=== PATIENT | male | born 1930 | race Caucasian/White ===

== ENCOUNTER 2016-06-10 08:51 | Outpatient (RCR) | payer MEDICARE, OTHER ==
--- OUTSIDE RECORDS SUMMARY | 2016-04-08 09:15 | XMS REPORT | Continuity of Care Document ---
Author Author [facility] Organization [facility] Address Unknown Phone Unavailable Care Team Providers Care Roof Foreman Name Role Phone MARCOS GALVAN MD PCP Insurance Providers Payer Name Policy Number Subscriber Name Relationship Wps Medicare [id number] Ambrosio Tovar 18 Self / Same As Patient [facility] [id number] Ambrosio Tovar 18 Self / Same As Patient Advance Directives Directive Response Recorded Date/Time Advance Directives No 11/08/15 10:58am Health Care Power of Assistant Vice President No 11/08/15 10:58am Organ Donor No 11/08/15 10:58am Problems Active Problems Medical Problem Onset Date Status Aortic stenosis Unknown Acute Lightheadedness Unknown Acute Lightheadedness Unknown Acute Nausea Unknown Acute Medications Current Home Medications Medication Dose Units Route Directions Days/Qty Instructions Start Date Aspirin 81 Mg 81 Mg Oral Daily 10/04/15 Omeprazole 20 Mg 20 Mg Oral Daily 10/04/15 Ezetimibe/Simvastatin 1 Each 1 Each Oral Daily 10/04/15 Candesartan Cilexetil 32 Mg 32 Mg Oral Daily 10/04/15 Hydrocodone/Acetaminophen 1 Each 1 Each Oral Every 4HRS as needed for Pain 35 11/20/15 Past Home Medications Medication Directions Ordered Status Omeprazole 40 Mg Capsule.dr, 40 Mg Oral Daily 09/15/14 Discontinued Simvastatin 20 Mg Tablet, 20 Mg Oral Daily 09/15/14 Discontinued Losartan Potassium 100 Mg Tablet, 100 Mg Oral Daily 09/15/14 Discontinued Amlodipine Besylate 10 Mg Tablet, 10 Mg Oral Daily 09/15/14 Discontinued Aspirin 81 Mg Tabec, 81 Mg Oral Daily 09/15/14 Discontinued Tamsulosin Hcl 0.4 Mg Cap, 0.4 Mg Oral Daily@1800 09/15/14 Discontinued Social History Social History Problem Response Recorded Date/Time Alcohol Use Rarely Uses 11/08/2015 10:59am Recreational Drug Use No 11/08/2015 10:59am Recent Foreign Travel N SEE [place] 01/01/2016 10:56am Do you dip or chew tobacco? No 10/10/2015 8:33am Hospital Discharge Instructions No hospital discharge instructions. Plan of Care Prescriptions See Medication Section Functional Status No functional status results. Allergies, Adverse Reactions, Alerts No known allergies. Immunizations No immunization records. Vital Signs No known vital signs results. Results Laboratory Results Test Name Result Units Flags Reference Collection Date/Time Result Date/ Time Comments White Blood Count 5.8 10^3/uL 4.3-11.0 03/12/2016 9:1503/12/2016 9: 21am Red Blood Count 3.51 10^6/uL L 4.35-5.85 03/12/2016 9:1503/12/2016 9: 21am Hemoglobin 11.6 G/DL L 13.3-17.7 03/12/2016 9:1503/12/2016 9:21am Hematocrit 34 % L 40-54 03/12/2016 9:03/12/2016 9:21am Mean Corpuscular Volume 97 FL 80-99 03/12/2016 9:03/12/2016 9: 21am Mean Corpuscular Hemoglobin 33 PG 25-34 03/12/2016 9:03/12/2016 9: 21am Mean Corpuscular Hemoglobin Concent 34 G/DL 32-36 03/12/2016 9:1501/2016 9:21am Red Cell Distribution Width 18.1 % H 10.0-14.5 03/12/2016 9:152015 9:21am Platelet Count 172 10^3/uL 130-400 03/12/2016 9:1503/12/2016 9:21am Mean Platelet Volume 9.6 FL 7.4-10.4 03/12/2016 9:1503/12/2016 9: 21am Neutrophils (%) (Auto) 67 % 42-75 03/12/2016 9:03/12/2016 9:21am Lymphocytes (%) (Auto) 16 % 12-44 03/12/2016 9:03/12/2016 9:21am Monocytes (%) (Auto) 13 % H 0-12 03/12/2016 9:1503/12/2016 9:21am Eosinophils (%) (Auto) 4 % 0-10 03/12/2016 9:03/12/2016 9:21am Basophils (%) (Auto) 0 % 0-10 03/12/2016 9:03/12/2016 9:21am Neutrophils # (Auto) 3.9 X 10^3 1.8-7.8 03/12/2016 9:03/12/2016 9: 21am Lymphocytes # (Auto) 0.9 X 10^3 L 1.0-4.0 03/12/2016 9:03/12/2016 9: 21am Monocytes # (Auto) 0.8 X 10^3 0.0-1.0 03/12/2016 9:03/12/2016 9: 21am Eosinophils # (Auto) 0.2 10^3/uL 0.0-0.3 03/12/2016 9:03/12/2016 9 :21am Basophils # (Auto) 0.0 10^3/uL 0.0-0.1 03/12/2016 9:03/12/2016 9: 21am Sodium Level 138 MMOL/L 135-145 03/12/2016 9:03/12/2016 9:46am Potassium Level 4.4 MMOL/L 3.6-5.0 03/12/2016 9:1503/12/2016 9:46am Chloride Level 107 MMOL/L 98-107 03/12/2016 9:03/12/2016 9:46am Carbon Dioxide Level 22 MMOL/L 21-32 03/12/2016 9:1503/12/2016 9: 46am Anion Gap 9 MMOL/L 5-14 03/12/2016 9:1503/12/2016 9:46am Blood Urea Nitrogen 22 MG/DL H 7-18 03/12/2016 9:03/12/2016 9:46am Creatinine 1.05 MG/DL 0.60-1.30 03/12/2016 9:03/12/2016 9:46am BUN/Creatinine Ratio 21 03/12/2016 9:03/12/2016 9:46am Estimat Glomerular Filtration Rate > 60 03/12/2016 9:2015 9:46am GFR INTERPRETIVE DATA UNITS FOR ESTIMATED GFR (eGFR): mL/min/1.73 M2 REFERENCE RANGE FOR ESTIMATED GFR (eGFR) eGFR NORMAL eGFR >60 MODERATELY DECREASED eGFR 30-59 SEVERLY DECREASED eGFR 15-29 KIDNEY FAILURE <15 (OR DIALYSIS) Glucose Level 125 MG/DL H 70-105 03/12/2016 9:03/12/2016 9:46am Calcium Level 9.1 MG/DL 8.5-10.1 03/12/2016 9:03/12/2016 9:46am Magnesium Level 2.1 MG/DL 1.8-2.4 03/12/2016 9:03/12/2016 9:46am Total Bilirubin 0.6 MG/DL 0.1-1.0 03/12/2016 9:03/12/2016 9:46am Alkaline Phosphatase 115 U/L 40-136 03/12/2016 9:03/12/2016 9: 46am Aspartate Amino Transf (AST/SGOT) 20 U/L 5-34 03/12/2016 9:2015 9:46am Alanine Aminotransferase (ALT/SGPT) 11 U/L 0-55 03/12/2016 9:03/12 9:46am Total Protein 7.9 G/DL 6.4-8.2 03/12/2016 9:03/12/2016 9:46am Albumin 4.1 G/DL 3.2-4.5 03/12/2016 9:03/12/2016 9:46am Procedures No known history of procedures. Encounters Encounter Location Arrival/Admit Date Discharge/Depart Date Attending Provider Discharged Recurring [facility] 03/12/16 9:07am 11:59pm STARLA GARDNER MD
[2016-04-08 09:24] LABS: BASOPHILS % (AUTO) 0 % (0-10); EOSINOPHILS # (AUTO) 0.2 10^3/uL (0.0-0.3); EOSINOPHILS % (AUTO) 3 % (0-10); LYMPHOCYTES # (AUTO) 1.1 X 10^3 (1.0-4.0); LYMPHOCYTES % (AUTO) 14 % (12-44); MEAN CORPUSCULAR HEMOGLOBIN 34 PG (25-34); MEAN CORPUSCULAR HGB CONC 34 G/DL (32-36); MEAN CORPUSCULAR VOLUME 100 FL (80-99); MONOCYTES % (AUTO) 13 % (0-12); NEUTROPHILS # (AUTO) 5.3 X 10^3 (1.8-7.8); NEUTROPHILS % (AUTO) 69 % (42-75); PLATELET COUNT 154 10^3/uL (130-400); RED BLOOD COUNT 3.63 10^6/uL (4.35-5.85); RED CELL DISTRIBUTION WIDTH 16.1 % (10.0-14.5); WHITE BLOOD COUNT 7.6 10^3/uL (4.3-11.0)
[2016-04-08 09:54] LABS: ALANINE AMINOTRANSFERASE 14 U/L (0-55); ALBUMIN 4.2 G/DL (3.2-4.5); ANION GAP 9 MMOL/L (5-14); ASPARTATE AMINO TRANSFERASE 20 U/L (5-34); BILIRUBIN,TOTAL 0.6 MG/DL (0.1-1.0); BLOOD UREA NITROGEN 23 MG/DL (7-18); BUN/CREATININE RATIO 21; CALCIUM 9.4 MG/DL (8.5-10.1); CARBON DIOXIDE 23 MMOL/L (21-32); CHLORIDE 106 MMOL/L (98-107); CREATININE SERUM 1.07 MG/DL (0.60-1.30); GFR ESTIMATED > 60; GLUCOSE 98 MG/DL (70-105); SODIUM 138 MMOL/L (135-145); TOTAL PROTEIN 7.2 G/DL (6.4-8.2)
[2016-04-29 08:55] LABS: BASOPHILS % (AUTO) 0 % (0-10); EOSINOPHILS # (AUTO) 0.3 10^3/uL (0.0-0.3); EOSINOPHILS % (AUTO) 5 % (0-10); LYMPHOCYTES # (AUTO) 1.1 X 10^3 (1.0-4.0); LYMPHOCYTES % (AUTO) 17 % (12-44); MEAN CORPUSCULAR HEMOGLOBIN 35 PG (25-34); MEAN CORPUSCULAR HGB CONC 34 G/DL (32-36); MEAN CORPUSCULAR VOLUME 101 FL (80-99); MEAN PLATELET VOLUME 9.5 FL (7.4-10.4); MONOCYTES # (AUTO) 0.8 X 10^3 (0.0-1.0); MONOCYTES % (AUTO) 12 % (0-12); NEUTROPHILS # (AUTO) 4.3 X 10^3 (1.8-7.8); NEUTROPHILS % (AUTO) 66 % (42-75); PLATELET COUNT 187 10^3/uL (130-400); RED BLOOD COUNT 3.44 10^6/uL (4.35-5.85); RED CELL DISTRIBUTION WIDTH 15.7 % (10.0-14.5); WHITE BLOOD COUNT 6.6 10^3/uL (4.3-11.0)
[2016-04-29 09:25] LABS: ALANINE AMINOTRANSFERASE 13 U/L (0-55); ANION GAP 7 MMOL/L (5-14); ASPARTATE AMINO TRANSFERASE 20 U/L (5-34); BILIRUBIN,TOTAL 0.4 MG/DL (0.1-1.0); BLOOD UREA NITROGEN 20 MG/DL (7-18); BUN/CREATININE RATIO 19; CALCIUM 8.9 MG/DL (8.5-10.1); CARBON DIOXIDE 27 MMOL/L (21-32); CHLORIDE 106 MMOL/L (98-107); CREATININE SERUM 1.04 MG/DL (0.60-1.30); GFR ESTIMATED > 60; GLUCOSE 120 MG/DL (70-105); POTASSIUM 4.5 MMOL/L (3.6-5.0); SODIUM 140 MMOL/L (135-145)
[2016-05-20 09:08] LABS: BASOPHILS % (AUTO) 0 % (0-10); EOSINOPHILS # (AUTO) 0.3 10^3/uL (0.0-0.3); EOSINOPHILS % (AUTO) 5 % (0-10); LYMPHOCYTES # (AUTO) 1.2 X 10^3 (1.0-4.0); LYMPHOCYTES % (AUTO) 17 % (12-44); MEAN CORPUSCULAR HEMOGLOBIN 35 PG (25-34); MEAN CORPUSCULAR HGB CONC 34 G/DL (32-36); MEAN CORPUSCULAR VOLUME 102 FL (80-99); MEAN PLATELET VOLUME 10.4 FL (7.4-10.4); MONOCYTES # (AUTO) 0.8 X 10^3 (0.0-1.0); MONOCYTES % (AUTO) 12 % (0-12); NEUTROPHILS # (AUTO) 4.7 X 10^3 (1.8-7.8); NEUTROPHILS % (AUTO) 66 % (42-75); PLATELET COUNT 172 10^3/uL (130-400); RED BLOOD COUNT 3.58 10^6/uL (4.35-5.85); RED CELL DISTRIBUTION WIDTH 15.6 % (10.0-14.5)
[2016-05-20 09:35] LABS: ALANINE AMINOTRANSFERASE 10 U/L (0-55); ALBUMIN 4.2 G/DL (3.2-4.5); ANION GAP 8 MMOL/L (5-14); ASPARTATE AMINO TRANSFERASE 22 U/L (5-34); BILIRUBIN,TOTAL 0.5 MG/DL (0.1-1.0); BLOOD UREA NITROGEN 21 MG/DL (7-18); BUN/CREATININE RATIO 20; CALCIUM 9.2 MG/DL (8.5-10.1); CARBON DIOXIDE 26 MMOL/L (21-32); CHLORIDE 105 MMOL/L (98-107); CREATININE SERUM 1.06 MG/DL (0.60-1.30); GFR ESTIMATED > 60; GLUCOSE 109 MG/DL (70-105); POTASSIUM 4.6 MMOL/L (3.6-5.0); SODIUM 139 MMOL/L (135-145); TOTAL PROTEIN 7.3 G/DL (6.4-8.2)
[2016-05-20 16:06] LABS: RETICULOCYTE % 2.83 % (0.50-2.40)
[2016-05-21 11:32] LABS: %SAT TOTAL IRON BINDING CAPIC 22 % (15-50); TIBC 328 ug/dL (280-380)
[2016-05-21 15:22] LABS: UIBC 257 ug/dL (55-450)
[2016-05-22 06:24] LABS: FERRITIN 141 ng/mL (25-300); HAPTOGLOBIN <30.0 mg/dL (37.0-184.0)
[~2016-06-10 08:51] MED LIST: AMLO10TA PO; ASPI-586 PO; ASPI-892 PO; CAND32TA2 PO; EZET1TAB29 PO; HYDR-3730 PO; LOSA100T7 PO; OMEP20CA6 PO; OMEP40CA36 PO; SIMV20TA3 PO; TMSL.4C PO
[2016-06-10 09:20] LABS: BASOPHILS % (AUTO) 0 % (0-10); EOSINOPHILS # (AUTO) 0.3 10^3/uL (0.0-0.3); EOSINOPHILS % (AUTO) 4 % (0-10); LYMPHOCYTES # (AUTO) 1.1 X 10^3 (1.0-4.0); LYMPHOCYTES % (AUTO) 16 % (12-44); MEAN CORPUSCULAR HEMOGLOBIN 34 PG (25-34); MEAN CORPUSCULAR HGB CONC 33 G/DL (32-36); MEAN CORPUSCULAR VOLUME 101 FL (80-99); MEAN PLATELET VOLUME 9.8 FL (7.4-10.4); MONOCYTES # (AUTO) 0.9 X 10^3 (0.0-1.0); MONOCYTES % (AUTO) 14 % (0-12); NEUTROPHILS # (AUTO) 4.4 X 10^3 (1.8-7.8); NEUTROPHILS % (AUTO) 66 % (42-75); PLATELET COUNT 172 10^3/uL (130-400); RED CELL DISTRIBUTION WIDTH 15.4 % (10.0-14.5); WHITE BLOOD COUNT 6.7 10^3/uL (4.3-11.0)
[2016-06-10 09:52] LABS: ALANINE AMINOTRANSFERASE 12 U/L (0-55); ANION GAP 5 MMOL/L (5-14); ASPARTATE AMINO TRANSFERASE 19 U/L (5-34); BILIRUBIN,TOTAL 0.5 MG/DL (0.1-1.0); BLOOD UREA NITROGEN 23 MG/DL (7-18); BUN/CREATININE RATIO 23; CALCIUM 9.3 MG/DL (8.5-10.1); CARBON DIOXIDE 26 MMOL/L (21-32); CHLORIDE 109 MMOL/L (98-107); GFR ESTIMATED > 60; GLUCOSE 108 MG/DL (70-105); POTASSIUM 4.7 MMOL/L (3.6-5.0); SODIUM 140 MMOL/L (135-145); TOTAL PROTEIN 6.9 G/DL (6.4-8.2)
== END 2016-07-07 | disposition home or self-care (01) ==
LOC: ONC 08:51
PROVIDERS: ATTEND Internal Medicine Hematology & Oncology
DX: C18.0 Malignant neoplasm of cecum (principal); D64.9 Anemia, unspecified; I10 Essential (primary) hypertension; E78.5 Hyperlipidemia, unspecified; I25.10 Atherosclerotic heart disease of native coronary artery without angina pectoris; Z87.891 Personal history of nicotine dependence; Z79.899 Other long term (current) drug therapy
CPT/HCPCS: 36415; 80053; 82378; 82728; 83010; 83540; 85025; 85045; 99213

== ENCOUNTER → 2016-07-16 | Outpatient (CLI) | payer MEDICARE, OTHER ==
[~2016-07-16] MED LIST changes: +AMLO10TA2 PO; +BARIUM SUSPENSION 2.1% (VANILLA SILQ) 450 ML PO ONE; +IOHEXOL 350 MG/ML 100 ML (OMNIPAQUE 350) VIAL IV ONE; +LOSA100T28 PO; +NS 100 ML (IVPB) BAG IV ONE; +TAMS0.4C98 PO
--- OUTSIDE RECORDS SUMMARY | 2016-07-16 10:02 | XMS REPORT | Continuity of Care Document ---
Author Author [facility] Organization [facility] Address Unknown Phone Unavailable Care Team Providers Care Adaptive Physical Education Specialist Name Role Phone MARCOS GALVAN MD PCP Insurance Providers Payer Name Policy Number Subscriber Name Relationship Wps Medicare [id number] Ambrosio Tovar 18 Self / Same As Patient [facility] [id number] Ambrosio Tovar 18 Self / Same As Patient Advance Directives Directive Response Recorded Date/Time Advance Directives No 11/08/15 10:58am Health Care Power of Venereal Disease Investigator No 11/08/15 10:58am Organ Donor No 11/08/15 [...] Discharge/Depart Date Attending Provider Discharged Recurring [facility] 03/12/16 9:07am 11:59pm STARLA GARDNER MD
--- NOTE | 2016-07-16 12:41 | Diagnostic Imaging Report ---
PROCEDURE: CT chest, abdomen, and pelvis with contrast. TECHNIQUE: Multiple contiguous axial images were obtained through the chest, abdomen, and pelvis after the administration of intravenous contrast. INDICATION: Colon cancer followup. COMPARISON: 09/26/15 100 mL of Omnipaque 350 is administered intravenously. FINDINGS: CT chest: The heart size is slightly enlarged. There are coronary artery calcifications and evidence of prior sternotomy with healing. Sternotomy wires are still present. No axillary or mediastinal or hilar lymphadenopathy of significance seen. The lungs demonstrate no significant consolidation or mass. There are minimal foci of likely atelectasis in the lung bases. Mild interlobular septal thickening in the bases is also seen, may relate to minimal vascular congestion. No significant effusion. No pneumothorax. The osseous structures demonstrate mild degenerative changes. CT abdomen and pelvis: The liver is fairly homogeneous with no focal mass. The spleen is not enlarged. The pancreas and the left adrenal gland appear unremarkable. The right adrenal gland demonstrates a tiny nodule with low attenuation suggestive of a lipid-rich adenoma measuring 1.1 cm in size stable from the previous study. The kidneys have symmetric enhancement and contrast excretion. Simple renal cysts are seen in both kidneys up to 2.2 cm in size in the upper pole of the right kidney. There are surgical clips in the gallbladder bed and there are surgical clips in the mid right abdomen. There is diverticulosis mostly involving the sigmoid and descending colon. No diverticulitis. No bowel obstruction. No significant free fluid or fluid collection in the abdomen or pelvis seen. The urinary bladder appears unremarkable. The prostate gland is 4.3 cm in transverse dimension, not significantly enlarged. The abdominal aorta is normal in caliber. No para-aortic lymphadenopathy seen. No pelvic lymphadenopathy of significance is noted. There are degenerative changes in the facet joints in the lower lumbar spine. There is a stable sclerotic lesion in the L4 vertebral body from 2011 exam compatible with benign etiology. IMPRESSION: 1. CT chest: Mild interlobular septal thickening in the lung bases may relate to minimal vascular congestion. No evidence of metastasis. 2. CT abdomen and pelvis: Diverticulosis. No diverticulitis. No evidence of metastasis. Dictated by: Dictated on workstation # [id number]
== END ==
LOC: RAD 10:00
PROVIDERS: ATTEND Internal Medicine Hematology & Oncology
DX: C18.0 Malignant neoplasm of cecum (principal); K57.30 Diverticulosis of large intestine without perforation or abscess without bleeding
CPT/HCPCS: 71260; 74177

== ENCOUNTER 2016-07-30 07:34 | Day surgery (SDC) | payer MEDICARE, OTHER ==
[2016-07-30] VITALS (10 sets, daily range): BP systolic 133–150; BP diastolic 66–88
[~2016-07-30] VITALS: Ht 172.7 cm; Wt 90.7 kg
[~2016-07-30 07:34] MED LIST changes: -AMLO10TA2 PO; -BARIUM SUSPENSION 2.1% (VANILLA SILQ) 450 ML PO ONE; -IOHEXOL 350 MG/ML 100 ML (OMNIPAQUE 350) VIAL IV ONE; -LOSA100T28 PO; -NS 100 ML (IVPB) BAG IV ONE; -TAMS0.4C98 PO
--- OUTSIDE RECORDS SUMMARY | 2016-07-30 07:37 | XMS REPORT | Continuity of Care Document ---
Author Author [facility] Organization [facility] Address Unknown Phone Unavailable Care Team Providers Care Ball Point Splitter Name Role Phone MARCOS GALVAN MD PCP Insurance Providers Payer Name Policy Number Subscriber Name Relationship Wps Medicare [id number] Ambrosio Tovar 18 Self / Same As Patient [facility] [id number] Ambrosio Tovar 18 Self / Same As Patient Advance Directives Directive Response Recorded Date/Time Advance Directives No 11/08/15 10:58am Health Care Power of Delivery Director No 11/08/15 10:58am Organ Donor No 11/08/15 [...] Discharge/Depart Date Attending Provider Discharged Recurring [facility] 03/12/16 9:07am 11:59pm STARLA GARDNER MD
--- OUTSIDE RECORDS SUMMARY | 2016-07-30 07:38 | XMS REPORT | Continuity of Care Document ---
Author Author [facility] Organization [facility] Address Unknown Phone Unavailable Care Team Providers Care Curer Acid Drum Name Role Phone MARCOS GALVAN MD PCP Insurance Providers Payer Name Policy Number Subscriber Name Relationship Wps Medicare [id number] Ambrosio Tovar 18 Self / Same As Patient [facility] [id number] Ambrosio Tovar 18 Self / Same As Patient Advance Directives Directive Response Recorded Date/Time Advance Directives No 11/08/15 10:58am Health Care Power of Publicity Agent No 11/08/15 10:58am Organ Donor No 11/08/15 [...] Discharge/Depart Date Attending Provider Discharged Recurring [facility] 03/12/16 9:07am 11:59pm STARLA GARDNER MD
[2016-07-30] MEDS ORDERED: LIDOCAINE 2% VISCOUS 15 ML UDC ONE (08:22)
[2016-07-30] MEDS ORDERED: NS IV 1000 ML 1,000 ML ONE (08:22)
[2016-07-30 09:59] LABS: MEAN PLATELET VOLUME 10.7 FL (7.4-10.4); RED BLOOD COUNT 4.12 10^6/uL (4.35-5.85); RED CELL DISTRIBUTION WIDTH 13.1 % (10.0-14.5); WHITE BLOOD COUNT 6.4 10^3/uL (4.3-11.0)
[2016-07-30 10:13] LABS: PROTHROMBIN TIME PATIENT 13.1 SEC (12.2-14.7)
--- NOTE | 2016-07-30 10:17 | Diagnostic Imaging Report ---
INDICATION: Coronary artery disease. EXAMINATION: Portable chest at 10 AM. FINDINGS: There are postop changes from a median sternotomy. The heart size and pulmonary vascularity are normal. The lungs are clear. There are no effusions or pneumothoraces. IMPRESSION: No acute abnormalities in the chest. Dictated by: Dictated on workstation # [id number]
[2016-07-30 10:20] LABS: ALANINE AMINOTRANSFERASE 15 U/L (0-55); ALBUMIN 4.4 G/DL (3.2-4.5); ANION GAP 9 MMOL/L (5-14); ASPARTATE AMINO TRANSFERASE 23 U/L (5-34); BILIRUBIN,TOTAL 0.6 MG/DL (0.1-1.0); BLOOD UREA NITROGEN 23 MG/DL (7-18); BUN/CREATININE RATIO 22; CALCIUM 9.2 MG/DL (8.5-10.1); CARBON DIOXIDE 23 MMOL/L (21-32); CHLORIDE 106 MMOL/L (98-107); CHOLESTEROL 165 MG/DL (< 200); CREATININE SERUM 1.03 MG/DL (0.60-1.30); DIRECT LDL 103 MG/DL (1-129); GFR ESTIMATED > 60; GLUCOSE 91 MG/DL (70-105); POTASSIUM 4.7 MMOL/L (3.6-5.0); SODIUM 138 MMOL/L (135-145); TOTAL PROTEIN 7.4 G/DL (6.4-8.2); TRIGLYCERIDES 135 MG/DL (<150); VLDL CHOLESTEROL 27 MG/DL (5-40)
[2016-07-30] MEDS ORDERED: fentaNYL INJECTION 100 MCG/2 ML AMP ONE (10:39)
[2016-07-30] MEDS ORDERED: MIDAZOLAM 5 MG/5 ML (VERSED) VIAL ONE (10:39)
--- NOTE | 2016-07-30 10:40 | Cardiac Procedure Note-CS/ASA ---
Pre-Procedure Note Pre-Op Procedure Note H&P Reviewed The H&P was reviewed, patient examined and no changes noted. Date H&P Reviewed: Jul 30, 2016 Time H&P Reviewed: 10:40 Conscious Sedation Pre-Proced Time Reviewed: 10:40 ASA Class: 3 Airway Mallampati Classification: ([place] appropriate class) I. II. III, IV Lungs Heart ASA score ASA 1: a normal healthy patient ASA 2: a patient with a mild systemic disease (mid diabetes, controlled hypertension, obesity X ASA 3: a patient with a severe systemic disease that limits activity (angina , COPD, prior Myocardial infarction) ASA 4: a patient with an incapacitating disease that is a constant threat to life (CHF, renal failure) ASA 5: a moribund patient not expected to survive 24 hrs. (ruptured aneurysm) ASA 6: a declared brain patient whose organs are being harvested. For emergent operations, add the letter E after the classification Grade 3 Sedation Plan: Analgesia, Amnesia, Plan communicated to team members, Discussed options with patient/fam, Discussed risks with patient/fam Note The patient is an appropriate candidate to undergo the planned procedure, sedation, and anesthesia. The patient immediately re-assessed prior to indication. MONY CLEMENTS MD Jul 30, 2016 10:40
[2016-07-30] MEDS ORDERED: TAMS0.4C98 PO ×2 (11:01)
[2016-07-30] MEDS ORDERED: SIMV20TA3 PO (11:01)
[2016-07-30] MEDS ORDERED: LOSA100T28 PO (11:01)
[2016-07-30] MEDS ORDERED: AMLO10TA2 PO (11:01)
[2016-07-30] MEDS ORDERED: NS IV 1000 ML 1,000 ML IV ONE (11:06)
[2016-07-30] MEDS ORDERED: fentaNYL INJECTION 100 MCG/2 ML AMP INJ PRN (11:15)
[2016-07-30] MEDS ORDERED: HURRICAINE EXT TUBE (BENZOCAINE) XX PRN (11:15)
[2016-07-30] MEDS ORDERED: MIDAZOLAM 5 MG/5 ML (VERSED) VIAL IV PRN (11:15)
--- NOTE | 2016-07-31 11:37 | TEE REPORT ---
DATE OF PROCEDURE: 07/30/2016 REFERRING PHYSICIAN: Dr. Jamison and Dr. Mireles BRIEF HISTORY: Mr. Murcia is an 85-year-old gentleman with history of aortic valve replacement. History of interatrial septal hypertrophy. He was scheduled for TUNDE evaluation. PROCEDURE NOTE: After explaining the procedure to the patient, all pros and cons were explained. All questions were answered. The patient signed a consent, then he was placed on the cardiac catheterization laboratory. On the left lateral decubitus position the oropharynx was anesthetized using Cetacaine spray. Omniplane probe was introduced through the mouth the esophagus and then into the stomach. Multiple views were obtained. At the end of the procedure Omniplane probe was removed. No complication noted. FINDINGS: 1. The left ventricle is normal in size with mild to moderate left ventricular hypertrophy noted diffusely. Systolic function is normal. Estimated ejection fraction 60%. 2. The left atrium is dilated. The left atrial appendage appeared to be closed. There is no clot or thrombus were seen. 3. The right atrium and right ventricle are normal in size. 4. Interatrial septum evaluation showed persistent hypertrophy that was noted on a previous TUNDE; the largest measurement was 2.3 cm, no shunt was noted. 5. Mitral valve is calcified with moderate mitral regurgitation noted by color Doppler flow. 6. Aortic valve evaluation showed tricuspid valve in the aortic position functioning normally. No significant aortic stenosis or regurgitation was seen. 7. Tricuspid valve and pulmonic valve are normal. 8. No pericardial effusion. CONCLUSION: 1. Equine valve in the aortic position, trileaflet, functioning normally with no significant abnormality, mild aortic regurgitation. 2. Mild left ventricular hypertrophy with normal systolic function. Estimated ejection fraction 60%. 3. Mild to moderate mitral regurgitation. 4. Intra-atrial septum evaluation showed hypertrophy measuring up to 2.3 cm, no significant change compared to the study of October 2005. 5. Systolic plaques were noted in the thoracic aorta. DISCUSSION AND RECOMMENDATION: The patient was referred back to Dr. Mireles for follow-up. Job ID: [id number] Dictated Date: 07/30/2016 14:13:31 Enologist Date: 07/31/2016 11:28:45/john BROWN
--- NOTE | 2016-07-31 11:40 | DISCHARGE SUMMARY ---
DATE OF PROCEDURE: 07/30/2016 REFERRING PHYSICIAN: Dr. Jamison and Dr. Mireles BRIEF HISTORY: Mr. Murcia is an 85-year-old gentleman with history of aortic valve replacement. History of interatrial septal hypertrophy. He was scheduled for TUNDE evaluation. PROCEDURE NOTE: After explaining the procedure to the patient, all pros and cons were explained. All questions were answered. The patient signed a consent, then he was placed on the cardiac catheterization laboratory. On the left lateral decubitus position the oropharynx was anesthetized using Cetacaine spray. Omniplane probe was introduced through the mouth the esophagus and then into the stomach. Multiple views were obtained. At the end of the procedure Omniplane probe was removed. No complication noted. FINDINGS: 1. The left ventricle is normal in size with mild to moderate left ventricular hypertrophy noted diffusely. Systolic function is normal. Estimated ejection fraction 60%. 2. The left atrium is dilated. The left atrial appendage appeared to be closed. There is no clot or thrombus were seen. 3. The right atrium and right ventricle are normal in size. 4. Interatrial septum evaluation showed persistent hypertrophy that was noted on a previous TUNDE; the largest measurement was 2.3 cm, no shunt was noted. 5. Mitral valve is calcified with moderate mitral regurgitation noted by color Doppler flow. 6. Aortic valve evaluation showed tricuspid valve in the aortic position functioning normally. No significant aortic stenosis or regurgitation was seen. 7. Tricuspid valve and pulmonic valve are normal. 8. No pericardial effusion. CONCLUSION: 1. Equine valve in the aortic position, trileaflet, functioning normally with no significant abnormality, mild aortic regurgitation. 2. Mild left ventricular hypertrophy with normal systolic function. Estimated ejection fraction 60%. 3. Mild to moderate mitral regurgitation. 4. Intra-atrial septum evaluation showed hypertrophy measuring up to 2.3 cm, no significant change compared to the study of October 2005. 5. Systolic plaques were noted in the thoracic aorta. DISCUSSION AND RECOMMENDATION: The patient was referred back to Dr. Mireles for follow-up. FINAL DIAGNOSIS: 1. Aortic valve replacement. 2. Hypertension. 3. Hyperlipidemia. Job ID: [id number] Dictated Date: 07/30/2016 14:13:31 Tester Operator Date: 07/31/2016 11:37:04/john BROWN
== END 2016-07-30 13:02 | disposition home or self-care (01) ==
LOC: CATH 07:34 → SURG 11:40 → CATH 13:02
PROVIDERS: ATTEND Internal Medicine Cardiovascular Disease
DX: Z48.812 Encounter for surgical aftercare following surgery on the circulatory system (principal); Z95.2 Presence of prosthetic heart valve; I34.0 Nonrheumatic mitral (valve) insufficiency; I25.10 Atherosclerotic heart disease of native coronary artery without angina pectoris; I10 Essential (primary) hypertension; E78.5 Hyperlipidemia, unspecified; I51.7 Cardiomegaly; Z79.899 Other long term (current) drug therapy; Z95.1 Presence of aortocoronary bypass graft
CPT/HCPCS: 36415; 71010; 80053; 80061; 85027; 85610; 85730; 87081; 93005; 93312; 93325

== ENCOUNTER 2016-07-31 09:16 | Outpatient (RCR) | payer MEDICARE, OTHER ==
--- OUTSIDE RECORDS SUMMARY | 2016-07-23 09:14 | XMS REPORT | Continuity of Care Document ---
Author Author [facility] Organization [facility] Address Unknown Phone Unavailable Care Team Providers Care Lens Finisher Name Role Phone MARCOS GALVAN MD PCP Insurance Providers Payer Name Policy Number Subscriber Name Relationship Wps Medicare [id number] Ambrosio Tovar 18 Self / Same As Patient [facility] [id number] Ambrosio Tovar 18 Self / Same As Patient Advance Directives Directive Response Recorded Date/Time Advance Directives No 11/08/15 10:58am Health Care Power of Sheriff Detective No 11/08/15 10:58am Organ Donor No 11/08/15 [...] Discharge/Depart Date Attending Provider Discharged Recurring [facility] 03/12/16 9:07am 11:59pm STARLA GARDNER MD
[2016-07-23 09:32] LABS: BASOPHILS % (AUTO) 0 % (0-10); EOSINOPHILS # (AUTO) 0.2 10^3/uL (0.0-0.3); EOSINOPHILS % (AUTO) 4 % (0-10); LYMPHOCYTES # (AUTO) 0.8 X 10^3 (1.0-4.0); LYMPHOCYTES % (AUTO) 12 % (12-44); MEAN CORPUSCULAR HEMOGLOBIN 33 PG (25-34); MEAN CORPUSCULAR HGB CONC 33 G/DL (32-36); MEAN CORPUSCULAR VOLUME 99 FL (80-99); MEAN PLATELET VOLUME 10.2 FL (7.4-10.4); MONOCYTES # (AUTO) 0.7 X 10^3 (0.0-1.0); MONOCYTES % (AUTO) 11 % (0-12); NEUTROPHILS # (AUTO) 4.5 X 10^3 (1.8-7.8); NEUTROPHILS % (AUTO) 73 % (42-75); PLATELET COUNT 173 10^3/uL (130-400); RED BLOOD COUNT 3.74 10^6/uL (4.35-5.85); RED CELL DISTRIBUTION WIDTH 13.7 % (10.0-14.5); RETICULOCYTE % 1.44 % (0.50-2.40); WHITE BLOOD COUNT 6.2 10^3/uL (4.3-11.0)
[2016-07-23 10:01] LABS: ALANINE AMINOTRANSFERASE 12 U/L (0-55); ALBUMIN 4.1 G/DL (3.2-4.5); ANION GAP 8 MMOL/L (5-14); ASPARTATE AMINO TRANSFERASE 21 U/L (5-34); BILIRUBIN,TOTAL 0.5 MG/DL (0.1-1.0); BLOOD UREA NITROGEN 28 MG/DL (7-18); BUN/CREATININE RATIO 26; CALCIUM 9.2 MG/DL (8.5-10.1); CARBON DIOXIDE 22 MMOL/L (21-32); CHLORIDE 108 MMOL/L (98-107); CREATININE SERUM 1.07 MG/DL (0.60-1.30); GFR ESTIMATED > 60; GLUCOSE 99 MG/DL (70-105); LACTATE DEHYDROGENASE 368 U/L (125-220); POTASSIUM 4.7 MMOL/L (3.6-5.0); SODIUM 138 MMOL/L (135-145); TOTAL PROTEIN 7.1 G/DL (6.4-8.2)
[2016-07-23 11:46] LABS: %SAT TOTAL IRON BINDING CAPIC 19 % (15-50); TIBC 300 ug/dL (280-380)
[2016-07-23 15:42] LABS: UIBC 244 ug/dL (55-450)
[2016-07-24 07:49] LABS: FERRITIN 132 ng/mL (25-300); HAPTOGLOBIN <30.0 mg/dL (37.0-184.0)
[~2016-07-31 09:16] MED LIST changes: +AMLO10TA2 PO; +LOSA100T28 PO; +TAMS0.4C98 PO
== END 2016-10-21 | disposition home or self-care (01) ==
LOC: ONC 09:16
PROVIDERS: ATTEND Internal Medicine Hematology & Oncology
DX: C18.0 Malignant neoplasm of cecum (principal); D64.9 Anemia, unspecified; I10 Essential (primary) hypertension; E78.5 Hyperlipidemia, unspecified; I25.10 Atherosclerotic heart disease of native coronary artery without angina pectoris; Z87.891 Personal history of nicotine dependence; Z79.899 Other long term (current) drug therapy
CPT/HCPCS: 36415; 80053; 82378; 82728; 83010; 83540; 83615; 85025; 85045; 99213

== ENCOUNTER → 2016-08-06 | Outpatient (CLI) | payer MEDICARE, OTHER ==
--- OUTSIDE RECORDS SUMMARY | 2016-08-06 16:23 | XMS REPORT | Continuity of Care Document ---
Author Author [facility] Organization [facility] Address Unknown Phone Unavailable Care Team Providers Care Store Grocery Merchandiser Name Role Phone MARCOS GALVAN MD PCP Insurance Providers Payer Name Policy Number Subscriber Name Relationship Wps Medicare [id number] Ambrosio Tovar 18 Self / Same As Patient [facility] [id number] Ambrosio Tovar 18 Self / Same As Patient Advance Directives Directive Response Recorded Date/Time Advance Directives No 11/08/15 10:58am Health Care Power of Automotive Production Worker No 11/08/15 10:58am Organ Donor No 11/08/15 [...] Discharge/Depart Date Attending Provider Discharged Recurring [facility] 03/12/16 9:07am 11:59pm STARLA GARDNER MD
--- NOTE | 2016-08-06 16:59 | Diagnostic Imaging Report ---
INDICATION: COUGH, DYSPNEA COMPARISON: CT chest dated 07/16/2016. FINDINGS: Frontal and lateral views of the chest demonstrate normal heart size and pulmonary vascularity. The lungs are hyperinflated, but are otherwise clear. There are no signs of infiltrate, pleural effusions or pneumothoraces. The visualized osseous structures show no acute abnormalities. Sternotomy wires are noted, as is calcified aortic atherosclerosis. IMPRESSION: 1. No acute process. No signs of infiltrates, effusions or pneumothoraces. 2. Background of COPD. Dictated by: Dictated on workstation # [id number]
== END ==
LOC: RAD 16:20
PROVIDERS: ATTEND Internal Medicine
DX: J44.9 Chronic obstructive pulmonary disease, unspecified (principal)
CPT/HCPCS: 71020

== ENCOUNTER → 2016-08-20 | Outpatient (CLI) | payer MEDICARE, OTHER ==
[~2016-08-20] MED LIST changes: +RT-ALBUTEROL SULF 2.5 MG/3 ML PRE-MIX VIAL INH ONE
--- OUTSIDE RECORDS SUMMARY | 2016-08-20 08:16 | XMS REPORT | Continuity of Care Document ---
Author Author [facility] Organization [facility] Address Unknown Phone Unavailable Care Team Providers Care Wood Boatbuilder Name Role Phone MARCOS GALVAN MD PCP Insurance Providers Payer Name Policy Number Subscriber Name Relationship Wps Medicare [id number] Ambrosio Tovar 18 Self / Same As Patient [facility] [id number] Ambrosio Tovar 18 Self / Same As Patient Advance Directives Directive Response Recorded Date/Time Advance Directives No 11/08/15 10:58am Health Care Power of Senior Stereo Compiler Team Lead No 11/08/15 10:58am Organ Donor No 11/08/15 [...] Discharge/Depart Date Attending Provider Discharged Recurring [facility] 03/12/16 9:07am 11:59pm STARLA GARDNER MD
== END ==
LOC: RT 08:11
PROVIDERS: ATTEND Internal Medicine
DX: J44.9 Chronic obstructive pulmonary disease, unspecified (principal)
CPT/HCPCS: 94060; 94640; 94726; 94729

== ENCOUNTER 2016-11-20 08:44 | Outpatient (RCR) | payer MEDICARE, OTHER ==
[~2016-11-20 08:44] MED LIST changes: -RT-ALBUTEROL SULF 2.5 MG/3 ML PRE-MIX VIAL INH ONE
[2016-11-20 08:55] LABS: BASOPHILS % (AUTO) 1 % (0-10); EOSINOPHILS # (AUTO) 0.3 10^3/uL (0.0-0.3); EOSINOPHILS % (AUTO) 4 % (0-10); LYMPHOCYTES # (AUTO) 0.9 X 10^3 (1.0-4.0); LYMPHOCYTES % (AUTO) 14 % (12-44); MEAN CORPUSCULAR HEMOGLOBIN 30 PG (25-34); MEAN CORPUSCULAR HGB CONC 33 G/DL (32-36); MEAN CORPUSCULAR VOLUME 91 FL (80-99); MEAN PLATELET VOLUME 10.6 FL (7.4-10.4); MONOCYTES # (AUTO) 0.8 X 10^3 (0.0-1.0); MONOCYTES % (AUTO) 12 % (0-12); NEUTROPHILS # (AUTO) 4.7 X 10^3 (1.8-7.8); NEUTROPHILS % (AUTO) 70 % (42-75); PLATELET COUNT 204 10^3/uL (130-400); RED BLOOD COUNT 4.17 10^6/uL (4.35-5.85); RED CELL DISTRIBUTION WIDTH 13.1 % (10.0-14.5); RETICULOCYTE % 1.46 % (0.50-2.40); WHITE BLOOD COUNT 6.8 10^3/uL (4.3-11.0)
[2016-11-20 09:15] LABS: ALANINE AMINOTRANSFERASE 14 U/L (0-55); ALBUMIN 3.9 G/DL (3.2-4.5); ANION GAP 6 MMOL/L (5-14); ASPARTATE AMINO TRANSFERASE 22 U/L (5-34); BILIRUBIN,TOTAL 0.3 MG/DL (0.1-1.0); BLOOD UREA NITROGEN 24 MG/DL (7-18); BUN/CREATININE RATIO 25; CALCIUM 9.4 MG/DL (8.5-10.1); CARBON DIOXIDE 26 MMOL/L (21-32); CHLORIDE 104 MMOL/L (98-107); CREATININE SERUM 0.97 MG/DL (0.60-1.30); GFR ESTIMATED > 60; GLUCOSE 109 MG/DL (70-105); LACTATE DEHYDROGENASE 404 U/L (125-220); POTASSIUM 4.4 MMOL/L (3.6-5.0); SODIUM 136 MMOL/L (135-145)
[2016-11-20 11:30] LABS: %SAT TOTAL IRON BINDING CAPIC 25 % (15-50); TIBC 260 ug/dL (280-380)
[2016-11-20 16:17] LABS: UIBC 194 ug/dL
[2016-11-21 10:06] LABS: HAPTOGLOBIN <30.0 mg/dL (37.0-184.0)
== END 2017-02-18 | disposition home or self-care (01) ==
LOC: ONC 08:44
PROVIDERS: ATTEND Internal Medicine Hematology & Oncology
DX: C18.0 Malignant neoplasm of cecum (principal); D64.9 Anemia, unspecified; I10 Essential (primary) hypertension; E78.5 Hyperlipidemia, unspecified; I25.10 Atherosclerotic heart disease of native coronary artery without angina pectoris; Z87.891 Personal history of nicotine dependence; Z79.899 Other long term (current) drug therapy
CPT/HCPCS: 36415; 80053; 82378; 82728; 83010; 83540; 83615; 85025; 85045; 99213

== ENCOUNTER → 2017-03-13 | Outpatient (CLI) | payer MEDICARE, OTHER ==
[~2017-03-13] MED LIST changes: +BARIUM SUSPENSION 2.1% (VANILLA SILQ) 450 ML PO ONE; +CATHETER FLUSH 10 ML SYR IV PRN; +IOHEXOL 350 MG/ML 100 ML (OMNIPAQUE 350) VIAL IV ONE; +NS 100 ML (IVPB) BAG IV ONE
--- NOTE | 2017-03-13 14:19 | Diagnostic Imaging Report ---
PROCEDURE: CT abdomen and pelvis with and without contrast. TECHNIQUE: Precontrast acquisitions were acquired through the abdomen and pelvis. Multiple contiguous axial images were obtained through the abdomen and pelvis after the administration of intravenous contrast. INDICATION: History of cecal cancer. Exam compared 07/16/2016. FINDINGS: There is extensive noninflamed distal colonic and sigmoidal diverticulosis. There are postoperative changes in the right abdomen and residual large bowel unremarkable and nonacute. No obstruction. No perforation or abscess. The liver unremarkable. The gallbladder absent. There is renal cortical cyst with no hydronephrosis or solid renal mass. Spleen is negative. There is no mesenteric or retroperitoneal adenopathy. There is no ascites, abscess, hematoma or other fluid collection. IMPRESSION: Negative liver. No visualized adenopathy, mass or obstruction. Benign renal cyst and noninflamed diverticular disease. No acute pathology or change from prior. Dictated by: Dictated on workstation # [id number]
== END ==
LOC: RAD 10:40
PROVIDERS: ATTEND Internal Medicine Hematology & Oncology
DX: K57.30 Diverticulosis of large intestine without perforation or abscess without bleeding (principal); N28.1 Cyst of kidney, acquired; D59.4 Other nonautoimmune hemolytic anemias; C18.0 Malignant neoplasm of cecum
CPT/HCPCS: 74178

== ENCOUNTER 2017-03-26 09:03 | Outpatient (RCR) | payer MEDICARE, OTHER ==
[2017-03-13 10:47] LABS: BASOPHILS % (AUTO) 0 % (0-10); EOSINOPHILS # (AUTO) 0.2 10^3/uL (0.0-0.3); EOSINOPHILS % (AUTO) 3 % (0-10); LYMPHOCYTES % (AUTO) 15 % (12-44); MEAN CORPUSCULAR HEMOGLOBIN 30 PG (25-34); MEAN CORPUSCULAR HGB CONC 33 G/DL (32-36); MEAN CORPUSCULAR VOLUME 91 FL (80-99); MEAN PLATELET VOLUME 10.7 FL (7.4-10.4); MONOCYTES # (AUTO) 0.7 X 10^3 (0.0-1.0); MONOCYTES % (AUTO) 11 % (0-12); NEUTROPHILS # (AUTO) 4.7 X 10^3 (1.8-7.8); NEUTROPHILS % (AUTO) 71 % (42-75); PLATELET COUNT 207 10^3/uL (130-400); RED BLOOD COUNT 4.09 10^6/uL (4.35-5.85); RED CELL DISTRIBUTION WIDTH 13.4 % (10.0-14.5); RETICULOCYTE % 1.23 % (0.50-2.40); WHITE BLOOD COUNT 6.7 10^3/uL (4.3-11.0)
[2017-03-13 10:59] LABS: ALANINE AMINOTRANSFERASE 15 U/L (0-55); ALBUMIN 4.2 GM/DL (3.2-4.5); ANION GAP 9 MMOL/L (5-14); ASPARTATE AMINO TRANSFERASE 24 U/L (5-34); BILIRUBIN,TOTAL 0.5 MG/DL (0.1-1.0); BLOOD UREA NITROGEN 26 MG/DL (7-18); BUN/CREATININE RATIO 25; CALCIUM 9.3 MG/DL (8.5-10.1); CARBON DIOXIDE 23 MMOL/L (21-32); CHLORIDE 105 MMOL/L (98-107); CREATININE SERUM 1.02 MG/DL (0.60-1.30); GFR ESTIMATED > 60; GLUCOSE 94 MG/DL (70-105); POTASSIUM 4.4 MMOL/L (3.6-5.0); SODIUM 137 MMOL/L (135-145); TOTAL PROTEIN 7.5 GM/DL (6.4-8.2)
[2017-03-13 14:12] LABS: %SAT TOTAL IRON BINDING CAPIC 25 % (15-50); TIBC 264 ug/dL (280-380)
[2017-03-13 14:39] LABS: UIBC 197 ug/dL (55-450)
[2017-03-16 07:55] LABS: HAPTOGLOBIN <30.0 mg/dL (37.0-184.0)
[~2017-03-26 09:03] MED LIST changes: -BARIUM SUSPENSION 2.1% (VANILLA SILQ) 450 ML PO ONE; -CATHETER FLUSH 10 ML SYR IV PRN; -IOHEXOL 350 MG/ML 100 ML (OMNIPAQUE 350) VIAL IV ONE; -NS 100 ML (IVPB) BAG IV ONE
== END 2017-04-04 | disposition home or self-care (01) ==
LOC: ONC 09:03
PROVIDERS: ATTEND Internal Medicine Hematology & Oncology
DX: C18.0 Malignant neoplasm of cecum (principal); D64.9 Anemia, unspecified; I10 Essential (primary) hypertension; E78.5 Hyperlipidemia, unspecified; I25.10 Atherosclerotic heart disease of native coronary artery without angina pectoris; Z87.891 Personal history of nicotine dependence; Z79.899 Other long term (current) drug therapy
CPT/HCPCS: 36415; 80053; 82378; 82728; 83010; 83540; 85025; 85045; 99213

== ENCOUNTER 2017-06-18 12:42 | Outpatient (CLI) | payer MEDICARE, OTHER ==
[~2017-06-18] VITALS: Ht 172.7 cm; Wt 90.7 kg
[2017-06-18] MEDS ORDERED: ATEN25TA PO (12:55)
[2017-06-18] MEDS ORDERED: LOSA50TA36 PO (12:55)
== END 2017-06-18 12:57 ==
LOC: PREOP 12:42
PROVIDERS: ATTEND Surgery
DX: Z01.818 Encounter for other preprocedural examination (principal); Z85.038 Personal history of other malignant neoplasm of large intestine; R19.5 Other fecal abnormalities

== ENCOUNTER 2017-06-24 08:47 | Day surgery (SDC) | payer MEDICARE, OTHER ==
[~2017-06-24] VITALS: Ht 172.7 cm; Wt 90.7 kg
[~2017-06-24 08:47] MED LIST changes: +ATEN25TA PO; +LOSA50TA36 PO
[2017-06-24] MEDS ORDERED: NS IV 500 ML 500 ML ONE (08:51)
[2017-06-24] MEDS ORDERED: NS IV 500 ML 500 ML IV PRN (08:54)
[2017-06-24 08:56] VITALS: BP 140/64
[2017-06-24] MEDS ORDERED: HURRICAINE EXT TUBE (BENZOCAINE) XX PRN (09:00)
[2017-06-24] MEDS ORDERED: LIDOCAINE JELLY 2% (XYLOCAINE) 5 ML TUBE MM PRN (09:00)
[2017-06-24] MEDS ORDERED: LIDOCAINE JELLY 2% (XYLOCAINE) 5 ML TUBE ONE (10:05)
[2017-06-24] MEDS ORDERED: fentaNYL INJECTION 100 MCG/2 ML AMP ONE (10:05)
[2017-06-24] MEDS ORDERED: MIDAZOLAM 2 MG/2 ML (VERSED) VIAL ONE ×3 (10:05)
--- NOTE | 2017-06-24 10:28 | Conscious Sedation/ASA ---
Conscious Sedation Pre-Proced Time Reviewed: 10:00 ASA Class: 3 Airway Mallampati Classification: ([place] appropriate class) I. II. III, IV Lungs Heart ASA score ASA 1: a normal healthy patient ASA 2: a patient with a mild systemic disease (mid diabetes, controlled hypertension, obesity ASA 3: a patient with a severe systemic disease that limits activity (angina , COPD, prior Myocardial infarction) ASA 4: a patient with an incapacitating disease that is a constant threat to life (CHF, renal failure) ASA 5: a moribund patient not expected to survive 24 hrs. (ruptured aneurysm) ASA 6: a declared brain patient whose organs are being harvested. For emergent operations, add the letter E after the classification Grade 2 Sedation Plan: Analgesia, Amnesia, Plan communicated to team members, Discussed options with patient/fam, Discussed risks with patient/fam Note The patient is an appropriate candidate to undergo the planned procedure, sedation, and anesthesia. The patient immediately re-assessed prior to indication. DRISS WILSON MD Jun 24, 2017 10:28 am
--- NOTE | 2017-06-24 10:28 | Progress Note-Pre Operative ---
Pre-Operative Progress Note H&P Reviewed The H&P was reviewed, patient examined and no changes noted. Date Seen by Provider: Jun 24, 2017 Time Seen by Provider: 10:00 Date H&P Reviewed: Jun 24, 2017 Time H&P Reviewed: 10:00 Pre-Operative Diagnosis: hx colon ca DRISS WILSON MD Jun 24, 2017 10:28 am
[2017-06-24] MEDS ORDERED: morphine INJ 10 MG/ML 1ML (SYR OR VIAL) IV PRN (10:30)
[2017-06-24] MEDS ORDERED: ONDANSETRON 4 MG/2 ML (SDV) Z0FRAN IV PRN (10:30)
[2017-06-24] MEDS ORDERED: HYDROcodone/APAP 5 MG/325 MG (LORTAB) TAB PO PRN (10:30)
[2017-06-24] MEDS ORDERED: ACETAMINOPHEN 325 MG TABLET/CAPLET (TYLENOL) PO PRN (10:30)
[2017-06-24] MEDS: MIDAZOLAM 2 MG/2 ML (VERSED) VIAL IVP PRN ×2 (10:35→10:38)
[2017-06-24] MEDS: fentaNYL INJECTION 100 MCG/2 ML AMP IVP PRN ×2 (10:36→10:39)
--- NOTE | 2017-06-24 11:04 | Progress Note-Post Operative ---
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 Procedure & Operative Findings Date of Procedure 06/24/17 Procedure Performed/Findings Colonoscopy Anesthesia Type CS Estimated Blood Loss Estimated blood loss (mL): minimal Specimens/Packing Specimens Removed none DRISS WILSON MD Jun 24, 2017 11:04 am
[2017-06-24 11:05] VITALS: BP 112/79
--- NOTE | 2017-06-24 11:06 | Discharge Inst-Surgical ---
D/C Lap Instructions-STEVE Follow Up 1 year Activity as tolerated High Fiber Diet 25g or more per day Avoid Alcohol, Caffeine, Spicy [place] and Acid foods. Drink 64 fluid oz or more of fluids per day. Symptoms to Report: Fever over 101 degree F, Nausea/Vomiting If any problems/questions: Contact your physician or go to Emergency Room DRISS WILSON MD Jun 24, 2017 11:06 am
[2017-06-24 11:45] VITALS: BP 139/69
--- NOTE | 2017-06-24 20:19 | OPERATIVE REPORT ---
DATE OF SERVICE: 06/24/2017 ATTENDING PRIMARY CARE PHYSICIAN: Edison Jamison M.D. PREOPERATIVE DIAGNOSIS: History of colon cancer of cecum. POSTOPERATIVE DIAGNOSES: Chronic stage II external and internal hemorrhoids, moderate- to-severe sigmoid diverticulosis. PROCEDURE: Colonoscopy. SURGEON: Driss Wilson M.D. ANESTHESIA: Conscious sedation. ESTIMATED BLOOD LOSS: Minimal. FINDINGS: Chronic stage II external and internal hemorrhoids, not actively edematous nor inflamed and no bleeding. Prostate gland was palpable and appeared normal. There was a moderate to severe sigmoid diverticulosis with no inflammatory changes to indicate any active diverticulitis. The remainder of the colon was normal. DISPOSITION: The patient tolerated the procedure well. INDICATIONS: The patient is an 86-year-old male who was found to have a cecal polyp 4 x 3 mm in size and sessile. No biopsies were taken, however, this was benign by pathology. He was found to be anemic and he did have an episode of rectal bleeding 05/2015. A followup colonoscopy was performed, which detected the same polyp, which was larger in size. 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 On 11/08/2015, he underwent a laparoscopic right hemicolectomy as well as a laparoscopic cholecystectomy. At this time, he states that he is doing well and is in need of a followup colonoscopy. DESCRIPTION OF PROCEDURE: The patient was brought to the endoscopy suite, laid in the left lateral decubitus position. After adequate IV pain and sedating medications and conscious sedation anesthesia, a digital rectal examination was performed. Mild chronic stage II external and internal hemorrhoids were identified, which were not actively edematous nor inflamed and no bleeding. Normal sphincter tone was felt and there were no palpable masses. Prostate gland was palpable and appeared normal. The endoscope was then intubated into the anus and rectum gently insufflated. The endoscope was then advanced through the valves of Patel of the rectum with no polyps or any neoplasms identified. The endoscope was then advanced through the sigmoid colon where moderate to severe sigmoid diverticulosis identified. There were no mucosal inflammatory changes to indicate any active diverticulitis. The endoscope was then advanced to the remainder of the descending and transverse colon to the ileocolonic anastomosis, which appeared normal. The endoscope was slowly withdrawn while taking a second look and suctioning of residual air with no additional findings. The patient tolerated the procedure well. We will continue him on medical management with a high fiber diet with at least 30 grams of fiber per day as well as at least 64 fluid ounces of water daily to promote soft stools on a daily basis. We will have him follow up in approximately 1 year later for a followup colonoscopy. Job ID: [id number] DocumentID: [id number] Dictated Date: 06/24/2017 11:00:34 [employer] Date: 06/24/2017 20:17:45 Dictated By: DRISS WILSON MD MTDHollis
== END 2017-06-24 11:45 | disposition home or self-care (01) ==
LOC: ENDO 08:47
PROVIDERS: ATTEND Surgery
DX: K57.30 Diverticulosis of large intestine without perforation or abscess without bleeding (principal); K64.1 Second degree hemorrhoids; Z85.038 Personal history of other malignant neoplasm of large intestine; Z87.891 Personal history of nicotine dependence; Z80.3 Family history of malignant neoplasm of breast; Z79.82 Long term (current) use of aspirin; Z79.899 Other long term (current) drug therapy; Z95.1 Presence of aortocoronary bypass graft; Z95.2 Presence of prosthetic heart valve; I25.10 Atherosclerotic heart disease of native coronary artery without angina pectoris; I10 Essential (primary) hypertension; N40.0 Benign prostatic hyperplasia without lower urinary tract symptoms

== ENCOUNTER 2017-12-31 08:15 | Outpatient (RCR) | payer MEDICARE, OTHER ==
[~2017-12-31 08:15] MED LIST changes: -AMLO10TA2 PO; +AMLO10TA6 PO; -LOSA100T28 PO; +LOSA100T8 PO; -LOSA50TA36 PO; +LOSA50TA7 PO
[2018-03-22] MEDS ORDERED: METO-387 PO (08:20)
[2018-03-22] MEDS ORDERED: AMLO5TAB7 PO (08:20)
[2018-03-22] MEDS ORDERED: TAMS0.4C2 PO (08:20)
[2018-03-22] MEDS ORDERED: CYCL1DRO OU (08:21)
[2018-03-22] MEDS ORDERED: MULT-52 PO (08:21)
[2018-03-22] MEDS ORDERED: BETA1TAB15 PO (08:21)
[2018-03-22] MEDS ORDERED: LOSA100T8 PO (08:33)
[2018-04-06] MEDS ORDERED: FURO40TA4 PO (15:21)
[2018-04-06] MEDS ORDERED: Zolpidem Tartrate PO (15:21)
[2018-04-06] MEDS ORDERED: CLOP75TA28 PO (15:21)
== END 2018-03-31 | disposition home or self-care (01) ==
LOC: ONC 08:15
PROVIDERS: ATTEND Internal Medicine Hematology & Oncology
DX: C18.0 Malignant neoplasm of cecum (principal); D64.9 Anemia, unspecified; I10 Essential (primary) hypertension; E78.5 Hyperlipidemia, unspecified; I25.10 Atherosclerotic heart disease of native coronary artery without angina pectoris; Z87.891 Personal history of nicotine dependence; Z79.899 Other long term (current) drug therapy
CPT/HCPCS: 36415; 82378; 83010; 83615; 99213

== ENCOUNTER 2018-03-21 08:08 | Inpatient (IN) | payer MEDICARE, OTHER ==
[~2018-03-21] VITALS: Ht 172.7 cm; Wt 89.4 kg
--- OUTSIDE RECORDS SUMMARY | 2018-03-21 08:18 | XMS REPORT | Continuity of Care Document ---
Author Author [facility] Organization [facility] Address Unknown Phone Unavailable Allergies Active Description Code Type Severity Reaction Onset Reported/Identified Relationship to Patient Clinical Status Yes No Known Drug Allergies [id number] Drug Allergy Unknown N/A 10/10/2015 Medications There is no data. 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 10/01/2014 PRIYA VILLATORO MD Ot V45.81 AORTOCORONARY BYPASS 10/01/2014 IRVING JONES, PRIYA Chadwick Ot V58.69 OTH MED,LT,CURRENT USE 10/03/2014 Ot 211.3 10/03/2014 Ot 455.0 10/03/2014 Ot 455.3 10/03/2014 Ot 562.10 10/03/2014 Ot V76.51 10/05/2014 Ot 211.3 10/05/2014 Ot 455.0 10/05/2014 Ot 455.3 10/05/2014 Ot 562.10 10/05/2014 Ot V76.51 10/06/2014 Ot 211.3 10/06/2014 Ot 455.0 10/06/2014 Ot 455.3 10/06/2014 Ot 562.10 10/06/2014 Ot V76.51 10/27/2014 Ot 211.3 10/27/2014 Ot 455.0 10/27/2014 Ot 455.3 10/27/2014 Ot 562.10 10/27/2014 Ot V76.51 09/26/2015 Ot 786.50 09/26/2015 Ot 786.52 09/26/2015 Ot 789.01 09/26/2015 Ot 786.52 09/26/2015 COLE JONES, MARCOS R Ot 724.02 09/26/2015 Ot 211.3 09/26/2015 Ot 455.0 09/26/2015 Ot 455.3 09/26/2015 Ot 562.10 09/26/2015 Ot V76.51 09/26/2015 Ot V72.84 09/26/2015 JJ JONES, STARLA Echevarria Ot D64.9 09/26/2015 JJ JONES, STARLA Echevarria Ot E78.5 09/26/2015 JJ JONES, STARLA Echevarria Ot I10 09/26/2015 JJ JONES, STARLA Echevarria Ot I25.10 09/26/2015 JJ JONES, STARLA Echevarria Ot Z79.899 09/26/2015 JJ JONES, STARLA Echevarria Ot Z87.891 09/27/2015 JJ JONES, STARLA Echevarria Ot K46.9 09/27/2015 JJ JONES, STARLA Echevarria Ot Z87.891 10/04/2015 DRISS WILSON MD, Ot D64.9 ANEMIA, UNSPECIFIED 10/04/2015 DRISS WILSON MD Ot Z01.818 ENCOUNTER FOR OTHER PREPROCEDURAL EXAMIN 10/10/2015 DRISS WILSON MD, Ot D64.9 ANEMIA, UNSPECIFIED 10/10/2015 DRISS WILSON MD, Ot K21.0 GASTRO-ESOPHAGEAL REFLUX DISEASE WITH ES 10/10/2015 DRISS WILSON MD, Ot K29.70 GASTRITIS, UNSPECIFIED, WITHOUT BLEEDING 10/10/2015 DRISS WILSON MD, Ot K31.7 POLYP OF STOMACH AND DUODENUM 10/10/2015 DRISS WILSON MD, Ot K57.90 DVRTCLOS OF INTEST, PART UNSP, W/O PERF 10/10/2015 DRISS WILSON MD, Ot K63.5 POLYP OF COLON 10/10/2015 DRISS WILSON MD, Ot K64.1 SECOND DEGREE HEMORRHOIDS 10/11/2015 DRISS WILSON MD, Ot D64.9 10/11/2015 DRISS WILSON MD, Ot K21.0 10/11/2015 STEVE JONES, DRISS Ot K29.70 10/11/2015 STEVE JONES, DRISS Ot K31.7 10/11/2015 STEVE JONES, DRISS Ot K57.90 10/11/2015 STEVE JONES, DRISS Ot K63.5 10/11/2015 STEVE JONES, DRISS Ot K64.1 10/16/2015 STARLA GARDNER MD Ot K46.9 10/16/2015 STARLA GARDNER MD Ot Z87.891 10/23/2015 DRISS WILSON MD, Ot D64.9 ANEMIA, UNSPECIFIED 10/23/2015 STEVE JONES, DRISS Ot K21.0 GASTRO-ESOPHAGEAL REFLUX DISEASE WITH ES 10/23/2015 STEVE JONES, DRISS Ot K29.70 GASTRITIS, UNSPECIFIED, WITHOUT BLEEDING 10/23/2015 STEVE JONES, DRISS Ot K31.7 POLYP OF STOMACH AND DUODENUM 10/23/2015 STEVE JONES, DRISS Ot K57.90 DVRTCLOS OF INTEST, PART UNSP, W/O PERF 10/23/2015 DRISS WILSON MD Ot K63.5 POLYP OF COLON 10/23/2015 DRISS WILSON MD Ot K64.1 SECOND DEGREE HEMORRHOIDS 10/24/2015 STARLA GARDNER MD Ot K46.9 UNSPECIFIED ABDOMINAL HERNIA WITHOUT OBS 10/24/2015 STARLA GARDNER MD Ot 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 NICOTINE DEPENDENCE 10/26/2015 STARLA GARDNER MD Ot D64.9 ANEMIA, UNSPECIFIED 10/26/2015 STARLA GARDNER MD Ot E78.5 HYPERLIPIDEMIA, UNSPECIFIED 10/26/2015 STARLA GARDNER MD Ot I10 ESSENTIAL (PRIMARY) HYPERTENSION 10/26/2015 STARLA GARDNER MD Ot I25.10 ATHSCL HEART DISEASE OF [place] CORONARY 10/26/2015 STARLA GARDNER MD Ot 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 10/26/2015 STARLA GARDNER MD Ot 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 NICOTINE DEPENDENCE 10/31/2015 TYREE JONES, MONY Sloan Ot I08.3 COMB RHEUMATIC DISORD OF MITRAL, AORTIC 10/31/2015 MONY CLEMENTS MD Ot I25.10 ATHSCL HEART DISEASE OF [place] CORONARY 10/31/2015 MONY CLEMENTS MD Ot Z01.810 ENCOUNTER FOR PREPROCEDURAL CARDIOVASCUL 10/31/2015 MONY CLEMENTS MD Ot Z01.811 ENCOUNTER FOR PREPROCEDURAL RESPIRATORY 10/31/2015 MONY CLEMENTS MD Ot Z01.812 ENCOUNTER FOR PREPROCEDURAL LABORATORY E 10/31/2015 MONY CLEMENTS MD Ot Z11.2 ENCOUNTER FOR SCREENING FOR OTHER BACTER 10/31/2015 STARLA GARDNER MD Ot D64.9 ANEMIA, UNSPECIFIED 10/31/2015 STARLA GARDNER MD Ot E78.5 HYPERLIPIDEMIA, UNSPECIFIED 10/31/2015 STARLA GARDNER MD Ot I10 ESSENTIAL (PRIMARY) HYPERTENSION 10/31/2015 STARLA GARDNER MD Ot I25.10 ATHSCL HEART DISEASE OF [place] CORONARY 10/31/2015 STARLA GARDNER MD, Ot Z79.899 OTHER HALFWAY (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 THERAPY 10/31/2015 STARLA GARDNER MD Ot 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 NICOTINE DEPENDENCE 11/02/2015 Ot 211.3 BENIGN NEOPLASM LG BOWEL 11/02/2015 Ot 455.0 INT HEMORRHOID W/O COMPL 11/02/2015 Ot 455.3 EXT HEMORRHOID W/O COMPL 11/02/2015 Ot 562.10 DIVERTICULOSIS COLON (W/O MENT OF HEMORR 11/02/2015 Ot V76.51 SCREEN MAL NEOP-COLON 11/02/2015 Ot V72.84 EXAM PRE- OPERATIVE NOS 11/02/2015 STARLA GARDNER MD Ot D64.9 ANEMIA, UNSPECIFIED 11/02/2015 STARLA GARDNER MD Ot E78.5 HYPERLIPIDEMIA, UNSPECIFIED 11/02/2015 STARLA GARDNER MD Ot I10 ESSENTIAL (PRIMARY) HYPERTENSION 11/02/2015 STARLA GARDNER MD Ot I25.10 ATHSCL HEART DISEASE OF [place] CORONARY 11/02/2015 STARLA GARDNER MD Ot Z79.899 OTHER HALFWAY (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 THERAPY 11/02/2015 STARLA GARDNER MD Ot 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 NICOTINE DEPENDENCE 11/02/2015 STARLA GARDNER MD Ot K46.9 UNSPECIFIED ABDOMINAL HERNIA WITHOUT OBS 11/02/2015 STARLA GARDNER MD Ot 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 NICOTINE DEPENDENCE 11/02/2015 MONY CLEMENTS MD Ot I25.10 ATHSCL HEART DISEASE OF [place] CORONARY 11/02/2015 MONY CLEMENTS MD Ot I35.0 NONRHEUMATIC AORTIC (VALVE) STENOSIS 11/05/2015 MONY CLEMENTS MD Ot E78.0 PURE HYPERCHOLESTEROLEMIA 11/05/2015 MONY CLEMENTS MD Ot I10 ESSENTIAL (PRIMARY) HYPERTENSION 11/05/2015 MONY CLEMENTS MD Ot I25.10 ATHSCL HEART DISEASE OF [place] CORONARY 11/05/2015 MONY CLEMENTS MD Ot 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 MITRAL (VALVE) INSUFFICIENC 11/05/2015 MONY CLEMENTS MD Ot I35.0 NONRHEUMATIC AORTIC (VALVE) STENOSIS 11/05/2015 MONY CLEMENTS MD Ot E78.0 PURE HYPERCHOLESTEROLEMIA 11/05/2015 OMNY CLEMENTS MD Ot I10 ESSENTIAL (PRIMARY) HYPERTENSION 11/05/2015 MONY CLEMENTS MD Ot I25.10 ATHSCL HEART DISEASE OF [place] CORONARY 11/05/2015 MONY CLEMENTS MD Ot 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 MITRAL (VALVE) INSUFFICIENC 11/05/2015 MONY CLEMENTS MD Ot I35.0 NONRHEUMATIC AORTIC (VALVE) STENOSIS 11/06/2015 DRISS WILSON MD Ot C18.9 MALIGNANT NEOPLASM OF COLON, UNSPECIFIED 11/06/2015 DRISS WILSON MD Ot K80.20 CALCULUS OF GALLBLADDER W/O CHOLECYSTITI 11/06/2015 DRISS WILSON MD Ot Z01.818 ENCOUNTER FOR OTHER PREPROCEDURAL EXAMIN 11/06/2015 DRISS WILSON MD Ot Z11.2 ENCOUNTER FOR SCREENING FOR OTHER BACTER 11/07/2015 DRISS WILSON MD, Ot C18.9 MALIGNANT NEOPLASM OF COLON, UNSPECIFIED 11/07/2015 DRISS WILSON MD Ot K80.20 CALCULUS OF GALLBLADDER W/O CHOLECYSTITI 11/07/2015 DRISS WILSON MD Ot Z01.818 ENCOUNTER FOR OTHER PREPROCEDURAL EXAMIN 11/07/2015 DRISS WILSON MD Ot Z11.2 ENCOUNTER FOR SCREENING FOR OTHER BACTER 11/07/2015 DRISS WILSON MD, Ot C18.9 MALIGNANT NEOPLASM OF COLON, UNSPECIFIED 11/07/2015 DRISS WILSON MD, Ot K80.20 CALCULUS OF GALLBLADDER W/O CHOLECYSTITI 11/07/2015 DRISS WILSON MD, Ot Z01.818 ENCOUNTER FOR OTHER PREPROCEDURAL EXAMIN 11/07/2015 DRISS WILSON MD, Ot Z11.2 ENCOUNTER FOR SCREENING FOR OTHER BACTER 11/10/2015 DRISS WILSON MD Ot 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 11/10/2015 DRISS WILSON MD, Ot E78.5 HYPERLIPIDEMIA, UNSPECIFIED 11/10/2015 DRISS WILSON MD Ot I10 ESSENTIAL (PRIMARY) HYPERTENSION 11/10/2015 DRISS WILSON MD Ot I25.10 ATHSCL HEART DISEASE OF [place] CORONARY 11/10/2015 DRISS WILSON MD, Ot K21.9 GASTRO-ESOPHAGEAL REFLUX DISEASE WITHOUT 11/10/2015 DRISS WILSON MD Ot K57.30 DVRTCLOS OF LG INT W/O PERFORATION OR AB 11/10/2015 DRISS WILSON MD Ot 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 11/10/2015 DRISS WILSON MD Ot Z86.010 PERSONAL HISTORY OF COLONIC POLYPS 11/10/2015 DRISS WILSON MD, Ot Z95.1 PRESENCE OF AORTOCORONARY BYPASS GRAFT 11/10/2015 DRISS WILSON MD, Ot Z95.2 PRESENCE OF PROSTHETIC HEART VALVE 11/11/2015 DRISS WILSON MD, Ot 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 11/11/2015 DRISS WILSON MD, Ot E78.5 HYPERLIPIDEMIA, UNSPECIFIED 11/11/2015 DRISS WILSON MD Ot I10 ESSENTIAL (PRIMARY) HYPERTENSION 11/11/2015 DRISS WILSON MD Ot I25.10 ATHSCL HEART DISEASE OF [place] CORONARY 11/11/2015 DRISS WILSON MD Ot K21.9 GASTRO-ESOPHAGEAL REFLUX DISEASE WITHOUT 11/11/2015 DRISS WILSON MD Ot K57.30 DVRTCLOS OF LG INT W/O PERFORATION OR AB 11/11/2015 DRISS WILSON MD Ot 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 11/11/2015 DRISS WILSON MD Ot Z86.010 PERSONAL HISTORY OF COLONIC POLYPS 11/11/2015 DRISS WILSON MD, Ot Z95.1 PRESENCE OF AORTOCORONARY BYPASS GRAFT 11/11/2015 DRISS WILSON MD, Ot Z95.2 PRESENCE OF PROSTHETIC HEART VALVE 11/12/2015 DRISS WILSON MD Ot 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 11/12/2015 DRISS WILSON MD, Ot E78.5 HYPERLIPIDEMIA, UNSPECIFIED 11/12/2015 DRISS WILSON MD Ot I10 ESSENTIAL (PRIMARY) HYPERTENSION 11/12/2015 DRISS WILSON MD Ot I25.10 ATHSCL HEART DISEASE OF [place] CORONARY 11/12/2015 DRISS WILSON MD, Ot K21.9 GASTRO-ESOPHAGEAL REFLUX DISEASE WITHOUT 11/12/2015 DRISS WILSON MD Ot K57.30 DVRTCLOS OF LG INT W/O PERFORATION OR AB 11/12/2015 DRISS WILSON MD, Ot 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 11/12/2015 DRISS WILSON MD, Ot Z86.010 PERSONAL HISTORY OF COLONIC POLYPS 11/12/2015 DRISS WILSON MD, Ot Z95.1 PRESENCE OF AORTOCORONARY BYPASS GRAFT 11/12/2015 DRISS WILSON MD, Ot Z95.2 PRESENCE OF PROSTHETIC HEART VALVE 11/13/2015 DRISS WILSON MD, Ot 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 11/13/2015 DRISS WILSON MD, Ot E78.5 HYPERLIPIDEMIA, UNSPECIFIED 11/13/2015 DRISS WILSON MD Ot I10 ESSENTIAL (PRIMARY) HYPERTENSION 11/13/2015 DRISS WILSON MD, Ot I25.10 ATHSCL HEART DISEASE OF [place] CORONARY 11/13/2015 DRISS WILSON MD Ot K21.9 GASTRO-ESOPHAGEAL REFLUX DISEASE WITHOUT 11/13/2015 DRISS WILSON MD Ot K57.30 DVRTCLOS OF LG INT W/O PERFORATION OR AB 11/13/2015 DRISS WILSON MD Ot 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 11/13/2015 DRISS WILSON MD Ot Z86.010 PERSONAL HISTORY OF COLONIC POLYPS 11/13/2015 DRISS WILSON MD, Ot Z95.1 PRESENCE OF AORTOCORONARY BYPASS GRAFT 11/13/2015 DRISS WILSON MD Ot Z95.2 PRESENCE OF PROSTHETIC HEART VALVE 11/13/2015 DRISS WILSON MD Ot 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 11/13/2015 DRISS WILSON MD, Ot E78.5 HYPERLIPIDEMIA, UNSPECIFIED 11/13/2015 DRISS WILSON MD Ot I10 ESSENTIAL (PRIMARY) HYPERTENSION 11/13/2015 DRISS WILSON MD Ot I25.10 ATHSCL HEART DISEASE OF [place] CORONARY 11/13/2015 DRISS WILSON MD Ot K21.9 GASTRO-ESOPHAGEAL REFLUX DISEASE WITHOUT 11/13/2015 DRISS WILSON MD Ot K57.30 DVRTCLOS OF LG INT W/O PERFORATION OR AB 11/13/2015 DRISS WILSON MD Ot 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 11/13/2015 DRISS WILSON MD Ot Z86.010 PERSONAL HISTORY OF COLONIC POLYPS 11/13/2015 DRISS WILSON MD Ot Z95.1 PRESENCE OF AORTOCORONARY BYPASS GRAFT 11/13/2015 DRISS WILSON MD Ot Z95.2 PRESENCE OF PROSTHETIC HEART VALVE 11/14/2015 DRISS WILSON MD Ot 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 11/14/2015 DRISS WILSON MD Ot E78.5 HYPERLIPIDEMIA, UNSPECIFIED 11/14/2015 DRISS WILSON MD Ot I10 ESSENTIAL (PRIMARY) HYPERTENSION 11/14/2015 DRISS WILSON MD Ot I25.10 ATHSCL HEART DISEASE OF [place] CORONARY 11/14/2015 DRISS WILSON MD Ot K21.9 GASTRO-ESOPHAGEAL REFLUX DISEASE WITHOUT 11/14/2015 DRISS WILSON MD Ot K57.30 DVRTCLOS OF LG INT W/O PERFORATION OR AB 11/14/2015 DRISS WILSON MD Ot 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 11/14/2015 DRISS WILSON MD Ot Z86.010 PERSONAL HISTORY OF COLONIC POLYPS 11/14/2015 DRISS WILSON MD Ot Z95.1 PRESENCE OF AORTOCORONARY BYPASS GRAFT 11/14/2015 DRISS WILSON MD Ot Z95.2 PRESENCE OF PROSTHETIC HEART VALVE 11/14/2015 DRISS WILSON MD Ot 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 11/14/2015 DRISS WILSON MD Ot E78.5 HYPERLIPIDEMIA, UNSPECIFIED 11/14/2015 DRISS WILSON MD Ot I10 ESSENTIAL (PRIMARY) HYPERTENSION 11/14/2015 DRISS WILSON MD Ot I25.10 ATHSCL HEART DISEASE OF [place] CORONARY 11/14/2015 DRISS WILSON MD Ot K21.9 GASTRO-ESOPHAGEAL REFLUX DISEASE WITHOUT 11/14/2015 DRISS WILSON MD Ot K57.30 DVRTCLOS OF LG INT W/O PERFORATION OR AB 11/14/2015 DRISS WILSON MD Ot 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 11/14/2015 DRISS WILSON MD Ot Z86.010 PERSONAL HISTORY OF COLONIC POLYPS 11/14/2015 DRISS WILSON MD, Ot Z95.1 PRESENCE OF AORTOCORONARY BYPASS GRAFT 11/14/2015 DRISS WILSON MD, Ot Z95.2 PRESENCE OF PROSTHETIC HEART VALVE 11/15/2015 DRISS WILSON MD Ot 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 11/15/2015 DRISS IWLSON MD, Ot E78.0 PURE HYPERCHOLESTEROLEMIA 11/15/2015 DRISS WILSON MD Ot I10 ESSENTIAL (PRIMARY) HYPERTENSION 11/15/2015 DRISS WILSON MD Ot I25.10 ATHSCL HEART DISEASE OF [place] CORONARY 11/15/2015 DRISS WILSON MD, Ot K21.9 GASTRO-ESOPHAGEAL REFLUX DISEASE WITHOUT 11/15/2015 DRISS WILSON MD Ot K57.30 DVRTCLOS OF LG INT W/O PERFORATION OR AB 11/15/2015 DRISS WILSON MD Ot 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 11/15/2015 DRISS WILSON MD Ot R14.0 ABDOMINAL DISTENSION (GASEOUS) 11/15/2015 DRISS WILSON MD Ot Z86.010 PERSONAL HISTORY OF COLONIC POLYPS 11/15/2015 DRISS WILSON MD, Ot 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 NICOTINE DEPENDENCE 11/15/2015 DRISS WILSON MD Ot Z95.1 PRESENCE OF AORTOCORONARY BYPASS GRAFT 11/15/2015 DRISS WILSON MD Ot Z95.2 PRESENCE OF PROSTHETIC HEART VALVE 11/18/2015 DRISS WILSON MD Ot 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 11/18/2015 DRISS WILSON MD Ot E78.0 PURE HYPERCHOLESTEROLEMIA 11/18/2015 DRISS WILSON MD Ot I10 ESSENTIAL (PRIMARY) HYPERTENSION 11/18/2015 DRISS WILSON MD Ot I25.10 ATHSCL HEART DISEASE OF [place] CORONARY 11/18/2015 DRISS WILSON MD Ot K21.9 GASTRO-ESOPHAGEAL REFLUX DISEASE WITHOUT 11/18/2015 DRISS WILSON MD Ot K57.30 DVRTCLOS OF LG INT W/O PERFORATION OR AB 11/18/2015 DRISS WILSON MD Ot 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 11/18/2015 DRISS WILSON MD Ot R14.0 ABDOMINAL DISTENSION (GASEOUS) 11/18/2015 DRISS WILSON MD, Ot Z86.010 PERSONAL HISTORY OF COLONIC POLYPS 11/18/2015 DRISS WILSON MD, Ot 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 NICOTINE DEPENDENCE 11/18/2015 DRISS WILSON MD, Ot Z95.1 PRESENCE OF AORTOCORONARY BYPASS GRAFT 11/18/2015 RDISS WILSON MD Ot Z95.2 PRESENCE OF PROSTHETIC HEART VALVE 11/19/2015 DRISS WILSON MD Ot 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 11/19/2015 DRISS WILSON MD, Ot E78.0 PURE HYPERCHOLESTEROLEMIA 11/19/2015 DRISS WILSON MD Ot I10 ESSENTIAL (PRIMARY) HYPERTENSION 11/19/2015 DRISS WILSON MD Ot I25.10 ATHSCL HEART DISEASE OF [place] CORONARY 11/19/2015 DRISS WILSON MD Ot K21.9 GASTRO-ESOPHAGEAL REFLUX DISEASE WITHOUT 11/19/2015 DRISS WILSON MD Ot K57.30 DVRTCLOS OF LG INT W/O PERFORATION OR AB 11/19/2015 DRISS WILSON MD Ot 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 11/19/2015 DRISS WILSON MD Ot R14.0 ABDOMINAL DISTENSION (GASEOUS) 11/19/2015 DRISS WILSON MD Ot Z86.010 PERSONAL HISTORY OF COLONIC POLYPS 11/19/2015 DRISS WILSON MD Ot 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 NICOTINE DEPENDENCE 11/19/2015 DRISS WILSON MD Ot Z95.1 PRESENCE OF AORTOCORONARY BYPASS GRAFT 11/19/2015 DRISS WILSON MD, Ot Z95.2 PRESENCE OF PROSTHETIC HEART VALVE 11/20/2015 DRISS WILSON MD, Ot 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 11/20/2015 DRISS WILSON MD, Ot E78.0 PURE HYPERCHOLESTEROLEMIA 11/20/2015 DRISS WILSON MD, Ot I10 ESSENTIAL (PRIMARY) HYPERTENSION 11/20/2015 DRISS WILSON MD, Ot I25.10 ATHSCL HEART DISEASE OF [place] CORONARY 11/20/2015 DRISS WILSON MD, Ot K21.9 GASTRO-ESOPHAGEAL REFLUX DISEASE WITHOUT 11/20/2015 DRISS WILSON MD, Ot K57.30 DVRTCLOS OF LG INT W/O PERFORATION OR AB 11/20/2015 DRISS WILSON MD, Ot 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 11/20/2015 DRISS WILSON MD, Ot R14.0 ABDOMINAL DISTENSION (GASEOUS) 11/20/2015 DRISS WILSON MD, Ot Z86.010 PERSONAL HISTORY OF COLONIC POLYPS 11/20/2015 DRISS WILSON MD, Ot 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 NICOTINE DEPENDENCE 11/20/2015 DRISS WILSON MD, Ot Z95.1 PRESENCE OF AORTOCORONARY BYPASS GRAFT 11/20/2015 DRISS WILSON MD, Ot Z95.2 PRESENCE OF PROSTHETIC HEART VALVE 11/20/2015 DRISS WILSON MD, Ot 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 11/20/2015 DRISS WILSON MD, Ot D50.9 IRON DEFICIENCY ANEMIA, UNSPECIFIED 11/20/2015 DRISS WILSON MD, Ot E78.0 PURE HYPERCHOLESTEROLEMIA 11/20/2015 DRISS WILSON MD, Ot E78.5 HYPERLIPIDEMIA, UNSPECIFIED 11/20/2015 DRISS WILSON MD, Ot E86.0 DEHYDRATION 11/20/2015 DRISS WILSON MD, Ot I10 ESSENTIAL (PRIMARY) HYPERTENSION 11/20/2015 DRISS WILSON MD, Ot I25.10 ATHSCL HEART DISEASE OF [place] CORONARY 11/20/2015 DRISS WILSON MD, Ot K21.9 GASTRO-ESOPHAGEAL REFLUX DISEASE WITHOUT 11/20/2015 DRISS WILSON MD, Ot K56.7 ILEUS, UNSPECIFIED 11/20/2015 DRISS WILSON MD, Ot K57.30 DVRTCLOS OF LG INT W/O PERFORATION OR AB 11/20/2015 DRISS WILSON MD, Ot 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 11/20/2015 DRISS WILSON MD, Ot N17.9 ACUTE KIDNEY FAILURE, UNSPECIFIED 11/20/2015 DRISS WILSON MD, Ot R19.7 DIARRHEA, UNSPECIFIED 11/20/2015 DRISS WILSON MD, Ot Z86.010 PERSONAL HISTORY OF COLONIC POLYPS 11/20/2015 DRISS WILSON MD, Ot 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 NICOTINE DEPENDENCE 11/20/2015 DRISS WILSON MD, Ot Z95.1 PRESENCE OF AORTOCORONARY BYPASS GRAFT 11/20/2015 DRISS WILSON MD, Ot Z95.2 PRESENCE OF PROSTHETIC HEART VALVE 11/21/2015 MONY CLEMENTS MD, Ot I25.10 ATHSCL HEART DISEASE OF [place] CORONARY 11/21/2015 MONY CLEMENTS MD Ot I35.0 NONRHEUMATIC AORTIC (VALVE) STENOSIS 11/22/2015 MONY CLEMENTS MD Ot E78.0 PURE HYPERCHOLESTEROLEMIA 11/22/2015 MONY CLEMENTS MD Ot I10 ESSENTIAL (PRIMARY) HYPERTENSION 11/22/2015 MONY CLEMENTS MD Ot I25.10 ATHSCL HEART DISEASE OF [place] CORONARY 11/22/2015 MONY CLEMENTS MD Ot 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 MITRAL (VALVE) INSUFFICIENC 11/22/2015 MONY CLEMENTS MD Ot I35.0 NONRHEUMATIC AORTIC (VALVE) STENOSIS 11/26/2015 MONY CLEMENTS MD Ot I25.10 ATHSCL HEART DISEASE OF [place] CORONARY 11/26/2015 MONY CLEMENTS MD Ot I35.0 NONRHEUMATIC AORTIC (VALVE) STENOSIS 11/30/2015 MONY CLEMENTS MD Ot E78.0 PURE HYPERCHOLESTEROLEMIA 11/30/2015 MONY CLEMENTS MD Ot I10 ESSENTIAL (PRIMARY) HYPERTENSION 11/30/2015 MONY CLEMENTS MD Ot I25.10 ATHSCL HEART DISEASE OF [place] CORONARY 11/30/2015 MONY CLEMENTS MD Ot 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 MITRAL (VALVE) INSUFFICIENC 11/30/2015 MONY CLEMENTS MD Ot I35.0 NONRHEUMATIC AORTIC (VALVE) STENOSIS 12/17/2015 STARLA GARDNER MD Ot D64.9 ANEMIA, UNSPECIFIED 12/17/2015 STARLA GARDNER MD Ot E78.5 HYPERLIPIDEMIA, UNSPECIFIED 12/17/2015 STARLA GARDNER MD Ot I10 ESSENTIAL (PRIMARY) HYPERTENSION 12/17/2015 STARLA GARDNER MD Ot I25.10 ATHSCL HEART DISEASE OF [place] CORONARY 12/17/2015 STARLA GARDNER MD Ot 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 12/17/2015 STARLA GARDNER MD Ot 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 NICOTINE DEPENDENCE 12/17/2015 STARLA GARDNER MD Ot D64.9 ANEMIA, UNSPECIFIED 12/17/2015 STARLA GARDNER MD Ot E78.5 HYPERLIPIDEMIA, UNSPECIFIED 12/17/2015 STARLA AGRDNER MD Ot I10 ESSENTIAL (PRIMARY) HYPERTENSION 12/17/2015 STARLA GARDNER MD Ot I25.10 ATHSCL HEART DISEASE OF [place] CORONARY 12/17/2015 STARLA GARDNER MD Ot 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 12/17/2015 STARLA GARDNER MD Ot 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 NICOTINE DEPENDENCE 12/18/2015 STARLA GARDNER MD Ot D64.9 ANEMIA, UNSPECIFIED 12/18/2015 STARLA GARDNER MD Ot E78.5 HYPERLIPIDEMIA, UNSPECIFIED 12/18/2015 STARLA GARDNER MD Ot I10 ESSENTIAL (PRIMARY) HYPERTENSION 12/18/2015 STARLA GARDNER MD Ot I25.10 ATHSCL HEART DISEASE OF [place] CORONARY 12/18/2015 STARLA GARDNER MD Ot 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 12/18/2015 STARLA GARDNER MD Ot 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 NICOTINE DEPENDENCE 12/24/2015 STARLA GARDNER MD Ot D64.9 ANEMIA, UNSPECIFIED 12/24/2015 STARLA GARDNER MD Ot E78.5 HYPERLIPIDEMIA, UNSPECIFIED 12/24/2015 STARLA GARDNER MD Ot I10 ESSENTIAL (PRIMARY) HYPERTENSION 12/24/2015 STARLA GARDNER MD Ot I25.10 ATHSCL HEART DISEASE OF [place] CORONARY 12/24/2015 STARLA GARDNER MD Ot Z79.899 OTHER HALFWAY (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 THERAPY 12/24/2015 STARLA GARDNER MD Ot 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 NICOTINE DEPENDENCE 01/02/2016 STARLA GARDNER MD Ot D64.9 ANEMIA, UNSPECIFIED 01/02/2016 STARLA GARDNER MD Ot E78.5 HYPERLIPIDEMIA, UNSPECIFIED 01/02/2016 STARLA GARDNER MD Ot I10 ESSENTIAL (PRIMARY) HYPERTENSION 01/02/2016 STARLA GARDNER MD Ot I25.10 ATHSCL HEART DISEASE OF [place] CORONARY 01/02/2016 STARLA GARDNER MD Ot Z79.899 OTHER HALFWAY (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 THERAPY 01/02/2016 STARLA GARDNER MD Ot 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 NICOTINE DEPENDENCE 01/10/2016 LUIS ANGEL CHACKO S FINANCIAL SECRETARY Ot 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 01/10/2016 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 Ot D64.9 ANEMIA, UNSPECIFIED 01/10/2016 LUIS ANGEL CHACKO S FINANCIAL SECRETARY Ot E78.5 HYPERLIPIDEMIA, UNSPECIFIED 01/10/2016 LUIS ANGEL CHACKO S FINANCIAL SECRETARY Ot I10 ESSENTIAL (PRIMARY) HYPERTENSION 01/10/2016 LUIS ANGEL CHACKO S FINANCIAL SECRETARY Ot I25.10 ATHSCL HEART DISEASE OF [place] CORONARY 01/10/2016 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 Ot 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 01/10/2016 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 Ot 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 NICOTINE DEPENDENCE 02/14/2016 STARLA GARDNER MD Ot 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 02/14/2016 STARLA GARDNER MD Ot D64.9 ANEMIA, UNSPECIFIED 02/14/2016 STARLA GARDNER MD Ot E78.5 HYPERLIPIDEMIA, UNSPECIFIED 02/14/2016 STARLA GARDNER MD Ot I10 ESSENTIAL (PRIMARY) HYPERTENSION 02/14/2016 STARLA GARDNER MD Ot I25.10 ATHSCL HEART DISEASE OF [place] CORONARY 02/14/2016 STARLA GARDNER MD Ot 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 02/14/2016 STARLA GARDNER MD Ot 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 NICOTINE DEPENDENCE 02/14/2016 LUIS ANGEL CHACKO S FINANCIAL SECRETARY Ot 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 02/14/2016 LUIS ANGEL CHACKO S FINANCIAL SECRETARY Ot D64.9 ANEMIA, UNSPECIFIED 02/14/2016 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 Ot E78.5 HYPERLIPIDEMIA, UNSPECIFIED 02/14/2016 CHACKO LUIS ANGEL Nice FINANCIAL SECRETARY Ot I10 ESSENTIAL (PRIMARY) HYPERTENSION 02/14/2016 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 Ot I25.10 ATHSCL HEART DISEASE OF [place] CORONARY 02/14/2016 HERMAN CHACKOPAGE Nice FINANCIAL SECRETARY Ot 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 02/14/2016 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 Ot 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 NICOTINE DEPENDENCE 02/20/2016 STARLA GARDNER MD Ot 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 02/20/2016 STARLA GARDNER MD Ot D64.9 ANEMIA, UNSPECIFIED 02/20/2016 STARLA GARDNER MD Ot E78.5 HYPERLIPIDEMIA, UNSPECIFIED 02/20/2016 STARLA GARDNER MD Ot I10 ESSENTIAL (PRIMARY) HYPERTENSION 02/20/2016 STARLA GARDNER MD Ot I25.10 ATHSCL HEART DISEASE OF [place] CORONARY 02/20/2016 STARLA GARDNER MD Ot Z79.899 OTHER HALFWAY (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 THERAPY 02/20/2016 STARLA GARDNER MD Ot 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 NICOTINE DEPENDENCE 02/20/2016 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 Ot 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 02/20/2016 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 Ot D64.9 ANEMIA, UNSPECIFIED 02/20/2016 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 Ot E78.5 HYPERLIPIDEMIA, UNSPECIFIED 02/20/2016 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 Ot I10 ESSENTIAL (PRIMARY) HYPERTENSION 02/20/2016 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 Ot I25.10 ATHSCL HEART DISEASE OF [place] CORONARY 02/20/2016 HERMAN CHACKOPAGE Arlet FINANCIAL SECRETARY Ot Z79.899 OTHER HALFWAY (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 THERAPY 02/20/2016 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 Ot 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 NICOTINE DEPENDENCE 03/31/2016 STARLA GARDNER MD Ot 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 03/31/2016 STARLA GARDNER MD Ot D64.9 ANEMIA, UNSPECIFIED 03/31/2016 STARLA GARDNER MD Ot E78.5 HYPERLIPIDEMIA, UNSPECIFIED 03/31/2016 STARLA GARDNER MD Ot I10 ESSENTIAL (PRIMARY) HYPERTENSION 03/31/2016 STARLA GARDNER MD Ot I25.10 ATHSCL HEART DISEASE OF [place] CORONARY 03/31/2016 STARLA GARDNER MD Ot 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 03/31/2016 STARLA GARDNER MD Ot 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 NICOTINE DEPENDENCE 04/05/2016 STARLA GARDNER MD Ot 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 04/05/2016 STARLA GARDNER MD Ot D64.9 ANEMIA, UNSPECIFIED 04/05/2016 STARLA GARDNER MD Ot E78.5 HYPERLIPIDEMIA, UNSPECIFIED 04/05/2016 STARLA GARDNER MD Ot I10 ESSENTIAL (PRIMARY) HYPERTENSION 04/05/2016 STARLA GARDNER MD Ot I25.10 ATHSCL HEART DISEASE OF [place] CORONARY 04/05/2016 STARLA GARDNER MD Ot 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 04/05/2016 STARLA GARDNER MD Ot 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 NICOTINE DEPENDENCE 04/09/2016 STARLA GARDNER MD Ot 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 04/09/2016 STARLA GARDNER MD Ot D64.9 ANEMIA, UNSPECIFIED 04/09/2016 STARLA GARDNER MD Ot E78.5 HYPERLIPIDEMIA, UNSPECIFIED 04/09/2016 STARLA GARDNER MD Ot I10 ESSENTIAL (PRIMARY) HYPERTENSION 04/09/2016 STARLA GARDNER MD Ot I25.10 ATHSCL HEART DISEASE OF [place] CORONARY 04/09/2016 STARLA GARDNER MD Ot 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 04/09/2016 STARLA GARDNER MD Ot 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 NICOTINE DEPENDENCE 05/27/2016 STARLA GARDNER MD, Ot 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 05/27/2016 STARLA GARDNER MD Ot D64.9 ANEMIA, UNSPECIFIED 05/27/2016 STRALA GARDNER MD Ot E78.5 HYPERLIPIDEMIA, UNSPECIFIED 05/27/2016 STARLA GARDNER MD Ot I10 ESSENTIAL (PRIMARY) HYPERTENSION 05/27/2016 STARLA GARDNER MD Ot I25.10 ATHSCL HEART DISEASE OF [place] CORONARY 05/27/2016 STARLA GARDNER MD Ot Z79.899 OTHER HALFWAY (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 THERAPY 05/27/2016 STARLA GARDNER MD Ot 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 NICOTINE DEPENDENCE 06/04/2016 STARLA GARDNER MD Ot 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 06/04/2016 STARLA GARDNER MD Ot D64.9 ANEMIA, UNSPECIFIED 06/04/2016 STARLA GARDNER MD Ot E78.5 HYPERLIPIDEMIA, UNSPECIFIED 06/04/2016 STARLA GARDNER MD Ot I10 ESSENTIAL (PRIMARY) HYPERTENSION 06/04/2016 STARLA GARDNER MD Ot I25.10 ATHSCL HEART DISEASE OF [place] CORONARY 06/04/2016 STARLA GARDNER MD Ot 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 06/04/2016 STARLA GARDNER MD Ot 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 NICOTINE DEPENDENCE 07/07/2016 STARLA GARDNER MD Ot 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 07/07/2016 STARLA GARDNER MD Ot D64.9 ANEMIA, UNSPECIFIED 07/07/2016 STARLA GARDNER MD Ot E78.5 HYPERLIPIDEMIA, UNSPECIFIED 07/07/2016 STARLA GARDNER MD Ot I10 ESSENTIAL (PRIMARY) HYPERTENSION 07/07/2016 STARLA GARDNER MD Ot I25.10 ATHSCL HEART DISEASE OF [place] CORONARY 07/07/2016 STARLA GARDNER MD Ot Z79.899 OTHER HALFWAY (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 THERAPY 07/07/2016 STARLA GARDNER MD Ot 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 NICOTINE DEPENDENCE 07/16/2016 COLE JONES, MARCOS R Ot 724.02 SPINAL STENOSIS, LUMBAR REG, W/OUT NEURO 07/16/2016 Ot 211.3 BENIGN NEOPLASM LG BOWEL 07/16/2016 Ot 455.0 INT HEMORRHOID W/O COMPL 07/16/2016 Ot 455.3 EXT HEMORRHOID W/O COMPL 07/16/2016 Ot 562.10 DIVERTICULOSIS COLON (W/O MENT OF HEMORR 07/16/2016 Ot V76.51 SCREEN MAL NEOP-COLON 07/16/2016 Ot V72.84 EXAM PRE- OPERATIVE NOS 07/16/2016 STARLA GARDNER MD Ot K46.9 UNSPECIFIED ABDOMINAL HERNIA WITHOUT OBS 07/16/2016 STARLA GARDNER MD Ot 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 NICOTINE DEPENDENCE 07/16/2016 MONY CLEMENTS MD Ot I25.10 ATHSCL HEART DISEASE OF [place] CORONARY 07/16/2016 MONY CLEMENTS MD Ot I35.0 NONRHEUMATIC AORTIC (VALVE) STENOSIS 07/16/2016 MONY CLEMENTS MD Ot E78.0 PURE HYPERCHOLESTEROLEMIA 07/16/2016 MONY CLEMENTS MD Ot I10 ESSENTIAL (PRIMARY) HYPERTENSION 07/16/2016 MONY CLEMENTS MD Ot I25.10 ATHSCL HEART DISEASE OF [place] CORONARY 07/16/2016 MONY CLEMENTS MD Ot 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 MITRAL (VALVE) INSUFFICIENC 07/16/2016 MONY CLEMENTS MD Ot I35.0 NONRHEUMATIC AORTIC (VALVE) STENOSIS 07/16/2016 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 Ot 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 07/16/2016 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 Ot D64.9 ANEMIA, UNSPECIFIED 07/16/2016 LUIS ANGEL CHACKO S FINANCIAL SECRETARY Ot E78.5 HYPERLIPIDEMIA, UNSPECIFIED 07/16/2016 LUIS ANGEL CHACKO S FINANCIAL SECRETARY Ot I10 ESSENTIAL (PRIMARY) HYPERTENSION 07/16/2016 LUIS ANGEL CHACKO S FINANCIAL SECRETARY Ot I25.10 ATHSCL HEART DISEASE OF [place] CORONARY 07/16/2016 LUIS ANGLE CHACKO FINANCIAL SECRETARY Ot Z79.899 OTHER HALFWAY (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 THERAPY 07/16/2016 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 Ot 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 NICOTINE DEPENDENCE 07/16/2016 STARLA GARDNER MD Ot 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 07/16/2016 STARLA GARDNER MD Ot D64.9 ANEMIA, UNSPECIFIED 07/16/2016 STARLA GARDNER MD Ot E78.5 HYPERLIPIDEMIA, UNSPECIFIED 07/16/2016 STARLA GARDNER MD Ot I10 ESSENTIAL (PRIMARY) HYPERTENSION 07/16/2016 STARLA GARDNER MD Ot I25.10 ATHSCL HEART DISEASE OF [place] CORONARY 07/16/2016 STARLA GARDNER MD Ot Z79.899 OTHER HALFWAY (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 THERAPY 07/16/2016 STARLA GARDNER MD Ot 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 NICOTINE DEPENDENCE 07/17/2016 STARLA GARDNER MD Ot 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 07/17/2016 STARLA GARDNER MD Ot K57.30 DVRTCLOS OF LG INT W/O PERFORATION OR AB 07/18/2016 STARLA GARDNER MD Ot 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 07/18/2016 STARLA GARDNER MD Ot K57.30 DVRTCLOS OF LG INT W/O PERFORATION OR AB 07/24/2016 STARLA GARDNER MD Ot 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 07/24/2016 STARLA GARDNER MD Ot D64.9 ANEMIA, UNSPECIFIED 07/24/2016 STARLA GARDNER MD, Ot E78.5 HYPERLIPIDEMIA, UNSPECIFIED 07/24/2016 STARLA GARDNER MD Ot I10 ESSENTIAL (PRIMARY) HYPERTENSION 07/24/2016 STARLA GARDNER MD Ot I25.10 ATHSCL HEART DISEASE OF [place] CORONARY 07/24/2016 STARLA GARDNER MD Ot Z79.899 OTHER HALFWAY (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 THERAPY 07/24/2016 STARLA GARDNER MD Ot 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 NICOTINE DEPENDENCE 07/30/2016 CAESAR PASCUAL MD Ot E78.5 HYPERLIPIDEMIA, UNSPECIFIED 07/30/2016 CAESAR PASCUAL MD, Ot I10 ESSENTIAL (PRIMARY) HYPERTENSION 07/30/2016 CAESAR PASCUAL MD Ot I25.10 ATHSCL HEART DISEASE OF [place] CORONARY 07/30/2016 CAESAR PASCUAL MD Ot 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 MITRAL (VALVE) INSUFFICIENC 07/30/2016 CAESAR PASCUAL MD Ot 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 07/30/2016 CAESAR PASCUAL MD Ot Z48.812 ENCNTR FOR SURGICAL AFTCR FOLLOWING SURG 07/30/2016 CAESAR PASCUAL MD Ot Z79.899 OTHER HALFWAY (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 THERAPY 07/30/2016 CAESAR PASCUAL MD Ot Z95.1 PRESENCE OF AORTOCORONARY BYPASS GRAFT 07/30/2016 CAESAR PASCUAL MD Ot Z95.2 PRESENCE OF PROSTHETIC HEART VALVE 08/06/2016 STARLA GARDNER MD Ot 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 08/06/2016 STARLA GARDNER MD Ot K57.30 DVRTCLOS OF LG INT W/O PERFORATION OR AB 08/07/2016 SAGE JONES, TOMMY Shafer Ot J44.9 CHRONIC OBSTRUCTIVE PULMONARY DISEASE, U 08/13/2016 CAESAR PASCUAL MD Ot E78.5 HYPERLIPIDEMIA, UNSPECIFIED 08/13/2016 CAESAR PASCUAL MD Ot I10 ESSENTIAL (PRIMARY) HYPERTENSION 08/13/2016 CAESAR PASCUAL MD Ot I25.10 ATHSCL HEART DISEASE OF [place] CORONARY 08/13/2016 CAESAR PASCUAL MD Ot 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 MITRAL (VALVE) INSUFFICIENC 08/13/2016 CAESAR PASCUAL MD Ot 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 08/13/2016 SAMARA JONES, CAESAR Dey Ot Z48.812 ENCNTR FOR SURGICAL AFTCR FOLLOWING SURG 08/13/2016 CAESAR PASCUAL MD Ot Z79.899 OTHER HALFWAY (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 THERAPY 08/13/2016 CAESAR PASCUAL MD Ot Z95.1 PRESENCE OF AORTOCORONARY BYPASS GRAFT 08/13/2016 CAESAR PASCUAL MD Ot Z95.2 PRESENCE OF PROSTHETIC HEART VALVE 08/21/2016 TOMMY CAZARES MD, Ot J44.9 CHRONIC OBSTRUCTIVE PULMONARY DISEASE, U 08/26/2016 TOMMY CAZARES MD, Ot J44.9 CHRONIC OBSTRUCTIVE PULMONARY DISEASE, U 08/27/2016 STARLA GARDNER MD Ot 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 08/27/2016 STARLA GARDNER MD Ot D64.9 ANEMIA, UNSPECIFIED 08/27/2016 STARLA GARDNER MD Ot E78.5 HYPERLIPIDEMIA, UNSPECIFIED 08/27/2016 STARLA GARDNER MD Ot I10 ESSENTIAL (PRIMARY) HYPERTENSION 08/27/2016 STARLA GARDNER MD Ot I25.10 ATHSCL HEART DISEASE OF [place] CORONARY 08/27/2016 STARLA GARDNER MD Ot 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 08/27/2016 STARLA GARDNER MD Ot 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 NICOTINE DEPENDENCE 08/27/2016 TOMMY CAZARES MD Ot J44.9 CHRONIC OBSTRUCTIVE PULMONARY DISEASE, U 09/29/2016 TOMMY CAZARES MD Ot J44.9 CHRONIC OBSTRUCTIVE PULMONARY DISEASE, U 10/21/2016 STARLA GARDNER MD Ot 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 10/21/2016 STARLA GARDNER MD Ot D64.9 ANEMIA, UNSPECIFIED 10/21/2016 STARLA GARDNER MD Ot E78.5 HYPERLIPIDEMIA, UNSPECIFIED 10/21/2016 STARLA GARDNER MD Ot I10 ESSENTIAL (PRIMARY) HYPERTENSION 10/21/2016 STARLA GARDNER MD Ot I25.10 ATHSCL HEART DISEASE OF [place] CORONARY 10/21/2016 STARLA GARDNER MD Ot Z79.899 OTHER HALFWAY (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 THERAPY 10/21/2016 STARLA GARDNER MD Ot 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 NICOTINE DEPENDENCE 11/20/2016 JJ MD, STARLA K Ot 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 11/20/2016 JJ JOENS, STARLA Echevarria Ot K57.30 DVRTCLOS OF LG INT W/O PERFORATION OR AB 11/20/2016 SAGE JONES, TOMMY Shafer Ot J44.9 CHRONIC OBSTRUCTIVE PULMONARY DISEASE, U 11/20/2016 SAGE JONES, TOMMY Shafer Ot J44.9 CHRONIC OBSTRUCTIVE PULMONARY DISEASE, U 11/20/2016 COLE JONES, MARCOS R Ot 724.02 SPINAL STENOSIS, LUMBAR REG, W/OUT NEURO 11/20/2016 Ot 211.3 BENIGN NEOPLASM LG BOWEL 11/20/2016 Ot 455.0 INT HEMORRHOID W/O COMPL 11/20/2016 Ot 455.3 EXT HEMORRHOID W/O COMPL 11/20/2016 Ot 562.10 DIVERTICULOSIS COLON (W/O MENT OF HEMORR 11/20/2016 Ot V76.51 SCREEN MAL NEOP-COLON 11/20/2016 Ot V72.84 EXAM PRE- OPERATIVE NOS 11/20/2016 JJ JONES, STARLA Echevarria Ot K46.9 UNSPECIFIED ABDOMINAL HERNIA WITHOUT OBS 11/20/2016 JJ JNOES, STARLA Echevarria Ot 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 NICOTINE DEPENDENCE 11/20/2016 MONY CLEMENTS MD Ot I25.10 ATHSCL HEART DISEASE OF [place] CORONARY 11/20/2016 MONY CLEMENTS MD Ot I35.0 NONRHEUMATIC AORTIC (VALVE) STENOSIS 11/20/2016 MONY CLEMENTS MD Ot E78.0 PURE HYPERCHOLESTEROLEMIA 11/20/2016 MONY CLEMENTS MD Ot I10 ESSENTIAL (PRIMARY) HYPERTENSION 11/20/2016 MONY CLEMENTS MD Ot I25.10 ATHSCL HEART DISEASE OF [place] CORONARY 11/20/2016 MONY CLEMENTS MD Ot 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 MITRAL (VALVE) INSUFFICIENC 11/20/2016 MONY CLEMENTS MD Ot I35.0 NONRHEUMATIC AORTIC (VALVE) STENOSIS 11/20/2016 LUIS ANGEL CHACKO Ot 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 11/20/2016 LUIS ANGEL CHACKOP Ot D64.9 ANEMIA, UNSPECIFIED 11/20/2016 LUIS ANGEL CHACKOP Ot E78.5 HYPERLIPIDEMIA, UNSPECIFIED 11/20/2016 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 Ot I10 ESSENTIAL (PRIMARY) HYPERTENSION 11/20/2016 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 Ot I25.10 ATHSCL HEART DISEASE OF [place] CORONARY 11/20/2016 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 Ot Z79.899 OTHER HALFWAY (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 THERAPY 11/20/2016 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 Ot 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 NICOTINE DEPENDENCE 11/20/2016 STARLA GARDNER MD Ot 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 11/20/2016 STARLA GARDNER MD Ot D64.9 ANEMIA, UNSPECIFIED 11/20/2016 STARLA GARDNER MD Ot E78.5 HYPERLIPIDEMIA, UNSPECIFIED 11/20/2016 STARLA GARDNER MD Ot I10 ESSENTIAL (PRIMARY) HYPERTENSION 11/20/2016 STARLA GARDNER MD Ot I25.10 ATHSCL HEART DISEASE OF [place] CORONARY 11/20/2016 STARLA GARDNER MD Ot 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 11/20/2016 STARLA GARDNER MD Ot 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 NICOTINE DEPENDENCE 11/21/2016 STARLA GARDNER MD Ot 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 11/21/2016 STARLA GARDNER MD Ot D64.9 ANEMIA, UNSPECIFIED 11/21/2016 STARLA GARDNER MD Ot E78.5 HYPERLIPIDEMIA, UNSPECIFIED 11/21/2016 STARLA GARDNER MD Ot I10 ESSENTIAL (PRIMARY) HYPERTENSION 11/21/2016 STARLA GARDNER MD Ot I25.10 ATHSCL HEART DISEASE OF [place] CORONARY 11/21/2016 STARLA GARDNER MD Ot 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 11/21/2016 STARLA GARDNER MD Ot 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 NICOTINE DEPENDENCE 11/23/2016 STARLA GARDNER MD Ot 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 11/23/2016 STARLA GARDNER MD Ot D64.9 ANEMIA, UNSPECIFIED 11/23/2016 STARLA GARDNER MD Ot E78.5 HYPERLIPIDEMIA, UNSPECIFIED 11/23/2016 STARLA GARDNER MD Ot I10 ESSENTIAL (PRIMARY) HYPERTENSION 11/23/2016 STARLA GARDNER MD Ot I25.10 ATHSCL HEART DISEASE OF [place] CORONARY 11/23/2016 STARLA GARDNER MD Ot Z79.899 OTHER HALFWAY (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 THERAPY 11/23/2016 STARLA GARDNER MD Ot 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 NICOTINE DEPENDENCE 11/23/2016 STARLA GARDNER MD Ot 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 11/23/2016 STARLA GARDNER MD Ot D64.9 ANEMIA, UNSPECIFIED 11/23/2016 STARLA GARDNER MD Ot E78.5 HYPERLIPIDEMIA, UNSPECIFIED 11/23/2016 STARLA GARDNER MD Ot I10 ESSENTIAL (PRIMARY) HYPERTENSION 11/23/2016 STARLA GARDNER MD Ot I25.10 ATHSCL HEART DISEASE OF [place] CORONARY 11/23/2016 STARLA GARDNER MD Ot 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 11/23/2016 STARLA GARDNER MD Ot 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 NICOTINE DEPENDENCE 11/23/2016 STARLA GARDNER MD Ot 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 11/23/2016 STARLA GARDNER MD, Ot D64.9 ANEMIA, UNSPECIFIED 11/23/2016 STARLA GARDNER MD Ot E78.5 HYPERLIPIDEMIA, UNSPECIFIED 11/23/2016 STARLA GARDNER MD Ot I10 ESSENTIAL (PRIMARY) HYPERTENSION 11/23/2016 STARLA GARDNER MD Ot I25.10 ATHSCL HEART DISEASE OF [place] CORONARY 11/23/2016 STARLA GARDNER MD Ot Z79.899 OTHER HALFWAY (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 THERAPY 11/23/2016 STARLA GARDNER MD Ot 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 NICOTINE DEPENDENCE 11/23/2016 STARLA GARDNER MD Ot 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 11/23/2016 STARLA GARDNER MD Ot D64.9 ANEMIA, UNSPECIFIED 11/23/2016 STARLA GARDNER MD Ot E78.5 HYPERLIPIDEMIA, UNSPECIFIED 11/23/2016 STARLA GARDNER MD Ot I10 ESSENTIAL (PRIMARY) HYPERTENSION 11/23/2016 STARLA GARDNER MD Ot I25.10 ATHSCL HEART DISEASE OF [place] CORONARY 11/23/2016 STARLA GARDNER MD Ot Z79.899 OTHER HALFWAY (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 THERAPY 11/23/2016 STARLA GARDNER MD Ot 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 NICOTINE DEPENDENCE 11/23/2016 STARLA GARDNER MD Ot 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 11/23/2016 STARLA GARDNER MD Ot D64.9 ANEMIA, UNSPECIFIED 11/23/2016 STARLA GARDNER MD Ot E78.5 HYPERLIPIDEMIA, UNSPECIFIED 11/23/2016 STARLA GARDNER MD Ot I10 ESSENTIAL (PRIMARY) HYPERTENSION 11/23/2016 STARLA GARDNER MD Ot I25.10 ATHSCL HEART DISEASE OF [place] CORONARY 11/23/2016 STARLA GARDNER MD Ot 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 11/23/2016 STARLA GARDNER MD Ot 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 NICOTINE DEPENDENCE 12/25/2016 STARLA GARDNER MD Ot 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 12/25/2016 STARLA GARDNER MD Ot D64.9 ANEMIA, UNSPECIFIED 12/25/2016 STARLA GARDNER MD Ot E78.5 HYPERLIPIDEMIA, UNSPECIFIED 12/25/2016 STARLA GARDNER MD Ot I10 ESSENTIAL (PRIMARY) HYPERTENSION 12/25/2016 STARLA GARDNER MD Ot I25.10 ATHSCL HEART DISEASE OF [place] CORONARY 12/25/2016 STARLA GARDNER MD Ot 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 12/25/2016 STARLA GARDNER MD Ot 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 NICOTINE DEPENDENCE 01/09/2017 STARLA GARDNER MD Ot 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 01/09/2017 STARLA GARDNER MD Ot D64.9 ANEMIA, UNSPECIFIED 01/09/2017 STARLA GARDNER MD Ot E78.5 HYPERLIPIDEMIA, UNSPECIFIED 01/09/2017 STARLA GARDNER MD Ot I10 ESSENTIAL (PRIMARY) HYPERTENSION 01/09/2017 STARLA GARDNER MD Ot I25.10 ATHSCL HEART DISEASE OF [place] CORONARY 01/09/2017 STARLA GARDNER MD Ot Z79.899 OTHER HALFWAY (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 THERAPY 01/09/2017 STARLA GARDNER MD Ot 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 NICOTINE DEPENDENCE 01/15/2017 STARLA GARDNER MD Ot 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 01/15/2017 STARLA GARDNER MD Ot D64.9 ANEMIA, UNSPECIFIED 01/15/2017 STARLA GARDNER MD Ot E78.5 HYPERLIPIDEMIA, UNSPECIFIED 01/15/2017 STARLA GARDNER MD Ot I10 ESSENTIAL (PRIMARY) HYPERTENSION 01/15/2017 STARLA GARDNER MD Ot I25.10 ATHSCL HEART DISEASE OF [place] CORONARY 01/15/2017 STARLA GARDNER MD Ot 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 01/15/2017 STARLA GARDNER MD Ot 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 NICOTINE DEPENDENCE 01/15/2017 STARLA GARDNER MD, Ot 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 01/15/2017 STARLA GARDNER MD Ot D64.9 ANEMIA, UNSPECIFIED 01/15/2017 STARLA GARDNER MD Ot E78.5 HYPERLIPIDEMIA, UNSPECIFIED 01/15/2017 STARLA GARDNER MD Ot I10 ESSENTIAL (PRIMARY) HYPERTENSION 01/15/2017 STARLA GARDNER MD Ot I25.10 ATHSCL HEART DISEASE OF [place] CORONARY 01/15/2017 STARLA GARDNER MD Ot Z79.899 OTHER HALFWAY (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 THERAPY 01/15/2017 STARLA GARDNER MD Ot 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 NICOTINE DEPENDENCE 01/15/2017 STARLA GARDNER MD Ot 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 01/15/2017 STARLA GARDNER MD, Ot D64.9 ANEMIA, UNSPECIFIED 01/15/2017 STARLA GARDNER MD Ot E78.5 HYPERLIPIDEMIA, UNSPECIFIED 01/15/2017 STARLA GARDNER MD Ot I10 ESSENTIAL (PRIMARY) HYPERTENSION 01/15/2017 STARLA GARDNER MD Ot I25.10 ATHSCL HEART DISEASE OF [place] CORONARY 01/15/2017 STARLA GARDNER MD Ot 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 01/15/2017 STARLA GARDNER MD Ot 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 NICOTINE DEPENDENCE 01/15/2017 STARLA GARDNER MD Ot 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 01/15/2017 STARLA GARDNER MD Ot K57.30 DVRTCLOS OF LG INT W/O PERFORATION OR AB 01/15/2017 TOMMY CAZARES MD Ot J44.9 CHRONIC OBSTRUCTIVE PULMONARY DISEASE, U 01/15/2017 TOMMY CAZARES MD Ot J44.9 CHRONIC OBSTRUCTIVE PULMONARY DISEASE, U 01/15/2017 STARLA GARDNER MD Ot 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 01/15/2017 STARLA GARDNER MD Ot D64.9 ANEMIA, UNSPECIFIED 01/15/2017 STARLA GARDNER MD Ot E78.5 HYPERLIPIDEMIA, UNSPECIFIED 01/15/2017 STARLA GARDNER MD Ot I10 ESSENTIAL (PRIMARY) HYPERTENSION 01/15/2017 STARLA GARDNER MD Ot I25.10 ATHSCL HEART DISEASE OF [place] CORONARY 01/15/2017 STARLA GARDNER MD Ot Z79.899 OTHER HALFWAY (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 THERAPY 01/15/2017 STARLA GARDNER MD Ot 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 NICOTINE DEPENDENCE 01/16/2017 SAGE JONES, TOMMY Shafer Ot J44.9 CHRONIC OBSTRUCTIVE PULMONARY DISEASE, U 01/16/2017 STARLA GARDNER MD Ot 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 01/16/2017 STARLA GARDNER MD Ot D64.9 ANEMIA, UNSPECIFIED 01/16/2017 STARLA GARDNER MD Ot E78.5 HYPERLIPIDEMIA, UNSPECIFIED 01/16/2017 STARLA GARDNER MD Ot I10 ESSENTIAL (PRIMARY) HYPERTENSION 01/16/2017 STARLA GARDNER MD Ot I25.10 ATHSCL HEART DISEASE OF [place] CORONARY 01/16/2017 STARLA GARDNER MD Ot 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 01/16/2017 STARLA GARNDER MD Ot 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 NICOTINE DEPENDENCE 01/16/2017 STARLA GARDNER MD Ot 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 01/16/2017 STARLA GARDNER MD Ot D64.9 ANEMIA, UNSPECIFIED 01/16/2017 STARLA GARDNER MD Ot E78.5 HYPERLIPIDEMIA, UNSPECIFIED 01/16/2017 STARLA GARDNER MD Ot I10 ESSENTIAL (PRIMARY) HYPERTENSION 01/16/2017 STARLA GARDNER MD Ot I25.10 ATHSCL HEART DISEASE OF [place] CORONARY 01/16/2017 STARLA GARDNER MD Ot 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 01/16/2017 STARLA GARDNER MD Ot 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 NICOTINE DEPENDENCE 01/16/2017 STARLA GARDNER MD Ot 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 01/16/2017 STARLA GARDNER MD Ot D64.9 ANEMIA, UNSPECIFIED 01/16/2017 STARLA GARDNER MD Ot E78.5 HYPERLIPIDEMIA, UNSPECIFIED 01/16/2017 STARLA GARDNER MD Ot I10 ESSENTIAL (PRIMARY) HYPERTENSION 01/16/2017 STARLA GARDNER MD Ot I25.10 ATHSCL HEART DISEASE OF [place] CORONARY 01/16/2017 STARLA GARDNER MD Ot 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 01/16/2017 STARLA GARDNER MD Ot 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 NICOTINE DEPENDENCE 01/17/2017 STARLA GARDNER MD Ot 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 01/17/2017 STARLA GARDNER MD Ot D64.9 ANEMIA, UNSPECIFIED 01/17/2017 STARLA GARDNER MD Ot E78.5 HYPERLIPIDEMIA, UNSPECIFIED 01/17/2017 STARLA GARDNER MD Ot I10 ESSENTIAL (PRIMARY) HYPERTENSION 01/17/2017 STARLA GARDNER MD Ot I25.10 ATHSCL HEART DISEASE OF [place] CORONARY 01/17/2017 STARLA GARDNER MD Ot 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 01/17/2017 STARLA GARDNER MD Ot 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 NICOTINE DEPENDENCE 01/17/2017 STARLA GARDNER MD Ot 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 01/17/2017 STARLA GARDNER MD Ot D64.9 ANEMIA, UNSPECIFIED 01/17/2017 STARLA GARDNER MD Ot E78.5 HYPERLIPIDEMIA, UNSPECIFIED 01/17/2017 STARLA GARDNER MD Ot I10 ESSENTIAL (PRIMARY) HYPERTENSION 01/17/2017 STARLA GARDNER MD Ot I25.10 ATHSCL HEART DISEASE OF [place] CORONARY 01/17/2017 STARLA GARDNER MD Ot Z79.899 OTHER HALFWAY (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 THERAPY 01/17/2017 STARLA GARDNER MD Ot 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 NICOTINE DEPENDENCE 02/18/2017 STARLA GARDNER MD Ot 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 02/18/2017 STARLA GARDNER MD Ot D64.9 ANEMIA, UNSPECIFIED 02/18/2017 STARLA GARDNER MD Ot E78.5 HYPERLIPIDEMIA, UNSPECIFIED 02/18/2017 STARLA GARDNER MD Ot I10 ESSENTIAL (PRIMARY) HYPERTENSION 02/18/2017 STARLA GARDNER MD Ot I25.10 ATHSCL HEART DISEASE OF [place] CORONARY 02/18/2017 STARLA GARDNER MD Ot 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 02/18/2017 STARLA GARDNER MD Ot 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 NICOTINE DEPENDENCE 03/12/2017 ANGELINA GARCIAS MD Ot 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 03/12/2017 ANGELINA GARCIAS MD, Ot D64.9 ANEMIA, UNSPECIFIED 03/12/2017 ANGELINA GARCIAS MD, Ot E78.5 HYPERLIPIDEMIA, UNSPECIFIED 03/12/2017 ANGELINA GARCIAS MD Ot I10 ESSENTIAL (PRIMARY) HYPERTENSION 03/12/2017 ANGELINA GARCIAS MD Ot I25.10 ATHSCL HEART DISEASE OF [place] CORONARY 03/12/2017 ANGELINA GARCIAS MD Ot Z79.899 OTHER HALFWAY (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 THERAPY 03/12/2017 ANGELINA GARCIAS MD, Ot 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 NICOTINE DEPENDENCE 03/16/2017 ANGELINA GARCIAS MD Ot 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 03/16/2017 ANGELINA GARCIAS MD Ot D64.9 ANEMIA, UNSPECIFIED 03/16/2017 ANGELINA GARCIAS MD Ot E78.5 HYPERLIPIDEMIA, UNSPECIFIED 03/16/2017 ANGELINA GARCIAS MD Ot I10 ESSENTIAL (PRIMARY) HYPERTENSION 03/16/2017 ANGELINA GARCIAS MD Ot I25.10 ATHSCL HEART DISEASE OF [place] CORONARY 03/16/2017 ANGELINA GARCIAS MD, Ot 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 03/16/2017 ANGELINA GARCIAS MD, Ot 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 NICOTINE DEPENDENCE 04/03/2017 STARLA GARDNER MD Ot 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 04/03/2017 STARLA GARDNER MD Ot 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 04/03/2017 STARLA GARDNER MD Ot K57.30 DVRTCLOS OF LG INT W/O PERFORATION OR AB 04/03/2017 STARLA GARDNER MD Ot N28.1 CYST OF KIDNEY, ACQUIRED 04/04/2017 ANGELINA GARCIAS MD Ot 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 04/04/2017 ANGELINA GARCIAS MD Ot D64.9 ANEMIA, UNSPECIFIED 04/04/2017 ANGELINA GARCIAS MD Ot E78.5 HYPERLIPIDEMIA, UNSPECIFIED 04/04/2017 ANGELINA GARCIAS MD Ot I10 ESSENTIAL (PRIMARY) HYPERTENSION 04/04/2017 ANGELINA GARCIAS MD Ot I25.10 ATHSCL HEART DISEASE OF [place] CORONARY 04/04/2017 ANGELINA GARCIAS MD Ot Z79.899 OTHER HALFWAY (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 THERAPY 04/04/2017 ANGELINA GARCIAS MD, Ot 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 NICOTINE DEPENDENCE 06/24/2017 DRISS WILSON MD, Ot I10 ESSENTIAL (PRIMARY) HYPERTENSION 06/24/2017 DRISS WILSON MD Ot I25.10 ATHSCL HEART DISEASE OF [place] CORONARY 06/24/2017 KIDO MD, TAKAAKI Ot K57.30 DVRTCLOS OF LG INT W/O PERFORATION OR AB 06/24/2017 DRISS WILSON MD Ot K64.1 SECOND DEGREE HEMORRHOIDS 06/24/2017 DRISS WILSON MD, Ot N40.0 BENIGN PROSTATIC HYPERPLASIA WITHOUT LOW 06/24/2017 DRISS WILSON MD, Ot 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 06/24/2017 DRISS WILSON MD Ot Z79.899 OTHER HALFWAY (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 THERAPY 06/24/2017 DRISS WILSON MD, Ot Z80.3 FAMILY HISTORY OF MALIGNANT NEOPLASM OF 06/24/2017 DRISS WILSON MD, Ot Z85.038 PERSONAL HISTORY OF MALIGNANT NEOPLASM O 06/24/2017 DRISS WILSON MD, Ot 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 NICOTINE DEPENDENCE 06/24/2017 DRISS WILSON MD, Ot Z95.1 PRESENCE OF AORTOCORONARY BYPASS GRAFT 06/24/2017 DRISS WILSON MD, Ot Z95.2 PRESENCE OF PROSTHETIC HEART VALVE 06/25/2017 DRISS WILSON MD Ot I10 ESSENTIAL (PRIMARY) HYPERTENSION 06/25/2017 DRISS WILSON MD, Ot I25.10 ATHSCL HEART DISEASE OF [place] CORONARY 06/25/2017 DRISS WILSON MD, Ot K57.30 DVRTCLOS OF LG INT W/O PERFORATION OR AB 06/25/2017 DRISS WILSON MD, Ot K64.1 SECOND DEGREE HEMORRHOIDS 06/25/2017 DRISS WILSON MD, Ot N40.0 BENIGN PROSTATIC HYPERPLASIA WITHOUT LOW 06/25/2017 DRISS WILSON MD, Ot 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 06/25/2017 DRISS WILSON MD, Ot Z79.899 OTHER HALFWAY (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 THERAPY 06/25/2017 DRISS WILSON MD, Ot Z80.3 FAMILY HISTORY OF MALIGNANT NEOPLASM OF 06/25/2017 DRISS WILSON MD, Ot Z85.038 PERSONAL HISTORY OF MALIGNANT NEOPLASM O 06/25/2017 DRISS WILSON MD, Ot 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 NICOTINE DEPENDENCE 06/25/2017 DRISS WILSON MD Ot Z95.1 PRESENCE OF AORTOCORONARY BYPASS GRAFT 06/25/2017 DRISS WILSON MD Ot Z95.2 PRESENCE OF PROSTHETIC HEART VALVE 06/30/2017 DRISS WILSON MD Ot I10 ESSENTIAL (PRIMARY) HYPERTENSION 06/30/2017 DRISS WILSON MD, Ot I25.10 ATHSCL HEART DISEASE OF [place] CORONARY 06/30/2017 DRISS WILSON MD, Ot K57.30 DVRTCLOS OF LG INT W/O PERFORATION OR AB 06/30/2017 DRISS WILSON MD, Ot K64.1 SECOND DEGREE HEMORRHOIDS 06/30/2017 DRISS WILSON MD, Ot N40.0 BENIGN PROSTATIC HYPERPLASIA WITHOUT LOW 06/30/2017 DRISS WILSON MD, Ot Z79.82 HALFWAY (CURRENT) USE OF ASPIRIN 06/30/2017 DRISS WILSON MD, Ot Z79.899 OTHER HALFWAY (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 THERAPY 06/30/2017 DRISS WILSON MD, Ot Z80.3 FAMILY HISTORY OF MALIGNANT NEOPLASM OF 06/30/2017 DRISS WILSON MD, Ot Z85.038 PERSONAL HISTORY OF MALIGNANT NEOPLASM O 06/30/2017 DRISS WILSON MD, Ot 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 NICOTINE DEPENDENCE 06/30/2017 DRISS WILSON MD, Ot Z95.1 PRESENCE OF AORTOCORONARY BYPASS GRAFT 06/30/2017 DRISS WILSON MD, Ot Z95.2 PRESENCE OF PROSTHETIC HEART VALVE 09/23/2017 CAESAR PASCUAL MD Ot E78.5 HYPERLIPIDEMIA, UNSPECIFIED 09/23/2017 CAESAR PASCUAL MD Ot I10 ESSENTIAL (PRIMARY) HYPERTENSION 09/23/2017 CAESAR PASCUAL MD, Ot I25.10 ATHSCL HEART DISEASE OF [place] CORONARY 09/23/2017 CAESAR PASCUAL MD, Ot 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 MITRAL (VALVE) INSUFFICIENC 09/23/2017 CAESAR PACSUAL MD Ot 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 09/23/2017 CAESAR PASCUAL MD, Ot Z48.812 ENCNTR FOR SURGICAL AFTCR FOLLOWING SURG 09/23/2017 CAESAR PASCUAL MD Ot 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 09/23/2017 CAESAR PASCUAL MD Ot Z95.1 PRESENCE OF AORTOCORONARY BYPASS GRAFT 09/23/2017 CAESAR PASCUAL MD Ot Z95.3 PRESENCE OF XENOGENIC HEART VALVE 10/28/2017 ANGELINA GARCIAS MD Ot 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 10/28/2017 ANGELINA GARCIAS MD Ot D64.9 ANEMIA, UNSPECIFIED 10/28/2017 ANGELINA GARCIAS MD Ot E78.5 HYPERLIPIDEMIA, UNSPECIFIED 10/28/2017 ANGELINA GARCIAS MD Ot I10 ESSENTIAL (PRIMARY) HYPERTENSION 10/28/2017 ANGELINA GARCIAS MD Ot I25.10 ATHSCL HEART DISEASE OF [place] CORONARY 10/28/2017 ANGELINA GARCIAS MD Ot 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 10/28/2017 ANGELINA GARCIAS MD Ot 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 NICOTINE DEPENDENCE 12/30/2017 ANGELINA GARCIAS MD Ot 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 12/30/2017 ANGELINA GARCIAS MD Ot D64.9 ANEMIA, UNSPECIFIED 12/30/2017 ANGELINA GARCIAS MD Ot E78.5 HYPERLIPIDEMIA, UNSPECIFIED 12/30/2017 ANGELINA GARCIAS MD Ot I10 ESSENTIAL (PRIMARY) HYPERTENSION 12/30/2017 ANGELINA GARCIAS MD Ot I25.10 ATHSCL HEART DISEASE OF [place] CORONARY 12/30/2017 ANGELINA GARCIAS MD Ot Z79.899 OTHER HALFWAY (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 THERAPY 12/30/2017 ANGELINA GARCIAS MD Ot 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 NICOTINE DEPENDENCE 12/31/2017 ANGELINA GARCIAS MD Ot 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 12/31/2017 ANGELINA GARCIAS MD Ot D64.9 ANEMIA, UNSPECIFIED 12/31/2017 ANGELINA GARCIAS MD Ot E78.5 HYPERLIPIDEMIA, UNSPECIFIED 12/31/2017 ANGELINA GARCIAS MD Ot I10 ESSENTIAL (PRIMARY) HYPERTENSION 12/31/2017 ANGELINA GARCIAS MD Ot I25.10 ATHSCL HEART DISEASE OF [place] CORONARY 12/31/2017 ANGELINA GARCIAS MD Ot 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 12/31/2017 ANGELINA GARCIAS MD Ot 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 NICOTINE DEPENDENCE 01/01/2018 ANGELINA GARCIAS MD Ot 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 01/01/2018 ANGELINA GARCIAS MD Ot D64.9 ANEMIA, UNSPECIFIED 01/01/2018 ANGELINA GARCIAS MD Ot E78.5 HYPERLIPIDEMIA, UNSPECIFIED 01/01/2018 ANGELINA GARCIAS MD Ot I10 ESSENTIAL (PRIMARY) HYPERTENSION 01/01/2018 ANGELINA GARCIAS MD Ot I25.10 ATHSCL HEART DISEASE OF [place] CORONARY 01/01/2018 ANGELINA GARCIAS MD Ot Z79.899 OTHER HALFWAY (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 THERAPY 01/01/2018 ANGELINA GARCIAS MD, Ot 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 NICOTINE DEPENDENCE 01/26/2018 ANGELINA GARCIAS MD Ot 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 01/26/2018 ANGELINA GARCIAS MD, Ot D64.9 ANEMIA, UNSPECIFIED 01/26/2018 ANGELINA GARCIAS MD, Ot E78.5 HYPERLIPIDEMIA, UNSPECIFIED 01/26/2018 ANGELINA GARCIAS MD Ot I10 ESSENTIAL (PRIMARY) HYPERTENSION 01/26/2018 ANGELINA GARCIAS MD Ot I25.10 ATHSCL HEART DISEASE OF [place] CORONARY 01/26/2018 ANGELINA GARCIAS MD Ot 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 01/26/2018 ANGELINA GARCIAS MD, Ot 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 NICOTINE DEPENDENCE Procedures Code Description Performed By Performed On 3CRM0FT RESECTION OF RIGHT LARGE INTESTINE, PERC 11/08/2015 [id number] RESECTION OF GALLBLADDER, PERCUTANEOUS E 11/08/2015 Results Test Result Range Automated blood complete blood count (hemogram) panel - 07/30/16 09:51 Blood leukocytes automated count (number/volume) 6.4 10*3/uL 4.3-11.0 Blood erythrocytes automated count (number/volume) 4.12 10*6/uL 4.35-5.85 Venous blood hemoglobin measurement (mass/volume) 13.4 g/dL 13.3-17.7 Blood hematocrit (volume fraction) 40 % 40-54 Automated erythrocyte mean corpuscular volume 97 [foz_us] 80-99 Automated erythrocyte mean corpuscular hemoglobin (mass per erythrocyte) 33 pg 25-34 Automated erythrocyte mean corpuscular hemoglobin concentration measurement ( mass/volume) 33 g/dL 32-36 Automated erythrocyte distribution width ratio 13.1 % 10.0-14.5 Automated blood platelet count (count/volume) 181 10*3/uL 130-400 Automated blood platelet mean volume measurement 10.7 [foz_us] 7.4-10.4 PT panel in platelet poor plasma by coagulation assay - 07/30/16 09:51 Prothrombin time (PT) in platelet poor plasma by coagulation assay 13.1 s 12.2-14.7 INR in platelet poor plasma or blood by coagulation assay 1.0 0.8-1.4 Activated partial thromboplastin time (aPTT) in platelet poor plasma bycoagulation assay - 07/30/16 09:51 Activated partial thromboplastin time (aPTT) in platelet poor plasma bycoagulation assay 32 s 24-35 Comprehensive metabolic panel - 07/30/16 09:51 Serum or plasma sodium measurement (moles/volume) 138 mmol/L 135-145 Serum or plasma potassium measurement (moles/volume) 4.7 mmol/L 3.6-5.0 Serum or plasma chloride measurement (moles/volume) 106 mmol/L 98-107 Carbon dioxide 23 mmol/L 21-32 Serum or plasma anion gap determination (moles/volume) 9 mmol/L 5-14 Serum or plasma urea nitrogen measurement (mass/volume) 23 mg/dL 7-18 Serum or plasma creatinine measurement (mass/volume) 1.03 mg/dL 0.60-1.30 Serum or plasma urea nitrogen/creatinine mass ratio 22 NRG Serum or plasma creatinine measurement with calculation of estimated glomerular filtration rate > NRG Serum or plasma glucose measurement (mass/volume) 91 mg/dL 70-105 Serum or plasma calcium measurement (mass/volume) 9.2 mg/dL 8.5-10.1 Serum or plasma total bilirubin measurement (mass/volume) 0.6 mg/dL 0.1-1.0 Serum or plasma alkaline phosphatase measurement (enzymatic activity/volume) 82 U/L 40-136 Serum or plasma aspartate aminotransferase measurement (enzymatic activity/ volume) 23 U/L 5-34 Serum or plasma alanine aminotransferase measurement (enzymatic activity/volume ) 15 U/L 0-55 Serum or plasma protein measurement (mass/volume) 7.4 g/dL 6.4-8.2 Serum or plasma albumin measurement (mass/volume) 4.4 g/dL 3.2-4.5 Lipid 1996 panel - 07/30/16 09:51 Serum or plasma triglyceride measurement (mass/volume) 135 mg/dL <150 Serum or plasma cholesterol measurement (mass/volume) 165 mg/dL < 200 Serum or plasma cholesterol in HDL measurement (mass/volume) 43 mg/ dL 40-60 Cholesterol in LDL [mass/volume] in serum or plasma by direct assay 103 mg/dL 1-129 Serum or plasma cholesterol in VLDL measurement (mass/volume) 27 mg/ dL 5-40 Methicillin resistant Staphylococcus aureus (MRSA) screening culture - 09:51 Methicillin resistant Staphylococcus aureus (MRSA) screening culture NEG NRG Encounters ACCT No. Visit Date/Time Discharge Status Pt. Type Provider Facility Loc./Unit Complaint [id number] 12/31/2017 08:15:00 12/31/2017 23:59:59 CLS Outpatient ANGELINA GARCIAS MD [facility] ONC [id number] 12/29/2017 08:17:00 12/30/2017 00:01:00 DIS Outpatient ANGELINA GARCIAS MD [facility] ONC [id number] 06/24/2017 08:47:00 06/24/2017 11:45:00 DIS Outpatient DRISS WILSON MD [facility] ENDO HX OF COLON CA/+OCCULT STOOL/LOW HGB [id number] 06/18/2017 12:42:00 06/18/2017 12:57:00 DIS Outpatient DRISS WILSON MD [facility] PREOP COLONOSCOPY [id number] 03/26/2017 09:03:00 04/04/2017 00:01:00 DIS Outpatient ANGELINA GARCIAS MD [facility] ONC [id number] 03/13/2017 10:40:00 03/13/2017 23:59:59 CLS Outpatient STARLA GARDNER MD [facility] RAD C18.0 [id number] 11/20/2016 08:44:00 02/18/2017 00:01:00 DIS Outpatient STARLA GARDNER MD [facility] ONC [id number] 07/31/2016 09:16:00 10/21/2016 00:01:00 DIS Outpatient STARLA GARDNER MD [facility] ONC [id number] 08/20/2016 08:11:00 08/20/2016 23:59:59 CLS Outpatient TOMMY CAZARES MD [facility] RT COPD [id number] 08/06/2016 16:20:00 08/06/2016 23:59:59 CLS Outpatient TOMMY CAZARES MD [facility] RAD COUGH [id number] 07/30/2016 07:34:00 07/30/2016 13:02:00 DIS Outpatient CAESAR PASCUAL MD [facility] CATH CAD,CABG [id number] 07/16/2016 10:00:00 07/16/2016 23:59:59 CLS Outpatient STARLA GARDNER MD [facility] RAD ADENOCARCINOMA OF CECUM [id number] 06/10/2016 08:51:00 07/07/2016 00:01:00 DIS Outpatient STARLA GARDNER MD [facility] ONC [id number] 03/12/2016 09:07:00 03/31/2016 00:01:00 DIS Outpatient STARLA GARDNER MD [facility] ONC [id number] 01/08/2016 14:08:00 01/08/2016 23:59:59 CLS Outpatient 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 [facility]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 [id number] 12/10/2015 13:09:00 12/17/2015 00:01:00 DIS Outpatient STARLA GARDNER MD [facility] ONC [id number] 11/08/2015 09:25:00 11/20/2015 13:50:00 DIS Inpatient DRISS WILSON MD [facility] 4TH COLON CANCER; GALLSTONES [id number] 11/06/2015 11:47:00 11/06/2015 12:32:00 DIS Outpatient DRISS WILSON MD [facility] PREOP COLON CANCER; GALLSTONES [id number] 11/02/2015 07:40:00 11/02/2015 23:59:59 CLS Outpatient MONY CLEMENTS MD [facility] CARD AORTIC VALVE STENOSIS, ESSENTIAL HTN,MR [id number] 10/31/2015 06:42:00 10/31/2015 14:00:00 DIS Outpatient MONY CLEMENTS MD [facility] CARD AVS,MR,TR [id number] 10/30/2015 15:09:00 10/30/2015 23:59:59 CLS Outpatient MONY CLEMENTS MD [facility] LAB AV STENOSIS,CAD,MR,TR [id number] 10/10/2015 08:06:00 10/10/2015 11:30:00 DIS Outpatient DRISS WILSON MD [facility] SDC ANEMIA; OCCULT BLOOD IN STOOL [id number] 10/04/2015 13:30:00 10/04/2015 23:59:59 CLS Outpatient DRISS WILSON MD [facility] PREOP ANEMIA; OCCULT BLOOD IN STOOL [id number] 09/26/2015 09:44:00 09/26/2015 23:59:59 CLS Outpatient STARLA GARDNER MD [facility] RAD HISTORY OF CIGARETTE SMOKING,HERNIA [id number] 09/30/2014 21:26:00 10/01/2014 00:13:00 DIS Emergency PRIYA VILLATORO MD [facility] ER NAUSEA DIZZY [id number] 01/19/2013 08:07:00 01/19/2013 23:59:59 CLS Outpatient MARCOS GALVAN MD [facility] RAD SPINAL STENOSIS [id number] 03/21/2018 08:10:00 ACT Emergency LISA PAINTER MD [facility] ER SOB [id number] 09/15/2014 08:46:00 Document Registration [id number] 09/14/2014 08:36:00 Document Registration [id number] 12/03/2010 09:38:00 Document Registration [id number] 11/12/2010 06:58:00 Document Registration [id number] 10/31/2010 07:59:00 Document Registration
[2018-03-21 08:27] LABS: BASOPHILS % (AUTO) 0 % (0-10); EOSINOPHILS # (AUTO) 0.1 10^3/uL (0.0-0.3); EOSINOPHILS % (AUTO) 1 % (0-10); HEMATOCRIT 36 % (40-54); HEMOGLOBIN 12.2 G/DL (13.3-17.7); LYMPHOCYTES # (AUTO) 0.8 X 10^3 (1.0-4.0); LYMPHOCYTES % (AUTO) 6 % (12-44); MEAN CORPUSCULAR HEMOGLOBIN 31 PG (25-34); MEAN CORPUSCULAR HGB CONC 34 G/DL (32-36); MEAN CORPUSCULAR VOLUME 91 FL (80-99); MEAN PLATELET VOLUME 10.2 FL (7.4-10.4); MONOCYTES # (AUTO) 1.3 X 10^3 (0.0-1.0); MONOCYTES % (AUTO) 10 % (0-12); NEUTROPHILS # (AUTO) 11.3 X 10^3 (1.8-7.8); NEUTROPHILS % (AUTO) 84 % (42-75); PLATELET COUNT 223 10^3/uL (130-400); RED BLOOD COUNT 3.97 10^6/uL (4.35-5.85); RED CELL DISTRIBUTION WIDTH 13.2 % (10.0-14.5); WHITE BLOOD COUNT 13.5 10^3/uL (4.3-11.0)
[2018-03-21] MEDS ORDERED: RT-ALBUTEROL/IPRATROPIUM 3 ML (DUONEB) VIAL INH ONE (08:30)
--- NOTE | 2018-03-21 08:34 | Diagnostic Imaging Report ---
Indication: Shortness of air and chest pain. Comparison: 08/06/2016. Findings: Stable marked cardiomegaly. Central vascular indistinctness and interstitial opacities have mildly progressed. No pleural effusions. No pneumothorax. Impression: Cardiomegaly with probable interstitial pulmonary edema. No pleural effusions. Dictated by: Dictated on workstation # [id number]
[2018-03-21 08:47] LABS: ALANINE AMINOTRANSFERASE 19 U/L (0-55); ALBUMIN 4.1 GM/DL (3.2-4.5); ALKALINE PHOSPHATASE 80 U/L (40-136); BILIRUBIN,TOTAL 0.8 MG/DL (0.1-1.0); BUN/CREATININE RATIO 21; CALCIUM 9.7 MG/DL (8.5-10.1); CARBON DIOXIDE 23 MMOL/L (21-32); CHLORIDE 104 MMOL/L (98-107); CREATININE SERUM 1.11 MG/DL (0.60-1.30); GFR ESTIMATED > 60; GLUCOSE 124 MG/DL (70-105); POTASSIUM 4.3 MMOL/L (3.6-5.0); SODIUM 137 MMOL/L (135-145); TOTAL PROTEIN 7.3 GM/DL (6.4-8.2)
[2018-03-21 09:16] LABS: LYMPHOCYTES % (MANUAL) 5 %; MONOCYTES % (MANUAL) 10 %; NEUTROPHILS % (MANUAL) 84 %; NUCLEATED RED BLOOD CELLS 1; RBC MORPH NORMAL
--- NOTE | 2018-03-21 09:26 | ED General ---
General Chief Complaint: Respiratory Problems Stated Complaint: SOB Nursing Triage Note: PT PRESENTS TO ER WITH COMPLAINT OF SOB. STATES HE IS ALWAYS SOB, BUT INCREASED THIS MORNING. STATES HE HAS HAD CHEST PAIN ON AND OFF SINCE LAST WEEK, BUT IS NOT CURRENTLY COMPLAINING OF CHEST. Nursing Sepsis Screen: No Definite Risk Source of Information: Patient History of Present Illness Date Seen by Provider: Mar 21, 2018 Time Seen by Provider: 09:22 Initial Comments The patient is an 87-year-old white male who reports that he has had increasing shortness of breath since Thursday. He has had a mild nonspecific sort of chest pain throughout this period of time. He denies fever or coughing up phlegm. He has past history of heart disease and sees Dr. Schroeder. He has an appointment with him for Thursday morning. He has had to sleep in the recliner the last 2 nights. He has not noted any pedal edema. He has a past history of colon cancer which was resected. There was apparently no evidence of metastasis at the time of surgery or since. Timing/Duration: 3-4 Days Severity: Mild, Moderate Associated Systoms: Shortness of Air Allergies and Home Medications Allergies Coded Allergies: No Known Drug Allergies (Verified , 08/10/08) Home Medications Aspirin 81 Mg Tablet.dr, 81 MG PO DAILY, (Reported) Atenolol 25 Mg Tablet, 25 MG PO DAILY, (Reported) Losartan Potassium 50 Mg Tablet, 50 MG PO DAILY, (Reported) Simvastatin 20 Mg Tablet, 20 MG PO DAILY, (Reported) Tamsulosin HCl 0.4 Mg Cap, 0.4 MG PO DAILY, (Reported) Patient Home Medication List Home Medication List Reviewed: Yes Review of Systems Review of Systems Constitutional: see HPI EENTM: no symptoms reported Respiratory: see HPI, cough, dyspnea on exertion, orthopnea, short of breath Cardiovascular: chest pain Gastrointestinal: no symptoms reported Genitourinary: no symptoms reported Musculoskeletal: no symptoms reported Skin: no symptoms reported Psychiatric/Neurological: No Symptoms Reported Hematologic/Lymphatic: No Symptoms Reported Immunological/Allergic: no symptoms reported Past Nwiphec-Bbpzjy-Pfvbrs Hx Patient Social History Alcohol Use: Denies Use Recreational Drug Use: No Smoking Status: Former Smoker Type Used: Cigars, Cigarettes, Pipe Former Smoker, Quit: Jul 30, 1988 Recent Foreign Travel: No Contact w/Someone Who Travel: No Recent Infectious Disease Expo: No Recent Hopitalizations: No Immunizations Up To Date Date of Pneumonia Vaccine: Sep 15, 2012 Date of Influenza Vaccine: Mar 20, 2017 Seasonal Allergies Seasonal Allergies: Yes Past Medical History Surgeries: Yes (hiatal hernia, lap right hemicolectomy, hemorrhoidectomy) CABG, Gallbladder, Prostatectomy, Valve Replacement Respiratory: No Cardiac: Yes Coronary Artery Disease, High Cholesterol, Hypertension, Valvular Heart Disease Neurological: No Reproductive Disorders: No Gastrointestinal: Yes Gastroesophageal Reflux, Diverticulosis, Polyps Musculoskeletal: Yes (HERNIATED DISC) Chronic Back Pain Endocrine: No Loss of Vision: Denies Hearing Impairment: Denies Cancer: Yes (COLON CANCER) Colon Psychosocial: No Integumentary: No Blood Disorders: Yes (anemia) Family Medical History Cancer in sister Cancer Physical Exam Vital Signs Vital Signs - First Documented 03/21/18 08:11 Temp 99.2 Pulse 105 Resp 31 B/P (MAP) 156/63 (94) Pulse Ox 92 O2 Delivery Nasal Cannula O2 Flow Rate 2.00 Capillary Refill : Less Than 3 Seconds Height, Weight, BMI Height: 5'8.00" Weight: 200lbs. 0.0oz. 90.232128bh; 30.4 BMI Method:Stated General Appearance: Mild Distress Eyes: Bilateral Eye Normal Inspection HEENT: PERRL/EOMI, TMs Normal, Normal ENT Inspection, Pharynx Normal Neck: Full Range of Motion, Normal Inspection Respiratory: Decreased Breath Sounds (distant breath sounds and no wheezing) Cardiovascular: Regular Rate, Rhythm, No Edema, No Gallop, No JVD, No Murmur, Normal Peripheral Pulses Gastrointestinal: Normal Bowel Sounds, No Organomegaly, No Pulsatile Mass, Non Tender, Soft Extremity: Normal Capillary Refill, Normal Inspection, Normal Range of Motion, Non Tender, No Calf Tenderness Neurologic/Psychiatric: Alert, Oriented x3, No Motor/Sensory Deficits, Normal Mood/Affect Skin: Normal Color, Warm/Dry Lymphatic: No Adenopathy Progress/Results/Core Measures Suspected Sepsis Recent Fever Within 48 Hours: No Infection Criteria Present: None New/Unexplained Altered Menta: No Sepsis Screen: No Definite Risk SIRS Temperature:99.2 Pulse: 105 Respiratory Rate: 31 Laboratory Tests 03/21/18 08:17: White Blood Count 13.5H Blood Pressure 156 /63 Mean: 94 Laboratory Tests 03/21/18 08:17: Creatinine 1.11, Platelet Count 223, Total Bilirubin 0.8 Results/Orders Lab Results Laboratory Tests Test 03/21/18 08:17 03/21/18 09:50 Range/Units White Blood Count 13.5 H 4.3-11.0 10^3/uL Red Blood Count 3.97 L 4.35-5.85 10^6/uL Hemoglobin 12.2 L 13.3-17.7 G/DL Hematocrit 36 L 40-54 % Mean Corpuscular Volume 91 80-99 FL Mean Corpuscular Hemoglobin 31 25-34 PG Mean Corpuscular Hemoglobin Concent 34 32-36 G/DL Red Cell Distribution Width 13.2 10.0-14.5 % Platelet Count 223 130-400 10^3/uL Mean Platelet Volume 10.2 7.4-10.4 FL Neutrophils (%) (Auto) 84 H 42-75 % Lymphocytes (%) (Auto) 6 L 12-44 % Monocytes (%) (Auto) 10 0-12 % Eosinophils (%) (Auto) 1 0-10 % Basophils (%) (Auto) 0 0-10 % Neutrophils # (Auto) 11.3 H 1.8-7.8 X 10^3 Lymphocytes # (Auto) 0.8 L 1.0-4.0 X 10^3 Monocytes # (Auto) 1.3 H 0.0-1.0 X 10^3 Eosinophils # (Auto) 0.1 0.0-0.3 10^3/uL Basophils # (Auto) 0.0 0.0-0.1 10^3/uL Neutrophils % (Manual) 84 % Lymphocytes % (Manual) 5 % Monocytes % (Manual) 10 % Nucleated Red Blood Cells 1 Blood Morphology Comment NORMAL Sodium Level 137 135-145 MMOL/L Potassium Level 4.3 3.6-5.0 MMOL/L Chloride Level 104 98-107 MMOL/L Carbon Dioxide Level 23 21-32 MMOL/L Anion Gap 10 5-14 MMOL/L Blood Urea Nitrogen 23 H 7-18 MG/DL Creatinine 1.11 0.60-1.30 MG/DL Estimat Glomerular Filtration Rate > 60 BUN/Creatinine Ratio 21 Glucose Level 124 H 70-105 MG/DL Calcium Level 9.7 8.5-10.1 MG/DL Corrected Calcium 9.6 8.5-10.1 MG/DL Total Bilirubin 0.8 0.1-1.0 MG/DL Aspartate Amino Transf (AST/SGOT) 24 5-34 U/L Alanine Aminotransferase (ALT/SGPT) 19 0-55 U/L Alkaline Phosphatase 80 40-136 U/L Troponin I 0.36 *H <0.30 NG/ML B-Type Natriuretic Peptide 638.7 H <100.0 PG/ML Total Protein 7.3 6.4-8.2 GM/DL Albumin 4.1 3.2-4.5 GM/DL Urine Color YELLOW Urine Clarity SLIGHTLY CLOUDY Urine pH 5 5-9 Urine Specific [place] 1.020 1.016-1.022 Urine Protein 3+ H NEGATIVE Urine Glucose (UA) NEGATIVE NEGATIVE Urine Ketones NEGATIVE NEGATIVE Urine Nitrite NEGATIVE NEGATIVE Urine Bilirubin NEGATIVE NEGATIVE Urine Urobilinogen NORMAL NORMAL MG/DL Urine Leukocyte Esterase 1+ H NEGATIVE Urine RBC (Auto) 2+ H NEGATIVE Urine RBC 2-5 H /HPF Urine WBC 0-2 /HPF Urine Crystals NONE /LPF Urine Bacteria TRACE /HPF Urine Casts NONE /LPF Urine Mucus SMALL H /LPF Urine Culture Indicated NO My Orders Orders - LISA PAINTER MD Cbc With Automated Diff (03/21/18 08:15) Comprehensive Metabolic Panel (03/21/18 08:15) Troponin I (03/21/18 08:15) Ua Culture If Indicated (03/21/18 08:15) Ekg Tracing (03/21/18 08:15) Chest 1 View, Ap/Pa Only (03/21/18 08:15) Albuterol/Ipra Inhalation Soln (Duoneb I (03/21/18 08:30) Svn Small Volume Nebulizer (03/21/18 08:22) Manual Differential (03/21/18 08:17) BNP (03/21/18 09:10) Furosemide Injection (Lasix Injection) (03/21/18 09:30) Medications Given in ED Current Medications Medications Dose Ordered Sig/Rustam Route Start Time Stop Time Status Last Admin Dose Admin Albuterol/ Ipratropium 3 ml ONCE ONCE INH 03/21/18 08:30 03/21/18 08:31 DC 03/21/18 08:31 3 ML Furosemide 20 mg ONCE ONCE IVP 03/21/18 09:30 03/21/18 09:31 DC 03/21/18 10:03 20 MG Vital Signs/I&O 03/21/18 03/21/18 03/21/18 08:11 08:11 08:33 Temp 99.2 Pulse 105 Resp 31 B/P (MAP) 156/63 (94) Pulse Ox 92 87 98 O2 Delivery Nasal Cannula Room Air Nasal Cannula O2 Flow Rate 2.00 2.00 Capillary Refill : Less Than 3 Seconds Blood Pressure Mean: 94 Departure Communication (Admissions) Discussed with Dr. Willis, cardiology on-call, at 1020. He came to the ER shortly. After examination he felt it would be most prudent to keep the patient overnight for additional evaluation. Impression Primary Impression: dyspnea Additional Impression: pulmonary edema Disposition: ADMITTED INPATIENT Condition: Stable/Unchanged Admissions Decision to Admit Reason: Admit from ER (General) Decision to Admit/Date: Mar 21, 2018 Time/Decision to Admit Time: 10:46 Departure-Patient Inst. Referrals: MARCOS GALVAN MD (PCP/Family) Primary Care Physician LISA PAINTER MD Mar 21, 2018 09:26
[2018-03-21] MEDS ORDERED: FUROSEMIDE 40 MG/4 ML INJ (LASIX) IVP ONE (09:30)
[2018-03-21 09:58] LABS: BILIRUBIN,URINE NEGATIVE (NEGATIVE); CLARITY,URINE SLIGHTLY CLOUDY; COLOR,URINE YELLOW; GLUCOSE, URINE (UA) NEGATIVE (NEGATIVE); KETONES,URINE NEGATIVE (NEGATIVE); LEUKOCYTE ESTERASE ,URINE 1+ (NEGATIVE); NITRITE,URINE NEGATIVE (NEGATIVE); PH,URINE 5 (5-9); PROTEIN,URINE 3+ (NEGATIVE); UROBILINOGEN,URINE NORMAL (NORMAL)
[2018-03-21 10:14] LABS: BACTERIA,URINE TRACE /HPF; WBC,URINE 0-2 /HPF
--- NOTE | 2018-03-21 10:18 | Consultation-Cardiology ---
HPI-Cardiology Cardiology Consultation: Date of Consultation 03/21/18 Date of Admission Attending Physician Admitting Physician Edison Jamison MD Consulting Physician Mary WILLIS MD HPI: Time Seen by Provider: 10:18 Chief Complaint: Shortness of breath This is a 87-year-old gentleman who is a patient of Dr. Schroeder as an outpatient. Patient has a prostatic aortic valve. He presents with shortness of breath, orthopnea and PND for the last few days. He has shortness of breath for the last few weeks but has been worsening in the last few days. The patient does not use oxygen at home. He is a remote smoker and quit in 1987. 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 Patient also complained of atypical chest pain which was worse on lying down, the patient felt better when he sat up. He denied any syncope, near-syncope or palpitations. The patient was on 2 L of oxygen by nasal cannula and oxygen saturation was 98 percent. I discontinued the oxygen and the oxygen saturation gradually came down to 95 percent on room air. According to the nurses when the patient walked to the restroom his oxygen saturation went into the 80s. Review of Systems-Cardiology Review of Systems Constitutional: As described under HPI; No As described under HPI, No no symptoms reported, No chills, No fever, No lightheadedness Eyes: No As described under HPI, No no symptoms reported, No blindness, No blurred vision, No contact lenses, No drainage, No decreased acuity, No foreign body sensation, No pain, No vision change Ears/Nose/Throat: No As described under HPI, No no symptoms reported, No chronic hearing loss, No ear discharge, No ear pain, No nasal drainage, No ulcerations Respiratory: No no symptoms reported; As described under HPI; No As described under HPI, No cough; orthopnea, shortness of breath; No SOB with excertion Cardiovascular: No no symptoms reported; As described under HPI; No As described under HPI; chest pain; No edema, No irregular heart rate, No lightheadedness, No palpitations Gastrointestinal: No no symptoms reported, No As described under HPI, No abdomen distended, No abdominal pain, No blood streaked bowels, No constipation , No diarrhea, No nausea, No vomiting, No stool coloration changes Genitourinary: No As described under HPI, No burning, No dysuria, No discharge , No frequency, No flank pain, No hematuria, No urgency Musculoskeletal: No no symptoms reported, No As describe under HPI, No back pain, No gout, No joint pain, No joint swelling, No muscle pain, No muscle stiffness, No neck pain, No other Skin: No no symptoms reported, No As described under HPI, No change in color, No change in hair/nails, No dryness, No lesions, No lumps, No rash, No other, No skin related problems, No ulcerations, No rash on exposed areas, No ulcerations on exposed areas Psychiatric/Neurological: No anxiety, No depression, No seizure, No focal weakness, No syncope Hematologic: No bleeding abnormalities [id number] Hx Patient Social History Alcohol Use: Denies Use Recreational Drug Use: No Smoking Status: Former Smoker Former smoker/When Quit: Jul 06, 1989 Type Used: Cigars, Cigarettes, Pipe Recent Foreign Travel: No Recent Infectious Disease Expo: No Hospitalization with Isolation: Denies Immunizations Up To Date Date of Pneumonia Vaccine: Sep 15, 2012 Date of Influenza Vaccine: Mar 20, 2017 Past Medical History PMH As described under Assessment. Family Medical History Family History: Cancer in sister Allergies and Home Medications Allergies Coded Allergies: No Known Drug Allergies (Verified , 03/21/18) Home Medications Aspirin 81 Mg Tablet.dr, 81 MG PO DAILY, (Reported) Atenolol 25 Mg Tablet, 25 MG PO DAILY, (Reported) Losartan Potassium 50 Mg Tablet, 50 MG PO DAILY, (Reported) Simvastatin 20 Mg Tablet, 20 MG PO DAILY, (Reported) Tamsulosin HCl 0.4 Mg Cap, 0.4 MG PO DAILY, (Reported) Patient Home Medication List Home Medication List Reviewed: Yes Physical Exam-Cardiology Physical Exam Vital Signs/I&O 03/21/18 03/21/18 03/21/18 03/21/18 12:27 12:32 12:59 12:59 Temp 98.3 Pulse 84 87 105 Resp 20 20 B/P (MAP) 130/48 128/79 (95) Pulse Ox 96 95 91 92 O2 Delivery Nasal Cannula Nasal Cannula Nasal Cannula O2 Flow Rate 2.00 2.00 2.00 FiO2 28 03/21/18 03/21/18 03/21/18 03/21/18 13:52 14:18 15:15 15:30 Temp 100.4 Pulse 98 89 Resp 20 B/P (MAP) 110/75 (87) Pulse Ox 93 94 O2 Delivery Nasal Cannula Nasal Cannula Nasal Cannula O2 Flow Rate 2.00 2.00 2.00 03/21/18 03/21/18 03/21/18 03/21/18 16:06 18:59 19:10 19:45 Temp 100.4 98.9 Pulse 84 86 Resp 20 B/P (MAP) 104/52 (69) Pulse Ox 98 95 O2 Delivery Nasal Cannula Nasal Cannula O2 Flow Rate 2.00 2.00 03/21/18 03/21/18 20:00 22:27 Pulse Ox 93 93 O2 Delivery Nasal Cannula Nasal Cannula O2 Flow Rate 2.00 2.00 Capillary Refill : Less Than 3 Seconds Constitutional: appears stated age, AAO x 3, apparent distress, well-developed , well-nourished HEENT: PERRL; No discharge; hearing is well preserved, oral hygience is good; No ulceration, No xanthelasmas are seen Neck: No carotid bruit; carotid pulses are 2 + bilaterally Respiratory: respiratory distress, chest is bilaterally symmetric, other ( Decrease bilateral air entry.) Cardiovascular: regular rate-rhythm; No irregularly irregular, No extra beats, No parasternal heave is noted, No JVD, No edema, No bradycardia, No tachycardia , No point of maximal impulse, No cardiac thrills are palpable; S1 and S2; No gallop/S3, No gallop/S4, No diastolic murmur, No systolic murmur, No friction rub, No click, No other Gastrointestinal: No tender, No soft, No round, No distended, No pulsatile mass , No organomegaly, No guarding, No rebound, No tenderness, No hernia, No mass, No audible bowel sounds, No abnormal bowel sounds, No abdominal bruits, No spleenomegaly, No other Rectal: deferred Extremities: No normal range of motion, No non-tender, No normal inspection, No pedal edema, No calf tenderness, No normal capillary refill, No pelvis stable , No calf tenderness, No inflammation, No pedal edema, No slow capillary refill , No swelling, No other, No abrasion, No clubbing, No cyanosis, No ecchymosis, No laceration, No no lower extremity edema bilateral, No significant edema, No tenderness, No wound Neurologic/Psychiatric: no motor/sensory deficits, alert, normal mood/affect, oriented x 3, power is 5/5 both on sides Skin: No normal color, No warm/dry, No cyanosis, No cool, No diaphoresis, No damp, No ecchymosis, No jaundice, No mottled, No pallor, No rash, No tattoos/ piercings, No ulcerations, No rash on exposed areas, No ulcerations on exposed areas, No other Data Review Labs Laboratory Tests 03/21/18 08:17: White Blood Count 13.5H, Red Blood Count 3.97L, Hemoglobin 12.2L, Hematocrit 36L , Mean Corpuscular Volume 91, Mean Corpuscular Hemoglobin 31, Mean Corpuscular Hemoglobin Concent 34, Red Cell Distribution Width 13.2, Platelet Count 223, Mean Platelet Volume 10.2, Neutrophils (%) (Auto) 84H, Lymphocytes (%) (Auto) 6L , Monocytes (%) (Auto) 10, Eosinophils (%) (Auto) 1, Basophils (%) (Auto) 0, Neutrophils # (Auto) 11.3H, Lymphocytes # (Auto) 0.8L, Monocytes # (Auto) 1.3H, Eosinophils # (Auto) 0.1, Basophils # (Auto) 0.0, Neutrophils % (Manual) 84, Lymphocytes % (Manual) 5, Monocytes % (Manual) 10, Nucleated Red Blood Cells 1, Blood Morphology Comment NORMAL, Sodium Level 137, Potassium Level 4.3, Chloride Level 104, Carbon Dioxide Level 23, Anion Gap 10, Blood Urea Nitrogen 23H, Creatinine 1.11, Estimat Glomerular Filtration Rate > 60, BUN/Creatinine Ratio 21, Glucose Level 124H, Calcium Level 9.7, Corrected Calcium 9.6, Total Bilirubin 0.8, Aspartate Amino Transf (AST/SGOT) 24, Alanine Aminotransferase ( ALT/SGPT) 19, Alkaline Phosphatase 80, Troponin I 0.36*H, B-Type Natriuretic Peptide 638.7H, Total Protein 7.3, Albumin 4.1 03/21/18 09:50: Urine Color YELLOW, Urine Clarity SLIGHTLY CLOUDY, Urine pH 5, Urine Specific Thornton 1.020, Urine Protein 3+H, Urine Glucose (UA) NEGATIVE, Urine Ketones NEGATIVE, Urine Nitrite NEGATIVE, Urine Bilirubin NEGATIVE, Urine Urobilinogen NORMAL, Urine Leukocyte Esterase 1+H, Urine RBC (Auto) 2+H, Urine RBC 2-5H, Urine WBC 0-2, Urine Crystals NONE, Urine Bacteria TRACE, Urine Casts NONE, Urine Mucus SMALLH, Urine Culture Indicated NO 03/21/18 17:20: Troponin I 2.91*H ECG Impression ECG Initial ECG Rhythm: S.Tach Comment Sinus tachycardia with right bundle branch block. A/P-Cardiology Assessment/Admission Diagnosis Acute respiratory failure, Leukocytosis, Acute Congestive heart failure, likely diastolic dysfunction, Non-STEMI, Prosthetic heart valve, Right bundle-branch block Plan Acute respiratory distress, likely multifactorial. Due to non-ST elevation VA and acute diastolic congestive heart failure. Patient improved with IV Lasix, however will require hospitalization. Continue oxygen therapy. Echocardiogram. Non-STEMI: We will give her dose of ACS dose Lovenox, aspirin, Brilinta bolus. Dr. Schroeder to decide about coronary angiography tomorrow morning. Prosthetic heart valve: Recommend echocardiogram. Sinus tachycardia with right bundle branch block: Continue to monitor clinically. Leukocytosis: Will defer to the primary team. Dr. Schroeder to take over care on Thursday. Thank you for your consultation. Please call me if you have any questions. Stella Willis MD, FACP, FACC, FSCAI, FHRS, CCDS Interventional Cardiology Cardiac Electrophysiology Vascular Medicine and Endovascular Interventions Mary WILLIS MD Mar 21, 2018 10:18 am
[2018-03-21] MEDS ORDERED: fentaNYL INJECTION 100 MCG/2 ML AMP IVP ONE (11:00)
[2018-03-21] MEDS ORDERED: CATHETER FLUSH 10 ML SYR IV PRN (12:00)
[2018-03-21] MEDS ORDERED: IOHEXOL 350 MG/ML 100 ML (OMNIPAQUE 350) VIAL IV ONE (12:00)
[2018-03-21] MEDS ORDERED: NS 250 ML (IVPB) BAG IV ONE (12:00)
[2018-03-21 12:32] VITALS: BP 128/79
--- NOTE | 2018-03-21 12:32 | Diagnostic Imaging Report ---
PROCEDURE: CT chest with contrast only. TECHNIQUE: Multiple contiguous axial images were obtained through the chest after administration of intravenous contrast. INDICATION: Shortness of air and chest pain. COMPARISON: CT chest of 07/16/2016. FINDINGS: Lungs and airway: No endoluminal nodule within the trachea. No pulmonary mass or concerning nodule. No airspace consolidations that would indicate pneumonia. Pleura: Trace right pleural effusion with fluid tracking along the right major fissure. No left pleural effusion. Heart and mediastinum: Thyroid is normal. No supraclavicular or axillary lymphadenopathy. No mediastinal, hilar, or juxtaphrenic lymphadenopathy. Cardiomegaly status post CABG. No pericardial effusion. Normal caliber thoracic aorta. Upper abdomen: Stable subcentimeter nodule in the right adrenal gland. Stable cyst in the upper pole of the right kidney. Musculoskeletal: No concerning focal osseous lesions. IMPRESSION: 1. No airspace consolidations to indicate pneumonia or pulmonary edema. 2. Trace right pleural effusion. 3. Cardiomegaly status post CABG. Dictated by: Dictated on workstation # [id number]
--- NOTE | 2018-03-21 12:52 | History & Physical-Hospitalist ---
History of Present Illness HPI/Chief Complaint CC: Dyspnea HPI: This is an 87-year-old white male with a prior history of two-vessel bypass in 2008 along with aortic valve replacement at [facility] in [place] who just recently establishes heart care with Dr. Schroeder who presented to the ER with increased shortness of breath since Thursday. He reports that he has had shortness of breath for several years and diagnosed with mild COPD on a lung test last year but the increased shortness of breath worsened to the point he couldn't catch his breath this morning and presented to the ER. Patient was found to have elevated troponin slightly an elevated BNP indicative of volume overload. Lasix IV was given of 20 mg and placed on oxygen and patient feels much better. CT angiogram was obtained showing no evidence of any PE or pneumonia or lung mass. At this current time he is ordered lunch and overall doing much better. He reports he does not use home oxygen at home and he lives alone. Source: patient, RN/MD Exam Limitations: no limitations Date Seen 03/21/18 Time Seen by Provider: 12:45 Attending Physician Edison Jamison MD PCP Edison Jamison MD Referring Physician Date of Admission Mar 21, 2018 at 11:17 Home Medications & Allergies Home Medications Reviewed patient Home Medication Reconciliation performed by pharmacy medication reconciliations manometer technician and/or nursing. Patients Allergies have been reviewed. 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[place]) Alcohol Use: Denies Use Recreational Drug Use: No Smoking Status: Former Smoker Former Smoker, Quit: Jul 30, 1988 Type Used: Cigars, Cigarettes, Pipe Recent Foreign Travel: No Contact w/other who traveled: No Recent Hopitalizations: No Recent Infectious Disease Expo: No Immunizations Up To Date Date of Pneumonia Vaccine: Sep 15, 2012 Date of Influenza Vaccine: Mar 20, 2017 Seasonal Allergies Seasonal Allergies: Yes Past Medical History Surgeries: CABG (2008), Gallbladder, Prostatectomy, Valve Replacement Respiratory: COPD Cardiac: Coronary Artery Disease, High Cholesterol, Hypertension, Valvular Heart Disease Reproductive: No Gastrointestinal: Gastroesophageal Reflux, Diverticulosis, Polyps Musculoskeletal: Chronic Back Pain Loss of Vision: Denies Hearing Impairment: Denies Cancer: Colon History of Blood Disorders: Yes (anemia) Family History Cancer in sister Cancer Review of Systems Constitutional: see HPI, malaise, weakness EENTM: no symptoms reported Respiratory: dyspnea on exertion, short of breath Cardiovascular: no symptoms reported Gastrointestinal: loss of appetite Genitourinary: decreased output Musculoskeletal: back pain Skin: no symptoms reported Psychiatric/Neurological: Anxiety All Other Systems Reviewed Negative Unless Noted: Yes Physical Exam Physical Exam Vital Signs Vital Signs - First Documented 03/21/18 08:11 Temp 99.2 Pulse 105 Resp 31 B/P (MAP) 156/63 (94) Pulse Ox 92 O2 Delivery Nasal Cannula O2 Flow Rate 2.00 Capillary Refill : Less Than 3 Seconds Height, Weight, BMI Height: 5'8.00" Weight: 200lbs. 0.0oz. [id number]; 30.4 BMI Method:Stated General Appearance: WD/WN, Chronically ill, Mild Distress, Obese Eyes: Bilateral Eye Normal Inspection, Bilateral Eye PERRL HEENT: PERRL/EOMI, TMs Normal, Normal ENT Inspection, Pharynx Normal, Other ( Hard of hearing) Neck: Full Range of Motion, Normal Inspection, Non Tender, Supple, Carotid Bruit Respiratory: Chest Non Tender, No Respiratory Distress, Accessory Muscle Use ( When talking), Decreased Breath Sounds Cardiovascular: Regular Rate, Rhythm, No Edema, No Gallop, No JVD, No Murmur, Normal Peripheral Pulses Gastrointestinal: Normal Bowel Sounds, No Organomegaly, No Pulsatile Mass, Non Tender, Soft Back: Normal Inspection, No CVA Tenderness, No Vertebral Tenderness Extremity: Normal Capillary Refill, Normal Inspection, Normal Range of Motion, Non Tender, No Calf Tenderness, No Pedal Edema Neurologic/Psychiatric: Alert, Oriented x3, No Motor/Sensory Deficits, Normal Mood/Affect Skin: Normal Color, Warm/Dry Lymphatic: No Adenopathy Results Results/Procedures Labs Laboratory Tests 03/21/18 08:17 Patient resulted labs reviewed. Assessment/Plan Admission Diagnosis Assessment: Dyspnea Elevated BNP Subtle elevation of troponin COPD Hypertension Hyperlipidemia BPH CAD previous 2 vessel bypass in 2008 Aortic valve replacement history in 2008 Presbycusis Plan: Maintain Lasix Oxygen Appreciate cardiology consultation Admission Status: Observation Diagnosis/Problems Diagnosis/Problems (1) Elevated troponin Status: Acute (2) Elevated brain natriuretic peptide (BNP) level Status: Acute (3) Leukocytosis Status: Acute Qualifiers: Leukocytosis type: leukemoid reaction Qualified Codes: D72.823 - Leukemoid reaction (4) Anemia Status: Chronic Qualifiers: Anemia type: unspecified type Qualified Codes: D64.9 - Anemia, unspecified (5) CAD (coronary artery disease) Status: Chronic Qualifiers: Coronary Disease-Associated Artery/Lesion type: [place] artery [place] vs. transplanted heart: [place] heart Associated angina: without angina Qualified Codes: I25.10 - Atherosclerotic heart disease of [place] coronary artery without angina pectoris (6) H/O heart bypass surgery Status: Chronic (7) H/O aortic valve replacement Status: Chronic (8) BPH (benign prostatic hyperplasia) Status: Chronic Qualifiers: Lower urinary tract symptom presence: symptoms absent Qualified Codes: N40.0 - Benign prostatic hyperplasia without lower urinary tract symptoms (9) Hypertension Status: Chronic Qualifiers: Hypertension type: essential hypertension Qualified Codes: I10 - Essential (primary) hypertension (10) Hyperlipidemia Status: Chronic Qualifiers: Hyperlipidemia type: mixed hyperlipidemia Qualified Codes: E78.2 - Mixed hyperlipidemia (11) COPD (chronic obstructive pulmonary disease) Status: Chronic Qualifiers: COPD type: unspecified COPD Qualified Codes: J44.9 - Chronic obstructive pulmonary disease, unspecified (12) Former smoker Status: Chronic NEHAL JOSE DO Mar 21, 2018 12:52
[2018-03-21 12:59] VITALS: BP 156/63
[2018-03-21] MEDS ORDERED: RT-ALBUTEROL/IPRATROPIUM 3 ML (DUONEB) VIAL INH PRN ×2 (14:00→16:00)
[2018-03-21] MEDS: RT-ALBUTEROL/IPRATROPIUM 3 ML (DUONEB) VIAL INH SCH ×3 (15:14→19:08)
[2018-03-21 15:30] VITALS: BP 110/75
[2018-03-21] MEDS ORDERED: cefTRIAXone FOR IV USE 1,000 MG in NS (IVPB) 50 ML IV SCH (16:00)
[2018-03-21] MEDS ORDERED: ACETAMINOPHEN 325 MG TABLET PO PRN (16:00)
[2018-03-21] MEDS ORDERED: ENOXAPARIN 100 MG/1 ML (LOVENOX) SYR ONE (18:21)
[2018-03-21] MEDS ORDERED: TICAGRELOR 90 MG TABLET (BRILINTA) PO ONE ×2 (18:22→18:30)
[2018-03-21] MEDS ORDERED: ASPIRIN 81 MG CHEW (CHILDREN'S ASA) PO ONE (18:30)
[2018-03-21] MEDS ORDERED: ENOXAPARIN 100 MG/1 ML (LOVENOX) SYR SC ONE (18:30)
[2018-03-21 19:10] VITALS: BP 104/52
[2018-03-22] VITALS (12 sets, daily range): BP systolic 111–159; BP diastolic 46–65
[2018-03-22] MEDS: RT-ALBUTEROL/IPRATROPIUM 3 ML (DUONEB) VIAL INH SCH ×3 (01:10→10:55)
[2018-03-22] MEDS ORDERED: ALPRAZolam 0.25 MG (XANAX) TAB PO ONE (02:30)
[2018-03-22] MEDS ORDERED: ALPRAZolam 0.25 MG (XANAX) TAB ONE (02:58)
[2018-03-22] MEDS ORDERED: TAMS0.4C2 PO (08:20)
[2018-03-22] MEDS ORDERED: AMLO5TAB7 PO (08:20)
[2018-03-22] MEDS ORDERED: METO-387 PO (08:20)
[2018-03-22] MEDS ORDERED: BETA1TAB15 PO (08:21)
[2018-03-22] MEDS ORDERED: CYCL1DRO OU (08:21)
[2018-03-22] MEDS ORDERED: MULT-52 PO (08:21)
[2018-03-22] MEDS ORDERED: LOSA100T8 PO (08:33)
[2018-03-22] MEDS ORDERED: LIDOCAINE 1% INJ 20 ML 20 ML VIAL ONE (08:43)
[2018-03-22] MEDS ORDERED: HEParin 1000 UNIT/ML (10ML VIAL) FOR BOLUS ONE (08:43)
[2018-03-22] MEDS ORDERED: NS IV 1000 ML 1,000 ML IV SCH ×2 (08:45→09:39)
[2018-03-22] MEDS ORDERED: MIDAZOLAM 5 MG/5 ML (VERSED) VIAL ONE (08:46)
[2018-03-22] MEDS ORDERED: fentaNYL INJECTION 100 MCG/2 ML AMP ONE (08:47)
--- NOTE | 2018-03-22 08:52 | Cardiology Progress Note ---
Subjective Date Seen by Provider: Mar 22, 2018 Time Seen by Provider: 08:05 Subjective/Events-last exam Patient is in bed, denies any active chest pain. Complaining of dyspnea with both rest and exertion. Objective-Cardiology Exam Last Set of Vital Signs Vital Signs 03/21/18 03/22/18 03/22/18 12:59 12:00 14:40 Temp 96.4 Pulse 74 Resp 20 B/P (MAP) 149/54 Pulse Ox 92 O2 Delivery Nasal Cannula O2 Flow Rate 2.00 FiO2 28 Capillary Refill : Less Than 3 Seconds I&O General: Alert, Oriented X3, Cooperative HEENT: Atraumatic, PERRLA Lungs: Clear to Auscultation, Normal Air Movement Heart: Regular Rate, Normal S1, Normal S2, No Murmurs Abdomen: Normal Bowel Sounds, Soft, No Tenderness, No Hepatosplenomegaly, No Masses Extremities: No Clubbing, No Cyanosis, No Edema, Normal Pulses, No Tenderness/ Swelling Skin: No Rashes, No Breakdown, No Significant Lesion Neuro: Normal Gait, Normal Speech, Strength at 5/5 X4 Ext, Normal Tone, Sensation Intact Psych/Mental Status: Mental Status NL, Mood NL A/P-Cardiology Admission Diagnosis NSTEMI CAD Dyspnea HTN Assessment/Plan Chest pain, NSTEMI- elevated troponin x 2. EKG reveals chronic RBBB with ST depression V3, V4, V5. Currently denies any chest pain, discussed management plan with the patient and discussed medical management versus C, patient prefers to proceed with [facility]. Coronary artery disease, history of CABG 2 done in 1995, cardiac catheterization done in 2008 showing patent ARNOLD to LAD with occluded LAD, occluded bypass to the circumflex artery with occluded circumflex artery, 70 percent mid RCA stenosis. Patient had aortic valve replacement with Equine valve in addition to another bypass using 1 graft. Most recent stress test 2015.Has refused any further stress test. Planning for [facility] for further evaluation. Aortic valve replacement, had history of Equine valve placement in 2008, recent 2-D echocardiogram done October 2017 revealed moderate to severe aortic regurgitation. Continue to monitor. Continue conservative management. Abnormal EKG with sinus rhythm and right bundle branch block, left posterior fascicular block. Extensive history of coronary artery disease planning for stress test. Hypertension, restart home blood pressure medications and continue to monitor. Hyperlipidemia, maintained on simvastatin, I will evaluate lipid profile. Carotid artery stenosis-most recent carotid duplex Mar 2018 revealed nonobstructive disease bilaterally. History of tobaccoism, stopped smoking in 1987. History of colon cancer, status post chemotherapy Clinical Quality Measures DVT/VTE Risk/Contraindication: Risk Factor Score Per Nursin RFS Level Per Nursing on Admit: 4+=Very High FRANK MCCABE Mar 22, 2018 08:52
[2018-03-22] MEDS ORDERED: TICAGRELOR 90 MG TABLET (BRILINTA) PO SCH (09:00)
[2018-03-22] MEDS ORDERED: ASPIRIN 81 MG CHEW (CHILDREN'S ASA) PO SCH (09:00)
--- NOTE | 2018-03-22 09:05 | Cardiology Progress Note ---
Subjective Date Seen by Provider: Mar 22, 2018 Time Seen by Provider: 09:01 Subjective/Events-last exam Patient was seen at bedside, still having some dyspnea, denied any active chest pain today. Noted to have elevated troponin level. Had a long visit with the patient, we discussed treatment option, offered cardiac catheterization versus conservative management, although he is 87 years old, he is fairly active. Decided to proceed with left heart catheterization possible PTCA Review of Systems General: No Chills, No Night Sweats, No Fatigue, No Malaise, No Appetite, No Other HEENT: No Head Aches, No Visual Changes, No Eye Pain, No Ear Pain, No Dysphasia , No Sinus Congestion, No Post Nasal Drip, No Sore Throat, No Other Pulmonary: Dyspnea; No Cough, No Pleuritic Chest Pain, No Other Cardiovascular: No: Chest Pain, Palpitations, Orthopnea, Paroxysmal Noc. Dyspnea, Edema, Lt Headedness Objective-Cardiology Exam Last Set of Vital Signs Vital Signs 03/21/18 03/22/18 12:59 08:00 Temp 98.4 Pulse 83 Resp 16 B/P (MAP) 127/51 (76) Pulse Ox 95 O2 Delivery Nasal Cannula O2 Flow Rate 2.00 FiO2 28 Capillary Refill : Less Than 3 Seconds I&O Intake and Output 03/22/18 00:00 Intake Total 440 ml Output Total 300 ml Balance 140 ml Intake Oral 440 ml Output Urine Total 300 ml Daily Weight Change No General: Alert, Oriented X3, Cooperative HEENT: Atraumatic, PERRLA Neck: Supple Lungs: Normal Air Movement, Other (lamine wheezing) Heart: Regular Rate, Normal S1, Normal S2, Other (SM at lsb) Abdomen: Normal Bowel Sounds, Soft, No Tenderness, No Hepatosplenomegaly, No Masses Extremities: No Clubbing, No Cyanosis, No Edema, Normal Pulses, No Tenderness/ Swelling Skin: No Rashes, No Breakdown, No Significant Lesion Neuro: Normal Gait, Normal Speech, Strength at 5/5 X4 Ext, Normal Tone, Sensation Intact Psych/Mental Status: Mental Status NL, Mood NL A/P-Cardiology Admission Diagnosis NSTEMI CAD Dyspnea HTN Assessment/Plan Chest pain, NSTEMI- elevated troponin x 2. EKG reveals chronic RBBB with ST depression V3, V4, V5. Currently denies any chest pain, discussed management plan with the patient and discussed medical management versus [facility], patient prefers to proceed with [facility]. Coronary artery disease, history of CABG 2 done in 1995, cardiac catheterization done in 2008 showing patent ARNOLD to LAD with occluded LAD, occluded bypass to the circumflex artery with occluded circumflex artery, 70 percent mid RCA stenosis. Patient had aortic valve replacement with Equine valve in addition to another bypass using 1 graft. Most recent stress test 2015. Planning for [facility] for further evaluation. Aortic valve replacement, had history of Equine valve placement in 2008, recent 2-D echocardiogram done October 2017 revealed moderate to severe aortic regurgitation. Continue to monitor. Continue conservative management. Abnormal EKG with sinus rhythm and right bundle branch block, left posterior fascicular block. continue to monitor Hypertension, restart home blood pressure medications and continue to monitor. Hyperlipidemia, maintained on simvastatin, I will evaluate lipid profile. Carotid artery stenosis-most recent carotid duplex Mar 2018 revealed nonobstructive disease bilaterally. History of tobaccoism, stopped smoking in 1987. History of colon cancer, status post chemotherapy Clinical Quality Measures DVT/VTE Risk/Contraindication: Risk Factor Score Per Nursin RFS Level Per Nursing on Admit: 4+=Very High MONY CLEMENTS MD Mar 22, 2018 09:05
[2018-03-22 09:17] LABS: HEMOGLOBIN 10.5 G/DL (13.3-17.7); MEAN PLATELET VOLUME 10.7 FL (7.4-10.4); RED BLOOD COUNT 3.54 10^6/uL (4.35-5.85); RED CELL DISTRIBUTION WIDTH 13.7 % (10.0-14.5); WHITE BLOOD COUNT 8.1 10^3/uL (4.3-11.0)
[2018-03-22 09:44] LABS: INR 1.1 (0.8-1.4); PROTHROMBIN TIME PATIENT 14.6 SEC (12.2-14.7)
[2018-03-22] MEDS ORDERED: ISOSORBIDE MONONITRATE 30 MG (IMDUR) TAB PO NR (09:45)
[2018-03-22] MEDS ORDERED: PATIENT MAY USE OWN MEDS, ALL PO SCH (09:45)
--- NOTE | 2018-03-22 09:46 | Cardiac Cath Report ---
Cardiac Cath Report Physician (s)/Organ Installer (s) Physician MONY CLEMENTS MD Pre-Procedure Diagnosis Pre-Procedure Diagnosis: NSTMI Post-Procedure Note Procedure Start Date: Mar 22, 2018 Name of Procedure: coronary angiogram, bypass grafts angiogram Findings/Procedure Note PROCEDURE NOTE: After explaining the procedure to the patient, all pros and cons were explained , all questions were answered. The patient signed the consent and then he was placed on the cardiac catheterization laboratory. Groin was prepped SL fashion local anesthesia was used. Sheath placed in the right femoral artery. Nish right and left catheter were used to access the coronary system.Vein Graft evaluated. ARNOLD evaluated. At the end of the procedure the sheath was removed. Closure device was used FINDINGS: Hemodynamics Aorta 127/55 mean of 57 ANATOMY: Left Main has severe distal stenosis Left Anterior Descending has severe stenosis, subtotal occlusion proximally, ARNOLD to LAD is patent with small vessel disease distally Left Circumflex has subtotal occlusion at its ostium, moderate disease distally , severe ostial obtuse marginal stenosis Right Coronory Artery has severe stenosis, patent vein graft to the LAD ARNOLD to LAD is patent with small vessel disease distally Vein Graft to the right coronary artery is patent with good flow in the right coronary territory CONCLUSION: 1. Patent ARNOLD to LAD and vein graft to the right coronary artery with small vessel disease distally 2. Severe/subtotal stenosis at the ostial circumflex artery extending to the distal left main with severe stenosis in the left main, severe/subtotal stenosis at the ostium of the first obtuse marginal branch DISCUSSION AND RECOMMENDATION: Medical therapy is recommended, patient is considered high risk for intervention at this point I discussed the management plan with Dr. Pike, patient will be transferred to [facility] for possible high risk intervention Anesthesia Type: Conscious Sedation Estimated blood loss (mL): 20 ml Contrast Amount: 80 ml Total Radiation Dose: 545 mGy Post-Procedure Diagnosis Post-operative diagnosis: Non-ST elevation myocardial infarctions Coronary artery disease Hypertension Hyperlipidemia (1) Elevated troponin (2) Elevated brain natriuretic peptide (BNP) level (3) Leukocytosis Qualifiers: Qualified Codes: D72.829 - Elevated white blood cell count, unspecified (4) Anemia Qualifiers: Qualified Codes: D64.9 - Anemia, unspecified (5) CAD (coronary artery disease) Qualifiers: Qualified Codes: I25.810 - Atherosclerosis of coronary artery bypass graft(s ) without angina pectoris (6) H/O heart bypass surgery (7) H/O aortic valve replacement (8) BPH (benign prostatic hyperplasia) Qualifiers: Qualified Codes: N40.0 - Benign prostatic hyperplasia without lower urinary tract symptoms (9) Hypertension Qualifiers: Qualified Codes: I10 - Essential (primary) hypertension (10) Hyperlipidemia Qualifiers: Qualified Codes: E78.2 - Mixed hyperlipidemia (11) COPD (chronic obstructive pulmonary disease) Qualifiers: Qualified Codes: J44.9 - Chronic obstructive pulmonary disease, unspecified (12) Former smoker MONY CLEMENTS MD Mar 22, 2018 09:46
[2018-03-22 09:59] LABS: CALCIUM 9.3 MG/DL (8.5-10.1); CREATININE SERUM 1.16 MG/DL (0.60-1.30); POTASSIUM 4.4 MMOL/L (3.6-5.0)
--- NOTE | 2018-03-22 11:02 | Discharge Summary-Hospitalist ---
Diagnosis/Chief Complaint Date of Admission Mar 21, 2018 Date of Discharge Discharge Date: Mar 22, 2018 Admission Diagnosis Assessment: Dyspnea Elevated BNP Subtle elevation of troponin COPD Hypertension Hyperlipidemia BPH CAD previous 2 vessel bypass in 2008 Aortic valve replacement history in 2008 Presbycusis Discharge Diagnosis (1) Elevated troponin Status: Acute Assessment & Plan: NSTEMI (2) Elevated brain natriuretic peptide (BNP) level Status: Acute (3) Leukocytosis Status: Acute (4) Anemia Status: Chronic (5) CAD (coronary artery disease) Status: Chronic (6) H/O heart bypass surgery Status: Chronic (7) H/O aortic valve replacement Status: Chronic (8) BPH (benign prostatic hyperplasia) Status: Chronic (9) Hypertension Status: Chronic (10) Hyperlipidemia Status: Chronic (11) COPD (chronic obstructive pulmonary disease) Status: Chronic (12) Former smoker Status: Chronic Discharge Summary Procedures/Consulations Dr Schroeder Discharge Physical Exam Allergies: Coded Allergies: No Known Drug Allergies (Verified , 03/21/18) Vitals & I&Os Vital Signs Date Time Temp Pulse Resp B/P (MAP) Pulse Ox O2 Delivery O2 Flow Rate FiO2 03/22/18 14:40 74 20 149/54 92 Nasal Cannula 2.00 03/22/18 12:00 96.4 03/21/18 12:59 28 General Appearance: No Apparent Distress, WD/WN Respiratory: Lungs Clear, No Respiratory Distress Cardiovascular: Regular Rate, Rhythm, Systolic Murmur Extremity: No Calf Tenderness, No Pedal Edema Neurologic/Psychiatric: Alert, Oriented x3, Normal Mood/Affect Hospital Course Pt was admitted for acute CHF exacerbation and NSTEMI. He went to crime laboratory analyst the morning of 03/22 and was found to have severe disease requiring high risk intervention. Dr Schroeder arranged transfer to [place] for further evaluation and intervention. Patient denies any chest pain and states SOB is improving. Labs (last 24 hrs) Microbiology 03/21/18 Blood Culture - Preliminary, Resulted No growth Patient resulted labs reviewed. Pending Labs Discussion & Recommendations Discharge Planning: >30 minutes discharge planning Discharge Home Medications: Active Scripts Active Reported Losartan Potassium 100 Mg Tablet 100 Mg PO DAILY Restasis (Cyclosporine) 1 Each Droperette 1 Drop OU DAILY Daily Multivitamin with Iron (Multivitamins with Iron) 1 Each Tablet 1 Tab PO DAILY Preservision Areds Tablet (Vit A/Vit C/Vit E/Zinc/Copper) 1 Each Tablet 1 Tab PO DAILY Tamsulosin HCl 0.4 Mg Cap.er.24h 0.4 Mg PO 1730 Metoprolol Succinate 25 Mg Tab.er.24h 25 Mg PO DAILY Amlodipine Besylate 5 Mg Tablet 5 Mg PO DAILY Simvastatin 20 Mg Tablet 20 Mg PO DAILY Aspir 81 (Aspirin) 81 Mg Tablet.dr 81 Mg PO DAILY Instructions to patient/family Please see electronic discharge instructions given to patient. Clinical Quality Measures DVT/VTE Risk/Contraindication: Risk Factor Score Per Nursin RFS Level Per Nursing on Admit: 4+=Very High Copy Copies To 1: MARCOS GALVAN MD Problem Qualifiers (1) Leukocytosis: Leukocytosis type: unspecified Qualified Codes: D72.829 - Elevated white blood cell count, unspecified (2) Anemia: Anemia type: unspecified type Qualified Codes: D64.9 - Anemia, unspecified (3) CAD (coronary artery disease): Coronary Disease-Associated Artery/Lesion type: bypass graft [place] vs. transplanted heart: [place] heart Associated angina: without angina Qualified Codes: I25.810 - Atherosclerosis of coronary artery bypass graft(s) without angina pectoris (4) BPH (benign prostatic hyperplasia): Lower urinary tract symptom presence: symptoms absent Qualified Codes: N40.0 - Benign prostatic hyperplasia without lower urinary tract symptoms (5) Hypertension: Hypertension type: essential hypertension Qualified Codes: I10 - Essential ( primary) hypertension (6) Hyperlipidemia: Hyperlipidemia type: mixed hyperlipidemia Qualified Codes: E78.2 - Mixed hyperlipidemia (7) COPD (chronic obstructive pulmonary disease): COPD type: unspecified COPD Qualified Codes: J44.9 - Chronic obstructive pulmonary disease, unspecified ODALIS BROWNE MD Mar 22, 2018 11:02
--- NOTE | 2018-03-22 11:11 | Cardiac Procedure Note-CS/ASA ---
Pre-Procedure Note Pre-Op Procedure Note H&P Reviewed The H&P was reviewed, patient examined and no changes noted. Date H&P Reviewed: Mar 22, 2018 Time H&P Reviewed: 08:00 Conscious Sedation Pre-Proced Time Reviewed: 08:00 ASA Class: 3 Airway Mallampati Classification: ([place] appropriate class) I. II. III, IV Lungs Heart ASA score ASA 1: a normal healthy patient ASA 2: a patient with a mild systemic disease (mid diabetes, controlled hypertension, obesity x ASA 3: a patient with a severe systemic disease that limits activity (angina , COPD, prior Myocardial infarction) ASA 4: a patient with an incapacitating disease that is a constant threat to life (CHF, renal failure) ASA 5: a moribund patient not expected to survive 24 hrs. (ruptured aneurysm) ASA 6: a declared brain patient whose organs are being harvested. For emergent operations, add the letter E after the classification Grade 3 Sedation Plan: Analgesia, Amnesia, Plan communicated to team members, Discussed options with patient/fam, Discussed risks with patient/fam Note The patient is an appropriate candidate to undergo the planned procedure, sedation, and anesthesia. The patient immediately re-assessed prior to indication. MONY CLEMENTS MD Mar 22, 2018 11:11
[2018-03-22] MEDS ORDERED: ATORVASTATIN 10 MG (LIPITOR) TABLET PO SCH (21:00)
[2018-03-23] MEDS ORDERED: SIMvastatin 20 MG (ZOCOR) TAB PO SCH (09:00)
[2018-03-23] MEDS ORDERED: ISOSORBIDE MONONITRATE 30 MG (IMDUR) TAB PO SCH (09:00)
[2018-03-23] MEDS ORDERED: LOSARTAN 100 MG (COZAAR) TABLET PO SCH (09:00)
[2018-03-23] MEDS ORDERED: NON-FORMULARY MEDICATION 1 EA EA (Amlodipine Besylate 5 MG) PO SCH (09:00)
[2018-03-23] MEDS ORDERED: amLODIPine 5 MG (NORVASC) TAB PO SCH (09:00)
[2018-04-06] MEDS ORDERED: CLOP75TA28 PO (15:21)
[2018-04-06] MEDS ORDERED: Zolpidem Tartrate PO (15:21)
[2018-04-06] MEDS ORDERED: FURO40TA4 PO (15:21)
== END 2018-03-22 14:40 | disposition short-term general hospital (02) | DRG 280 ==
LOC: EDUNIT# 08:08 → ER 08:10 → 4TH 11:17 → UNDOADMOB 11:17 → 4TH 12:25 → OBSVTOIN 03-22 09:54 → INTOOBSV 03-22 09:54 → 4TH 03-22 11:35 → UNDODISIN 03-22 14:40
PROVIDERS: ADMIT Internal Medicine; ATTEND Family Medicine
PROC: B2111ZZ Fluoroscopy of Multiple Coronary Arteries using Low Osmolar Contrast (ICD-10-PCS; principal; 2018-03-22)
PROC: B2181ZZ Fluoroscopy of Left Internal Mammary Bypass Graft using Low Osmolar Contrast (ICD-10-PCS; 2018-03-22)
PROC: B2121ZZ Fluoroscopy of Single Coronary Artery Bypass Graft using Low Osmolar Contrast (ICD-10-PCS; 2018-03-22)
DX: I21.4 Non-ST elevation (NSTEMI) myocardial infarction (principal); I11.0 Hypertensive heart disease with heart failure; I50.31 Acute diastolic (congestive) heart failure; R06.03 Acute respiratory distress; I25.10 Atherosclerotic heart disease of native coronary artery without angina pectoris; I45.10 Unspecified right bundle-branch block; R00.0 Tachycardia, unspecified; I44.5 Left posterior fascicular block; E78.5 Hyperlipidemia, unspecified; J44.9 Chronic obstructive pulmonary disease, unspecified; K21.9 Gastro-esophageal reflux disease without esophagitis; D64.9 Anemia, unspecified; N40.0 Benign prostatic hyperplasia without lower urinary tract symptoms; D72.829 Elevated white blood cell count, unspecified; Z85.038 Personal history of other malignant neoplasm of large intestine; Z79.82 Long term (current) use of aspirin; Z87.891 Personal history of nicotine dependence; Z95.1 Presence of aortocoronary bypass graft; Z95.2 Presence of prosthetic heart valve; Z92.21 Personal history of antineoplastic chemotherapy
CPT/HCPCS: 36415; 71045; 71260; 80048; 80053; 81000; 83880; 84484; 85007; 85027; 85610; 85730; 87040; 93005; 93455; 94640; 94760; 96374; 96375; G0378

== ENCOUNTER 2018-04-02 14:34 | Inpatient (IN) | payer MEDICARE, OTHER ==
[~2018-04-02] VITALS: Ht 172.7 cm; Wt 84.5 kg
[~2018-04-02 14:34] MED LIST changes: +AMLO5TAB7 PO; +BETA1TAB15 PO; +CYCL1DRO OU; +METO-387 PO; +MULT-52 PO; +TAMS0.4C2 PO
[2018-04-02 17:35] VITALS: BP 150/45
[2018-04-02] MEDS ORDERED: FLU QUADRIvalent (5+ YOA) 2018-2019 (AFLURIA) 0.5 ML IM ONE (18:15)
--- NOTE | 2018-04-02 19:07 | PM&R Post Admission Assessment ---
Post Admission Physician Asses Date seen by provider: Apr 02, 2018 Time seen by provider: 19:00 The preadmission screen agrees with the post admission assessment that the patient is a good candidate for inpatient rehabilitation. The patient will have a comprehensive program of inpatient rehabilitation with a goal of maximizing level of functional independence prior to discharge home with family and HHC. The patient will have PT/OT ninety minutes per day, each discipline, five days a week for 7-10-days for gait, strengthening, conditioning , balance, ADLs, any patient/family/caregiver training as necessary. Speech therapy to do cognitive assessment and treat as indicated. Rehabilitation nursing to assist with bowel, bladder, skin, wound care, medication administration, pain management. Railroad Dispatcher to assist with discharge planning, community reentry. SCD's for DVT prophylaxis. He appears to be well motivated to participate in three hours of therapy a day. He should be able to tolerate three hours of therapy a day from a medical standpoint. He should benefit from the three hours of therapy a day. He has a reasonable discharge plan, reasonable discharge rehabilitation goals and a supportive family. He has various comorbidities that need to be closely monitored with medications and treatments adjusted on a daily basis as needed. These include: CAD HTN Insomnia Barriers to discharge for this patient who had been independent prior to this are for him to be modified independent to supervision for ADLs and mobility skills prior to discharge home with family and HHC, so as to lessen the burden of the caregivers. Risks for this patient include: 1. Fall 2. Fracture 3. DVT 4. Pulmonary embolism 5. Wound infection 6. Skin breakdown 7. Contractures 8. Poorly controlled pain 9. Urinary retention 10. UTI 11. Respiratory infection 12. Aspiration 13. Angina Estimated Length of Stay: 7-10 daysdays Prognosis: Rehab prognosis appears good for goal of discharge home with family and HHC modified independent to supervision for ADLs and mobility skills. Date Identified: Apr 02, 2018 Time Identified: 19:00 Action Plan to Resolve CSMI: Transfer meds reviewed and disussed with RN Patient request Tylenol PM as sleep aid General: Alert, Oriented X3, Cooperative, No Acute Distress HEENT: Atraumatic, PERRLA, EOMI, Mucous Memb Moist/Singac Neck: Supple, No JVD Lungs: Clear to Auscultation Heart: Regular Rate Abdomen: Normal Bowel Sounds, Soft, No Tenderness Extremities: No Edema Neuro: Other (Generalized weakness Cognitively intact) HORACIO STANLEY MD Apr 02, 2018 19:07
[2018-04-02] MEDS ORDERED: ARTIFICAL TEARS 0.4 ML UNIT DOSE (REFRESH PLUS) OU PRN (19:30)
--- NOTE | 2018-04-02 19:46 | HISTORY AND PHYSICAL ---
DATE OF SERVICE: 04/02/2018 CHIEF COMPLAINT: Generalized weakness. HISTORY OF PRESENT ILLNESS: The patient is an 87-year-old male who was seen at ED at [facility] on 03/22/2018 due to acute CHF exacerbation and non-ST elevation AL. He went to the labor and delivery registered nurse on the morning of 03/22/2018 and was found to have severe disease requiring high risk intervention. Dr. Schroeder arranged transfer to [place] for further evaluation and intervention that day. The patient had an angioplasty at [place] and is now referred to inpatient rehabilitation unit for ongoing care and therapies. PCP is Dr. Jamison. Dr. Owen, hospitalist, saw him during his brief 1 day stay here. The patient had been independent prior to this. He presents to unit with his family. He is a , currently requires assistance for his ADLs and mobility skills.He is min assist for transfers and gait with a WW.He is setup for upper body dressing and min assist for lower body dressing PAST MEDICAL HISTORY: Coronary artery disease, anemia, BPH, hypertension, hyperlipidemia, COPD. PAST SURGICAL HISTORY: CABG in the past, aortic valve replacement. ALLERGIES: No known medication allergies. FAMILY HISTORY: Noncontributory. SOCIAL HISTORY: He is retired from working in a [employer]. He lives in [place]. REVIEW OF SYSTEMS: A 10-point review of systems is significant for limited endurance, fatigues easily. He utilizes Tylenol PM for insomnia. MEDICATIONS: Flomax 0.4 mg p.o. daily, Plavix 75 mg p.o. daily, Norvasc 5 mg p.o. daily, ASA 81 mg p.o. daily, metoprolol 25 mg p.o. daily, simvastatin 20 mg p.o. daily, multivitamins with minerals one tablet p.o. daily, Tylenol PM 2 tablets at bedtime, Restasis eyedrops one drop both eyes every morning, PreserVision one tablet p.o. daily. PHYSICAL EXAMINATION: GENERAL: Significant for a pleasant male appearing his stated age, lying in bed with O2 by nasal cannula in place. He has not been on oxygen prior to this and attempts have been made to wean it. VITAL SIGNS: He is afebrile, pulse is 76, respirations 20, blood pressure 150/45, O2 sat 94% on 2 liters O2 by nasal cannula. HEENT: Vision, speech, hearing grossly intact. O2 by nasal cannula in place. No oral lesion is noted. NECK: Supple without mass. HEART: Regular rhythm. CHEST: Clear. ABDOMEN: Soft, nontender, bowel sounds present. EXTREMITIES: No lower leg edema, no calf tenderness. MUSCULOSKELETAL: He has functional active range of motion in all 4 limbs. NEUROLOGIC: Sensation grossly intact to touch. Cognition grossly intact. Strength-HE has generalized weakness.4+/5 BLES and 4/5 BUES He is [place] IMPRESSION: 1. General debilitation secondary to coronary artery disease status post angioplasty with a stent, on Plavix at outside facility Dr. Pike, [facility]. 2. Status post coronary artery bypass grafting remote. 3. Hypertension, controlled with medication. 3. Anemia. 5. History of heart bypass surgery. 6. History of aortic valve replacement. 7. Benign prostatic hypertrophy, on Flomax. 8. Chronic obstructive pulmonary disease, currently O2 dependent. 9. Mixed hyperlipidemia, on statin. PLAN: The patient will have a comprehensive program of inpatient rehabilitation with goal of maximizing level of functional independence prior to discharge home with family and home health care. The patient will have PT, OT 90 minutes per day each discipline, 5 days a week for 10 to 14 days with the above goals in mind. Please see post-admission physician evaluation for more detailed plan of care that this is a separate document. Speech therapy to do cognitive assessment, treat as indicated. Rehabilitation nursing to assist with bowel, bladder, skin care, medication administration, pain management. Respiratory therapy to assist with O2 administration and weaning from O2 as able. rn support services for discharge planning, community reentry. Follow up with the cardiology and hospitalist service as per the schedule. Continue current medications. ESTIMATED LENGTH OF STAY: 10 to 14 days. PROGNOSIS: Rehab prognosis appears good for goal of discharging to home modified independent to supervision for ADLs and mobility skills with home health care. CODE STATUS: Full code. DIET: Heart healthy. Job ID: [id number] DocumentID: [id number] Dictated Date: 04/02/2018 19:18:54 Nurse Navigator Date: 04/02/2018 19:45:38 Dictated By: HORACIO STANLEY MD [facility]
[2018-04-02] MEDS: ACETAMINOPHEN 325 MG TABLET PO SCH (21:50)
[2018-04-02] MEDS: diphenhydrAMINE 25 MG TAB (BENADRYL) PO SCH (21:50)
[2018-04-03 05:23] VITALS: BP 139/52
[2018-04-03] MEDS: MULTIVIT W/MINERALS TAB (THERAGRAN M) PO SCH (05:46)
[2018-04-03 06:15] LABS: BASOPHILS % (AUTO) 0 % (0-10); EOSINOPHILS # (AUTO) 0.3 10^3/uL (0.0-0.3); EOSINOPHILS % (AUTO) 4 % (0-10); HEMATOCRIT 32 % (40-54); HEMOGLOBIN 9.9 G/DL (13.3-17.7); LYMPHOCYTES % (AUTO) 13 % (12-44); MEAN CORPUSCULAR HGB CONC 31 G/DL (32-36); MEAN CORPUSCULAR VOLUME 95 FL (80-99); MEAN PLATELET VOLUME 10.1 FL (7.4-10.4); MONOCYTES # (AUTO) 0.9 X 10^3 (0.0-1.0); MONOCYTES % (AUTO) 12 % (0-12); NEUTROPHILS # (AUTO) 5.4 X 10^3 (1.8-7.8); NEUTROPHILS % (AUTO) 71 % (42-75); PLATELET COUNT 232 10^3/uL (130-400); RED BLOOD COUNT 3.36 10^6/uL (4.35-5.85); RED CELL DISTRIBUTION WIDTH 14.4 % (10.0-14.5); WHITE BLOOD COUNT 7.6 10^3/uL (4.3-11.0)
[2018-04-03 06:21] LABS: MEAN CORPUSCULAR HEMOGLOBIN 29 PG (25-34)
[2018-04-03 06:34] LABS: ALBUMIN 3.5 GM/DL (3.2-4.5); BILIRUBIN,TOTAL 0.5 MG/DL (0.1-1.0); CALCIUM 9.5 MG/DL (8.5-10.1); CREATININE SERUM 1.4 MG/DL (0.60-1.30); POTASSIUM 3.8 MMOL/L (3.6-5.0); TOTAL PROTEIN 6.4 GM/DL (6.4-8.2)
--- NOTE | 2018-04-03 07:23 | PM & R (SOAP) Progress Note ---
Subjective This was a face to face visit with the patient. Date Seen by Provider: Apr 03, 2018 Time Seen by Provider: 06:55 Subjective/Events-last exam Patient was seen in his room this AM Adjusting well to unit but c/o insomnia Tylenol PM didint help and Melatonin not effective in past will try lowdose Ambien Therapy to see today due to late arrival last evening Labs noted Date Identified: Apr 03, 2018 Time Identified: 07:00 Medication Intervention: Trial of ambien for insomnia Review of Systems General: Fatigue, Other (insomnia) Neurological: Weakness Objective Physician Exam Last Set of Vital Signs Vital Signs Date Time Temp Pulse Resp B/P (MAP) Pulse Ox O2 Delivery O2 Flow Rate FiO2 04/03/18 05:23 98.4 76 20 139/52 (81) 97 Room Air 04/02/18 21:17 2.00 Capillary Refill : I&O Intake and Output 04/03/18 00:00 Daily Weight Change No General: Alert, Oriented X3, Cooperative, No Acute Distress HEENT: Atraumatic, PERRLA, EOMI, Mucous Memb Moist/[place] Neck: Supple, No JVD Lungs: Clear to Auscultation Heart: Regular Rate Abdomen: Normal Bowel Sounds, Soft, No Tenderness Extremities: No Edema Neuro: Other (Generalized weakness Cognitively intact) Results Lab Data Laboratory Tests 04/03/18 05:55: White Blood Count 7.6, Red Blood Count 3.36L, Hemoglobin 9.9L, Hematocrit 32L, Mean Corpuscular Volume 95, Mean Corpuscular Hemoglobin 29, Mean Corpuscular Hemoglobin Concent 31L, Red Cell Distribution Width 14.4, Platelet Count 232, Mean Platelet Volume 10.1, Neutrophils (%) (Auto) 71, Lymphocytes (%) (Auto) 13 , Monocytes (%) (Auto) 12, Eosinophils (%) (Auto) 4, Basophils (%) (Auto) 0, Neutrophils # (Auto) 5.4, Lymphocytes # (Auto) 1.0, Monocytes # (Auto) 0.9, Eosinophils # (Auto) 0.3, Basophils # (Auto) 0.0, Sodium Level 143, Potassium Level 3.8, Chloride Level 97L, Carbon Dioxide Level 33H, Anion Gap 13, Blood Urea Nitrogen 47H, Creatinine 1.40H, Estimat Glomerular Filtration Rate 48, BUN/ Creatinine Ratio 34, Glucose Level 114H, Calcium Level 9.5, Corrected Calcium 9.9, Total Bilirubin 0.5, Aspartate Amino Transf (AST/SGOT) 24, Alanine Aminotransferase (ALT/SGPT) 31, Alkaline Phosphatase 67, Total Protein 6.4, Albumin 3.5 Assessment/Plan Assessment and Plan S/P Stent OSH for CAD S/P CABG remote HTN controlled Anemia Insomnia BPH on Flomax COPD weaning from Mixed Hyperlipidemia on statin Plan Therapies to begin Team Conference 04-07-18 Wean from 02 as able with assistance of RT F/U with Card and Hospitalist TRial of Daquan anderson see orders Discussed with RN Co-Morbidities that are continuing to impact the rehab process: (include details ) HORACIO STANLEY MD Apr 03, 2018 07:23
[2018-04-03] MEDS ORDERED: meTOprolol TARTRATE 25 MG (LOPRESSOR) TABLET PO ONE (09:00)
[2018-04-03] MEDS: FUROSEMIDE 40 MG (LASIX) TAB PO SCH ×2 (09:38→13:20)
[2018-04-03] MEDS: amLODIPine 5 MG (NORVASC) TAB PO SCH (09:38)
[2018-04-03] MEDS: SIMvastatin 20 MG (ZOCOR) TAB PO SCH (09:38)
[2018-04-03] MEDS: ASPIRIN E.C. 81 MG (ECOTRIN) TAB PO SCH (09:38)
[2018-04-03] MEDS: CLOPIDOGREL 75 MG (PLAVIX) TABLET PO SCH (09:38)
--- NOTE | 2018-04-03 10:57 | Physical Therapy Evaluation ---
PT Evaluation-General Medical Diagnosis Admission Date Apr 02, 2018 at 17:28 Medical Diagnosis: acute exacerbation CHF Onset Date: Mar 22, 2018 Therapy Diagnosis Therapy Diagnosis: decreased mobility Height/Weight Height (Feet): 5 Height (Inches): 8.00 Weight (Pounds): 197 Weight (Ounces): 0.0 Precautions Precautions/Isolations: Fall Prevention, Standard Precautions Weight Bear Status Full Weight Bearing Full Weight Bearing Referral Physician: Dr. Taylor Medical History Pertinent Medical History: CAD, GERD, HTN Additional Medical History BPH, anemia, HLP, COPD, back pain Current History Presented to [facility] with acute exacerbation of CHF, transferred to [facility] and had an angioplasty. Reviewed History: Yes Social History Home: Single Level Current Living Status: Alone Entry Into Home: Stairs With Railing (1 railing) PT Steps Into Home: 3 Prior/Core FIM Prior Level of Function Functional Bennett Measure 0=Not Assessed/NA 4=Minimal Assistance 1=Total Assistance 5=Supervision or Setup 2=Maximal Assistance 6=Modified Bennett 3=Moderate Assistance 7=Complete Bennett Bed Mobility: 7 Transfers (B,C,W/C) (FIM): 7 Gait: 7 PT Evaluation-Current Subjective Pt. denies pain at present time and agrees to therapy. Says he wants to get home as soon as possible. Pt/Family Goals home (I) Objective Patient Orientation: Person, Place, Time, Situation Attachments: Oxygen 2.5 L via nc ROM/Strength ROM Upper Extremities See OT ROM Lower Extremities WNL (B) hip, knee, ankle Strength Upper Extremities See OT Strenght Lower Extremities Grossly 4+/5 (B) hip, knee, ankle Integumentary/Posture Integumentary see nursing notes Bowel Incontinence: No Bladder Incontinence: No Posture mildly kyphotic standing posture Neuromuscular (Tone, Coordination, Reflexes) intact Sensory Vision: Wears Glasses Hearing: Impaired (mild [place]) Sensation Right Upper Extremit: Intact Sensation Left Upper Extremity: Intact Sensation Right Lower Extremit: Intact Sensation Left Lower Extremity: Intact Transfers Functional Bennett Measure 0=Not Assessed/NA 4=Minimal Assistance 1=Total Assistance 5=Supervision or Setup 2=Maximal Assistance 6=Modified Bennett 3=Moderate Assistance 7=Complete IndependenceIRFPAI Quality Coding Scale 6 Independent with activity with or without an assistive device 5 Patient requires set up or clean up by helper. Patient completes activity by themselves 4 Supervision or touching assist (CGA). Glidden provide cues , steadying assist 3 The helper provides less than half the effort to complete the activity 2 The helper provides more than half the effort to complete the activity 1 Dependent. The helper does all the effort to complete an activity 7 Patient refused to complete or attempt activity 9 The patient did not perform the activity before the current illness or injury 88 Not attempted due to Medical conditions or safety concerns Transfers (B, C, W/C) (FIM): 4 Roll Left to Right (QC): 5 Supine to/from Sit: 5 Sit to/from Stand: 4 Sit to Lying (QC): 5 Lying to Sitting/Side of Bed(Q: 5 Sit to Stand (QC): 4 Chair/Pcl-tk-Pidyd Xfer(QC): 4 Car Transfer (QC): 4 Gait Does the Patient Walk?: Yes Mode of Locomotion: Walk Anticipated Mode of Locomotion: Walk Gait (FIM): 4 Distance (FIM): 3=150 ft Walk 10 feet (QC): 4 Walk 50 ft with 2 Turns(QC): 4 Walk 150 ft (QC): 4 Walking 10ft/uneven surface-QC: 4 Distance: 250 ft Gait Level of Assist: 4 Gait Persons Needed: 1 Gait Assistive Device: FWW Comments/Gait Description pt. initially a little shaky in LE's but improved with continued gait Wheelchair Training Does the Pt Use a Wheelchair?: No Stairs Stairs (FIM): 2 #of Steps: 4 Level of Assist: 4 1 Step (curb) (QC): 4 4 Steps (QC): 4 12 Steps (QC): 88 Balance Sitting Static: Good Sitting Dynamic: Good Standing Static: Fair Standing Dynamic: Fair Picking up an Object (QC): 4 Treatment gait Assessment/Needs Pt. is an 87 y.o. male who presents with decreased mobility and (I) following exacerbation of CHF. He would benefit from skilled PT to restore full (I) and safety with mobility to return home alone. Rehab Potential: Good PT Fpc Goals Fpc Goals PT [place] Supervisor Goals Time Frame: Apr 17, 2018 Transfers (B,C,W/C) (FIM): 6 Sit to Lying (QC): 6 Lying-Sitting on Side/Bed(QC): 6 Sit to Stand (QC): 6 Roll Left to Right (QC): 6 Chair/Fhv-px-Smobx Xfer(QC): 6 Car Transfer (QC): 6 Does the Patient Walk: Yes Gait (FIM): 6 Gait distance (FIM): 3=150 ft Distance: 250 ft Walk 10 feet (QC): 6 Walk 10ft-Uneven Surface(QC): 6 Walk 50ft with 2 Turns (QC): 6 Walk 150 ft (QC): 6 Gait Level of Assist: 6 Gait Assistive Device: None Stairs (FIM): 5 # of Steps: 4 1 Step (curb) (QC): 5 4 Steps (QC): 5 12 Steps (QC): 5 Stairs Level Of Assist: 5 Picking up an Object (QC): 6 PT Plan Problem List Problem List: Activity Tolerance, Functional Strength, Safety, Balance, Gait, Transfer, Bed Mobility, ROM Treatment/Plan Treatment Plan: Continue Plan of Care Treatment Plan: Bed Mobility, Concurrent Therapy, Education, Functional Activity [place], Functional Strength, Group Therapy, Gait, Safety, Therapeutic Exercise, Transfers Treatment Duration: Apr 17, 2018 Frequency: 5 times per week Estimated Hrs Per Day: 1.5 hours per day Patient and/or Family Agrees t: Yes Discharge Recommendations Therapy D/C Recommendations: Home Independently Time/GCodes Time In: 830 Time Out: 910 Total Billed Treatment Time: 40 Total Billed Treatment 1, CRISTIN 30', GT 10' DREAD MAGANA PT Apr 03, 2018 10:57
--- NOTE | 2018-04-03 11:40 | Consultation-Cardiology ---
HPI-Cardiology Cardiology Consultation Date of Consultation 04/03/18 Date of Admission Time Seen by Provider: 11:35 Indication: shortness of breath, coronary artery disease HPI 87 years old gentleman with history of coronary artery disease, had recent stenting to the left main coronary artery and circumflex artery. Postoperatively he continued to have shortness of breath and generalized weakness. Had pulmonary edema. Currently feeling somewhat better. He was transferred for acute rehabilitation. Upper my evaluation was feeling better, still using oxygen, denied any chest pain, no palpitation, no syncope or near syncopal episodes. No claudications. Home Medications & Allergies Allergies: Coded Allergies: No Known Drug Allergies (Verified , 03/21/18) Home Medication List Reviewed: Yes [id number] Hx Patient Social History Marital Status: Employed/Student: retired Alcohol Use: Occasionally Uses Recreational Drug Use: No Former smoker/When Quit: Jul 06, 1989 Type Used: Cigars, Cigarettes, Pipe Recent Foreign Travel: No Recent Infectious Disease Expo: No Recent Hopitalizations: No Physical Abuse Screen: No Sexual Abuse: No Immunizations Up To Date Date of Pneumonia Vaccine: Sep 15, 2012 Date of Influenza Vaccine: Mar 20, 2017 Past Medical History Past medical history as described below Family Medical History Significant Family History: Cancer Family History: Cancer in sister Review of Systems Constitutional: see HPI EENTM: see HPI, no symptoms reported Respiratory: see HPI, dyspnea on exertion, short of breath Cardiovascular: see HPI; No chest pain; edema; No Hx of Intervention, No palpitations, No syncope, No vascular heart diseas, No other Gastrointestinal: no symptoms reported, see HPI Genitourinary: no symptoms reported, see HPI Musculoskeletal: see HPI, joint pain, muscle stiffness Skin: see HPI Psychiatric/Neurological: No Symptoms Reported, See HPI Reviewed Test Results Reviewed Test Results Lab Laboratory Tests Test 04/03/18 05:55 Range/Units White Blood Count 7.6 4.3-11.0 10^3/uL Red Blood Count 3.36 L 4.35-5.85 10^6/uL Hemoglobin 9.9 L 13.3-17.7 G/DL Hematocrit 32 L 40-54 % Mean Corpuscular Volume 95 80-99 FL Mean Corpuscular Hemoglobin 29 25-34 PG Mean Corpuscular Hemoglobin Concent 31 L 32-36 G/DL Red Cell Distribution Width 14.4 10.0-14.5 % Platelet Count 232 130-400 10^3/uL Mean Platelet Volume 10.1 7.4-10.4 FL Neutrophils (%) (Auto) 71 42-75 % Lymphocytes (%) (Auto) 13 12-44 % Monocytes (%) (Auto) 12 0-12 % Eosinophils (%) (Auto) 4 0-10 % Basophils (%) (Auto) 0 0-10 % Neutrophils # (Auto) 5.4 1.8-7.8 X 10^3 Lymphocytes # (Auto) 1.0 1.0-4.0 X 10^3 Monocytes # (Auto) 0.9 0.0-1.0 X 10^3 Eosinophils # (Auto) 0.3 0.0-0.3 10^3/uL Basophils # (Auto) 0.0 0.0-0.1 10^3/uL Sodium Level 143 135-145 MMOL/L Potassium Level 3.8 3.6-5.0 MMOL/L Chloride Level 97 L 98-107 MMOL/L Carbon Dioxide Level 33 H 21-32 MMOL/L Anion Gap 13 5-14 MMOL/L Blood Urea Nitrogen 47 H 7-18 MG/DL Creatinine 1.40 H 0.60-1.30 MG/DL Estimat Glomerular Filtration Rate 48 BUN/Creatinine Ratio 34 Glucose Level 114 H 70-105 MG/DL Calcium Level 9.5 8.5-10.1 MG/DL Corrected Calcium 9.9 8.5-10.1 MG/DL Total Bilirubin 0.5 0.1-1.0 MG/DL Aspartate Amino Transf (AST/SGOT) 24 5-34 U/L Alanine Aminotransferase (ALT/SGPT) 31 0-55 U/L Alkaline Phosphatase 67 40-136 U/L Total Protein 6.4 6.4-8.2 GM/DL Albumin 3.5 3.2-4.5 GM/DL Physical Exam Vital Signs Vital Signs - First Documented 04/02/18 04/02/18 17:35 17:38 Temp 97.6 Pulse 76 Resp 20 B/P (MAP) 150/45 (80) Pulse Ox 94 O2 Delivery Room Air O2 Flow Rate 2.00 Capillary Refill : Height, Weight, BMI Height: 5'8.00" Weight: 197lbs. 0.0oz. [id number]; 30.0 BMI Method:Stated General Appearance: No Apparent Distress, WD/WN Eyes: Bilateral Eye Normal Inspection, Bilateral Eye PERRL, Bilateral Eye EOMI HEENT: PERRL/EOMI, TMs Normal, Normal ENT Inspection, Pharynx Normal Neck: Full Range of Motion, Normal Inspection, Non Tender, Supple, Carotid Bruit Respiratory: Chest Non Tender, Normal Breath Sounds, No Accessory Muscle Use, No Respiratory Distress, Crackles Cardiovascular: Regular Rate, Rhythm, No Edema, No Gallop, No JVD, Normal Peripheral Pulses, Systolic Murmur Gastrointestinal: Normal Bowel Sounds, No Organomegaly, No Pulsatile Mass, Non Tender, Soft Back: Normal Inspection, No CVA Tenderness, No Vertebral Tenderness Extremity: Normal Capillary Refill, Normal Inspection, Normal Range of Motion, Non Tender, No Calf Tenderness, No Pedal Edema Neurologic/Psychiatric: Alert, Oriented x3, No Motor/Sensory Deficits, Normal Mood/Affect Skin: Normal Color, Warm/Dry Lymphatic: No Adenopathy A/P-Cardiology Admission Diagnosis Shortness of breath Coronary artery disease Aortic valve replacement Hypertension Hyperlipidemia Assessment/Plan Shortness of breath, pulmonary edema, receiving large dose of Lasix. Continue to monitor his tolerance and response. Coronary artery disease, history of CABG 2 done in 1995, cardiac catheterization done in 2008 showing 8 and ARNOLD to LAD with occluded LAD, occluded bypass to the circumflex artery with occluded circumflex artery, 70 percent mid RCA stenosis. Patient had aortic valve replacement with Aquine valve in addition to another bypass using 1 graft. Had a cardiac catheterization then transferred to [facility] underwent stenting to the left main coronary artery and circumflex artery. Denied any active pain. Continue to monitor, continue on aspirin and Plavix Aortic valve replacement, had history of Equine involved placement in 2008, recent 2-D echocardiogram done October 2017 revealed moderate to severe aortic regurgitation. I am repeating 2-D echocardiogram Abnormal EKG with sinus rhythm and right bundle branch block, left posterior fascicular block. Extensive history of coronary artery disease planning for stress test. Hypertension, continue to monitor blood pressure Hyperlipidemia, maintained on simvastatin, continue to monitor lipids Carotid artery stenosis, mild disease by ultrasound on March 09, 2018. Continue to monitor History of tobaccoism, stopped smoking in 1987. History of colon cancer, status post chemotherapy Clinical Quality Measures DVT/VTE Risk/Contraindication: Risk Factor Score Per Nursin RFS Level Per Nursing on Admit: 2=Moderate MONY CLEMENTS MD Apr 03, 2018 11:40
--- NOTE | 2018-04-03 12:45 | Occupational Therapy Eval ---
OT Evaluation-General/PLF Medical Diagnosis Admission Date Apr 02, 2018 at 17:28 Medical Diagnosis: acute exacerbation CHF Onset Date: Mar 22, 2018 Therapy Diagnosis Therapy Diagnosis: decr self care, decr act aron, deecr funct mob, weakness Height/Weight Height (Feet): 5 Height (Inches): 8.00 Weight (Pounds): 197 Weight (Ounces): 0.0 Precautions Precautions/Isolations: Fall Prevention, Standard Precautions Safety Interventions: None Referral Physician: Dr. Taylor Referral Reason: Evaluation/Treatment Medical History Pertinent Medical History: CABG, CAD, COPD, GERD, HTN Additional Medical History Anemia, hx colon cancer, BPH, AVR. Insomnia. Pt reported herniated disk in lower back Current History Presented to [facility] with acute exacerbation of CHF, transferred to [facility] and had an angioplasty. Pt admitted 04-02-18 via ambulance from [place] Reviewed History: Yes Social History Home: Single Level Current Living Status: Alone Entry Into Home: Stairs With Railing (1 railing) Steps Into Home: 3 ADL-Prior Level of Function ADL PLOF Comments Pt reportd that he managed all of his basic ADLs prior to illness. He did laundry, cleaned, cooked, did yard work and gardened. He still drives. 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 DME/Equipment: Tub/Shower OT Current Status Subjective Pt seen in room, up in bed, agreeable to OT. 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 Upper Extremity Strength Grossly 4/5 bilat ADL-Treatment ADL-Current RT checked sats at 95% and decreased O2 to 1L/min. Pt reported that he is able to feed himself without difficulty, with setup. Moved from supine to sit EOB with SBA. Sit to stand SBA. O2 in place at 1L throughout except when he took it off during shower and dressing. Pt educ on energy conservation techniques including pacing yourself and sitting to work whenever possible, with verbal understanding. Walked with CGA to bathroom, FWW. Got in/out of shower stall and on/off shower bench with CGA, grab bars, FWW. Pt able to wash and dry all parts except back, with SBA when standing to wash bottom. Walked to toilet. Able to get on/off tall toilet with SBA, FWW, grab bars and managed clothing/hygiene. Pt reported that he uses a urinal at home since he goes to the bathroom 10-12 times a night and he empties it himself in the morning. He used the urinal in bed without help. Dressed upper body with setup and lower body with a little help to put slipper socks on (socks take great effort and cause him back pain, per his report), SBA for standing to pull pants up. Stood at sink to brush teeth , comb hair, SBA, FWW. Washed face and hands in shower. Family will bring in electric razor. Pt education modified technique for donning socks but would benefit from use of sock aid. Pt left up at EOB, visiting with family, all needs met. Cues for O2 tubing management during ADLs and transfers Functional [place] Measure 0=Not Assessed/NA 4=Minimal Assistance 1=Total Assistance 5=Supervision or Setup 2=Maximal Assistance 6=Modified [place] 3=Moderate Assistance 7=Complete IndependenceIRFPAI Quality Coding Scale 6 Independent with activity with or without an assistive device 5 Patient requires set up or clean up by helper. Patient completes activity by themselves 4 Supervision or touching assist (CGA). [place] provide cues , steadying assist 3 The helper provides less than half the effort to complete the activity 2 The helper provides more than half the effort to complete the activity 1 Dependent. The helper does all the effort to complete an activity 7 Patient refused to complete or attempt activity 9 The patient did not perform the activity before the current illness or injury 88 Not attempted due to Medical conditions or safety concerns Eating (FIM): 5 (setup, Able to feed self and get a dring without AD) Eating (QC): 5 Grooming (FIM): 5 (SBA at sink to brush teeth, comb hair. Washed face and hand sin shwoer. FWW) Oral Hygiene (QC): 4 (SBA) Bathing (FIM): 5 (Washed and dried all aprts except back. SBA when standing to wash bottom. Shower bench, grab bars, hand held shower) Shower/Bathe Self (QC): 4 (SBA) Upper Body Dressing (FIM): 5 (setup to dodf and don shirt) Upper Body Dressing (QC): 5 (setup) Lower Body Dressing (FIM): 4 (Help to put sliper socks on. Able to get pants on over feet, SBA to stand to pull them up. FWW) Lower Body Dressing (QC): 4 (SBA when pulling pants up and down, for balance. FWW) On/Off Footwear (QC): 3 (Help to put slipper socks on) Toileting (FIM): 5 (Managed clothing and hygiene, tall toilet, grab bar, FWW, SBA. used urinal at bedside without help) Toileting Hygiene (QC): 4 (SBA) Toilet/Commode Transfer (FIM): 5 (SBA getting on/off tall toilet, grab bar) Toilet Transfer (QC): 4 (SBA) Shower Transfer (FIM): 4 (CGA getting in/out of shower stall and on/off shower bench) Education OT Patient Education: Energy conservation, Modified ADL techniques, Progress toward Goal/Update tx plan, Purpose of tx/functional activities, Rehab process, Safety issues, Use of adapted equipment Teaching Recipient: Patient Teaching Methods: Discussion Response to Teaching: Verbalize Understanding, Return Demonstration, Reinforcement Needed OT Short Term Goals Short Term Goals Time Frame: Apr 09, 2018 Eating(FIM): 7 Additional Short Term Goals: 1-Demonstrate ADL Tasks, 2-Verbalize Understanding , 3-ImproveStrength/[place] 1=Demonstrate adherence to instructed precautions during ADL tasks. 2=Patient will verbalize/demonstrate understanding of assistive devices/ modifications for ADL. 3=Patient will improve strength/tolerance for activity to enable patient to perform ADL's. OT Mathematical Statistician Goals Mathematical Statistician Goals Time Frame: Apr 17, 2018 Eating (FIM): 7 Eating (QC): 6 Groomin Oral Hygiene (QC): 6 Bathing(FIM): 6 Shower/Bathe Self (QC): 6 Upper Body Dressing(FIM): 6 Upper Body Dressing (QC): 6 Lower Body Dressing(FIM): 6 Lower Body Dressing (QC): 6 On/Off Footwear (QC): 6 Toileting(FIM): 6 Toileting Hygiene (QC): 6 Toilet/Commode Transfer(FIM): 6 Toilet/Commode Transfer (QC): 6 Tub Transfer(FIM): 6 (or tub) Shower Transfer(FIM): 6 (or tub) Additional Goals: 1-Demonstrate ADL Tasks, 2-Verbalize Understanding, 3- ImproveStrength/[place] 1=Demonstrate adherence to instructed precautions during ADL tasks. 2=Patient will verbalize/demonstrate understanding of assistive devices/ modifications for ADL. 3=Patient will improve strength/tolerance for activity to enable patient to perform ADL's. OT Education/Plan Problem List/Assessment Assessment: Decreased Activ Tolerance, Decreased UE Strength, Dependent Transfers, Impaired Self-Care Skills Pt would benefit from skilled OT to increase his independence in basic self care to allow him to safely return home to live alone Discharge Recommendations Plan/Recommendations: Continue POC Treatment Plan/Plan of Care Treatment,Training & Education: Yes Patient would benefit from OT for education, treatment and training to promote independence in ADL's, mobility, safety and/or upper extremity function for ADL' s. Plan of Care: ADL Retraining, Functional Mobility, Group Exercise/Act as Ind ( education, exercise, activity tolerance, functional activities, socialization ) , UE Funct Exercise/Act, UE Neuromus Re-Ed/Coord Treatment Duration: Apr 17, 2018 Frequency: At least 5 of 7 days/Wk (IRF) Estimated Hrs Per Day: 1.5 hours per day Agreement: Yes Rehab Potential: Good Time/GCodes Start Time: 10:30 Stop Time: 11:30 Total Time Billed (hr/min): 60 Billed Treatment Time visit, 15 minutes exercise moderate intensity, 45 minutes ADL CORINA WONG OT Apr 03, 2018 12:45
[2018-04-03 16:41] VITALS: BP 136/53
[2018-04-03] MEDS: TAMSULOSIN 0.4 MG (FLOMAX) CAP PO SCH (17:10)
[2018-04-03] MEDS: ACETAMINOPHEN 325 MG TABLET PO SCH (19:18)
[2018-04-03] MEDS: diphenhydrAMINE 25 MG TAB (BENADRYL) PO SCH (19:18)
[2018-04-03] MEDS: ZOLPIDEM 5 MG (AMBIEN) TAB PO PRN (20:33)
[2018-04-04 05:49] VITALS: BP 127/69
[2018-04-04] MEDS: MULTIVIT W/MINERALS TAB (THERAGRAN M) PO SCH (05:53)
[2018-04-04 06:47] LABS: CALCIUM 9.5 MG/DL (8.5-10.1); CREATININE SERUM 1.45 MG/DL (0.60-1.30)
--- NOTE | 2018-04-04 08:20 | Cardiology Progress Note ---
Subjective Date Seen by Provider: Apr 04, 2018 Time Seen by Provider: 08:18 Subjective/Events-last exam Patient is in bed, feeling better, no new complaint, no chest pain Review of Systems General: No Chills, No Night Sweats, No Fatigue, No Malaise, No Appetite, No Other HEENT: No Head Aches, No Visual Changes, No Eye Pain, No Ear Pain, No Dysphasia , No Sinus Congestion, No Post Nasal Drip, No Sore Throat, No Other Pulmonary: No Dyspnea, No Cough, No Pleuritic Chest Pain, No Other Cardiovascular: No: Chest Pain, Palpitations, Orthopnea, Paroxysmal Noc. Dyspnea, Edema, Lt Headedness, Other Objective-Cardiology Exam Last Set of Vital Signs Vital Signs 04/04/18 05:49 Temp 97.6 Pulse 78 Resp 20 B/P (MAP) 127/69 (88) Pulse Ox 95 O2 Delivery Nasal Cannula O2 Flow Rate 2.00 Capillary Refill : I&O Intake and Output 04/04/18 00:00 Intake Total 1725 ml Output Total 1750 ml Balance -25 ml Intake Oral 1725 ml Output Urine Total 1750 ml # Bowel Movements 1 General: Alert, Oriented X3, Cooperative, No Acute Distress HEENT: Atraumatic, PERRLA, EOMI, Mucous Memb Moist/Difficult Run Neck: Supple, No JVD Lungs: Clear to Auscultation Heart: Regular Rate Abdomen: Normal Bowel Sounds, Soft, No Tenderness Extremities: No Clubbing, No Cyanosis, No Edema Skin: No Rashes, No Breakdown Neuro: Normal Speech, Other (Generalized weakness Cognitively intact) Psych/Mental Status: Mental Status NL Results Lab Laboratory Tests 04/04/18 06:11 A/P-Cardiology Admission Diagnosis Shortness of breath Coronary artery disease Aortic valve replacement Hypertension Hyperlipidemia Assessment/Plan Shortness of breath, pulmonary edema, receiving large dose of Lasix. Continue to monitor his tolerance and response. Coronary artery disease, history of CABG 2 done in 1995, cardiac catheterization done in 2008 showing 8 and ARNOLD to LAD with occluded LAD, occluded bypass to the circumflex artery with occluded circumflex artery, 70 percent mid RCA stenosis. Patient had aortic valve replacement with Aquine valve in addition to another bypass using 1 graft. Had a cardiac catheterization then transferred to [facility] underwent stenting to the left main coronary artery and circumflex artery. Denied any active pain. Continue to monitor, continue on aspirin and Plavix Aortic valve replacement, had history of Equine involved placement in 2008, recent 2-D echocardiogram done October 2017 revealed moderate to severe aortic regurgitation. I am repeating 2-D echocardiogram Elevated BNP, Echo and continue lasix Abnormal EKG with sinus rhythm and right bundle branch block, left posterior fascicular block. Hypertension, continue to monitor blood pressure Hyperlipidemia, maintained on simvastatin, continue to monitor lipids Carotid artery stenosis, mild disease by ultrasound on March 09, 2018. Continue to monitor History of tobaccoism, stopped smoking in 1987. History of colon cancer, status post chemotherapy Clinical Quality Measures DVT/VTE Risk/Contraindication: Risk Factor Score Per Nursin RFS Level Per Nursing on Admit: 2=Moderate MONY CLEMENTS MD Apr 04, 2018 08:20
[2018-04-04 08:45] VITALS: BP 111/43
[2018-04-04] MEDS: FUROSEMIDE 40 MG (LASIX) TAB PO SCH ×2 (08:48→12:24)
[2018-04-04] MEDS: ASPIRIN E.C. 81 MG (ECOTRIN) TAB PO SCH (08:48)
[2018-04-04] MEDS: CLOPIDOGREL 75 MG (PLAVIX) TABLET PO SCH (08:48)
[2018-04-04] MEDS: SIMvastatin 20 MG (ZOCOR) TAB PO SCH (08:48)
[2018-04-04] MEDS: amLODIPine 5 MG (NORVASC) TAB PO SCH (08:48)
[2018-04-04 15:48] VITALS: BP 125/50
[2018-04-04] MEDS: TAMSULOSIN 0.4 MG (FLOMAX) CAP PO SCH (17:16)
[2018-04-04] MEDS: ACETAMINOPHEN 325 MG TABLET PO SCH (19:30)
[2018-04-04] MEDS: diphenhydrAMINE 25 MG TAB (BENADRYL) PO SCH (19:30)
[2018-04-04] MEDS: ZOLPIDEM 5 MG (AMBIEN) TAB PO PRN (22:06)
[2018-04-05] MEDS: MULTIVIT W/MINERALS TAB (THERAGRAN M) PO SCH (05:25)
[2018-04-05 05:26] VITALS: BP 130/43
[2018-04-05] MEDS: CLOPIDOGREL 75 MG (PLAVIX) TABLET PO SCH (08:20)
[2018-04-05] MEDS: FUROSEMIDE 40 MG (LASIX) TAB PO SCH ×2 (08:20→11:41)
[2018-04-05] MEDS: ASPIRIN E.C. 81 MG (ECOTRIN) TAB PO SCH (08:20)
[2018-04-05] MEDS: amLODIPine 5 MG (NORVASC) TAB PO SCH (08:20)
[2018-04-05] MEDS: SIMvastatin 20 MG (ZOCOR) TAB PO SCH (08:20)
--- NOTE | 2018-04-05 08:51 | Cardiology Progress Note ---
Subjective Date Seen by Provider: Apr 05, 2018 Time Seen by Provider: 08:49 Subjective/Events-last exam Patient is with PT, no new complaints. Asking to go home. Denies any CP or dyspnea. Review of Systems General: No Night Sweats; Fatigue; No Malaise HEENT: No Head Aches, No Visual Changes, No Ear Pain, No Dysphasia, No Sore Throat Pulmonary: Dyspnea; No Cough Cardiovascular: No: Chest Pain, Palpitations, Orthopnea, Paroxysmal Noc. Dyspnea, Edema Gastrointestinal: No: Nausea, Vomiting, Abdominal Pain Genitourinary: No Dysuria, No Frequency Musculoskeletal: No: neck pain, back pain Neurological: Weakness; No: Numbness, Change in speech, Confusion Objective-Cardiology Exam Last Set of Vital Signs Vital Signs 04/05/18 05:26 Temp 97.6 Pulse 75 Resp 16 B/P (MAP) 130/43 (72) Pulse Ox 92 O2 Delivery Nasal Cannula O2 Flow Rate 1.00 Capillary Refill : I&O Intake and Output 04/05/18 00:00 Intake Total 1650 ml Output Total 2400 ml Balance -750 ml Intake Oral 1650 ml Output Urine Total 2400 ml # Bowel Movements 3 General: Alert, Oriented X3, Cooperative, No Acute Distress HEENT: Atraumatic, PERRLA, EOMI, Mucous Memb Moist/Wineglass Neck: Supple, No JVD Lungs: Clear to Auscultation Heart: Regular Rate Abdomen: Normal Bowel Sounds, Soft, No Tenderness Extremities: No Clubbing, No Cyanosis, No Edema Skin: No Rashes, No Breakdown Neuro: Normal Speech, Other (Generalized weakness Cognitively intact) Psych/Mental Status: Mental Status NL A/P-Cardiology Admission Diagnosis Shortness of breath Coronary artery disease Aortic valve replacement Hypertension Hyperlipidemia Assessment/Plan Shortness of breath, pulmonary edema, receiving large dose of Lasix. Continue to monitor his tolerance and response. Coronary artery disease, history of CABG 2 done in 1995, cardiac catheterization done in 2008 showing 8 and ARNOLD to LAD with occluded LAD, occluded bypass to the circumflex artery with occluded circumflex artery, 70 percent mid RCA stenosis. Patient had aortic valve replacement with Equine valve in addition to another bypass using 1 graft. Had a cardiac catheterization then transferred to [facility] underwent stenting to the left main coronary artery and circumflex artery. Denied any active pain. Continue to monitor, continue on aspirin and Plavix Aortic valve replacement, had history of Equine involved placement in 2008, recent 2-D echocardiogram done October 2017 revealed moderate to severe aortic regurgitation. 2-D echocardiogram results pending Elevated BNP, continue lasix Abnormal EKG with sinus rhythm and right bundle branch block, left posterior fascicular block. Hypertension, continue to monitor blood pressure Hyperlipidemia, maintained on simvastatin, continue to monitor lipids Carotid artery stenosis, mild disease by ultrasound on March 09, 2018. Continue to monitor History of tobaccoism, stopped smoking in 1987. History of colon cancer, status post chemotherapy Clinical Quality Measures DVT/VTE Risk/Contraindication: Risk Factor Score Per Nursin RFS Level Per Nursing on Admit: 2=Moderate FRANK MCCABE Apr 05, 2018 08:51
--- NOTE | 2018-04-05 08:59 | Occupational Ther Daily Note ---
OT Current Status-Daily Note Subjective Pt alert, lying in bed. No c/o pain. Pt agrees to therapy. Mental Status/Objective Patient Orientation: Person, Place, Time, Situation Functional [place] Measure 0=Not Assessed/NA 4=Minimal Assistance 1=Total Assistance 5=Supervision or Setup 2=Maximal Assistance 6=Modified [place] 3=Moderate Assistance 7=Complete [place] Attachments: Oxygen ADL-Treatment Removed O2 for shower, monitoring for change. When checked O2 sat level dropped to 89. Returned to O2 1L and rechecked, sat went back to 96. Remained on O2 1L throughout remainder of OT session. Functional [place] Measure 0=Not Assessed/NA 4=Minimal Assistance 1=Total Assistance 5=Supervision or Setup 2=Maximal Assistance 6=Modified [place] 3=Moderate Assistance 7=Complete IndependenceIRFPAI Quality Coding Scale 6 Independent with activity with or without an assistive device 5 Patient requires set up or clean up by helper. Patient completes activity by themselves 4 Supervision or touching assist (CGA). [place] provide cues , steadying assist 3 The helper provides less than half the effort to complete the activity 2 The helper provides more than half the effort to complete the activity 1 Dependent. The helper does all the effort to complete an activity 7 Patient refused to complete or attempt activity 9 The patient did not perform the activity before the current illness or injury 88 Not attempted due to Medical conditions or safety concerns Eating (FIM): 7 (Pt does not have dentures. Pt able to manipulate packaging and uses normal utensils. ) Eating (QC): 6 Grooming (FIM): 5 (SBA, pt completes in standing in front of sink using counter for stability. ) Oral Hygiene (QC): 4 Bathing (FIM): 5 (Pt completes using shower bench, hand held shower and grabbars for stability. Concern for safety. ) Bathing Location: L Arm, R Arm, L Upper Leg, R Upper Leg, L Lower Leg ( including foot), R Lower Leg (including foot), Chest, Abdomen, Buttocks, Perineal Area Shower/Bathe Self (QC): 4 Upper Body (FIM): 5 (Set up, pt completes don/doff shirt in standing using FWW for stability, SBA. ) Upper Body Dressing (QC): 4 Lower Body Dressing (FIM): 5 (Set up, with SBA pt doffs LE dressing in standing using FWW for stability. Pt dons LE dressing in sitting. Pt able to don sock using sock aid. ) Lower Body Dressing (QC): 4 On/Off Footwear (QC): 5 Toileting (FIM): 7 (Pt pushed FWW to side and used front of toilet for stability in standing to urinate. No balance breaks noted. ) Toileting Hygiene (QC): 6 Transfers (B, C, W/C) (FIM): 5 (SBA, pt goes from supine to EOB with HOB raised using bed rail for stability. Pt uses FWW for stability in sit to stand , SBA. ) Shower Transfer(FIM): 5 (SBA, pt uses FWW, grabbars, and shower bench for stability. ) Pt states that he stands and leans against the wall to don his socks and that is how he will do it when he gets home. Sock aide given with education and pt demonstrating understanding. Other Treatment Pt ambulated to therapy gym using FWW for stability. Pt completed arm bike 12 min/15 villa resistance increasing activity tolerance and UE strength needed for daily functional activity. Pt ambulated back to room using FWW for stability. After therapy, pt sitting in recliner with call light/phone within reach. All needs met in room. Education OT Patient Education: Use of adapted equipment Teaching Recipient: Patient Teaching Methods: Demonstration, Discussion Response to Teaching: Verbalize Understanding, Return Demonstration OT Short Term Goals Short Term Goals Time Frame: Apr 09, 2018 Eating(FIM): 7 Additional Short Term Goals: 1-Demonstrate ADL Tasks, 2-Verbalize Understanding , 3-ImproveStrength/Cordell 1=Demonstrate adherence to instructed precautions during ADL tasks. 2=Patient will verbalize/demonstrate understanding of assistive devices/ modifications for ADL. 3=Patient will improve strength/tolerance for activity to enable patient to perform ADL's. OT Penitentiary Goals Penitentiary Goals Time Frame: Apr 17, 2018 Eating (FIM): 7 Eating (QC): 6 Groomin Oral Hygiene (QC): 6 Bathing(FIM): 6 Shower/Bathe Self (QC): 6 Upper Body Dressing(FIM): 6 Upper Body Dressing (QC): 6 Lower Body Dressing(FIM): 6 Lower Body Dressing (QC): 6 On/Off Footwear (QC): 6 Toileting(FIM): 6 Toileting Hygiene (QC): 6 Toilet/Commode Transfer(FIM): 6 Toilet/Commode Transfer (QC): 6 Tub Transfer(FIM): 6 (or tub) Shower Transfer(FIM): 6 (or tub) Additional Goals: 1-Demonstrate ADL Tasks, 2-Verbalize Understanding, 3- ImproveStrength/Cordell 1=Demonstrate adherence to instructed precautions during ADL tasks. 2=Patient will verbalize/demonstrate understanding of assistive devices/ modifications for ADL. 3=Patient will improve strength/tolerance for activity to enable patient to perform ADL's. OT Education/Plan Problem List/Assessment Pt would benefit from skilled OT to increase his independence in basic self care to allow him to safely return home to live alone Discharge Recommendations Plan/Recommendations: Continue POC Treatment Plan/Plan of Care Patient would benefit from OT for education, treatment and training to promote independence in ADL's, mobility, safety and/or upper extremity function for ADL' s. Plan of Care: ADL Retraining, Functional Mobility, Group Exercise/Act as Ind ( education, exercise, activity tolerance, functional activities, socialization ) , UE Funct Exercise/Act, UE Neuromus Re-Ed/Coord Treatment Duration: Apr 17, 2018 Frequency: At least 5 of 7 days/Wk (IRF) Estimated Hrs Per Day: 1.5 hours per day Agreement: Yes Rehab Potential: Good Time/GCodes Start Time: 08:00 Stop Time: 09:00 Total Time Billed (hr/min): 60 Billed Treatment Time 1 visit- ADL 3 (40 min) EX 1 (20 min) EDDI RAUSCH Apr 05, 2018 08:59
--- NOTE | 2018-04-05 09:21 | Cardiology Progress Note ---
Subjective Date Seen by Provider: Apr 05, 2018 Time Seen by Provider: 09:18 Subjective/Events-last exam Patient is receiving physical therapy, feeling better, asking about going home. Denied any chest pain Review of Systems General: No Chills, No Night Sweats, No Fatigue, No Malaise, No Appetite, No Other HEENT: No Head Aches, No Visual Changes, No Eye Pain, No Ear Pain, No Dysphasia , No Sinus Congestion, No Post Nasal Drip, No Sore Throat, No Other Pulmonary: Dyspnea; No Cough, No Pleuritic Chest Pain, No Other Cardiovascular: No: Chest Pain, Palpitations, Orthopnea, Paroxysmal Noc. Dyspnea, Edema, Lt Headedness, Other Objective-Cardiology Exam Last Set of Vital Signs Vital Signs 04/05/18 05:26 Temp 97.6 Pulse 75 Resp 16 B/P (MAP) 130/43 (72) Pulse Ox 92 O2 Delivery Nasal Cannula O2 Flow Rate 1.00 Capillary Refill : I&O Intake and Output 04/05/18 00:00 Intake Total 1650 ml Output Total 2400 ml Balance -750 ml Intake Oral 1650 ml Output Urine Total 2400 ml # Bowel Movements 3 General: Alert, Oriented X3, Cooperative, No Acute Distress HEENT: Atraumatic, PERRLA, EOMI, Mucous Memb Moist/[place] Neck: Supple, No JVD Lungs: Clear to Auscultation Heart: Regular Rate, Normal S1, Normal S2 Abdomen: Normal Bowel Sounds, Soft, No Tenderness Extremities: No Clubbing, No Cyanosis, No Edema Skin: No Rashes, No Breakdown Neuro: Normal Speech, Other (Generalized weakness Cognitively intact) Psych/Mental Status: Mental Status NL A/P-Cardiology Admission Diagnosis Shortness of breath Coronary artery disease Aortic valve replacement Hypertension Hyperlipidemia Assessment/Plan Shortness of breath, pulmonary edema, receiving large dose of Lasix. Continue to monitor his tolerance and response. Coronary artery disease, history of CABG 2 done in 1995, cardiac catheterization done in 2008 showing 8 and ARNOLD to LAD with occluded LAD, occluded bypass to the circumflex artery with occluded circumflex artery, 70 percent mid RCA stenosis. Patient had aortic valve replacement with Equine valve in addition to another bypass using 1 graft. Had a cardiac catheterization then transferred to [facility] underwent stenting to the left main coronary artery and circumflex artery. Denied any active pain. Continue to monitor, continue on aspirin and Plavix Aortic valve replacement, had history of Equine involved placement in 2008 last echo was done in March 2018 showing normal left ventricular size, ejection fraction 45-50 percent, prosthetic valve in the aortic position has mild stenosis and mild aortic regurgitation, mild to moderate mitral regurgitation, PA pressure 55 mmHg. Elevated BNP, continue lasix, repeat BNP tomorrow Abnormal EKG with sinus rhythm and right bundle branch block, left posterior fascicular block. Hypertension, continue to monitor blood pressure Hyperlipidemia, maintained on simvastatin, continue to monitor lipids Carotid artery stenosis, mild disease by ultrasound on March 09, 2018. Continue to monitor History of tobaccoism, stopped smoking in 1987. History of colon cancer, status post chemotherapy Clinical Quality Measures DVT/VTE Risk/Contraindication: Risk Factor Score Per Nursin RFS Level Per Nursing on Admit: 2=Moderate MONY CLEMENTS MD Apr 05, 2018 09:21
--- NOTE | 2018-04-05 09:42 | ST Cognitive Linguistic Eval ---
Speech Evaluation-General Medical Diagnosis acute exacerbation CHF Onset Date: Mar 22, 2018 Therapy Diagnosis Therapy Diagnosis: Cognition Precautions Precautions/Isolations: Fall Prevention, Standard Precautions Referral Referring Physician: Dr. Taylor Reason for Referral: Evaluation/Treatment Medical History Pertinent Medical History: CABG, CAD, COPD, GERD, HTN Reviewed History: Yes Social History Current Living Status: Alone Speech PLF-Current Status Prior Level of Function Pt was independent Subjective Pt up in chair. Pleasant and cooperative. Pain Numeric Pain Scale: 0-No Pain Language Eval: Auditory Comprehends Simple Yes/No Ques: Functional Follows 1-Step Commands: Functional Follows Complex Directions: Functional Follows General Conversations: Functional Language Eval: Verbal Language Completes Spontaneous Greeting: Functional Produces Auto, Serial Info: Functional Word Finding: Functional Requests Basic Needs: Functional States Basic Personal Info: Functional Expresses Complex Ideas: Functional Language Evaluation: Reading NT Objective Cognitive Domain Attention: WNL Memory: WNL Problem Solving: Functional Objective Results [facility] Cognitive/Communication Screen was administered to assess cognitive- linguistic functioning. Results are: Memory - 3 word recall was 3/3 correct for immediate, delayed and remote delay. Organization - 3/3 correct Problem Solving - Simple 4/4 correct; Abstract.complex 1/2 correct Speech/language WNL Oral Motor/Speech Production WNL Impression Functional cognition and communication. Communication/Social Cognition Comprehension: 7 Expression: 7 Social Interaction: 7 Problem Solvin Memory: 7 Speech Patient Assess Expression of Ideas/Wants: Expression (4) Understanding Verbal Content: Understands (4) Brief Interview-Mental Status: Yes Repetition of Three Words: Three (3) Temporal Orientation: Year: Correct (3) Temporal Orientation: Month: Accurate within 5 days(2) Temporal Orientation: Day: Correct (1) Recall : Wear to say "Sock": Yes, no cue required (2) Speech Short Term Goals Short Term Goals Short Term Goals no goals established as no skilled ST indicated. Speech Correction Goals Correction Goals no goals established as no skilled ST indicated. Speech-Plan Patient/Family Goals Patient/Family Goals: to return home Treatment Plan Speech Therapy Treatment Plan: Discontinue ST no skilled ST indicated Treatment Duration: Apr 05, 2018 Frequency: Modified Program (IRF) (0) Estimated Hrs Per Day: Other (0) Rehab Potential: Good Pt/Family Agrees to Plan: Yes (9) Safety Risks/Education Teaching Recipient: Patient Teaching Methods: Discussion Response to Teaching: Verbalize Understanding Time Speech Therapy Time In: 09:15 Speech Therapy Time Out: 09:35 Total Billed Time: 20 Billed Treatment Time 1, [id number] Lim Apr 05, 2018 09:42
[2018-04-05] MEDS ORDERED: ACET-2469 PO (11:31)
--- NOTE | 2018-04-05 11:51 | Physical Therapy Daily Note ---
PT Daily Note-Current Subjective Patient states, "I want to go home now!" Agrees to PT. Pain Numeric Pain Scale: 0-No Pain Location: No Pain Reported Mental Status Patient Orientation: Normal For Age Transfers Functional [place] Measure 0=Not Assessed/NA 4=Minimal Assistance 1=Total Assistance 5=Supervision or Setup 2=Maximal Assistance 6=Modified [place] 3=Moderate Assistance 7=Complete IndependenceIRFPAI Quality Coding Scale 6 Independent with activity with or without an assistive device 5 Patient requires set up or clean up by helper. Patient completes activity by themselves 4 Supervision or touching assist (CGA). [place] provide cues , steadying assist 3 The helper provides less than half the effort to complete the activity 2 The helper provides more than half the effort to complete the activity 1 Dependent. The helper does all the effort to complete an activity 7 Patient refused to complete or attempt activity 9 The patient did not perform the activity before the current illness or injury 88 Not attempted due to Medical conditions or safety concerns Transfers (B, C, W/C) (FIM): 6 Scootin Rollin Roll Left to Right (QC): 6 Supine to/from Sit: 6 Sit to/from Stand: 6 Sit to Lying (QC): 6 Sit to Stand (QC): 6 Chair/Von-sr-Prgoe Xfer(QC): 6 Bed to/from Chair: 6 Car Transfer (QC): 6 Weight Bearing Full Weight Bearing Full Weight Bearing Gait Training Does the Patient Walk?: Yes Gait (FIM): 6 Distance (FIM): 3=150 ft Distance: 250' x 4 Walk 10 feet (QC): 6 Walk 50 ft with 2 Turns(QC): 6 Walk 150 ft (QC): 6 Walking 10ft/uneven surface-QC: 6 Gait Level of Assist: 6 Gait Assistive Device: FWW assist for O2 tank only Exercises Supine Ex: Bridging, Ankle pumps, Quad Set, Heel Slides, Straight leg raise, Hip abd/add Supine Reps: 20 (2 sets) Seated Therapy Exercises: Ankle pumps, Long arc quads, Hip flexion Seated Reps: 20 (2 sets) NuStep Minutes: 15 NuStep Workload: 3 (to improve cardiac function) Assessment Patient does fatigue with treatment and requires recovery periods. Patient is currently on 1L O2. PT to increase activity as tolerated by patient. PT Rope Walker Goals Rope Walker Goals PT Rope Walker Goals Time Frame: Apr 17, 2018 Transfers (B,C,W/C) (FIM): 6 Sit to Lying (QC): 6 Lying-Sitting on Side/Bed(QC): 6 Sit to Stand (QC): 6 Roll Left to Right (QC): 6 Chair/Icr-gs-Qfmxb Xfer(QC): 6 Car Transfer (QC): 6 Does the Patient Walk: Yes Gait (FIM): 6 Gait distance (FIM): 3=150 ft Distance: 250 ft Walk 10 feet (QC): 6 Walk 10ft-Uneven Surface(QC): 6 Walk 50ft with 2 Turns (QC): 6 Walk 150 ft (QC): 6 Gait Level of Assist: 6 Gait Assistive Device: None Stairs (FIM): 5 # of Steps: 4 1 Step (curb) (QC): 5 4 Steps (QC): 5 12 Steps (QC): 5 Stairs Level Of Assist: 5 Picking up an Object (QC): 6 PT Plan Treatment/Plan Treatment Plan: Continue Plan of Care Treatment Plan: Bed Mobility, Concurrent Therapy, Education, Functional Activity [place], Functional Strength, Group Therapy, Gait, Safety, Therapeutic Exercise, Transfers Treatment Duration: Apr 17, 2018 Frequency: 5 times per week Estimated Hrs Per Day: 1.5 hours per day Patient and/or Family Agrees t: Yes (9) Time/GCodes Time In: 1030 Time Out: 1130 Total Billed Treatment Time: 60 Total Billed Treatment 1 visit EX x 3 43 min FA 17 min THANG ENCARNACION PT Apr 05, 2018 11:51
--- NOTE | 2018-04-05 14:03 | Physical Therapy Daily Note ---
PT Daily Note-Current Subjective Patient agrees to PT. PT removed O2 for trial with activity. Pain Numeric Pain Scale: 0-No Pain Location: No Pain Reported Mental Status Patient Orientation: Normal For Age Transfers Functional [place] Measure 0=Not Assessed/NA 4=Minimal Assistance 1=Total Assistance 5=Supervision or Setup 2=Maximal Assistance 6=Modified [place] 3=Moderate Assistance 7=Complete IndependenceIRFPAI Quality Coding Scale 6 Independent with activity with or without an assistive device 5 Patient requires set up or clean up by helper. Patient completes activity by themselves 4 Supervision or touching assist (CGA). [place] provide cues , steadying assist 3 The helper provides less than half the effort to complete the activity 2 The helper provides more than half the effort to complete the activity 1 Dependent. The helper does all the effort to complete an activity 7 Patient refused to complete or attempt activity 9 The patient did not perform the activity before the current illness or injury 88 Not attempted due to Medical conditions or safety concerns Transfers (B, C, W/C) (FIM): 6 Scootin Rollin Roll Left to Right (QC): 6 Supine to/from Sit: 6 Sit to/from Stand: 6 Sit to Lying (QC): 6 Sit to Stand (QC): 6 Chair/Vdi-zp-Dusix Xfer(QC): 6 Bed to/from Chair: 6 Weight Bearing Full Weight Bearing Full Weight Bearing Gait Training Does the Patient Walk?: Yes Gait (FIM): 6 Distance (FIM): 3=150 ft Distance: 250' x 2/400' x 2 Walk 10 feet (QC): 6 Walk 50 ft with 2 Turns(QC): 6 Walk 150 ft (QC): 6 Gait Level of Assist: 6 Gait Assistive Device: FWW safe and functional Assessment Patient SAO2 on RA maintained 93% with activity. RN is aware and O2 is off with patient at rest. SAO2 after 5 min on RA 95%. Patient desires to return to home this week. PT Retirement Goals Manager Music Goals PT Retirement Goals Time Frame: Apr 17, 2018 Transfers (B,C,W/C) (FIM): 6 Sit to Lying (QC): 6 Lying-Sitting on Side/Bed(QC): 6 Sit to Stand (QC): 6 Rollin Roll Left to Right (QC): 6 Chair/Utx-ry-Xmrtk Xfer(QC): 6 Car Transfer (QC): 6 Does the Patient Walk: Yes Gait (FIM): 6 Gait distance (FIM): 3=150 ft Distance: 250 ft Walk 10 feet (QC): 6 Walk 10ft-Uneven Surface(QC): 6 Walk 50ft with 2 Turns (QC): 6 Walk 150 ft (QC): 6 Gait Level of Assist: 6 Gait Assistive Device: None Stairs (FIM): 5 # of Steps: 4 1 Step (curb) (QC): 5 4 Steps (QC): 5 12 Steps (QC): 5 Stairs Level Of Assist: 5 Picking up an Object (QC): 6 PT Plan Treatment/Plan Treatment Plan: Continue Plan of Care Treatment Plan: Bed Mobility, Concurrent Therapy, Education, Functional Activity [place], Functional Strength, Group Therapy, Gait, Safety, Therapeutic Exercise, Transfers Treatment Duration: Apr 17, 2018 Frequency: 5 times per week Estimated Hrs Per Day: 1.5 hours per day Patient and/or Family Agrees t: Yes (9) Time/GCodes Time In: 1330 Time Out: 1400 Total Billed Treatment Time: 30 Total Billed Treatment 1 visit FA x 2 30 min THANG ENCARNACION PT Apr 05, 2018 14:03
--- NOTE | 2018-04-05 14:21 | Occupational Ther Daily Note ---
OT Current Status-Daily Note Subjective Pt alert, sitting in recliner. No c/o pain. Pt agrees to therapy. Mental Status/Objective Patient Orientation: Person, Place, Time, Situation Functional [place] Measure 0=Not Assessed/NA 4=Minimal Assistance 1=Total Assistance 5=Supervision or Setup 2=Maximal Assistance 6=Modified [place] 3=Moderate Assistance 7=Complete [place] Attachments: Oxygen ADL-Treatment Functional [place] Measure 0=Not Assessed/NA 4=Minimal Assistance 1=Total Assistance 5=Supervision or Setup 2=Maximal Assistance 6=Modified [place] 3=Moderate Assistance 7=Complete IndependenceIRFPAI Quality Coding Scale 6 Independent with activity with or without an assistive device 5 Patient requires set up or clean up by helper. Patient completes activity by themselves 4 Supervision or touching assist (CGA). [place] provide cues , steadying assist 3 The helper provides less than half the effort to complete the activity 2 The helper provides more than half the effort to complete the activity 1 Dependent. The helper does all the effort to complete an activity 7 Patient refused to complete or attempt activity 9 The patient did not perform the activity before the current illness or injury 88 Not attempted due to Medical conditions or safety concerns Toileting (FIM): 7 (Pt pushed FWW to side and used front of toilet for stability in standing to urinate. No balance breaks noted.) Toileting Hygiene (QC): 6 Transfers (B, C, W/C) (FIM): 6 (Pt completes using FWW for stability. ) Other Treatment Pt ambulated to therapy gym using FWW for stability. Pt completed resistive pegs and nuts and bolts task alternating R/L with 1# wt attached increasing fine motor skills and pincher grasp needed for daily functional tasks. Pt ambulated back to room using FWW for stability. Pt remained on O2 1L entire duration of OT session. After therapy, pt lying in bed with call light/phone within reach. All needs met in room. OT Short Term Goals Short Term Goals Time Frame: Apr 09, 2018 Eating(FIM): 7 Additional Short Term Goals: 1-Demonstrate ADL Tasks, 2-Verbalize Understanding , 3-ImproveStrength/[place] 1=Demonstrate adherence to instructed precautions during ADL tasks. 2=Patient will verbalize/demonstrate understanding of assistive devices/ modifications for ADL. 3=Patient will improve strength/tolerance for activity to enable patient to perform ADL's. OT Mcfp Goals Mcfp Goals Time Frame: Apr 17, 2018 Eating (FIM): 7 Eating (QC): 6 Groomin Oral Hygiene (QC): 6 Bathing(FIM): 6 Shower/Bathe Self (QC): 6 Upper Body Dressing(FIM): 6 Upper Body Dressing (QC): 6 Lower Body Dressing(FIM): 6 Lower Body Dressing (QC): 6 On/Off Footwear (QC): 6 Toileting(FIM): 6 Toileting Hygiene (QC): 6 Toilet/Commode Transfer(FIM): 6 Toilet/Commode Transfer (QC): 6 Tub Transfer(FIM): 6 (or tub) Shower Transfer(FIM): 6 (or tub) Additional Goals: 1-Demonstrate ADL Tasks, 2-Verbalize Understanding, 3- ImproveStrength/[place] 1=Demonstrate adherence to instructed precautions during ADL tasks. 2=Patient will verbalize/demonstrate understanding of assistive devices/ modifications for ADL. 3=Patient will improve strength/tolerance for activity to enable patient to perform ADL's. OT Education/Plan Problem List/Assessment Pt would benefit from skilled OT to increase his independence in basic self care to allow him to safely return home to live alone Discharge Recommendations Plan/Recommendations: Continue POC Treatment Plan/Plan of Care Patient would benefit from OT for education, treatment and training to promote independence in ADL's, mobility, safety and/or upper extremity function for ADL' s. Plan of Care: ADL Retraining, Functional Mobility, Group Exercise/Act as Ind ( education, exercise, activity tolerance, functional activities, socialization ) , UE Funct Exercise/Act, UE Neuromus Re-Ed/Coord Treatment Duration: Apr 17, 2018 Frequency: At least 5 of 7 days/Wk (IRF) Estimated Hrs Per Day: 1.5 hours per day Agreement: Yes Rehab Potential: Good Time/GCodes Start Time: 13:00 Stop Time: 13:30 Total Time Billed (hr/min): 30 Billed Treatment Time 1 visit- ADL 1 (8 min) Ex 1 (22 min) EDDI RAUSCH Apr 05, 2018 14:21
[2018-04-05 17:36] VITALS: BP 126/56
[2018-04-05] MEDS: TAMSULOSIN 0.4 MG (FLOMAX) CAP PO SCH (17:41)
--- NOTE | 2018-04-05 18:22 | PM & R (SOAP) Progress Note ---
Subjective This was a face to face visit with the patient. Date Seen by Provider: Apr 05, 2018 Time Seen by Provider: 17:45 Subjective/Events-last exam Patient was seen in his room this evening Patient Modified Independent for transfers Appreciate DR Nur notes and orders Current Labs reviewed Date Identified: Apr 05, 2018 Time Identified: 18:00 Medication Intervention: Amben effective for insomnia Tylenol PM d/cd Objective Physician Exam Last Set of Vital Signs Vital Signs Date Time Temp Pulse Resp B/P (MAP) Pulse Ox O2 Delivery O2 Flow Rate FiO2 04/05/18 17:36 97.6 81 18 126/56 (79) 97 Nasal Cannula 1.00 Capillary Refill : I&O Intake and Output 04/05/18 00:00 Intake Total 1650 ml Output Total 2400 ml Balance -750 ml Intake Oral 1650 ml Output Urine Total 2400 ml # Bowel Movements 3 General: Alert, Oriented X3, Cooperative, No Acute Distress HEENT: Atraumatic, PERRLA, EOMI, Mucous Memb Moist/[place] Neck: Supple, No JVD Lungs: Clear to Auscultation Heart: Regular Rate, Normal S1, Normal S2 Abdomen: Normal Bowel Sounds, Soft, No Tenderness Extremities: No Clubbing, No Cyanosis, No Edema Skin: No Rashes, No Breakdown Neuro: Normal Speech, Other (Generalized weakness Cognitively intact) Psych/Mental Status: Mental Status NL Results Lab Data Laboratory Tests 04/03/18 05:55: White Blood Count 7.6, Red Blood Count 3.36L, Hemoglobin 9.9L, Hematocrit 32L, Mean Corpuscular Volume 95, Mean Corpuscular Hemoglobin 29, Mean Corpuscular Hemoglobin Concent 31L, Red Cell Distribution Width 14.4, Platelet Count 232, Mean Platelet Volume 10.1, Neutrophils (%) (Auto) 71, Lymphocytes (%) (Auto) 13 , Monocytes (%) (Auto) 12, Eosinophils (%) (Auto) 4, Basophils (%) (Auto) 0, Neutrophils # (Auto) 5.4, Lymphocytes # (Auto) 1.0, Monocytes # (Auto) 0.9, Eosinophils # (Auto) 0.3, Basophils # (Auto) 0.0, Sodium Level 143, Potassium Level 3.8, Chloride Level 97L, Carbon Dioxide Level 33H, Anion Gap 13, Blood Urea Nitrogen 47H, Creatinine 1.40H, Estimat Glomerular Filtration Rate 48, BUN/ Creatinine Ratio 34, Glucose Level 114H, Calcium Level 9.5, Corrected Calcium 9.9, Total Bilirubin 0.5, Aspartate Amino Transf (AST/SGOT) 24, Alanine Aminotransferase (ALT/SGPT) 31, Alkaline Phosphatase 67, Total Protein 6.4, Albumin 3.5 04/04/18 06:11: Sodium Level 141, Potassium Level 4.0, Chloride Level 96L, Carbon Dioxide Level 36H, Anion Gap 9, Blood Urea Nitrogen 47H, Creatinine 1.45H, Estimat Glomerular Filtration Rate 46, BUN/Creatinine Ratio 32, Glucose Level 117H, Calcium Level 9.5, Magnesium Level 2.0, B-Type Natriuretic Peptide 2252.3H Assessment/Plan Assessment and Plan S/P stent OSH for CAD S/P CABGremote HTN controlled Anemia Insomnia improved with Ambien discussed with RN will d/c Tylenol PM BPH on Flomax CPOD weaning from MIxed hyperlipidemia on statin Plan Continue PT/OT Discharge set tentatively for 10-3-18 Wean from 02 as able Co-Morbidities that are continuing to impact the rehab process: (include details ) HORACIO STANLEY MD Apr 05, 2018 18:22
[2018-04-05] MEDS: diphenhydrAMINE 25 MG TAB (BENADRYL) PO SCH (20:21)
[2018-04-05] MEDS: ACETAMINOPHEN 325 MG TABLET PO SCH (20:21)
[2018-04-05] MEDS: SENNA W/DOCUSATE (SENOKOT S) TABLET PO SCH (20:22)
[2018-04-05] MEDS: ZOLPIDEM 5 MG (AMBIEN) TAB PO PRN (21:50)
[2018-04-06 05:00] VITALS: BP 150/53
[2018-04-06 05:29] LABS: HEMOGLOBIN 9.6 G/DL (13.3-17.7); MEAN PLATELET VOLUME 11.1 FL (7.4-10.4); RED BLOOD COUNT 3.14 10^6/uL (4.35-5.85); RED CELL DISTRIBUTION WIDTH 14.5 % (10.0-14.5); WHITE BLOOD COUNT 8.6 10^3/uL (4.3-11.0)
[2018-04-06 05:49] LABS: CALCIUM 9.5 MG/DL (8.5-10.1); CREATININE SERUM 1.42 MG/DL (0.60-1.30); MAGNESIUM 2.2 MG/DL (1.8-2.4); POTASSIUM 4.2 MMOL/L (3.6-5.0)
[2018-04-06] MEDS: MULTIVIT W/MINERALS TAB (THERAGRAN M) PO SCH (06:10)
--- NOTE | 2018-04-06 07:47 | PM & R (SOAP) Progress Note ---
Subjective This was a face to face visit with the patient. Date Seen by Provider: Apr 06, 2018 Time Seen by Provider: 07:15 Subjective/Events-last exam Patient was seen in his room this AM Patient Modified Independent for transfers Toileting standing up at toilet this AM Patient set for discharge tomorrow Objective Physician Exam Last Set of Vital Signs Vital Signs Date Time Temp Pulse Resp B/P (MAP) Pulse Ox O2 Delivery O2 Flow Rate FiO2 04/06/18 07:37 Nasal Cannula 1.00 04/06/18 05:00 97.6 94 20 150/53 (85) 94 Capillary Refill : I&O Intake and Output 04/06/18 00:00 Intake Total 1550 ml Output Total 600 ml Balance 950 ml Intake Oral 1550 ml Output Urine Total 600 ml # Voids 4 General: Alert, Oriented X3, Cooperative, No Acute Distress HEENT: Atraumatic, PERRLA, EOMI, Mucous Memb Moist/[place] Neck: Supple, No JVD Lungs: Clear to Auscultation Heart: Regular Rate, Normal S1, Normal S2 Abdomen: Normal Bowel Sounds, Soft, No Tenderness Extremities: No Clubbing, No Cyanosis, No Edema Skin: No Rashes, No Breakdown Neuro: Normal Speech, Other (Generalized weakness Cognitively intact) Psych/Mental Status: Mental Status NL Results Lab Data Laboratory Tests 04/04/18 06:11: Sodium Level 141, Potassium Level 4.0, Chloride Level 96L, Carbon Dioxide Level 36H, Anion Gap 9, Blood Urea Nitrogen 47H, Creatinine 1.45H, Estimat Glomerular Filtration Rate 46, BUN/Creatinine Ratio 32, Glucose Level 117H, Calcium Level 9.5, Magnesium Level 2.0, B-Type Natriuretic Peptide 2252.3H 04/06/18 05:10: Sodium Level 139, Potassium Level 4.2, Chloride Level 96L, Carbon Dioxide Level 33H, Anion Gap 10, Blood Urea Nitrogen 53H, Creatinine 1.42H, Estimat Glomerular Filtration Rate 47, BUN/Creatinine Ratio 37, Glucose Level 124H, Calcium Level 9.5, Magnesium Level 2.2, B-Type Natriuretic Peptide 1516.9H, White Blood Count 8.6, Red Blood Count 3.14L, Hemoglobin 9.6L, Hematocrit 30L, Mean Corpuscular Volume 95, Mean Corpuscular Hemoglobin 31, Mean Corpuscular Hemoglobin Concent 32, Red Cell Distribution Width 14.5, Platelet Count 173, Mean Platelet Volume 11.1H Assessment/Plan Assessment and Plan S/P stent for CAD S/P Cabg remote HTN controlled Anemia Insomnia improved with ambien BPH on Flomax COPD weaning from 02 as able Mixed Hyperlipidemia on statin Plan Continue PT/OT Probable discharge tomorrow F/U with SW re need for home 02 Team Conference tomorrow as needed Co-Morbidities that are continuing to impact the rehab process: (include details ) HORACIO STANLEY MD Apr 06, 2018 07:47
[2018-04-06] MEDS: CLOPIDOGREL 75 MG (PLAVIX) TABLET PO SCH (08:02)
[2018-04-06] MEDS: amLODIPine 5 MG (NORVASC) TAB PO SCH (08:02)
[2018-04-06] MEDS: SENNA W/DOCUSATE (SENOKOT S) TABLET PO SCH ×2 (08:03→20:49)
[2018-04-06] MEDS: ASPIRIN E.C. 81 MG (ECOTRIN) TAB PO SCH (08:03)
[2018-04-06] MEDS: FUROSEMIDE 40 MG (LASIX) TAB PO SCH ×2 (08:03→12:07)
[2018-04-06] MEDS: SIMvastatin 20 MG (ZOCOR) TAB PO SCH (08:03)
--- NOTE | 2018-04-06 09:37 | Cardiology Progress Note ---
Subjective Date Seen by Provider: Apr 06, 2018 Time Seen by Provider: 08:00 Subjective/Events-last exam Patient is sitting up in bed, no new complaints. Continues to have some dyspnea on exertion. Denies any chest pain. Objective-Cardiology Exam Last Set of Vital Signs Vital Signs 04/06/18 04/06/18 05:00 09:00 Temp 97.6 Pulse 94 Resp 20 B/P (MAP) 150/53 (85) Pulse Ox 94 O2 Delivery Nasal Cannula O2 Flow Rate 1.00 Capillary Refill : I&O Intake and Output 04/06/18 00:00 Intake Total 1550 ml Output Total 600 ml Balance 950 ml Intake Oral 1550 ml Output Urine Total 600 ml # Voids 4 General: Alert, Oriented X3, Cooperative, No Acute Distress HEENT: Atraumatic, PERRLA, EOMI, Mucous Memb Moist/[place] Neck: Supple, No JVD Lungs: Clear to Auscultation Heart: Regular Rate, Normal S1, Normal S2 Abdomen: Normal Bowel Sounds, Soft, No Tenderness Extremities: No Clubbing, No Cyanosis, No Edema Skin: No Rashes, No Breakdown Neuro: Normal Speech, Other (Generalized weakness Cognitively intact) Psych/Mental Status: Mental Status NL Results Lab Laboratory Tests 04/06/18 05:10 A/P-Cardiology Admission Diagnosis Shortness of breath Coronary artery disease Aortic valve replacement Hypertension Hyperlipidemia Assessment/Plan Shortness of breath, pulmonary edema, receiving large dose of Lasix. Continue to monitor his tolerance and response. Coronary artery disease, history of CABG 2 done in 1995, cardiac catheterization done in 2008 showing 8 and ARNOLD to LAD with occluded LAD, occluded bypass to the circumflex artery with occluded circumflex artery, 70 percent mid RCA stenosis. Patient had aortic valve replacement with Equine valve in addition to another bypass using 1 graft. Had a cardiac catheterization then transferred to [facility] underwent stenting to the left main coronary artery and circumflex artery. Denied any active pain. Continue to monitor, continue on aspirin and Plavix Aortic valve replacement, had history of Equine involved placement in 2008 last echo was done in March 2018 showing normal left ventricular size, ejection fraction 45-50 percent, prosthetic valve in the aortic position has mild stenosis and mild aortic regurgitation, mild to moderate mitral regurgitation, PA pressure 55 mmHg. Elevated BNP, continue lasix, continue to monitor. Abnormal EKG with sinus rhythm and right bundle branch block, left posterior fascicular block. Hypertension, continue to monitor blood pressure Hyperlipidemia, maintained on simvastatin, continue to monitor lipids Carotid artery stenosis, mild disease by ultrasound on March 09, 2018. Continue to monitor History of tobaccoism, stopped smoking in 1987. History of colon cancer, status post chemotherapy Patient to follow up in our office in 2weeks. Clinical Quality Measures DVT/VTE Risk/Contraindication: Risk Factor Score Per Nursin RFS Level Per Nursing on Admit: 2=Moderate FRANK MCCABE Apr 06, 2018 09:37
--- NOTE | 2018-04-06 10:10 | Individualized Plan of Care ---
Individualized Plan of Care Rehab Nursing IPOC Order Admission Date Apr 02, 2018 at 17:28 Current Orders Orders Admission Arrival Bed Request (04/02/18 17:28) Ambulate 08,12,20 (04/02/18 18:00) Sequential Compression Device 08,20 (04/02/18 18:00) Dvt/Vte Risk - Notifiy Physici 08 (04/02/18 18:00) Heart Healthy (04/02/18 Lunch) Influenza Quad (5+Yoa) 2018- (Afluria (04/02/18 18:15) Admission Order(Inpt,Obs,Sdc) (04/02/18 18:46) Vital Signs: Routine (Order) 08,16,00 (04/02/18 18:46) Sequential Compression Device 08,20 (04/02/18 18:46) Fiber Optic Central Office Installer-Inpt Rehab Con (04/02/18 18:46) Rehab Nursing Orders-Ipoc (04/02/18 18:46) Physical Therapy Rehab Orders (04/02/18 18:46) Occupational Therapy Rehab Ord (04/02/18 18:46) Speech Therapy Rehab Orders (04/02/18 18:46) Turn And Reposition Q2HR (04/02/18 18:46) Intake & Output 06,14,22 (04/02/18 18:46) Weekly Weight (Lbs) WEEK (04/02/18 18:46) Code/Resuscitation (04/02/18 18:46) Initiate Admission Nursing Pro .admission (04/02/18 18:46) Consult Physician (04/02/18 18:50) Cbc With Automated Diff (04/03/18 06:00) Comprehensive Metabolic Panel (04/03/18 06:00) Oxygen-Administer 07,19 (04/02/18 18:51) Oxygen Delivery Set Up (04/02/18 18:51) Clopidogrel Tablet (Plavix Tablet) (04/03/18 09:00) Pharmacy Communication (Pharmacy Communi (04/02/18 19:00) Amlodipine Tablet (Norvasc Tablet) (04/03/18 09:00) Aspirin Enteric Coated Tablet (Ecotrin T (04/03/18 09:00) Metoprolol Tartrate (Ir) Tab (Lopressor (04/03/18 09:00) Therapeutic Multivitamin Tab (Vitamins, (04/03/18 07:00) Tamsulosin Capsule (Flomax Capsule) (04/03/18 18:00) Pharmacy Communication (Pharmacy Communi (04/02/18 19:00) Simvastatin Tablet (Zocor Tablet) (04/03/18 09:00) Furosemide Tablet (Lasix Tablet) (04/03/18 08:00) Metoprolol Succinate (Xl) Tab (Toprol Xl (04/03/18 09:00) Acetaminophen Tablet/Caplet (Tylenol T (04/02/18 21:00) Diphenhydramine Tablet (Benadryl Tablet) (04/02/18 21:00) Carboxymethylcell Ophth Soln (Refresh Pl (04/02/18 19:30) Pharmacy Communication (Pharmacy Communi (04/02/18 19:30) Zolpidem Tablet (Ambien Tablet) (04/03/18 07:30) Consult Physician (04/03/18 08:20) Patient Visit (04/03/18 ) Pt Eval Low Complexity (04/03/18 ) Gait Training, Ea 15 Min (04/03/18 ) Echo W Doppler/Color Flow (04/03/18 11:37) BNP (04/04/18 05:00) Basic Metabolic Panel (04/04/18 05:00) Magnesium (04/04/18 05:00) Cbc No Diff (04/06/18 05:00) BNP (04/06/18 05:00) Basic Metabolic Panel (04/06/18 05:00) Magnesium (04/06/18 05:00) Patient Visit (04/05/18 ) Exercise Therap, Ea 15 Min (04/05/18 ) Functional Activities, Ea 15 (04/05/18 ) Patient Visit (04/05/18 ) Speech Sound Lang Comp (04/05/18 ) Senna S Tablet (Senokot S Tablet) (04/05/18 21:00) Follow-Up Appointment D/C (04/06/18 08:20) Rehab Nursing Orders: Ongoing Assess. of Cognitive Status, Ongoing Assess. of Function Status, Disease Management & Educaiton, DVT Prophylaxis, Fall Prevention, Fluid/Electrolyte/Nutrition Mgmt, Infection Prevention, Medication Management & Education, Management of Risks & Complications, Management of Skin Intergrity, Nutrition Management, Pain Management, Patient/Family Support PT IPOC Problem List: Activity Tolerance, Functional Strength, Safety, Balance, Gait, Transfer, Bed Mobility, ROM Treatment Plan: Continue Plan of Care Bed Mobility, Concurrent Therapy, Education, Functional Activity Cordell, Functional Strength, Group Therapy, Gait, Safety, Therapeutic Exercise, Transfers Treatment Duration: Apr 17, 2018 Frequency: 5 times per week Estimated Hrs Per Day: 1.5 hours per day OT IPOC Problems: Decreased Activ Tolerance, Decreased UE Strength, Dependent Transfers , Impaired Self-Care Skills OT Treatment, Training and Edu: Yes OT Problems Pt would benefit from skilled OT to increase his independence in basic self care to allow him to safely return home to live alone Plan of Care: ADL Retraining, Functional Mobility, Group Exercise/Act as Ind ( education, exercise, activity tolerance, functional activities, socialization ) , UE Funct Exercise/Act, UE Neuromus Re-Ed/Coord Treatment Duration: Apr 17, 2018 Frequency: At least 5 of 7 days/Wk (IRF) Estimated Hrs Per Day: 1.[address] IPOC Speech Therapy Treatment Plan: Discontinue ST Treatment Duration: Apr 05, 2018 Frequency: Modified Program (IRF) (0) Estimated Hrs Per Day: Other (0) Fiber Optic Central Office Installer/Case Mgmt Fiber Optic Central Office Installer/Case Managemen: Discharge Planning, Patient/Family Counseling Dietitian/Fur Machine Operator Dietitian/Fur Machine Operator to monitor nutritional status and make changes and/or recommendations as needed and work with speech pathology on dietary upgrades as the occur. Physician IPOC Medical Issues being managed closely and that require the 24 hour availability of a physician: HTN anemia Insomnia BPH COPD HLP Resp insufficiency wean from 02 as able [facility] code 03.3 Etiologic DX -COPD myopathy Medical Issues: DVT Prophylaxis, Falls Precautions, Fluid/Electrolyte/ Nutrition Balance, Infection Protection, Pain Management, Other (List) (as per above) Brief Synthesis of Preadmission Screen, Post-Admission Evaluation, and Therapy Evaluations: 87 yo male s/p stent for CAD who had been Independent prior to this referred to [facility]U for ongoing care and therapies Has improved rapidly and discharge planned for tomorrow 04-07-18.PMH as per above Medical Prognosis: Good Anticipated Length of Stay: 04-07-18 Modified Independent for adls and mobility skills Wean from 02 as able Anticipated d/c Destination: Home with [facility] HORACIO STANLEY MD Apr 06, 2018 10:10
--- NOTE | 2018-04-06 10:30 | Occupational Ther Daily Note ---
OT Current Status-Daily Note Subjective Pt alert, sitting in recliner. No c/o pain. Pt agrees to therapy. Mental Status/Objective Patient Orientation: Person, Place, Time, Situation Functional [place] Measure 0=Not Assessed/NA 4=Minimal Assistance 1=Total Assistance 5=Supervision or Setup 2=Maximal Assistance 6=Modified [place] 3=Moderate Assistance 7=Complete [place] Attachments: Oxygen ADL-Treatment O2 removed for therapy session. O2 sat levels monitored, levels went to 87, after few deep breaths levels went back up 91+. Pt continue to take deep breathes and remained above 90 throughout session. Pt simulated tub transfer x2 using grabbars and edge of wall for stability in standing to left legs over tub. Functional [place] Measure 0=Not Assessed/NA 4=Minimal Assistance 1=Total Assistance 5=Supervision or Setup 2=Maximal Assistance 6=Modified [place] 3=Moderate Assistance 7=Complete IndependenceIRFPAI Quality Coding Scale 6 Independent with activity with or without an assistive device 5 Patient requires set up or clean up by helper. Patient completes activity by themselves 4 Supervision or touching assist (CGA). [place] provide cues , steadying assist 3 The helper provides less than half the effort to complete the activity 2 The helper provides more than half the effort to complete the activity 1 Dependent. The helper does all the effort to complete an activity 7 Patient refused to complete or attempt activity 9 The patient did not perform the activity before the current illness or injury 88 Not attempted due to Medical conditions or safety concerns Grooming (FIM): 7 (Pt pushed FWW to side, used counter for stability in front of sink. ) Oral Hygiene (QC): 6 Bathing (FIM): 6 (Mod I, pt used hand held shower, shower bench and grabbars for stability. ) Bathing Location: L Arm, R Arm, L Upper Leg, R Upper Leg, L Lower Leg ( including foot), R Lower Leg (including foot), Chest, Abdomen, Buttocks, Perineal Area Shower/Bathe Self (QC): 6 Upper Body (FIM): 6 (Pt retrieved and transported clothing, completing UE dressing in sitting position. ) Upper Body Dressing (QC): 6 Lower Body Dressing (FIM): 6 (Pt retrieved and transported clothing. Pt compelted LE dressing in sitting position. Pt don socks using AE. ) Lower Body Dressing (QC): 6 On/Off Footwear (QC): 6 Toileting (FIM): 7 (Pt pushed FWW to side and uses back of toilet for stability while standing to urinate. Pt cleanses self in sitting after BM using grabbars for stability. ) Toileting Hygiene (QC): 6 Transfers (B, C, W/C) (FIM): 6 (Pt completes using FWW for stability.) Toilet/Commode Transfer (FIM): 6 (Pt completes using grabbars and FWW for stability. ) Toilet Transfer (QC): 6 Shower Transfer(FIM): 6 (Pt completes using shower bench and grabbars for stability. ) Other Treatment Pt ambulated to therapy gym using FWW for stability. Pt completed arm bike 15 min/15 villa resistance increasing UE strength and activity tolerance needed for daily functional activity. Pt completed fine motor task bilaterally with 1# wt attached increasing UE strength and fine motor skills needed for daily functional tasks. Pt ambulated to room using FWW for stability. After therapy pt sitting in recliner with call light/phone within reach. All needs met in room. OT Short Term Goals Short Term Goals Time Frame: Apr 09, 2018 Eating(FIM): 7 Additional Short Term Goals: 1-Demonstrate ADL Tasks, 2-Verbalize Understanding , 3-ImproveStrength/[place] 1=Demonstrate adherence to instructed precautions during ADL tasks. 2=Patient will verbalize/demonstrate understanding of assistive devices/ modifications for ADL. 3=Patient will improve strength/tolerance for activity to enable patient to perform ADL's. OT Intermediate Goals Rod Buster Goals Time Frame: Apr 17, 2018 Eating (FIM): 7 (met) Eating (QC): 6 (met) Groomin (met) Oral Hygiene (QC): 6 (met) Bathing(FIM): 6 (met) Shower/Bathe Self (QC): 6 (met) Upper Body Dressing(FIM): 6 (met) Upper Body Dressing (QC): 6 (met) Lower Body Dressing(FIM): 6 (met) Lower Body Dressing (QC): 6 (met) On/Off Footwear (QC): 6 (met) Toileting(FIM): 6 (met) Toileting Hygiene (QC): 6 (met) Transfers (B,C,W/C) (FIM): 6 (met) Toilet/Commode Transfer(FIM): 6 (met) Toilet/Commode Transfer (QC): 6 (met) Tub Transfer(FIM): 6 (or tub, met) Shower Transfer(FIM): 6 (or tub, met) Additional Goals: 1-Demonstrate ADL Tasks, 2-Verbalize Understanding, 3- ImproveStrength/[place] 1=Demonstrate adherence to instructed precautions during ADL tasks. 2=Patient will verbalize/demonstrate understanding of assistive devices/ modifications for ADL. 3=Patient will improve strength/tolerance for activity to enable patient to perform ADL's. OT Education/Plan Problem List/Assessment Pt would benefit from skilled OT to increase his independence in basic self care to allow him to safely return home to live alone Discharge Recommendations Plan/Recommendations: Continue POC Treatment Plan/Plan of Care Patient would benefit from OT for education, treatment and training to promote independence in ADL's, mobility, safety and/or upper extremity function for ADL' s. Plan of Care: ADL Retraining, Functional Mobility, Group Exercise/Act as Ind ( education, exercise, activity tolerance, functional activities, socialization ) , UE Funct Exercise/Act, UE Neuromus Re-Ed/Coord Treatment Duration: Apr 17, 2018 Frequency: At least 5 of 7 days/Wk (IRF) Estimated Hrs Per Day: 1.5 hours per day Agreement: Yes Rehab Potential: Good Time/GCodes Start Time: 09:00 Stop Time: 10:30 Total Time Billed (hr/min): 90 Billed Treatment Time 1 visit- ADL 3 (45 min) Ex 3 (45 min) EDDI RAUSCH Apr 06, 2018 10:30
--- NOTE | 2018-04-06 12:11 | Physical Therapy Daily Note ---
PT Daily Note-Current Subjective Pt sitting in recliner upon arrival. Pt reports wanting to finish PT because discharging tomorrow. Pt feels he is ready. Pain Location: No Pain Reported Mental Status Patient Orientation: Person, Place, Time, Situation Transfers Functional [place] Measure 0=Not Assessed/NA 4=Minimal Assistance 1=Total Assistance 5=Supervision or Setup 2=Maximal Assistance 6=Modified [place] 3=Moderate Assistance 7=Complete IndependenceIRFPAI Quality Coding Scale 6 Independent with activity with or without an assistive device 5 Patient requires set up or clean up by helper. Patient completes activity by themselves 4 Supervision or touching assist (CGA). [place] provide cues , steadying assist 3 The helper provides less than half the effort to complete the activity 2 The helper provides more than half the effort to complete the activity 1 Dependent. The helper does all the effort to complete an activity 7 Patient refused to complete or attempt activity 9 The patient did not perform the activity before the current illness or injury 88 Not attempted due to Medical conditions or safety concerns Transfers (B, C, W/C) (FIM): 6 Scootin Rollin Roll Left to Right (QC): 6 Supine to/from Sit: 6 Sit to/from Stand: 6 Sit to Lying (QC): 6 Sit to Stand (QC): 6 Chair/[id number]-Kmpcv Xfer(QC): 6 Bed to/from Chair: 6 Car Transfer (QC): 6 Weight Bearing Full Weight Bearing Full Weight Bearing Gait Training Does the Patient Walk?: Yes Gait (FIM): 6 Distance (FIM): 3=150 ft Distance: 200' Walk 10 feet (QC): 6 Walk 50 ft with 2 Turns(QC): 6 Walk 150 ft (QC): 6 Walking 10ft/uneven surface-QC: 6 Gait Level of Assist: 6 Gait Persons Needed: 1 Gait Assistive Device: FWW Pt walks with normalized gait. Wheelchair Training Does the Pt Use a Wheelchair?: No Stair Training Stairs (FIM): 3 #of Steps: 8 1 Step (curb) (QC): 6 4 Steps (QC): 6 Stairs: Pattern: Reciprocal Level of Assist: 6 Balance Picking up an Object (QC): 6 Treatments Pt transfers & ambulates at Mod I using FWW. Pt completes car transfers, bed mobility, ambulation, Embzmn-Onfvgz-Lhnwjaqm transfers, walking across varying surface as well as stairs. Pt returns to room at end of tx with all needs met. Assessment Current Status: Good Progress Pt demonstrates a want to be through with Therapy and return home which pt will tomorrow. PT Senior Care Goals Appliquer Zigzag Goals PT Appliquer Zigzag Goals Time Frame: Apr 17, 2018 Transfers (B,C,W/C) (FIM): 6 Sit to Lying (QC): 6 Lying-Sitting on Side/Bed(QC): 6 Sit to Stand (QC): 6 Rollin Roll Left to Right (QC): 6 Chair/Pfm-nl-Tpnzc Xfer(QC): 6 Car Transfer (QC): 6 Does the Patient Walk: Yes Gait (FIM): 6 Gait distance (FIM): 3=150 ft Distance: 250 ft Walk 10 feet (QC): 6 Walk 10ft-Uneven Surface(QC): 6 Walk 50ft with 2 Turns (QC): 6 Walk 150 ft (QC): 6 Gait Level of Assist: 6 Gait Assistive Device: None Stairs (FIM): 5 # of Steps: 4 1 Step (curb) (QC): 5 4 Steps (QC): 5 12 Steps (QC): 5 Stairs Level Of Assist: 5 Picking up an Object (QC): 6 PT Plan Problem List Problem List: Activity Tolerance, Safety Treatment/Plan Treatment Plan: Continue Plan of Care Treatment Plan: Bed Mobility, Concurrent Therapy, Education, Functional Activity [place], Functional Strength, Group Therapy, Gait, Safety, Therapeutic Exercise, Transfers Treatment Duration: Apr 17, 2018 Frequency: 5 times per week Estimated Hrs Per Day: 1.5 hours per day Patient and/or Family Agrees t: Yes (9) Safety Risks/Education Patient Education: Gait Training, Transfer Techniques, Correct Positioning, Safety Issues Teaching Recipient: Patient Teaching Methods: Discussion Response to Teaching: Verbalize Understanding Time/GCodes Time In: 1100 Time Out: 1200 Total Billed Treatment Time: 60 Total Billed Treatment 1, FA x3 (45m) & GT (15m) G Codes Necessary: DEWAYNE Munoz AGITATOR OPERATOR Apr 06, 2018 12:11
--- NOTE | 2018-04-06 14:51 | Cardiology Progress Note ---
Subjective Date Seen by Provider: Apr 06, 2018 Time Seen by Provider: 12:30 Subjective/Events-last exam Patient was seen at bedside, sitting in a chair, feeling better, denied any chest pain or shortness of breath Review of Systems General: No Chills, No Night Sweats, No Fatigue, No Malaise, No Appetite, No Other HEENT: No Head Aches, No Visual Changes, No Eye Pain, No Ear Pain, No Dysphasia , No Sinus Congestion, No Post Nasal Drip, No Sore Throat, No Other Pulmonary: No Dyspnea, No Cough, No Pleuritic Chest Pain, No Other Cardiovascular: No: Chest Pain, Palpitations, Orthopnea, Paroxysmal Noc. Dyspnea, Edema, Lt Headedness, Other Objective-Cardiology Exam Last Set of Vital Signs Vital Signs 04/06/18 04/06/18 05:00 09:00 Temp 97.6 Pulse 94 Resp 20 B/P (MAP) 150/53 (85) Pulse Ox 94 O2 Delivery Nasal Cannula O2 Flow Rate 1.00 Capillary Refill : I&O Intake and Output 04/06/18 00:00 Intake Total 1550 ml Output Total 600 ml Balance 950 ml Intake Oral 1550 ml Output Urine Total 600 ml # Voids 4 General: Alert, Oriented X3, Cooperative, No Acute Distress HEENT: Atraumatic, PERRLA, EOMI, Mucous Memb Moist/[place] Neck: Supple, No JVD Lungs: Clear to Auscultation Heart: Regular Rate, Normal S1, Normal S2 Abdomen: Normal Bowel Sounds, Soft, No Tenderness Extremities: No Clubbing, No Cyanosis, No Edema Skin: No Rashes, No Breakdown Neuro: Normal Speech, Other (Generalized weakness Cognitively intact) Psych/Mental Status: Mental Status NL Results Lab Laboratory Tests 04/06/18 05:10 A/P-Cardiology Admission Diagnosis Shortness of breath Coronary artery disease Aortic valve replacement Hypertension Hyperlipidemia Assessment/Plan Shortness of breath, pulmonary edema, feeling better and breathing better, BNP is slightly better. Continue on diuretics and monitor tolerance and response Coronary artery disease, history of CABG 2 done in 1995, cardiac catheterization done in 2008 showing 8 and ARNOLD to LAD with occluded LAD, occluded bypass to the circumflex artery with occluded circumflex artery, 70 percent mid RCA stenosis. Patient had aortic valve replacement with Equine valve in addition to another bypass using 1 graft. Had a cardiac catheterization then transferred to [facility] underwent stenting to the left main coronary artery and circumflex artery. Denied any active pain. Continue to monitor, continue on aspirin and Plavix Aortic valve replacement, had history of Equine involved placement in 2008 last echo was done in March 2018 showing normal left ventricular size, ejection fraction 45-50 percent, prosthetic valve in the aortic position has mild stenosis and mild aortic regurgitation, mild to moderate mitral regurgitation, PA pressure 55 mmHg. Elevated BNP, continue lasix, continue to monitor. Abnormal EKG with sinus rhythm and right bundle branch block, left posterior fascicular block. Hypertension, continue to monitor blood pressure Hyperlipidemia, maintained on simvastatin, continue to monitor lipids Carotid artery stenosis, mild disease by ultrasound on March 09, 2018. Continue to monitor History of tobaccoism, stopped smoking in 1987. History of colon cancer, status post chemotherapy Patient to follow up in our office in 2weeks. Clinical Quality Measures DVT/VTE Risk/Contraindication: Risk Factor Score Per Nursin RFS Level Per Nursing on Admit: 2=Moderate MONY CLEMENTS MD Apr 06, 2018 14:51
--- NOTE | 2018-04-06 15:03 | Physical Therapy Daily Note ---
PT Daily Note-Current Subjective Pt sitting in recliner upon arrival. Pt agrees to PT. Pain Location: No Pain Reported Mental Status Patient Orientation: Person, Place, Time, Situation Transfers Functional [place] Measure 0=Not Assessed/NA 4=Minimal Assistance 1=Total Assistance 5=Supervision or Setup 2=Maximal Assistance 6=Modified [place] 3=Moderate Assistance 7=Complete IndependenceIRFPAI Quality Coding Scale 6 Independent with activity with or without an assistive device 5 Patient requires set up or clean up by helper. Patient completes activity by themselves 4 Supervision or touching assist (CGA). [place] provide cues , steadying assist 3 The helper provides less than half the effort to complete the activity 2 The helper provides more than half the effort to complete the activity 1 Dependent. The helper does all the effort to complete an activity 7 Patient refused to complete or attempt activity 9 The patient did not perform the activity before the current illness or injury 88 Not attempted due to Medical conditions or safety concerns Scootin Supine to/from Sit: 6 Sit to/from Stand: 6 Sit to Lying (QC): 6 Sit to Stand (QC): 6 Weight Bearing Full Weight Bearing Full Weight Bearing Gait Training Does the Patient Walk?: Yes Distance (FIM): 3=150 ft Distance: 250' Walk 10 feet (QC): 6 Walk 50 ft with 2 Turns(QC): 6 Walk 150 ft (QC): 6 Gait Level of Assist: 6 Gait Persons Needed: 1 Gait Assistive Device: FWW Wheelchair Training Does the Pt Use a Wheelchair?: No Treatments Pt transfers and ambulates using FWW at [facility]. Pt uses restroom and returns to room to rest Supine in bed with all needs met. Assessment Current Status: Good Progress Pt asks [employer] [facility] to talk to Ingot Passer to schedule a drop off of FWW for pt. PT Funding Coordinator Goals Assisted Goals PT Funding Coordinator Goals Time Frame: Apr 17, 2018 Transfers (B,C,W/C) (FIM): 6 Sit to Lying (QC): 6 Lying-Sitting on Side/Bed(QC): 6 Sit to Stand (QC): 6 Rollin Roll Left to Right (QC): 6 Chair/Cai-cr-Fpign Xfer(QC): 6 Car Transfer (QC): 6 Does the Patient Walk: Yes Gait (FIM): 6 Gait distance (FIM): 3=150 ft Distance: 250 ft Walk 10 feet (QC): 6 Walk 10ft-Uneven Surface(QC): 6 Walk 50ft with 2 Turns (QC): 6 Walk 150 ft (QC): 6 Gait Level of Assist: 6 Gait Assistive Device: None Stairs (FIM): 5 # of Steps: 4 1 Step (curb) (QC): 5 4 Steps (QC): 5 12 Steps (QC): 5 Stairs Level Of Assist: 5 Picking up an Object (QC): 6 PT Plan Problem List Problem List: Activity Tolerance, Safety Treatment/Plan Treatment Plan: Continue Plan of Care Treatment Plan: Bed Mobility, Concurrent Therapy, Education, Functional Activity [place], Functional Strength, Group Therapy, Gait, Safety, Therapeutic Exercise, Transfers Treatment Duration: Apr 17, 2018 Frequency: 5 times per week Estimated Hrs Per Day: 1.5 hours per day Patient and/or Family Agrees t: Yes (9) Safety Risks/Education Patient Education: Gait Training, Correct Positioning, Safety Issues Teaching Recipient: Patient Teaching Methods: Discussion Response to Teaching: Verbalize Understanding Time/GCodes Time In: 1330 Time Out: 1400 Total Billed Treatment Time: 30 Total Billed Treatment 1, GT x2 (30m) G Codes Necessary: DEWAYNE Munoz [employer] [facility] [facility] Apr 06, 2018 15:03
[2018-04-06] MEDS ORDERED: Zolpidem Tartrate PO (15:21)
[2018-04-06] MEDS ORDERED: CLOP75TA28 PO (15:21)
[2018-04-06] MEDS ORDERED: FURO40TA4 PO (15:21)
[2018-04-06] MEDS: TAMSULOSIN 0.4 MG (FLOMAX) CAP PO SCH (17:06)
[2018-04-06 18:00] VITALS: BP 115/50
[2018-04-06] MEDS: diphenhydrAMINE 25 MG TAB (BENADRYL) PO SCH (20:49)
[2018-04-06] MEDS: ACETAMINOPHEN 325 MG TABLET PO SCH (20:49)
[2018-04-06] MEDS: ZOLPIDEM 5 MG (AMBIEN) TAB PO PRN (20:52)
[2018-04-07 06:00] VITALS: BP 147/53
[2018-04-07] MEDS: MULTIVIT W/MINERALS TAB (THERAGRAN M) PO SCH (06:39)
--- NOTE | 2018-04-07 07:55 | PM & R (SOAP) Progress Note ---
Subjective This was a face to face visit with the patient. Date Seen by Provider: Apr 07, 2018 Time Seen by Provider: 07:30 Subjective/Events-last exam Patient was seen in his room this AM All set for discharge today. Date Identified: Apr 07, 2018 Time Identified: 07:30 Medication Intervention: Discharge meds reviewed Objective Physician Exam Last Set of Vital Signs Vital Signs Date Time Temp Pulse Resp B/P (MAP) Pulse Ox O2 Delivery O2 Flow Rate FiO2 04/07/18 06:00 97.6 87 16 147/53 (84) 93 Room Air 04/06/18 21:00 1.00 Capillary Refill : I&O Intake and Output 04/07/18 00:00 Intake Total 1470 ml Output Total 725 ml Balance 745 ml Intake Oral 1470 ml Output Urine Total 725 ml # Voids 4 General: Alert, Oriented X3, Cooperative, No Acute Distress HEENT: Atraumatic, PERRLA, EOMI, Mucous Memb Moist/[place] Neck: Supple, No JVD Lungs: Clear to Auscultation Heart: Regular Rate, Normal S1, Normal S2 Abdomen: Normal Bowel Sounds, Soft, No Tenderness Extremities: No Clubbing, No Cyanosis, No Edema Skin: No Rashes, No Breakdown Neuro: Normal Speech, Other (Generalized weakness Cognitively intact) Psych/Mental Status: Mental Status NL Results Lab Data Laboratory Tests 04/06/18 05:10: White Blood Count 8.6, Red Blood Count 3.14L, Hemoglobin 9.6L, Hematocrit 30L, Mean Corpuscular Volume 95, Mean Corpuscular Hemoglobin 31, Mean Corpuscular Hemoglobin Concent 32, Red Cell Distribution Width 14.5, Platelet Count 173, Mean Platelet Volume 11.1H, Sodium Level 139, Potassium Level 4.2, Chloride Level 96L, Carbon Dioxide Level 33H, Anion Gap 10, Blood Urea Nitrogen 53H, Creatinine 1.42H, Estimat Glomerular Filtration Rate 47, BUN/Creatinine Ratio 37 , Glucose Level 124H, Calcium Level 9.5, Magnesium Level 2.2, B-Type Natriuretic Peptide 1516.9H Assessment/Plan Assessment and Plan Home today with family and HHC F/U with PCP and Cardiology See orders Co-Morbidities that are continuing to impact the rehab process: (include details ) HORACIO STANLEY MD Apr 07, 2018 07:55
[2018-04-07] MEDS: FUROSEMIDE 40 MG (LASIX) TAB PO SCH (08:57)
[2018-04-07] MEDS: ASPIRIN E.C. 81 MG (ECOTRIN) TAB PO SCH (08:57)
[2018-04-07] MEDS: amLODIPine 5 MG (NORVASC) TAB PO SCH (08:57)
[2018-04-07] MEDS: CLOPIDOGREL 75 MG (PLAVIX) TABLET PO SCH (08:57)
[2018-04-07] MEDS: SIMvastatin 20 MG (ZOCOR) TAB PO SCH (08:57)
[2018-04-07] MEDS: SENNA W/DOCUSATE (SENOKOT S) TABLET PO SCH (08:58)
--- NOTE | 2018-04-07 10:50 | Therapy Team Discharge Summary ---
Therapy Discharge Summary Discharge Recommendations Date of Discharge Therapy D/C Recommendations: Home Independently Physical Therapy Pt admitted to inpatient rehab 04/02/18 for acute exacerbation of CHF and decreased mobility. Upon admission, pt performed bed mobility SBA, CGA for sit to stand and car transfers. Pt was able to ambulate w/ CGA using FWW 205' ( including 10' over uneven surface and 50' w/ 2 turns of 90 degrees), and ascend/ descend 4 stairs w/ CGA. At this time, pt is mod I w/ transfers and bed mobility (including car transfer), ambulates 250' mod I using FWW (including 10 ' over uneven surface and 50' w/ 2 turns of 90 degrees), flower picker an object off the floor mod I, and is able to ascend/descend 8 stairs mod I w/ reciprocal pattern. Pt has made good progress and has met all of his custodial goals. Pt is discharged from this facility and PT services. Occupational Therapy Decreased Activ Tolerance, Decreased UE Strength, Dependent Transfers, Impaired Self-Care Skills PT Fci Goals Sparmaker Goals PT Fci Goals Time Frame: Apr 17, 2018 Transfers (B,C,W/C) (FIM): 6 Roll Left to Right (QC): 6 Sit to Lying (QC): 6 Lying-Sitting on Side/Bed(QC): 6 Sit to Stand (QC): 6 Chair/Kkw-uu-Ielnv Xfer(QC): 6 Car Transfer (QC): 6 Does the Patient Walk: Yes Gait (FIM): 6 Gait distance (FIM): 3=150 ft Distance: 250 ft Walk 10 feet (QC): 6 Walk 10ft-Uneven Surface(QC): 6 Walk 50ft with 2 Turns (QC): 6 Walk 150 ft (QC): 6 Gait Level of Assist: 6 Gait Assistive Device: None Stairs (FIM): 5 # of Steps: 4 1 Step (curb) (QC): 5 4 Steps (QC): 5 12 Steps (QC): 5 Stairs Level Of Assist: 5 Picking up an Object (QC): 6 OT Sparmaker Goals Fci Goals Time Frame: Apr 17, 2018 Eating (FIM): 7 (met) Eating (QC): 6 (met) Oral Hygiene (QC): 6 (met) Grooming(FIM): 6 (met) Bathing(FIM): 6 (met) Shower/Bathe Self (QC): 6 (met) Upper Body Dressing(FIM): 6 (met) Upper Body Dressing (QC): 6 (met) Lower Body Dressing(FIM): 6 (met) Lower Body Dressing (QC): 6 (met) On/Off Footwear (QC): 6 (met) Toileting(FIM): 6 (met) Toileting Hygiene (QC): 6 (met) Transfers (B,C,W/C) (FIM): 6 (met) Toilet/Commode Transfer(FIM): 6 (met) Toilet/Commode Transfer (QC): 6 (met) Tub Transfer(FIM): 6 (or tub, met) Shower Transfer(FIM): 6 (or tub, met) Additional Goals: 1-Demonstrate ADL Tasks, 2-Verbalize Understanding, 3- ImproveStrength/[place] 1=Demonstrate adherence to instructed precautions during ADL tasks. 2=Patient will verbalize/demonstrate understanding of assistive devices/ modifications for ADL. 3=Patient will improve strength/tolerance for activity to enable patient to perform ADL's. Speech Fci Goals Sparmaker Goals no goals established as no skilled ST indicated. RANDA COVARRUBIAS PT Apr 07, 2018 10:50
--- NOTE | 2018-04-07 12:00 | Therapy Team Discharge Summary ---
Therapy Discharge Summary Discharge Recommendations Date of Discharge Therapy D/C Recommendations: Home w/ Family Support, Home Independently Occupational Therapy Pt was seen for skilled OT to increase her independence in basic self care to allow him to safely discharge to his home after acute exacerbation of CHF. On admission he was setup for eating and upper body dressing, SBA for grooming, bathing, toileting, toilet transfer, min assist lower body dressing and shower transfer. By discharge he was independent with eating and modified independent with all other ADLs. See tx plan for goals met. Equipment used included shower chair, grab bars, tall toilet, sock aid, FWW, hand held shower. No continued OT recommended. DC OT. Decreased Activ Tolerance, Decreased UE Strength, Dependent Transfers, Impaired Self-Care Skills PT Fdc Goals Fdc Goals PT Fdc Goals Time Frame: Apr 17, 2018 Transfers (B,C,W/C) (FIM): 6 Roll Left to Right (QC): 6 Sit to Lying (QC): 6 Lying-Sitting on Side/Bed(QC): 6 Sit to Stand (QC): 6 Chair/Mxp-tl-Yhwwn Xfer(QC): 6 Car Transfer (QC): 6 Does the Patient Walk: Yes Gait (FIM): 6 Gait distance (FIM): 3=150 ft Distance: 250 ft Walk 10 feet (QC): 6 Walk 10ft-Uneven Surface(QC): 6 Walk 50ft with 2 Turns (QC): 6 Walk 150 ft (QC): 6 Gait Level of Assist: 6 Gait Assistive Device: None Stairs (FIM): 5 # of Steps: 4 1 Step (curb) (QC): 5 4 Steps (QC): 5 12 Steps (QC): 5 Stairs Level Of Assist: 5 Picking up an Object (QC): 6 OT Button Spindler Goals Button Spindler Goals Time Frame: Apr 17, 2018 Eating (FIM): 7 (met) Eating (QC): 6 (met) Oral Hygiene (QC): 6 (met) Grooming(FIM): 6 (met) Bathing(FIM): 6 (met) Shower/Bathe Self (QC): 6 (met) Upper Body Dressing(FIM): 6 (met) Upper Body Dressing (QC): 6 (met) Lower Body Dressing(FIM): 6 (met) Lower Body Dressing (QC): 6 (met) On/Off Footwear (QC): 6 (met) Toileting(FIM): 6 (met) Toileting Hygiene (QC): 6 (met) Transfers (B,C,W/C) (FIM): 6 (met) Toilet/Commode Transfer(FIM): 6 (met) Toilet/Commode Transfer (QC): 6 (met) Tub Transfer(FIM): 6 (or tub, met) Shower Transfer(FIM): 6 (or tub, met) Additional Goals: 1-Demonstrate ADL Tasks, 2-Verbalize Understanding, 3- ImproveStrength/[place] 1=Demonstrate adherence to instructed precautions during ADL tasks. 2=Patient will verbalize/demonstrate understanding of assistive devices/ modifications for ADL. 3=Patient will improve strength/tolerance for activity to enable patient to perform ADL's. Speech Button Spindler Goals Fdc Goals no goals established as no skilled ST indicated. CORINA WONG OT Apr 07, 2018 12:00
[2018-04-07 14:44] VITALS: BP 147/53
== END 2018-04-07 10:15 | disposition home or self-care (01) | DRG 948 ==
PROVIDERS: ADMIT Physical Medicine & Rehabilitation; ATTEND Physical Medicine & Rehabilitation
DX: R53.1 Weakness (principal); I25.10 Atherosclerotic heart disease of native coronary artery without angina pectoris; I25.810 Atherosclerosis of coronary artery bypass graft(s) without angina pectoris; D64.9 Anemia, unspecified; N40.0 Benign prostatic hyperplasia without lower urinary tract symptoms; J81.1 Chronic pulmonary edema; I10 Essential (primary) hypertension; E78.2 Mixed hyperlipidemia; J44.9 Chronic obstructive pulmonary disease, unspecified; Z99.81 Dependence on supplemental oxygen; G47.00 Insomnia, unspecified; Z95.1 Presence of aortocoronary bypass graft; Z95.5 Presence of coronary angioplasty implant and graft; Z95.2 Presence of prosthetic heart valve
CPT/HCPCS: 36415; 80048; 80053; 83735; 83880; 85025; 85027; 93306

== ENCOUNTER → 2018-04-22 | Outpatient (CLI) | payer MEDICARE, OTHER ==
[~2018-04-22] MED LIST changes: +ACET-2469 PO; +CLOP75TA28 PO; +CLOP75TA69 PO; +FURO40TA4 PO; +FURO80TA3 PO; +POTA10TA36 PO; +PRD20T PO; +ZOLP5TAB PO; +Zolpidem Tartrate PO
[2018-04-22 09:11] LABS: ABG BASE EXCESS 1.3 MMOL/L (-2.5-2.5); ABG OXYGEN SATURATION 96 % (94-100); ABG PCO2 32 MMHG (35-45); ABG PH 7.49 (7.37-7.43); ABG PO2 72 MMHG (79-93); ABG TCO2 25.7 MMOL/L (21.0-31.0); ALLENS TEST YES-POS
[2018-04-22 09:12] LABS: INSPIRED O2 RM AIR; PATIENT TEMP 96.7; VENTILATOR NO
== END ==
LOC: RT 08:44
PROVIDERS: ATTEND Nurse Practitioner Family
DX: R06.02 Shortness of breath (principal); J98.4 Other disorders of lung; J90 Pleural effusion, not elsewhere classified; E66.9 Obesity, unspecified; Z87.891 Personal history of nicotine dependence
CPT/HCPCS: 36600; 82805

== ENCOUNTER 2018-04-28 06:51 | Day surgery (SDC) | payer MEDICARE, OTHER ==
[~2018-04-28] VITALS: Ht 172.7 cm; Wt 83.5 kg
[2018-04-28] VITALS (12 sets, daily range): BP systolic 118–132; BP diastolic 44–52
[~2018-04-28 06:51] MED LIST changes: -CLOP75TA69 PO; -FURO80TA3 PO; -POTA10TA36 PO; -PRD20T PO; -ZOLP5TAB PO
[2018-04-28] MEDS ORDERED: HEParin (CATH LAB) 2,000 ML IV ONE (06:54)
[2018-04-28] MEDS ORDERED: NS IV 1000 ML 1,000 ML ONE (06:54)
[2018-04-28] MEDS ORDERED: LIDOCAINE 1% INJ 20 ML 20 ML VIAL ONE (06:54)
--- OUTSIDE RECORDS SUMMARY | 2018-04-28 06:58 | XMS REPORT | Continuity of Care Document ---
Author Author [facility] Organization [facility] Address Unknown Phone Unavailable Allergies Active Description Code Type Severity Reaction Onset Reported/Identified Relationship to Patient Clinical Status Yes No Known Drug Allergies [id number] Drug Allergy Unknown N/A 03/21/2018 Medications There is no data. 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[place], AORTIC 10/31/2015 MONY CLEMENTS MD Ot I25.10 ATHSCL HEART DISEASE OF [place] CORONARY 10/31/2015 MONY CLEMENTS MD Ot Z01.810 [...] MD Ot I25.10 ATHSCL HEART DISEASE OF [place] CORONARY 10/31/2015 STARLA GARDNER MD, Ot Z79.899 OTHER SNF (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 THERAPY 10/31/2015 STARLA GARDNER MD [...] MD Ot I25.10 ATHSCL HEART DISEASE OF [place] CORONARY 11/02/2015 STARLA GARDNER MD Ot Z79.899 OTHER SNF (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 THERAPY 11/02/2015 STARLA GARDNER MD Ot 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 NICOTINE DEPENDENCE 11/02/2015 STARLA GARDNER MD Ot K46.9 UNSPECIFIED ABDOMINAL HERNIA WITHOUT OBS 11/02/2015 STARLA GARDNER MD Ot 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 NICOTINE DEPENDENCE 11/02/2015 MONY CLEMENTS MD Ot I25.10 ATHSCL HEART DISEASE OF [place] CORONARY 11/02/2015 MONY CLEMENTS MD Ot I35.0 NONRHEUMATIC AORTIC (VALVE) STENOSIS 11/05/2015 MONY CLEMENTS MD Ot E78.0 PURE HYPERCHOLESTEROLEMIA 11/05/2015 MONY CLEMENTS MD Ot I10 ESSENTIAL (PRIMARY) HYPERTENSION 11/05/2015 MONY CLEMENTS MD Ot I25.10 ATHSCL HEART DISEASE OF [place] CORONARY 11/05/2015 MONY CLEMENTS MD Ot 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 MITRAL (VALVE) INSUFFICIENC 11/05/2015 MONY CLEMENTS MD Ot I35.0 NONRHEUMATIC AORTIC (VALVE) STENOSIS 11/05/2015 MONY CLEMENTS MD Ot E78.0 PURE HYPERCHOLESTEROLEMIA 11/05/2015 MONY CLEMENTS MD Ot I10 ESSENTIAL (PRIMARY) HYPERTENSION 11/05/2015 MONY CLEMENTS MD Ot I25.10 ATHSCL HEART DISEASE OF [place] CORONARY 11/05/2015 MONY CLEMENTS MD Ot I34.0 [...] MD Ot I25.10 ATHSCL HEART DISEASE OF [place] CORONARY 11/10/2015 DRISS WILSON MD, Ot K21.9 [...] MD Ot I25.10 ATHSCL HEART DISEASE OF [place] CORONARY 11/11/2015 DRISS WILSON MD Ot K21.9 [...] MD Ot I25.10 ATHSCL HEART DISEASE OF [place] CORONARY 11/12/2015 DRISS WILSON MD, Ot K21.9 [...] MD, Ot I25.10 ATHSCL HEART DISEASE OF [place] CORONARY 11/13/2015 DRISS WILSON MD Ot K21.9 [...] MD Ot I25.10 ATHSCL HEART DISEASE OF [place] CORONARY 11/13/2015 DRISS WILSON MD Ot K21.9 [...] MD Ot I25.10 ATHSCL HEART DISEASE OF [place] CORONARY 11/14/2015 DRISS WILSON MD Ot K21.9 [...] MD Ot I25.10 ATHSCL HEART DISEASE OF [place] CORONARY 11/14/2015 DRISS WILSON MD Ot K21.9 [...] 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 11/15/2015 DRISS WILSON MD, Ot E78.0 PURE HYPERCHOLESTEROLEMIA 11/15/2015 DRISS WILSON MD Ot I10 ESSENTIAL (PRIMARY) HYPERTENSION 11/15/2015 DRISS WILSON MD Ot I25.10 ATHSCL HEART DISEASE OF [place] CORONARY 11/15/2015 DRISS WILSON MD, Ot K21.9 [...] MD Ot I25.10 ATHSCL HEART DISEASE OF [place] CORONARY 11/18/2015 DRISS WILSON MD Ot K21.9 [...] Z95.1 PRESENCE OF AORTOCORONARY BYPASS GRAFT 11/18/2015 DRISS WILSON MD Ot Z95.2 PRESENCE OF PROSTHETIC HEART VALVE 11/19/2015 DRISS WILSON MD Ot 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 11/19/2015 DRISS WILSON MD, Ot E78.0 PURE HYPERCHOLESTEROLEMIA 11/19/2015 DRISS WILSON MD Ot I10 ESSENTIAL (PRIMARY) HYPERTENSION 11/19/2015 DRISS WILSON MD Ot I25.10 ATHSCL HEART DISEASE OF [place] CORONARY 11/19/2015 DRISS WILSON MD Ot K21.9 [...] MD, Ot I25.10 ATHSCL HEART DISEASE OF [place] CORONARY 11/20/2015 DRISS WILSON MD, Ot K21.9 [...] MD, Ot I25.10 ATHSCL HEART DISEASE OF [place] CORONARY 11/20/2015 DRISS WILSON MD, Ot K21.9 [...] MD, Ot I25.10 ATHSCL HEART DISEASE OF [place] CORONARY 11/21/2015 MONY CLEMENTS MD Ot I35.0 NONRHEUMATIC AORTIC (VALVE) STENOSIS 11/22/2015 MONY CLEMENTS MD Ot E78.0 PURE HYPERCHOLESTEROLEMIA 11/22/2015 MONY CLEMENTS MD Ot I10 ESSENTIAL (PRIMARY) HYPERTENSION 11/22/2015 MONY CLEMENTS MD Ot I25.10 ATHSCL HEART DISEASE OF [place] CORONARY 11/22/2015 MONY CLEMENTS MD Ot 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 MITRAL (VALVE) INSUFFICIENC 11/22/2015 MONY CLEMENTS MD Ot I35.0 NONRHEUMATIC AORTIC (VALVE) STENOSIS 11/26/2015 MONY CLEMENTS MD Ot I25.10 ATHSCL HEART DISEASE OF [place] CORONARY 11/26/2015 MONY CLEMENTS MD Ot I35.0 NONRHEUMATIC AORTIC (VALVE) STENOSIS 11/30/2015 MONY CLEMENTS MD Ot E78.0 PURE HYPERCHOLESTEROLEMIA 11/30/2015 MONY CLEMENTS MD Ot I10 ESSENTIAL (PRIMARY) HYPERTENSION 11/30/2015 MONY CLEMENTS MD Ot I25.10 ATHSCL HEART DISEASE OF [place] CORONARY 11/30/2015 MONY CLEMENTS MD Ot 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 MITRAL (VALVE) INSUFFICIENC 11/30/2015 MONY CLEMENTS MD Ot I35.0 NONRHEUMATIC AORTIC (VALVE) STENOSIS 12/17/2015 STARLA GARDNER MD Ot D64.9 ANEMIA, UNSPECIFIED 12/17/2015 STARLA GARDNER MD Ot E78.5 HYPERLIPIDEMIA, UNSPECIFIED 12/17/2015 STARLA GARDNER MD Ot I10 ESSENTIAL (PRIMARY) HYPERTENSION 12/17/2015 STARLA GARDNER MD Ot I25.10 ATHSCL HEART DISEASE OF [place] CORONARY 12/17/2015 STARLA GARDNER MD Ot 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 12/17/2015 STARLA GARDNER MD Ot 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 NICOTINE DEPENDENCE 12/17/2015 STARLA GARDNER MD Ot D64.9 ANEMIA, UNSPECIFIED 12/17/2015 STARLA GARDNER MD Ot E78.5 HYPERLIPIDEMIA, UNSPECIFIED 12/17/2015 STARLA GARDNER MD Ot I10 ESSENTIAL (PRIMARY) HYPERTENSION 12/17/2015 STARLA GARDNER MD Ot I25.10 ATHSCL HEART DISEASE OF [place] CORONARY 12/17/2015 STARLA GARDNER MD Ot 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 12/17/2015 STARLA GARDNER MD Ot 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 NICOTINE DEPENDENCE 12/18/2015 STARLA GARDNER MD Ot D64.9 ANEMIA, UNSPECIFIED 12/18/2015 STARLA GARDNER MD Ot E78.5 HYPERLIPIDEMIA, UNSPECIFIED 12/18/2015 STARLA GARDNER MD Ot I10 ESSENTIAL (PRIMARY) HYPERTENSION 12/18/2015 STARLA GARDNER MD Ot I25.10 ATHSCL HEART DISEASE OF [place] CORONARY 12/18/2015 STARLA GARDNER MD Ot 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 12/18/2015 STARLA GARDNER MD Ot 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 NICOTINE DEPENDENCE 12/24/2015 STARLA GARDNER MD Ot D64.9 ANEMIA, UNSPECIFIED 12/24/2015 STARLA GARDNER MD Ot E78.5 HYPERLIPIDEMIA, UNSPECIFIED 12/24/2015 STARLA GARDNER MD Ot I10 ESSENTIAL (PRIMARY) HYPERTENSION 12/24/2015 STARLA GARDNER MD Ot I25.10 ATHSCL HEART DISEASE OF [place] CORONARY 12/24/2015 STARLA GARDNER MD Ot Z79.899 OTHER SNF (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 THERAPY 12/24/2015 STARLA GARDNER MD Ot 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 NICOTINE DEPENDENCE 01/02/2016 STARLA GARDNER MD Ot D64.9 ANEMIA, UNSPECIFIED 01/02/2016 STARLA GARDNER MD Ot E78.5 HYPERLIPIDEMIA, UNSPECIFIED 01/02/2016 STARLA GARDNER MD Ot I10 ESSENTIAL (PRIMARY) HYPERTENSION 01/02/2016 STARLA GARDNER MD Ot I25.10 ATHSCL HEART DISEASE OF [place] CORONARY 01/02/2016 STARLA GARDNER MD Ot Z79.899 OTHER SNF (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 THERAPY 01/02/2016 STARLA GARDNER MD Ot 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 NICOTINE DEPENDENCE 01/10/2016 LUIS ANGEL CHACKO S ACCOUNT MANAGER [employer] Ot 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 01/10/2016 LUIS ANGEL CHACKO ACCOUNT MANAGER [employer] Ot D64.9 ANEMIA, UNSPECIFIED 01/10/2016 LUIS ANGEL CHACKO S ACCOUNT MANAGER [employer] Ot E78.5 HYPERLIPIDEMIA, UNSPECIFIED 01/10/2016 LUIS ANGEL CHACKO S ACCOUNT MANAGER [employer] Ot I10 ESSENTIAL (PRIMARY) HYPERTENSION 01/10/2016 LUIS ANGEL CHACKO S ACCOUNT MANAGER [employer] Ot I25.10 ATHSCL HEART DISEASE OF [place] CORONARY 01/10/2016 LUIS ANGEL CHACKO ACCOUNT MANAGER [employer] Ot 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 01/10/2016 LUIS ANGEL CHACKO ACCOUNT MANAGER [employer] Ot 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 NICOTINE DEPENDENCE 02/14/2016 STARLA GARDNER MD Ot 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 02/14/2016 STARLA GARDNER MD Ot D64.9 ANEMIA, UNSPECIFIED 02/14/2016 STARLA GARDNER MD Ot E78.5 HYPERLIPIDEMIA, UNSPECIFIED 02/14/2016 STARLA GARDNER MD Ot I10 ESSENTIAL (PRIMARY) HYPERTENSION 02/14/2016 STARLA GARDNER MD Ot I25.10 ATHSCL HEART DISEASE OF [place] CORONARY 02/14/2016 STARLA GARDNER MD Ot 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 02/14/2016 STARLA GARDNER MD Ot 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 NICOTINE DEPENDENCE 02/14/2016 LUIS ANGEL CHACKO S ACCOUNT MANAGER [employer] Ot 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 NICOTINE DEPENDENCE 02/20/2016 STARLA GARDNER MD Ot 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 02/20/2016 STARLA GARDNER MD Ot D64.9 ANEMIA, UNSPECIFIED 02/20/2016 STARLA GARDNER MD Ot E78.5 HYPERLIPIDEMIA, UNSPECIFIED 02/20/2016 STARLA GARDNER MD Ot I10 ESSENTIAL (PRIMARY) HYPERTENSION 02/20/2016 STARLA GARDNER MD Ot I25.10 ATHSCL HEART DISEASE OF [place] CORONARY 02/20/2016 STARLA GARDNER MD Ot 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 02/20/2016 STARLA GARDNER MD Ot 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 NICOTINE DEPENDENCE 02/20/2016 LUIS ANGEL CHACKO ACCOUNT MANAGER [employer] Ot 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 02/20/2016 LUIS ANGEL CHACKO ACCOUNT MANAGER [employer] Ot D64.9 ANEMIA, UNSPECIFIED 02/20/2016 LUIS ANGEL CHACKO ACCOUNT MANAGER [employer] Ot E78.5 HYPERLIPIDEMIA, UNSPECIFIED 02/20/2016 LUIS ANGEL CHACKO ACCOUNT MANAGER [employer] Ot I10 ESSENTIAL (PRIMARY) HYPERTENSION 02/20/2016 LUIS ANGEL CHACKO ACCOUNT MANAGER [employer]ICE Ot I25.10 ATHSCL HEART DISEASE OF [place] CORONARY 02/20/2016 HERMAN CHACKOPAGE Arlet ACCOUNT MANAGER [employer] SERVICE Ot 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 02/20/2016 LUIS ANGEL CHACKO ACCOUNT MANAGER [employer] Ot 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 NICOTINE DEPENDENCE 03/31/2016 STARLA GARDNER MD Ot 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 03/31/2016 STARLA GARDNER MD Ot D64.9 ANEMIA, UNSPECIFIED 03/31/2016 STARLA GARDNER MD Ot E78.5 HYPERLIPIDEMIA, UNSPECIFIED 03/31/2016 STARLA GARDNER MD Ot I10 ESSENTIAL (PRIMARY) HYPERTENSION 03/31/2016 STARLA GARDNER MD Ot I25.10 ATHSCL HEART DISEASE OF [place] CORONARY 03/31/2016 STARLA GARDNER MD Ot 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 03/31/2016 STARLA GARDNER MD Ot 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 NICOTINE DEPENDENCE 04/05/2016 STARLA GARDNER MD Ot 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 04/05/2016 STARLA GARDNER MD Ot D64.9 ANEMIA, UNSPECIFIED 04/05/2016 STARLA GARDNER MD Ot E78.5 HYPERLIPIDEMIA, UNSPECIFIED 04/05/2016 STARLA GARDNER MD Ot I10 ESSENTIAL (PRIMARY) HYPERTENSION 04/05/2016 STARLA GARDNER MD Ot I25.10 ATHSCL HEART DISEASE OF [place] CORONARY 04/05/2016 STARLA GARDNER MD Ot Z79.899 OTHER SNF (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 THERAPY 04/05/2016 STARLA GARDNER MD Ot 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 NICOTINE DEPENDENCE 04/09/2016 STARLA GARDNER MD Ot 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 04/09/2016 STARLA GARDNER MD Ot D64.9 ANEMIA, UNSPECIFIED 04/09/2016 STARLA GARDNER MD Ot E78.5 HYPERLIPIDEMIA, UNSPECIFIED 04/09/2016 STARLA GARDNER MD Ot I10 ESSENTIAL (PRIMARY) HYPERTENSION 04/09/2016 STARLA GARDNER MD Ot I25.10 ATHSCL HEART DISEASE OF [place] CORONARY 04/09/2016 STARLA GARDNER MD Ot 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 04/09/2016 STARLA GARDNER MD Ot 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 NICOTINE DEPENDENCE 05/27/2016 STARLA GARDNER MD, Ot 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 05/27/2016 STARLA GARDNER MD Ot D64.9 ANEMIA, UNSPECIFIED 05/27/2016 STARLA GARDNER MD Ot E78.5 HYPERLIPIDEMIA, UNSPECIFIED 05/27/2016 STARLA GARDNER MD Ot I10 ESSENTIAL (PRIMARY) HYPERTENSION 05/27/2016 STARLA GARDNER MD Ot I25.10 ATHSCL HEART DISEASE OF [place] CORONARY 05/27/2016 STARLA GARDNER MD Ot 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 05/27/2016 STARLA GARDNER MD Ot 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 NICOTINE DEPENDENCE 06/04/2016 STARLA GARDNER MD Ot 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 06/04/2016 STARLA GARDNER MD Ot D64.9 ANEMIA, UNSPECIFIED 06/04/2016 STARLA GARDNER MD Ot E78.5 HYPERLIPIDEMIA, UNSPECIFIED 06/04/2016 STARLA GARDNER MD Ot I10 ESSENTIAL (PRIMARY) HYPERTENSION 06/04/2016 STARLA GARDNER MD Ot I25.10 ATHSCL HEART DISEASE OF [place] CORONARY 06/04/2016 STARLA GARDNER MD Ot 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 06/04/2016 STARLA GARDNER MD Ot 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 NICOTINE DEPENDENCE 07/07/2016 STRALA GARNDER MD Ot 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 07/07/2016 STARLA GARDNER MD Ot D64.9 ANEMIA, UNSPECIFIED 07/07/2016 STARLA GARDNER MD Ot E78.5 HYPERLIPIDEMIA, UNSPECIFIED 07/07/2016 STARLA GARDNER MD Ot I10 ESSENTIAL (PRIMARY) HYPERTENSION 07/07/2016 STARLA GARDNER MD Ot I25.10 ATHSCL HEART DISEASE OF [place] CORONARY 07/07/2016 STARLA GARDNER MD Ot Z79.899 OTHER SNF (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 THERAPY 07/07/2016 STARLA GARDNER MD [...] K46.9 UNSPECIFIED ABDOMINAL HERNIA WITHOUT OBS 07/16/2016 STALRA GARDNER MD Ot 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 NICOTINE DEPENDENCE 07/16/2016 MONY CLEMENTS MD Ot I25.10 ATHSCL HEART DISEASE OF [place] CORONARY 07/16/2016 MONY CLEMENTS MD Ot I35.0 NONRHEUMATIC AORTIC (VALVE) STENOSIS 07/16/2016 MONY CLEMENTS MD Ot E78.0 PURE HYPERCHOLESTEROLEMIA 07/16/2016 MONY CLEMENTS MD Ot I10 ESSENTIAL (PRIMARY) HYPERTENSION 07/16/2016 MONY CLEMENTS MD Ot I25.10 ATHSCL HEART DISEASE OF [place] CORONARY 07/16/2016 MONY CLEMENTS MD Ot 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 MITRAL (VALVE) INSUFFICIENC 07/16/2016 MONY CLEMENTS MD Ot I35.0 NONRHEUMATIC AORTIC (VALVE) STENOSIS 07/16/2016 LUIS ANGEL CHACKO ACCOUNT MANAGER [employer] Ot 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 07/16/2016 LUIS ANGEL CHACKO ACCOUNT MANAGER [employer] Ot D64.9 ANEMIA, UNSPECIFIED 07/16/2016 LUIS ANGEL CHACKO S ACCOUNT MANAGER [employer] Ot E78.5 HYPERLIPIDEMIA, UNSPECIFIED 07/16/2016 LUIS ANGEL CHACKO S ACCOUNT MANAGER [employer] Ot I10 ESSENTIAL (PRIMARY) HYPERTENSION 07/16/2016 LUIS ANGEL CHACKO S ACCOUNT MANAGER [employer] Ot I25.10 ATHSCL HEART DISEASE OF [place] CORONARY 07/16/2016 LUIS ANGEL CHACKO ACCOUNT MANAGER [employer] Ot 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 07/16/2016 LUIS ANGEL CHACKO ACCOUNT MANAGER [employer] Ot 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 NICOTINE DEPENDENCE 07/16/2016 STARLA GARDNER MD Ot 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 07/16/2016 STARLA GARDNER MD Ot D64.9 ANEMIA, UNSPECIFIED 07/16/2016 STARLA GARDNER MD Ot E78.5 HYPERLIPIDEMIA, UNSPECIFIED 07/16/2016 STARLA GARDNER MD Ot I10 ESSENTIAL (PRIMARY) HYPERTENSION 07/16/2016 STARLA GARDNER MD Ot I25.10 ATHSCL HEART DISEASE OF [place] CORONARY 07/16/2016 STARLA GARDNER MD Ot Z79.899 OTHER SNF (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 THERAPY 07/16/2016 STARLA GARDNER MD [...] W/O PERFORATION OR AB 07/24/2016 STARLA GARDNER MD, Ot 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 07/24/2016 STARLA GARDNER MD Ot D64.9 ANEMIA, UNSPECIFIED 07/24/2016 STARLA GARDNER MD, Ot E78.5 HYPERLIPIDEMIA, UNSPECIFIED 07/24/2016 STARLA GARDNER MD Ot I10 ESSENTIAL (PRIMARY) HYPERTENSION 07/24/2016 STARLA GARDNER MD Ot I25.10 ATHSCL HEART DISEASE OF [place] CORONARY 07/24/2016 STARLA GARDNER MD Ot 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 07/24/2016 STARLA GARDNER MD Ot 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 NICOTINE DEPENDENCE 07/30/2016 CAESAR PASCUAL MD, Ot E78.5 HYPERLIPIDEMIA, UNSPECIFIED 07/30/2016 CAESAR PASCUAL MD, Ot I10 ESSENTIAL (PRIMARY) HYPERTENSION 07/30/2016 CAESAR PASCUAL MD Ot I25.10 ATHSCL HEART DISEASE OF [place] CORONARY 07/30/2016 CAESAR PASCUAL MD, Ot 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 MITRAL (VALVE) INSUFFICIENC 07/30/2016 CAESAR PASCUAL MD, Ot 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 07/30/2016 CAESAR PASCUAL MD, Ot Z48.812 ENCNTR FOR SURGICAL AFTCR FOLLOWING SURG 07/30/2016 CAESAR PASCUAL MD, Ot Z79.899 OTHER SNF (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 THERAPY 07/30/2016 CAESAR PASCUAL MD Ot Z95.1 PRESENCE OF AORTOCORONARY BYPASS GRAFT 07/30/2016 CAESAR PASCUAL MD Ot Z95.2 PRESENCE OF PROSTHETIC HEART VALVE 07/30/2016 CAESAR PASCUAL MD Ot Z95.3 PRESENCE OF XENOGENIC HEART VALVE 08/06/2016 STARLA GARDNER MD Ot 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 08/06/2016 STARLA GARDNER MD, Ot K57.30 DVRTCLOS OF LG INT W/O PERFORATION OR AB 08/07/2016 SAGE JONES, TOMMY Shafer Ot J44.9 CHRONIC OBSTRUCTIVE PULMONARY DISEASE, U 08/13/2016 CAESAR PASCUAL MD, Ot E78.5 HYPERLIPIDEMIA, UNSPECIFIED 08/13/2016 CAESAR PASCUAL MD Ot I10 ESSENTIAL (PRIMARY) HYPERTENSION 08/13/2016 CAESAR PASCUAL MD Ot I25.10 ATHSCL HEART DISEASE OF [place] CORONARY 08/13/2016 CAESAR PASCUAL MD, Ot 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 MITRAL (VALVE) INSUFFICIENC 08/13/2016 CAESAR PASCUAL MD Ot 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 08/13/2016 CAESAR PASCUAL MD, Ot Z48.812 ENCNTR FOR SURGICAL AFTCR FOLLOWING SURG 08/13/2016 CAESAR PASCUAL MD Ot 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 08/13/2016 CAESAR PASCUAL MD Ot Z95.1 PRESENCE OF AORTOCORONARY BYPASS GRAFT 08/13/2016 CAESAR PASCUAL MD Ot Z95.2 PRESENCE OF PROSTHETIC HEART VALVE 08/21/2016 TOMMY CAZARES MD Ot J44.9 CHRONIC OBSTRUCTIVE [...] MD Ot I25.10 ATHSCL HEART DISEASE OF [place] CORONARY 08/27/2016 STARLA GARDNER MD Ot Z79.899 OTHER SNF (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 THERAPY 08/27/2016 STARLA GARDNER MD Ot 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 NICOTINE DEPENDENCE 08/27/2016 TOMMY CAZARES MD, Ot J44.9 CHRONIC OBSTRUCTIVE [...] MD Ot I25.10 ATHSCL HEART DISEASE OF [place] CORONARY 10/21/2016 STARLA GARDNER MD Ot 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 10/21/2016 STARLA GARDNER MD Ot 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 NICOTINE DEPENDENCE 11/20/2016 STARLA GARDNER MD Ot 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 11/20/2016 JJ JONES, STARLA Echevarria Ot K57.30 DVRTCLOS OF LG INT W/O PERFORATION OR AB 11/20/2016 SAGE JONES, TOMMY Shafer Ot J44.9 CHRONIC OBSTRUCTIVE PULMONARY DISEASE, U 11/20/2016 TOMMY CAZARES MD Ot J44.9 CHRONIC OBSTRUCTIVE [...] UNSPECIFIED ABDOMINAL HERNIA WITHOUT OBS 11/20/2016 JJ JONES, STARLA Swathi Ot 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 NICOTINE DEPENDENCE 11/20/2016 MONY CLEMENTS MD Ot I25.10 ATHSCL HEART DISEASE OF [place] CORONARY 11/20/2016 MONY CLEMENTS MD Ot I35.0 NONRHEUMATIC AORTIC (VALVE) STENOSIS 11/20/2016 MONY CLEMENTS MD Ot E78.0 PURE HYPERCHOLESTEROLEMIA 11/20/2016 MONY CLEMENTS MD Ot I10 ESSENTIAL (PRIMARY) HYPERTENSION 11/20/2016 MONY CLEMENTS MD Ot I25.10 ATHSCL HEART DISEASE OF [place] CORONARY 11/20/2016 MONY CLEMENTS MD Ot 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 MITRAL (VALVE) INSUFFICIENC 11/20/2016 MONY CLEMENTS MD Ot I35.0 NONRHEUMATIC AORTIC (VALVE) STENOSIS 11/20/2016 LUIS ANGEL CHACKO Ot 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 11/20/2016 LUIS ANGEL CHACKOP Ot D64.9 ANEMIA, UNSPECIFIED 11/20/2016 LUIS ANGEL CHACKOP Ot E78.5 HYPERLIPIDEMIA, UNSPECIFIED 11/20/2016 LUIS ANGEL CHACKO ACCOUNT MANAGER [employer] Ot I10 ESSENTIAL (PRIMARY) HYPERTENSION 11/20/2016 LUIS ANGEL CHACKO ACCOUNT MANAGER [employer] Ot I25.10 ATHSCL HEART DISEASE OF [place] CORONARY 11/20/2016 HERMAN CHACKOPAGE Arlet ACCOUNT MANAGER [employer] Ot 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 11/20/2016 HERMAN CHACKOPAGE Arlet ACCOUNT MANAGER [employer] Ot 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 NICOTINE DEPENDENCE 11/20/2016 STARLA GARDNER MD Ot 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 11/20/2016 STARLA GARDNER MD Ot D64.9 ANEMIA, UNSPECIFIED 11/20/2016 STARLA GARDNER MD Ot E78.5 HYPERLIPIDEMIA, UNSPECIFIED 11/20/2016 STARLA GARDNER MD Ot I10 ESSENTIAL (PRIMARY) HYPERTENSION 11/20/2016 STARLA GARDNER MD Ot I25.10 ATHSCL HEART DISEASE OF [place] CORONARY 11/20/2016 STARLA GARDNER MD Ot 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 11/20/2016 STARLA GARDNER MD Ot 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 NICOTINE DEPENDENCE 11/21/2016 STARLA GARDNER MD Ot 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 11/21/2016 STARLA GARDNER MD Ot D64.9 ANEMIA, UNSPECIFIED 11/21/2016 STARLA GARDNER MD Ot E78.5 HYPERLIPIDEMIA, UNSPECIFIED 11/21/2016 STARLA GARDNER MD Ot I10 ESSENTIAL (PRIMARY) HYPERTENSION 11/21/2016 STARLA GARDNER MD Ot I25.10 ATHSCL HEART DISEASE OF [place] CORONARY 11/21/2016 STARLA GARDNER MD Ot Z79.899 OTHER SNF (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 THERAPY 11/21/2016 STARLA GARDNER MD Ot 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 NICOTINE DEPENDENCE 11/23/2016 STARLA GARDNER MD Ot 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 11/23/2016 STARLA GARDNER MD Ot D64.9 ANEMIA, UNSPECIFIED 11/23/2016 STARLA GARDNER MD Ot E78.5 HYPERLIPIDEMIA, UNSPECIFIED 11/23/2016 STARLA GARDNER MD Ot I10 ESSENTIAL (PRIMARY) HYPERTENSION 11/23/2016 STRALA GRADNER MD Ot I25.10 ATHSCL HEART DISEASE OF [place] CORONARY 11/23/2016 STARLA GARDNER MD Ot Z79.899 OTHER SNF (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 THERAPY 11/23/2016 STARLA GARDNER MD Ot 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 NICOTINE DEPENDENCE 11/23/2016 STARLA GARDNER MD Ot 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 11/23/2016 STARLA GARDNER MD Ot D64.9 ANEMIA, UNSPECIFIED 11/23/2016 STARLA GARDNER MD Ot E78.5 HYPERLIPIDEMIA, UNSPECIFIED 11/23/2016 STARLA GARDNER MD Ot I10 ESSENTIAL (PRIMARY) HYPERTENSION 11/23/2016 STARLA GARDNER MD Ot I25.10 ATHSCL HEART DISEASE OF [place] CORONARY 11/23/2016 STALRA GARDNER MD Ot 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 11/23/2016 STARLA GARDNER MD Ot 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 NICOTINE DEPENDENCE 11/23/2016 STARLA GARDNER MD Ot 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 11/23/2016 STARLA GARDNER MD Ot D64.9 ANEMIA, UNSPECIFIED 11/23/2016 STARLA GARDNER MD Ot E78.5 HYPERLIPIDEMIA, UNSPECIFIED 11/23/2016 STARLA GARDNER MD Ot I10 ESSENTIAL (PRIMARY) HYPERTENSION 11/23/2016 STARLA GARDNER MD Ot I25.10 ATHSCL HEART DISEASE OF [place] CORONARY 11/23/2016 STARLA GARDNER MD Ot 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 11/23/2016 STARLA GARDNER MD Ot 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 NICOTINE DEPENDENCE 11/23/2016 STARLA GARDNER MD Ot 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 11/23/2016 STARLA GARDNER MD Ot D64.9 ANEMIA, UNSPECIFIED 11/23/2016 STARLA GARDNER MD Ot E78.5 HYPERLIPIDEMIA, UNSPECIFIED 11/23/2016 STARLA GARDNER MD Ot I10 ESSENTIAL (PRIMARY) HYPERTENSION 11/23/2016 STARLA GARDNER MD Ot I25.10 ATHSCL HEART DISEASE OF [place] CORONARY 11/23/2016 STARLA GARDNER MD Ot Z79.899 OTHER SNF (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 THERAPY 11/23/2016 STARLA GARDNER MD Ot 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 NICOTINE DEPENDENCE 11/23/2016 STARLA GARDNER MD Ot 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 11/23/2016 STARLA GARDNER MD Ot D64.9 ANEMIA, UNSPECIFIED 11/23/2016 STARLA GARDNER MD Ot E78.5 HYPERLIPIDEMIA, UNSPECIFIED 11/23/2016 STARLA GARDNER MD Ot I10 ESSENTIAL (PRIMARY) HYPERTENSION 11/23/2016 STARLA GARDNER MD Ot I25.10 ATHSCL HEART DISEASE OF [place] CORONARY 11/23/2016 STARLA GARDNER MD Ot Z79.899 OTHER SNF (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 THERAPY 11/23/2016 STARLA GARDNER MD Ot 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 NICOTINE DEPENDENCE 12/25/2016 STARLA GARDNER MD Ot 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 12/25/2016 STARLA GARDNER MD Ot D64.9 ANEMIA, UNSPECIFIED 12/25/2016 STARLA GARDNER MD Ot E78.5 HYPERLIPIDEMIA, UNSPECIFIED 12/25/2016 STARLA GARDNER MD Ot I10 ESSENTIAL (PRIMARY) HYPERTENSION 12/25/2016 STARLA GARDNER MD Ot I25.10 ATHSCL HEART DISEASE OF [place] CORONARY 12/25/2016 STARLA GARDNER MD Ot Z79.899 OTHER SNF (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 THERAPY 12/25/2016 STARLA GARDNER MD Ot 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 NICOTINE DEPENDENCE 01/09/2017 STARLA GARDNER MD Ot 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 01/09/2017 STARLA GARDNER MD Ot D64.9 ANEMIA, UNSPECIFIED 01/09/2017 STARLA GARDNER MD Ot E78.5 HYPERLIPIDEMIA, UNSPECIFIED 01/09/2017 STARLA GARDNER MD Ot I10 ESSENTIAL (PRIMARY) HYPERTENSION 01/09/2017 STARLA GARDNER MD Ot I25.10 ATHSCL HEART DISEASE OF [place] CORONARY 01/09/2017 STARLA GARDNER MD Ot Z79.899 OTHER SNF (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 THERAPY 01/09/2017 STARLA GARDNER MD Ot 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 NICOTINE DEPENDENCE 01/15/2017 STARLA GARDNER MD Ot 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 01/15/2017 STARLA GARDNER MD Ot D64.9 ANEMIA, UNSPECIFIED 01/15/2017 STARLA GARDNER MD Ot E78.5 HYPERLIPIDEMIA, UNSPECIFIED 01/15/2017 STARLA GARDNER MD Ot I10 ESSENTIAL (PRIMARY) HYPERTENSION 01/15/2017 STARLA GARDNER MD Ot I25.10 ATHSCL HEART DISEASE OF [place] CORONARY 01/15/2017 STARLA GARDNER MD Ot Z79.899 OTHER SNF (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 THERAPY 01/15/2017 STARLA GARDNER MD Ot 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 NICOTINE DEPENDENCE 01/15/2017 STARLA GARDNER MD Ot 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 01/15/2017 STARLA GARDNER MD Ot D64.9 ANEMIA, UNSPECIFIED 01/15/2017 STARLA GARDNER MD Ot E78.5 HYPERLIPIDEMIA, UNSPECIFIED 01/15/2017 STARLA GARDNER MD Ot I10 ESSENTIAL (PRIMARY) HYPERTENSION 01/15/2017 STARLA GARDNER MD Ot I25.10 ATHSCL HEART DISEASE OF [place] CORONARY 01/15/2017 STARLA GARDNER MD Ot 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 01/15/2017 STARLA GARDNER MD Ot 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 NICOTINE DEPENDENCE 01/15/2017 STARLA GARDNER MD Ot 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 01/15/2017 STARLA GARDNER MD Ot D64.9 ANEMIA, UNSPECIFIED 01/15/2017 STARLA GARDNER MD Ot E78.5 HYPERLIPIDEMIA, UNSPECIFIED 01/15/2017 STARLA GARDNER MD Ot I10 ESSENTIAL (PRIMARY) HYPERTENSION 01/15/2017 STARLA GARDNER MD Ot I25.10 ATHSCL HEART DISEASE OF [place] CORONARY 01/15/2017 STARLA GARDNER MD Ot Z79.899 OTHER SNF (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 THERAPY 01/15/2017 STARLA GARDNER MD Ot 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 NICOTINE DEPENDENCE 01/15/2017 STARLA GARDNER MD Ot 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 01/15/2017 STARLA GARDNER MD Ot K57.30 DVRTCLOS OF LG INT W/O PERFORATION OR AB 01/15/2017 TOMMY CAZARES MD Ot J44.9 CHRONIC OBSTRUCTIVE PULMONARY DISEASE, U 01/15/2017 TOMMY CAZARES MD, Ot J44.9 CHRONIC OBSTRUCTIVE PULMONARY DISEASE, U 01/15/2017 STARLA GARDNER MD Ot 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 01/15/2017 STARLA GARDNER MD Ot D64.9 ANEMIA, UNSPECIFIED 01/15/2017 STARLA GARDNER MD Ot E78.5 HYPERLIPIDEMIA, UNSPECIFIED 01/15/2017 STARLA GARDNER MD Ot I10 ESSENTIAL (PRIMARY) HYPERTENSION 01/15/2017 STARLA GARDNER MD Ot I25.10 ATHSCL HEART DISEASE OF [place] CORONARY 01/15/2017 STARLA GARDNER MD Ot Z79.899 OTHER SNF (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 THERAPY 01/15/2017 STARLA GARDNER MD [...] MD Ot I25.10 ATHSCL HEART DISEASE OF [place] CORONARY 01/16/2017 STARLA GARDNER MD Ot 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 01/16/2017 STARLA GARDNER MD Ot 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 NICOTINE DEPENDENCE 01/16/2017 STARLA GRADNER MD Ot 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 01/16/2017 STARLA GARDNER MD Ot D64.9 ANEMIA, UNSPECIFIED 01/16/2017 STARLA GARDNER MD Ot E78.5 HYPERLIPIDEMIA, UNSPECIFIED 01/16/2017 STARLA GARDNER MD Ot I10 ESSENTIAL (PRIMARY) HYPERTENSION 01/16/2017 STARLA GARDNER MD Ot I25.10 ATHSCL HEART DISEASE OF [place] CORONARY 01/16/2017 STARLA GARDNER MD Ot Z79.899 OTHER SNF (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 THERAPY 01/16/2017 STARLA GARDNER MD Ot 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 NICOTINE DEPENDENCE 01/16/2017 STARLA GARDNER MD Ot 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 01/16/2017 STARLA GARDNER MD Ot D64.9 ANEMIA, UNSPECIFIED 01/16/2017 STARLA GARDNER MD Ot E78.5 HYPERLIPIDEMIA, UNSPECIFIED 01/16/2017 STARLA GARDNER MD Ot I10 ESSENTIAL (PRIMARY) HYPERTENSION 01/16/2017 STARLA GARDNER MD Ot I25.10 ATHSCL HEART DISEASE OF [place] CORONARY 01/16/2017 STARLA GARDNER MD Ot Z79.899 OTHER SNF (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 THERAPY 01/16/2017 STARLA GARDNER MD Ot 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 NICOTINE DEPENDENCE 01/17/2017 STARLA GARDNER MD Ot 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 01/17/2017 STARLA GARDNER MD Ot D64.9 ANEMIA, UNSPECIFIED 01/17/2017 STARLA GARDNER MD Ot E78.5 HYPERLIPIDEMIA, UNSPECIFIED 01/17/2017 STARLA GARDNER MD Ot I10 ESSENTIAL (PRIMARY) HYPERTENSION 01/17/2017 STARLA GARDNER MD Ot I25.10 ATHSCL HEART DISEASE OF [place] CORONARY 01/17/2017 STARLA GARDNER MD Ot 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 01/17/2017 STARLA GARDNER MD Ot 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 NICOTINE DEPENDENCE 01/17/2017 STARLA GARDNER MD Ot 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 01/17/2017 STARLA GARDNER MD Ot D64.9 ANEMIA, UNSPECIFIED 01/17/2017 STARLA GARDNER MD Ot E78.5 HYPERLIPIDEMIA, UNSPECIFIED 01/17/2017 STARLA GARDNER MD Ot I10 ESSENTIAL (PRIMARY) HYPERTENSION 01/17/2017 STARLA GARDNER MD Ot I25.10 ATHSCL HEART DISEASE OF [place] CORONARY 01/17/2017 STARLA GARDNER MD Ot Z79.899 OTHER SNF (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 THERAPY 01/17/2017 STARLA GARDNER MD Ot 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 NICOTINE DEPENDENCE 02/18/2017 STARLA GARDNER MD Ot 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 02/18/2017 STARLA GARDNER MD, Ot D64.9 ANEMIA, UNSPECIFIED 02/18/2017 STARLA GARDNER MD Ot E78.5 HYPERLIPIDEMIA, UNSPECIFIED 02/18/2017 STARLA GARDNER MD Ot I10 ESSENTIAL (PRIMARY) HYPERTENSION 02/18/2017 STARLA GARDNER MD Ot I25.10 ATHSCL HEART DISEASE OF [place] CORONARY 02/18/2017 STARLA GARDNER MD Ot Z79.899 OTHER SNF (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 THERAPY 02/18/2017 STARLA GARDNER MD Ot 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 NICOTINE DEPENDENCE 03/12/2017 ANGELINA GARCIAS MD Ot 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 03/12/2017 ANGELINA GARCIAS MD Ot D64.9 ANEMIA, UNSPECIFIED 03/12/2017 ANGELINA GARCIAS MD Ot E78.5 HYPERLIPIDEMIA, UNSPECIFIED 03/12/2017 ANGELINA GARCIAS MD Ot I10 ESSENTIAL (PRIMARY) HYPERTENSION 03/12/2017 ANGELINA GARCIAS MD Ot I25.10 ATHSCL HEART DISEASE OF [place] CORONARY 03/12/2017 ANGELINA GARCIAS MD, Ot 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 03/12/2017 ANGELINA GARCIAS MD, Ot 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 NICOTINE DEPENDENCE 03/16/2017 ANGELINA GARCIAS MD Ot 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 03/16/2017 ANGELINA GARCIAS MD, Ot D64.9 ANEMIA, UNSPECIFIED 03/16/2017 ANGELINA GARCIAS MD, Ot E78.5 HYPERLIPIDEMIA, UNSPECIFIED 03/16/2017 ANGELINA GARCIAS MD Ot I10 ESSENTIAL (PRIMARY) HYPERTENSION 03/16/2017 ANGELINA GARCIAS MD, Ot I25.10 ATHSCL HEART DISEASE OF [place] CORONARY 03/16/2017 ANGELINA GARCIAS MD, Ot 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 03/16/2017 ANGELINA GARCIAS MD, Ot 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 NICOTINE DEPENDENCE 04/03/2017 STARLA GARDNER MD Ot 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 04/03/2017 STARLA GARDNER MD Ot 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 04/03/2017 STARLA GARDNER MD Ot K57.30 DVRTCLOS OF LG INT W/O PERFORATION OR AB 04/03/2017 STARLA GARDNER MD Ot N28.1 CYST OF KIDNEY, ACQUIRED 04/04/2017 ANGELINA GARCIAS MD, Ot 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 04/04/2017 ANGELINA GARCIAS MD, Ot D64.9 ANEMIA, UNSPECIFIED 04/04/2017 ANGELINA GARCIAS MD, Ot E78.5 HYPERLIPIDEMIA, UNSPECIFIED 04/04/2017 ANGELINA GARCIAS MD Ot I10 ESSENTIAL (PRIMARY) HYPERTENSION 04/04/2017 ANGELINA GARCIAS MD, Ot I25.10 ATHSCL HEART DISEASE OF [place] CORONARY 04/04/2017 ANGELINA GARCIAS MD, Ot Z79.899 OTHER SNF (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 THERAPY 04/04/2017 ANGELINA GARCIAS MD, Ot 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 NICOTINE DEPENDENCE 06/18/2017 DRISS WILSON MD, Ot R19.5 OTHER FECAL ABNORMALITIES 06/18/2017 DRISS WILSON MD Ot Z01.818 ENCOUNTER FOR OTHER PREPROCEDURAL EXAMIN 06/18/2017 DRISS WILSON MD, Ot Z85.038 PERSONAL HISTORY OF MALIGNANT NEOPLASM O 06/24/2017 DRISS WILSON MD Ot I10 ESSENTIAL (PRIMARY) HYPERTENSION 06/24/2017 DRISS WILSON MD Ot I25.10 ATHSCL HEART DISEASE OF [place] CORONARY 06/24/2017 DRISS WILSON MD, Ot K57.30 DVRTCLOS OF LG INT W/O PERFORATION OR AB 06/24/2017 DRISS WILSON MD, Ot K64.1 SECOND DEGREE HEMORRHOIDS 06/24/2017 DRISS WILSON MD, Ot N40.0 BENIGN PROSTATIC HYPERPLASIA WITHOUT LOW 06/24/2017 DRISS WILSON MD, Ot Z79.82 SNF (CURRENT) USE OF ASPIRIN 06/24/2017 DRISS WILSON MD Ot Z79.899 OTHER SNF (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 THERAPY 06/24/2017 DRISS WILSON MD, Ot Z80.3 FAMILY HISTORY OF MALIGNANT NEOPLASM OF 06/24/2017 DRISS WILSON MD, Ot Z85.038 PERSONAL HISTORY OF MALIGNANT NEOPLASM O 06/24/2017 DRISS WILSON MD, Ot 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 NICOTINE DEPENDENCE 06/24/2017 DRISS WILSON MD Ot Z95.1 PRESENCE OF AORTOCORONARY BYPASS GRAFT 06/24/2017 DRISS WILSON MD Ot Z95.2 PRESENCE OF PROSTHETIC HEART VALVE 06/25/2017 DRISS WILSON MD Ot I10 ESSENTIAL (PRIMARY) HYPERTENSION 06/25/2017 DRISS WILSON MD, Ot I25.10 ATHSCL HEART DISEASE OF [place] CORONARY 06/25/2017 DRISS WILSON MD, Ot K57.30 DVRTCLOS OF LG INT W/O PERFORATION OR AB 06/25/2017 DRISS WILSON MD Ot K64.1 SECOND DEGREE HEMORRHOIDS 06/25/2017 DRISS WILSON MD, Ot N40.0 BENIGN PROSTATIC HYPERPLASIA WITHOUT LOW 06/25/2017 DRISS WILSON MD, Ot Z79.82 SNF (CURRENT) USE OF ASPIRIN 06/25/2017 DRISS WILSON MD Ot 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 06/25/2017 KIDO MD, TAKAAKI Ot Z80.3 FAMILY HISTORY OF MALIGNANT NEOPLASM OF 06/25/2017 DRISS WILSON MD, Ot Z85.038 PERSONAL HISTORY OF MALIGNANT NEOPLASM O 06/25/2017 DRISS WILSON MD, Ot 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 NICOTINE DEPENDENCE 06/25/2017 DRISS WILSON MD, Ot Z95.1 PRESENCE OF AORTOCORONARY BYPASS GRAFT 06/25/2017 DRISS WILSON MD, Ot Z95.2 PRESENCE OF PROSTHETIC HEART VALVE 06/30/2017 DRISS WILSON MD Ot I10 ESSENTIAL (PRIMARY) HYPERTENSION 06/30/2017 DRISS WILSON MD, Ot I25.10 ATHSCL HEART DISEASE OF [place] CORONARY 06/30/2017 DRISS WILSON MD, Ot K57.30 DVRTCLOS OF LG INT W/O PERFORATION OR AB 06/30/2017 DRISS WILSON MD, Ot K64.1 SECOND DEGREE HEMORRHOIDS 06/30/2017 DRISS WILSON MD, Ot N40.0 BENIGN PROSTATIC HYPERPLASIA WITHOUT LOW 06/30/2017 DRISS WILSON MD Ot Z79.82 S3B MULTI SENSOR OPERATOR (CURRENT) USE OF ASPIRIN 06/30/2017 DRISS WILSON MD, Ot Z79.899 OTHER SNF (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 THERAPY 06/30/2017 DRISS WILSON MD, [...] MD, Ot I25.10 ATHSCL HEART DISEASE OF [place] CORONARY 09/23/2017 CAESAR PASCUAL MD Ot 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 MITRAL (VALVE) INSUFFICIENC 09/23/2017 CAESAR PASCUAL MD Ot 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 09/23/2017 CAESAR PASCUAL MD, Ot Z48.812 ENCNTR FOR SURGICAL AFTCR FOLLOWING SURG 09/23/2017 CAESAR PASCUAL MD, Ot Z79.899 OTHER SNF (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 THERAPY 09/23/2017 CAESAR PASCUAL MD, Ot Z95.1 PRESENCE OF AORTOCORONARY BYPASS GRAFT 09/23/2017 CAESAR PASCUAL MD, Ot Z95.3 PRESENCE OF XENOGENIC HEART VALVE 10/28/2017 ANGELINA GARCIAS MD, Ot 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 10/28/2017 ANGELINA GARCIAS MD Ot D64.9 ANEMIA, UNSPECIFIED 10/28/2017 ANGELINA GARCIAS MD Ot E78.5 HYPERLIPIDEMIA, UNSPECIFIED 10/28/2017 ANGELINA GARCIAS MD Ot I10 ESSENTIAL (PRIMARY) HYPERTENSION 10/28/2017 ANGELINA GARCIAS MD Ot I25.10 ATHSCL HEART DISEASE OF [place] CORONARY 10/28/2017 ANGELINA GARCIAS MD, Ot Z79.899 OTHER SNF (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 THERAPY 10/28/2017 ANGELINA GARCIAS MD Ot 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 NICOTINE DEPENDENCE 12/30/2017 ANGELINA GARCIAS MD Ot 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 12/30/2017 ANGELINA GARCIAS MD Ot D64.9 ANEMIA, UNSPECIFIED 12/30/2017 ANGELINA GARCIAS MD Ot E78.5 HYPERLIPIDEMIA, UNSPECIFIED 12/30/2017 ANGELINA GARCIAS MD Ot I10 ESSENTIAL (PRIMARY) HYPERTENSION 12/30/2017 ANGELINA GARCIAS MD Ot I25.10 ATHSCL HEART DISEASE OF [place] CORONARY 12/30/2017 ANGELINA GARCIAS MD Ot Z79.899 OTHER SNF (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 THERAPY 12/30/2017 ANGELINA GARCIAS MD Ot 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 NICOTINE DEPENDENCE 12/31/2017 ANGELINA GARCIAS MD Ot 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 12/31/2017 ANGELINA GARCIAS MD Ot D64.9 ANEMIA, UNSPECIFIED 12/31/2017 ANGELINA GARCIAS MD Ot E78.5 HYPERLIPIDEMIA, UNSPECIFIED 12/31/2017 ANGELINA GARCIAS MD Ot I10 ESSENTIAL (PRIMARY) HYPERTENSION 12/31/2017 ANGELINA GARCIAS MD Ot I25.10 ATHSCL HEART DISEASE OF [place] CORONARY 12/31/2017 ANGELINA GARCIAS MD Ot 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 12/31/2017 ANGELINA GARCIAS MD Ot 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 NICOTINE DEPENDENCE 01/01/2018 ANGELINA GARCIAS MD Ot 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 01/01/2018 ANGELINA GARCIAS MD Ot D64.9 ANEMIA, UNSPECIFIED 01/01/2018 ANGELINA GARCIAS MD Ot E78.5 HYPERLIPIDEMIA, UNSPECIFIED 01/01/2018 ANGELINA GARCIAS MD Ot I10 ESSENTIAL (PRIMARY) HYPERTENSION 01/01/2018 ANGELINA GARCIAS MD Ot I25.10 ATHSCL HEART DISEASE OF [place] CORONARY 01/01/2018 ANGELINA GARCIAS MD Ot 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 01/01/2018 ANGELINA GARCIAS MD Ot 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 NICOTINE DEPENDENCE 01/26/2018 ANGELINA GARCIAS MD Ot 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 01/26/2018 ANGELINA GARCIAS MD Ot D64.9 ANEMIA, UNSPECIFIED 01/26/2018 ANGELINA GARCIAS MD Ot E78.5 HYPERLIPIDEMIA, UNSPECIFIED 01/26/2018 ANGELINA GARCIAS MD Ot I10 ESSENTIAL (PRIMARY) HYPERTENSION 01/26/2018 ANGELINA GARCIAS MD Ot I25.10 ATHSCL HEART DISEASE OF [place] CORONARY 01/26/2018 ANGELINA GARCIAS MD Ot 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 01/26/2018 ANGELINA GARCIAS MD Ot 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 NICOTINE DEPENDENCE 03/21/2018 STARLA GARDNER MD Ot 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 03/21/2018 STARLA GARDNER MD Ot K57.30 DVRTCLOS OF LG INT W/O PERFORATION OR AB 03/21/2018 TOMMY CAZARES MD Ot J44.9 CHRONIC OBSTRUCTIVE PULMONARY DISEASE, U 03/21/2018 TOMMY CAZARES MD Ot J44.9 CHRONIC OBSTRUCTIVE PULMONARY DISEASE, U 03/21/2018 STARLA GARDNER MD Ot 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 03/21/2018 STARLA GARDNER MD Ot 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 03/21/2018 STARLA GARDNER MD Ot K57.30 DVRTCLOS OF LG INT W/O PERFORATION OR AB 03/21/2018 STARLA GARDNER MD Ot N28.1 CYST OF KIDNEY, ACQUIRED 03/21/2018 ANGELINA GARCIAS MD Ot 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 03/21/2018 ANGELINA GARCIAS MD, Ot D64.9 ANEMIA, UNSPECIFIED 03/21/2018 ANGELINA GARCIAS MD, Ot E78.5 HYPERLIPIDEMIA, UNSPECIFIED 03/21/2018 ANGELINA GARCIAS MD Ot I10 ESSENTIAL (PRIMARY) HYPERTENSION 03/21/2018 ANGELINA GARCIAS MD, Ot I25.10 ATHSCL HEART DISEASE OF [place] CORONARY 03/21/2018 ANGELINA GARCIAS MD, Ot 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 03/21/2018 ANGELINA GARCIAS MD, Ot 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 NICOTINE DEPENDENCE 03/22/2018 MARCOS GALVAN MD Ot D64.9 ANEMIA, UNSPECIFIED 03/22/2018 MARCOS GALVAN MD R Ot D72.829 ELEVATED WHITE BLOOD CELL COUNT, UNSPECI 03/22/2018 MARCOS GALVAN MD Ot E78.5 HYPERLIPIDEMIA, UNSPECIFIED 03/22/2018 MARCOS GALVAN MD Ot I11.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 03/22/2018 MARCOS GALVAN MD Ot 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 03/22/2018 MARCOS GALVAN MD Ot I25.10 ATHSCL HEART DISEASE OF [place] CORONARY 03/22/2018 MARCOS GALVAN MD R Ot 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 03/22/2018 MARCOS GALVAN MD Ot 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 03/22/2018 MARCOS GALVAN MD Ot I50.31 ACUTE DIASTOLIC (CONGESTIVE) HEART FAILU 03/22/2018 MARCOS GALVAN MD R Ot J44.9 CHRONIC OBSTRUCTIVE PULMONARY DISEASE, U 03/22/2018 MARCOS GALVAN MD R Ot K21.9 GASTRO-ESOPHAGEAL REFLUX DISEASE WITHOUT 03/22/2018 MARCOS GALVAN MD R Ot N40.0 BENIGN PROSTATIC HYPERPLASIA WITHOUT LOW 03/22/2018 MARCOS GALVAN MD Ot R00.0 TACHYCARDIA, UNSPECIFIED 03/22/2018 MARCOS GALVAN MD Ot R06.03 ACUTE RESPIRATORY DISTRESS 03/22/2018 MARCOS GALVAN MD R Ot Z79.82 SNF (CURRENT) USE OF ASPIRIN 03/22/2018 MARCOS GALVAN MD R Ot Z85.038 PERSONAL HISTORY OF MALIGNANT NEOPLASM O 03/22/2018 MARCOS GALVAN MD Ot 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 NICOTINE DEPENDENCE 03/22/2018 MARCOS GALVAN MD Ot Z92.21 PERSONAL HISTORY OF ANTINEOPLASTIC CHEMO 03/22/2018 MARCOS GALVAN MD Ot Z95.1 PRESENCE OF AORTOCORONARY BYPASS GRAFT 03/22/2018 MARCOS GALVAN MD Ot Z95.2 PRESENCE OF PROSTHETIC HEART VALVE 03/26/2018 MARCOS GALVAN MD R Ot D64.9 ANEMIA, UNSPECIFIED 03/26/2018 MARCOS GALVAN MD R Ot D72.829 ELEVATED WHITE BLOOD CELL COUNT, UNSPECI 03/26/2018 MARCOS GALVAN MD R Ot E78.5 HYPERLIPIDEMIA, UNSPECIFIED 03/26/2018 MARCOS GALVAN MD Ot I11.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 03/26/2018 MARCOS GALVAN MD R Ot 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 03/26/2018 MARCOS GALVAN MD R Ot I25.10 ATHSCL HEART DISEASE OF [place] CORONARY 03/26/2018 MARCOS GALVAN MD R Ot 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 03/26/2018 MARCOS GALVAN MD R Ot 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 03/26/2018 MARCOS GALVAN MD Ot I50.31 ACUTE DIASTOLIC (CONGESTIVE) HEART FAILU 03/26/2018 MARCOS GALVAN MD R Ot J44.9 CHRONIC OBSTRUCTIVE PULMONARY DISEASE, U 03/26/2018 MARCOS GALVAN MD R Ot K21.9 GASTRO-ESOPHAGEAL REFLUX DISEASE WITHOUT 03/26/2018 MARCOS GALVAN MD Ot N40.0 BENIGN PROSTATIC HYPERPLASIA WITHOUT LOW 03/26/2018 MARCOS GALVAN MD R Ot R00.0 TACHYCARDIA, UNSPECIFIED 03/26/2018 MARCOS GALVAN MD R Ot R06.03 ACUTE RESPIRATORY DISTRESS 03/26/2018 MARCOS GALVAN MD Ot Z79.82 S3B MULTI SENSOR OPERATOR (CURRENT) USE OF ASPIRIN 03/26/2018 MARCOS GALVAN MD R Ot Z85.038 PERSONAL HISTORY OF MALIGNANT NEOPLASM O 03/26/2018 AMRCOS GALVAN MD Ot 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 NICOTINE DEPENDENCE 03/26/2018 MARCOS GALVAN MD Ot Z92.21 PERSONAL HISTORY OF ANTINEOPLASTIC CHEMO 03/26/2018 MARCOS GALVAN MD Ot Z95.1 PRESENCE OF AORTOCORONARY BYPASS GRAFT 03/26/2018 MARCOS GALVAN MD Ot Z95.2 PRESENCE OF PROSTHETIC HEART VALVE 03/26/2018 MARCOS GALVAN MD R Ot D64.9 ANEMIA, UNSPECIFIED 03/26/2018 MARCOS GALVAN MD Ot D72.829 ELEVATED WHITE BLOOD CELL COUNT, UNSPECI 03/26/2018 MARCOS GALVAN MD R Ot E78.5 HYPERLIPIDEMIA, UNSPECIFIED 03/26/2018 MARCOS GALVAN MD R Ot I11.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 03/26/2018 MARCOS GALVAN MD R Ot 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 03/26/2018 MARCOS GALVAN MD R Ot I25.10 ATHSCL HEART DISEASE OF [place] CORONARY 03/26/2018 MARCOS GALVAN MD R Ot 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 03/26/2018 MARCOS GALVAN MD R Ot 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 03/26/2018 MARCOS GALVAN MD R Ot I50.31 ACUTE DIASTOLIC (CONGESTIVE) HEART FAILU 03/26/2018 MARCOS GALVAN MD R Ot J44.9 CHRONIC OBSTRUCTIVE PULMONARY DISEASE, U 03/26/2018 MARCOS GALVAN MD R Ot K21.9 GASTRO-ESOPHAGEAL REFLUX DISEASE WITHOUT 03/26/2018 MARCOS GALVAN MD R Ot N40.0 BENIGN PROSTATIC HYPERPLASIA WITHOUT LOW 03/26/2018 MARCOS GALVAN MD R Ot R00.0 TACHYCARDIA, UNSPECIFIED 03/26/2018 MARCOS GALVAN MD R Ot R06.03 ACUTE RESPIRATORY DISTRESS 03/26/2018 MARCOS GALVAN MD R Ot Z79.82 S3B MULTI SENSOR OPERATOR (CURRENT) USE OF ASPIRIN 03/26/2018 MARCOS GALVAN MD R Ot Z85.038 PERSONAL HISTORY OF MALIGNANT NEOPLASM O 03/26/2018 MARCOS GALVAN MD R Ot 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 NICOTINE DEPENDENCE 03/26/2018 MARCOS GLAVAN MD R Ot Z92.21 PERSONAL HISTORY OF ANTINEOPLASTIC CHEMO 03/26/2018 MARCOS GALVAN MD R Ot Z95.1 PRESENCE OF AORTOCORONARY BYPASS GRAFT 03/26/2018 MARCOS GALVAN MD Ot Z95.2 PRESENCE OF PROSTHETIC HEART VALVE 03/26/2018 MARCOS GALVAN MD R Ot D64.9 ANEMIA, UNSPECIFIED 03/26/2018 MARCOS GALVAN MD R Ot D72.829 ELEVATED WHITE BLOOD CELL COUNT, UNSPECI 03/26/2018 MARCOS GALVAN MD R Ot E78.5 HYPERLIPIDEMIA, UNSPECIFIED 03/26/2018 MARCOS GALVAN MD R Ot I11.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 03/26/2018 MARCOS GALVAN MD R Ot 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 03/26/2018 MARCOS GALVAN MD R Ot I25.10 ATHSCL HEART DISEASE OF [place] CORONARY 03/26/2018 MARCOS GALVAN MD R Ot 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 03/26/2018 MARCOS GALVAN MD R Ot 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 03/26/2018 MARCOS GALVAN MD R Ot I50.31 ACUTE DIASTOLIC (CONGESTIVE) HEART FAILU 03/26/2018 MARCOS GALVAN MD R Ot J44.9 CHRONIC OBSTRUCTIVE PULMONARY DISEASE, U 03/26/2018 MARCOS AGLVAN MD R Ot K21.9 GASTRO-ESOPHAGEAL REFLUX DISEASE WITHOUT 03/26/2018 MARCOS GALVAN MD R Ot N40.0 BENIGN PROSTATIC HYPERPLASIA WITHOUT LOW 03/26/2018 MARCOS GALVAN MD R Ot R00.0 TACHYCARDIA, UNSPECIFIED 03/26/2018 MARCOS GALVAN MD R Ot R06.03 ACUTE RESPIRATORY DISTRESS 03/26/2018 MARCOS GALVAN MD Ot Z79.82 SNF (CURRENT) USE OF ASPIRIN 03/26/2018 MARCOS GALVAN MD R Ot Z85.038 PERSONAL HISTORY OF MALIGNANT NEOPLASM O 03/26/2018 MARCOS AGLVAN MD Ot 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 NICOTINE DEPENDENCE 03/26/2018 AMRCOS GALVAN MD Ot Z92.21 PERSONAL HISTORY OF ANTINEOPLASTIC CHEMO 03/26/2018 MARCOS GALVAN MD Ot Z95.1 PRESENCE OF AORTOCORONARY BYPASS GRAFT 03/26/2018 MARCOS GALVAN MD Ot Z95.2 PRESENCE OF PROSTHETIC HEART VALVE 03/31/2018 ANGELINA GARCIAS MD Ot 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 03/31/2018 ANGELINA GARCIAS MD Ot D64.9 ANEMIA, UNSPECIFIED 03/31/2018 ANGELINA GARCIAS MD Ot E78.5 HYPERLIPIDEMIA, UNSPECIFIED 03/31/2018 ANGELINA GARCIAS MD Ot I10 ESSENTIAL (PRIMARY) HYPERTENSION 03/31/2018 ANGELINA GARCIAS MD Ot I25.10 ATHSCL HEART DISEASE OF [place] CORONARY 03/31/2018 ANGELINA GARCIAS MD Ot Z79.899 OTHER SNF (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 THERAPY 03/31/2018 ANGELINA GARCIAS MD Ot 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 NICOTINE DEPENDENCE 04/01/2018 ANGELINA GARCIAS MD Ot 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 04/01/2018 ANGELINA GARCIAS MD Ot D64.9 ANEMIA, UNSPECIFIED 04/01/2018 ANGELINA GARCIAS MD Ot E78.5 HYPERLIPIDEMIA, UNSPECIFIED 04/01/2018 ANGELINA GARCIAS MD Ot I10 ESSENTIAL (PRIMARY) HYPERTENSION 04/01/2018 ANGELINA GARCIAS MD Ot I25.10 ATHSCL HEART DISEASE OF [place] CORONARY 04/01/2018 ANGELINA GARCIAS MD Ot Z79.899 OTHER SNF (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 THERAPY 04/01/2018 ANGELINA GARCIAS MD Ot 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 NICOTINE DEPENDENCE 04/07/2018 LIZETH JONES, HORACIO Porras Ot D64.9 ANEMIA, UNSPECIFIED 04/07/2018 HORACIO STANLEY MD E Ot E78.2 MIXED HYPERLIPIDEMIA 04/07/2018 HORACIO STANLEY MD Ot G47.00 INSOMNIA, UNSPECIFIED 04/07/2018 HORACIO STANLEY MD Ot I10 ESSENTIAL (PRIMARY) HYPERTENSION 04/07/2018 HORACIO STANLEY MD Ot I25.10 ATHSCL HEART DISEASE OF [place] CORONARY 04/07/2018 HORACIO STANLEY MD Ot I25.810 ATHEROSCLEROSIS OF CABG W/O ANGINA PECTO 04/07/2018 HORACIO STANLEY MD Ot J44.9 CHRONIC OBSTRUCTIVE PULMONARY DISEASE, U 04/07/2018 HORACIO STANLEY MD Ot J81.1 CHRONIC PULMONARY EDEMA 04/07/2018 HORACIO STANLEY MD Ot N40.0 BENIGN PROSTATIC HYPERPLASIA WITHOUT LOW 04/07/2018 HORACIO STANLEY MD Ot R53.1 WEAKNESS 04/07/2018 HORACIO STANLEY MD Ot Z95.1 PRESENCE OF AORTOCORONARY BYPASS GRAFT 04/07/2018 HORACIO STANLEY MD Ot Z95.2 PRESENCE OF PROSTHETIC HEART VALVE 04/07/2018 HORACIO STANLEY MD Ot Z95.5 PRESENCE OF CORONARY ANGIOPLASTY IMPLANT 04/07/2018 HORACIO STANLEY MD Ot Z99.81 DEPENDENCE ON SUPPLEMENTAL OXYGEN 04/26/2018 JARRETT PAN APRN Ot E66.9 OBESITY, UNSPECIFIED 04/26/2018 JARRETT PAN APRN Ot J90 PLEURAL EFFUSION, NOT ELSEWHERE CLASSIFI 04/26/2018 JARRETT PAN APRN Ot J98.4 OTHER DISORDERS OF LUNG 04/26/2018 JARRETT PAN APRN Ot R06.02 SHORTNESS OF BREATH 04/26/2018 JARRETT PAN APRN Ot 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 NICOTINE DEPENDENCE Procedures Code Description Performed By Performed On [id number] RESECTION OF RIGHT LARGE INTESTINE, PERC 11/08/2015 [id number] RESECTION OF GALLBLADDER, PERCUTANEOUS E 11/08/2015 [id number] FLUOROSCOPY OF MULT COR ART USING L OSM 03/22/2018 [id number] FLUOROSCOPY OF SING COR A GRAFT USING L 03/22/2018 [id number] FLUOROSCOPY OF L INT MAMM GRAFT USING L 03/22/2018 Results Test Result Range Automated blood complete [...] Staphylococcus aureus (MRSA) screening culture NEG NRG Complete blood count (CBC) with automated white blood cell (WBC) differential - 03/21/18 08:17 Blood leukocytes automated count (number/volume) 13.5 10*3/uL 4.3-11.0 Blood erythrocytes automated count (number/volume) 3.97 10*6/uL 4.35-5.85 Venous blood hemoglobin measurement (mass/volume) 12.2 g/dL 13.3-17.7 Blood hematocrit (volume fraction) 36 % 40-54 Automated erythrocyte mean corpuscular volume 91 [foz_us] 80-99 Automated erythrocyte mean corpuscular hemoglobin (mass per erythrocyte) 31 pg 25-34 Automated erythrocyte mean corpuscular hemoglobin concentration measurement ( mass/volume) 34 g/dL 32-36 Automated erythrocyte distribution width ratio 13.2 % 10.0-14.5 Automated blood platelet count (count/volume) 223 10*3/uL 130-400 Automated blood platelet mean volume measurement 10.2 [foz_us] 7.4-10.4 Automated blood neutrophils/100 leukocytes 84 % 42-75 Automated blood lymphocytes/100 leukocytes 6 % 12-44 Blood monocytes/100 leukocytes 10 % 0-12 Automated blood eosinophils/100 leukocytes 1 % 0-10 Automated blood basophils/100 leukocytes 0 % 0-10 Blood neutrophils automated count (number/volume) 11.3 10*3 1.8-7.8 Blood lymphocytes automated count (number/volume) 0.8 10*3 1.0-4.0 Blood monocytes automated count (number/volume) 1.3 10*3 0.0-1.0 Automated eosinophil count 0.1 10*3/uL 0.0-0.3 Automated blood basophil count (count/volume) 0.0 10*3/uL 0.0-0.1 Comprehensive metabolic panel - 03/21/18 08:17 Serum or plasma sodium measurement (moles/volume) 137 mmol/L 135-145 Serum or plasma potassium measurement (moles/volume) 4.3 mmol/L 3.6-5.0 Serum or plasma chloride measurement (moles/volume) 104 mmol/L 98-107 Carbon dioxide 23 mmol/L 21-32 Serum or plasma anion gap determination (moles/volume) 10 mmol/L 5-14 Serum or plasma urea nitrogen measurement (mass/volume) 23 mg/dL 7-18 Serum or plasma creatinine measurement (mass/volume) 1.11 mg/dL 0.60-1.30 Serum or plasma urea nitrogen/creatinine mass ratio 21 NRG Serum or plasma creatinine measurement with calculation of estimated glomerular filtration rate > NRG Serum or plasma glucose measurement (mass/volume) 124 mg/dL 70-105 Serum or plasma calcium measurement (mass/volume) 9.7 mg/dL 8.5-10.1 Serum or plasma total bilirubin measurement (mass/volume) 0.8 mg/dL 0.1-1.0 Serum or plasma alkaline phosphatase measurement (enzymatic activity/volume) 80 U/L 40-136 Serum or plasma aspartate aminotransferase measurement (enzymatic activity/ volume) 24 U/L 5-34 Serum or plasma alanine aminotransferase measurement (enzymatic activity/volume ) 19 U/L 0-55 Serum or plasma protein measurement (mass/volume) 7.3 g/dL 6.4-8.2 Serum or plasma albumin measurement (mass/volume) 4.1 g/dL 3.2-4.5 CALCIUM CORRECTED 9.6 mg/dL 8.5-10.1 Serum or plasma troponin i.cardiac measurement (mass/volume) - 03/21/18 08:17 Serum or plasma troponin i.cardiac measurement (mass/volume) 0.36 ng /mL <0.30 Blood manual differential performed detection - 03/21/18 08:17 Blood monocytes/100 leukocytes 10 % NRG Manual blood segmented neutrophils/100 leukocytes 84 % NRG Manual blood lymphocytes/100 leukocytes 5 % NRG Blood erythrocyte morphology finding identification NORMAL NRG Manual blood nucleated erythrocytes/100 leukocytes ratio 1 NRG Serum or plasma lithium measurement (moles/volume) - 03/21/18 08:17 BNP level 638.7 pg/mL <100.0 Complete urinalysis with reflex to culture - 03/21/18 09:50 Urine color determination YELLOW NRG Urine clarity determination SLIGHTLY CLOUDY NRG Urine pH measurement by test strip 5 5-9 Specific gravity of urine by test strip 1.020 1.016- 1.022 Urine protein assay by test strip, semi-quantitative 3+ NEGATIVE Urine glucose detection by automated test strip NEGATIVE NEGATIVE Erythrocytes detection in urine sediment by light microscopy 2+ NEGATIVE Urine ketones detection by automated test strip NEGATIVE NEGATIVE Urine nitrite detection by test strip NEGATIVE NEGATIVE Urine total bilirubin detection by test strip NEGATIVE NEGATIVE Urine urobilinogen measurement by automated test strip (mass/volume) NORMAL NORMAL Urine leukocyte esterase detection by dipstick 1+ NEGATIVE Automated urine sediment erythrocyte count by microscopy (number/high power field) [HPF] NRG Automated urine sediment leukocyte count by microscopy (number/high power field ) [HPF] NRG Bacteria detection in urine sediment by light microscopy TRACE NRG Crystals detection in urine sediment by light microscopy NONE NRG Casts detection in urine sediment by light microscopy NONE NRG Mucus detection in urine sediment by light microscopy SMALL NRG Complete urinalysis with reflex to culture NO NRG Bacterial blood culture - 03/21/18 17:10 Bacterial blood culture NG NRG Serum or plasma troponin i.cardiac measurement (mass/volume) - 03/21/18 17:20 Serum or plasma troponin i.cardiac measurement (mass/volume) 2.91 ng /mL <0.30 Bacterial blood culture - 03/21/18 17:20 Bacterial blood culture NG NRG Automated blood complete blood count (hemogram) panel - 03/22/18 09:00 Blood leukocytes automated count (number/volume) 8.1 10*3/uL 4.3-11.0 Blood erythrocytes automated count (number/volume) 3.54 10*6/uL 4.35-5.85 Venous blood hemoglobin measurement (mass/volume) 10.5 g/dL 13.3-17.7 Blood hematocrit (volume fraction) 32 % 40-54 Automated erythrocyte mean corpuscular volume 91 [foz_us] 80-99 Automated erythrocyte mean corpuscular hemoglobin (mass per erythrocyte) 30 pg 25-34 Automated erythrocyte mean corpuscular hemoglobin concentration measurement ( mass/volume) 33 g/dL 32-36 Automated erythrocyte distribution width ratio 13.7 % 10.0-14.5 Automated blood platelet count (count/volume) 199 10*3/uL 130-400 Automated blood platelet mean volume measurement 10.7 [foz_us] 7.4-10.4 PT panel in platelet poor plasma by coagulation assay - 03/22/18 09:00 Prothrombin time (PT) in platelet poor plasma by coagulation assay 14.6 s 12.2-14.7 INR in platelet poor plasma or blood by coagulation assay 1.1 0.8-1.4 Activated partial thromboplastin time (aPTT) in platelet poor plasma bycoagulation assay - 03/22/18 09:00 Activated partial thromboplastin time (aPTT) in platelet poor plasma bycoagulation assay 40 s 24-35 Whole blood basic metabolic panel - 03/22/18 09:00 Serum or plasma sodium measurement (moles/volume) 139 mmol/L 135-145 Serum or plasma potassium measurement (moles/volume) 4.4 mmol/L 3.6-5.0 Serum or plasma chloride measurement (moles/volume) 106 mmol/L 98-107 Carbon dioxide 25 mmol/L 21-32 Serum or plasma anion gap determination (moles/volume) 8 mmol/L 5-14 Serum or plasma urea nitrogen measurement (mass/volume) 34 mg/dL 7-18 Serum or plasma creatinine measurement (mass/volume) 1.16 mg/dL 0.60-1.30 Serum or plasma urea nitrogen/creatinine mass ratio 29 NRG Serum or plasma creatinine measurement with calculation of estimated glomerular filtration rate 59 NRG Serum or plasma glucose measurement (mass/volume) 111 mg/dL 70-105 Serum or plasma calcium measurement (mass/volume) 9.3 mg/dL 8.5-10.1 Complete blood count (CBC) with automated white blood cell (WBC) differential - 04/03/18 05:55 Blood leukocytes automated count (number/volume) 7.6 10*3/uL 4.3-11.0 Blood erythrocytes automated count (number/volume) 3.36 10*6/uL 4.35-5.85 Venous blood hemoglobin measurement (mass/volume) 9.9 g/dL 13.3-17.7 Blood hematocrit (volume fraction) 32 % 40-54 Automated erythrocyte mean corpuscular volume 95 [foz_us] 80-99 Automated erythrocyte mean corpuscular hemoglobin (mass per erythrocyte) 29 pg 25-34 Automated erythrocyte mean corpuscular hemoglobin concentration measurement ( mass/volume) 31 g/dL 32-36 Automated erythrocyte distribution width ratio 14.4 % 10.0-14.5 Automated blood platelet count (count/volume) 232 10*3/uL 130-400 Automated blood platelet mean volume measurement 10.1 [foz_us] 7.4-10.4 Automated blood neutrophils/100 leukocytes 71 % 42-75 Automated blood lymphocytes/100 leukocytes 13 % 12-44 Blood monocytes/100 leukocytes 12 % 0-12 Automated blood eosinophils/100 leukocytes 4 % 0-10 Automated blood basophils/100 leukocytes 0 % 0-10 Blood neutrophils automated count (number/volume) 5.4 10*3 1.8-7.8 Blood lymphocytes automated count (number/volume) 1.0 10*3 1.0-4.0 Blood monocytes automated count (number/volume) 0.9 10*3 0.0-1.0 Automated eosinophil count 0.3 10*3/uL 0.0-0.3 Automated blood basophil count (count/volume) 0.0 10*3/uL 0.0-0.1 Comprehensive metabolic panel - 04/03/18 05:55 Serum or plasma sodium measurement (moles/volume) 143 mmol/L 135-145 Serum or plasma potassium measurement (moles/volume) 3.8 mmol/L 3.6-5.0 Serum or plasma chloride measurement (moles/volume) 97 mmol/L 98-107 Carbon dioxide 33 mmol/L 21-32 Serum or plasma anion gap determination (moles/volume) 13 mmol/L 5-14 Serum or plasma urea nitrogen measurement (mass/volume) 47 mg/dL 7-18 Serum or plasma creatinine measurement (mass/volume) 1.40 mg/dL 0.60-1.30 Serum or plasma urea nitrogen/creatinine mass ratio 34 NRG Serum or plasma creatinine measurement with calculation of estimated glomerular filtration rate 48 NRG Serum or plasma glucose measurement (mass/volume) 114 mg/dL 70-105 Serum or plasma calcium measurement (mass/volume) 9.5 mg/dL 8.5-10.1 Serum or plasma total bilirubin measurement (mass/volume) 0.5 mg/dL 0.1-1.0 Serum or plasma alkaline phosphatase measurement (enzymatic activity/volume) 67 U/L 40-136 Serum or plasma aspartate aminotransferase measurement (enzymatic activity/ volume) 24 U/L 5-34 Serum or plasma alanine aminotransferase measurement (enzymatic activity/volume ) 31 U/L 0-55 Serum or plasma protein measurement (mass/volume) 6.4 g/dL 6.4-8.2 Serum or plasma albumin measurement (mass/volume) 3.5 g/dL 3.2-4.5 CALCIUM CORRECTED 9.9 mg/dL 8.5-10.1 Whole blood basic metabolic panel - 04/04/18 06:11 Serum or plasma sodium measurement (moles/volume) 141 mmol/L 135-145 Serum or plasma potassium measurement (moles/volume) 4.0 mmol/L 3.6-5.0 Serum or plasma chloride measurement (moles/volume) 96 mmol/L 98-107 Carbon dioxide 36 mmol/L 21-32 Serum or plasma anion gap determination (moles/volume) 9 mmol/L 5-14 Serum or plasma urea nitrogen measurement (mass/volume) 47 mg/dL 7-18 Serum or plasma creatinine measurement (mass/volume) 1.45 mg/dL 0.60-1.30 Serum or plasma urea nitrogen/creatinine mass ratio 32 NRG Serum or plasma creatinine measurement with calculation of estimated glomerular filtration rate 46 NRG Serum or plasma glucose measurement (mass/volume) 117 mg/dL 70-105 Serum or plasma calcium measurement (mass/volume) 9.5 mg/dL 8.5-10.1 Magnesium - 04/04/18 06:11 Magnesium 2.0 mg/dL 1.8-2.4 Serum or plasma lithium measurement (moles/volume) - 04/04/18 06:11 BNP level 2252.3 pg/mL <100.0 Automated blood complete blood count (hemogram) panel - 04/06/18 05:10 Blood leukocytes automated count (number/volume) 8.6 10*3/uL 4.3-11.0 Blood erythrocytes automated count (number/volume) 3.14 10*6/uL 4.35-5.85 Venous blood hemoglobin measurement (mass/volume) 9.6 g/dL 13.3-17.7 Blood hematocrit (volume fraction) 30 % 40-54 Automated erythrocyte mean corpuscular volume 95 [foz_us] 80-99 Automated erythrocyte mean corpuscular hemoglobin (mass per erythrocyte) 31 pg 25-34 Automated erythrocyte mean corpuscular hemoglobin concentration measurement ( mass/volume) 32 g/dL 32-36 Automated erythrocyte distribution width ratio 14.5 % 10.0-14.5 Automated blood platelet count (count/volume) 173 10*3/uL 130-400 Automated blood platelet mean volume measurement 11.1 [foz_us] 7.4-10.4 Whole blood basic metabolic panel - 04/06/18 05:10 Serum or plasma sodium measurement (moles/volume) 139 mmol/L 135-145 Serum or plasma potassium measurement (moles/volume) 4.2 mmol/L 3.6-5.0 Serum or plasma chloride measurement (moles/volume) 96 mmol/L 98-107 Carbon dioxide 33 mmol/L 21-32 Serum or plasma anion gap determination (moles/volume) 10 mmol/L 5-14 Serum or plasma urea nitrogen measurement (mass/volume) 53 mg/dL 7-18 Serum or plasma creatinine measurement (mass/volume) 1.42 mg/dL 0.60-1.30 Serum or plasma urea nitrogen/creatinine mass ratio 37 NRG Serum or plasma creatinine measurement with calculation of estimated glomerular filtration rate 47 NRG Serum or plasma glucose measurement (mass/volume) 124 mg/dL 70-105 Serum or plasma calcium measurement (mass/volume) 9.5 mg/dL 8.5-10.1 Magnesium - 04/06/18 05:10 Magnesium 2.2 mg/dL 1.8-2.4 Serum or plasma lithium measurement (moles/volume) - 04/06/18 05:10 BNP level 1516.9 pg/mL <100.0 Arterial blood gas measurement - 04/22/18 08:58 Blood pCO2 32 mm[Hg] 35-45 Blood pO2 72 mm[Hg] 79-93 Arterial blood bicarbonate measurement (moles/volume) 25 mmol/L 23-27 Arterial blood base excess by calculation 1.3 mmol/L -2.5 -2.5 Arterial blood oxygen saturation measurement 96 % 94-100 * Inhaled oxygen flow rate RM AIR NRG Arterial blood pH measurement with patient temperature correction 7.49 7.37-7.43 Arterial blood carbon dioxide, total measurement (moles/volume) 25.7 mmol/L 21.0-31.0 Body site R RAD NRG Assessment of wrist artery patency prior to arterial puncture YES- POS NRG Setting of ventilation mode NO NRG Measurement of body temperature 96.7 NRG Encounters ACCT No. Visit Date/Time Discharge Status Pt. Type Provider Facility Loc./Unit Complaint [id number] 04/22/2018 08:44:00 04/22/2018 23:59:59 CLS Outpatient JARRETT PAN APRN [facility] RT SOA [id number] 04/20/2018 10:09:00 04/20/2018 23:59:59 CLS Preadmit JARRETT PAN APRN [facility] RT SOB [id number] 04/02/2018 17:28:00 04/07/2018 10:15:00 DIS Inpatient HORACIO STANLEY MD [facility] IRF COPD MYOPATHY [id number] 04/01/2018 00:08:00 04/01/2018 23:59:59 CLS Preadmit ANGELINA AGRCIAS MD [facility] ONC [id number] 12/31/2017 08:15:00 03/31/2018 00:01:00 DIS Outpatient ANGELINA GARCIAS MD [facility] ONC [id number] 03/22/2018 09:54:00 03/22/2018 14:40:00 DIS Inpatient COLE JONES, MARCOS Sandoval [facility] 4TH SOB/CHF [id number] 12/29/2017 08:17:00 12/30/2017 00:01:00 DIS Outpatient ANGELINA GARCIAS MD [facility] ONC [id number] 06/24/2017 08:47:00 06/24/2017 11:45:00 DIS Outpatient DRISS WILSON MD [facility] ENDO HX OF COLON CA/+OCCULT STOOL/LOW HGB [id number] 06/18/2017 12:42:00 06/18/2017 12:57:00 DIS Outpatient DRISS WILSON MD [facility] PREOP COLONOSCOPY [id number] 03/26/2017 09:03:00 04/04/2017 00:01:00 DIS Outpatient ANGELINA GARCIAS MD [facility] ONC [id number] 03/13/2017 10:40:00 03/13/2017 23:59:59 CLS Outpatient STARLA GARDNER MD [facility] RAD C18.0 [id number] 11/20/2016 08:44:00 02/18/2017 00:01:00 DIS Outpatient STARLA GARDNER MD [facility] ONC [id number] 07/31/2016 09:16:00 10/21/2016 00:01:00 DIS Outpatient STARLA GARDNER MD [facility] ONC [id number] 08/20/2016 08:11:00 08/20/2016 23:59:59 CLS Outpatient TOMMY CAZARES MD [facility] RT COPD [id number] 08/06/2016 16:20:00 08/06/2016 23:59:59 CLS Outpatient OTMMY CAZARES MD [facility] RAD COUGH [id number] 07/30/2016 07:34:00 07/30/2016 13:02:00 DIS Outpatient CAESAR PASCUAL MD [facility] CATH CAD,CABG [id number] 07/16/2016 10:00:00 07/16/2016 23:59:59 CLS Outpatient STARLA GARDNER MD [facility] RAD ADENOCARCINOMA OF CECUM [id number] 06/10/2016 08:51:00 07/07/2016 00:01:00 DIS Outpatient STARLA GARDNER MD [facility] ONC [id number] 03/12/2016 09:07:00 03/31/2016 00:01:00 DIS Outpatient STARLA GARDNER MD [facility] ONC [id number] 01/08/2016 14:08:00 01/08/2016 23:59:59 CLS Outpatient LUIS ANGEL CHACKO [facility] ONC [id number] 12/10/2015 13:09:00 12/17/2015 00:01:00 DIS Outpatient STARLA GARDNER MD [facility] ONC [id number] 11/08/2015 09:25:00 11/20/2015 13:50:00 DIS Inpatient DRISS WILSON MD [facility] 4TH COLON CANCER; GALLSTONES [id number] 11/06/2015 11:47:00 11/06/2015 12:32:00 DIS Outpatient DRISS WILSON MD [facility] PREOP COLON CANCER; GALLSTONES [id number] 11/02/2015 07:40:00 11/02/2015 23:59:59 CLS Outpatient MONY CLEMENTS MD [facility] CARD AORTIC VALVE STENOSIS, ESSENTIAL HTN,MR [id number] 10/31/2015 06:42:00 10/31/2015 14:00:00 DIS Outpatient MONY CLEMENTS MD [facility] CARD AVS,MR,TR [id number] 10/30/2015 15:09:00 10/30/2015 23:59:59 CLS Outpatient MONY CLEMENTS MD [facility] LAB AV STENOSIS,CAD,MR,TR [id number] 10/10/2015 08:06:00 10/10/2015 11:30:00 DIS Outpatient DRISS WILSON MD [facility] SDC ANEMIA; OCCULT BLOOD IN STOOL [id number] 10/04/2015 13:30:00 10/04/2015 23:59:59 CLS Outpatient DRISS WILSON MD [facility] PREOP ANEMIA; OCCULT BLOOD IN STOOL [id number] 09/26/2015 09:44:00 09/26/2015 23:59:59 CLS Outpatient STARLA GARDNER MD [facility] RAD HISTORY OF CIGARETTE SMOKING,HERNIA [id number] 09/30/2014 21:26:00 10/01/2014 00:13:00 DIS Emergency PRIYA VILLATORO MD [facility] ER NAUSEA DIZZY [id number] 01/19/2013 08:07:00 01/19/2013 23:59:59 CLS Outpatient COLE JONES, MARCOS Sandoval [facility] RAD SPINAL STENOSIS [id number] 04/26/2018 09:30:00 PEN Preadmit JARRTET PAN APRN [facility] PULM SOB [id number] 09/15/2014 08:46:00 Document Registration [id number] 09/14/2014 08:36:00 Document Registration [id number] 12/03/2010 09:38:00 Document Registration [id number] 11/12/2010 06:58:00 Document Registration [id number] 10/31/2010 07:59:00 Document Registration
[2018-04-28] MEDS ORDERED: NS IV 1000 ML 1,000 ML IV SCH ×2 (07:15→08:28)
[2018-04-28 07:18] LABS: HEMOGLOBIN 10.9 G/DL (13.3-17.7); MEAN PLATELET VOLUME 10.5 FL (7.4-10.4); RED BLOOD COUNT 3.56 10^6/uL (4.35-5.85); RED CELL DISTRIBUTION WIDTH 16.3 % (10.0-14.5); WHITE BLOOD COUNT 9.4 10^3/uL (4.3-11.0)
[2018-04-28 07:30] LABS: INR 1.1 (0.8-1.4); PROTHROMBIN TIME PATIENT 14.3 SEC (12.2-14.7)
[2018-04-28] MEDS ORDERED: POTA10TA36 PO (07:33)
[2018-04-28] MEDS ORDERED: ZOLP5TAB PO (07:33)
[2018-04-28] MEDS ORDERED: PRD20T PO (07:33)
[2018-04-28] MEDS ORDERED: FURO80TA3 PO (07:33)
[2018-04-28] MEDS ORDERED: CLOP75TA69 PO (07:33)
--- NOTE | 2018-04-28 07:38 | Diagnostic Imaging Report ---
INDICATION: Coronary disease. Dyspnea, hypertension. Comparison with 03/21/2018. Findings: Cardiomegaly with median sternotomy changes again noted. Interstitial markings remain prominent. There continues to be pleural thickening or loculated fluid along the right lateral and lower chest. There is also blunting of the left costophrenic angle. IMPRESSION: 1. Cardiomegaly with postoperative residue and interstitial changes. Small pleural effusion. No significant overall change when compared with previous exam. Dictated by: Dictated on workstation # [id number]
[2018-04-28] MEDS ORDERED: MIDAZOLAM 5 MG/5 ML (VERSED) VIAL ONE (07:41)
[2018-04-28] MEDS ORDERED: fentaNYL INJECTION 100 MCG/2 ML AMP ONE (07:41)
[2018-04-28] MEDS ORDERED: FLU QUADRIvalent (5+ YOA) 2018-2019 (AFLURIA) 0.5 ML IM ONE (07:45)
[2018-04-28 07:48] LABS: ALBUMIN 4.2 GM/DL (3.2-4.5); BILIRUBIN,TOTAL 1.4 MG/DL (0.1-1.0); CALCIUM 9.6 MG/DL (8.5-10.1); CREATININE SERUM 1.7 MG/DL (0.60-1.30); POTASSIUM 3.9 MMOL/L (3.6-5.0); TOTAL PROTEIN 7.1 GM/DL (6.4-8.2)
[2018-04-28] MEDS ORDERED: HEParin 1000 UNIT/ML (10ML VIAL) FOR BOLUS ONE (08:07)
--- NOTE | 2018-04-28 08:13 | Cardiac Procedure Note-CS/ASA ---
Pre-Procedure Note Pre-Op Procedure Note H&P Reviewed The H&P was reviewed, patient examined and no changes noted. Date H&P Reviewed: Apr 28, 2018 Time H&P Reviewed: 08:13 Conscious Sedation Pre-Proced Time 08:13 ASA Score 3 For ASA 3 and 4: Consider anesthesia and medical clearance. Also, for patients with a history of failed moderate sedation consider anesthesia. Airway Lungs Heart ASA score ASA 1: a normal healthy patient ASA 2: a patient with a mild systemic disease (mid diabetes, controlled hypertension, obesity x ASA 3: a patient with a severe systemic disease that limits activity (angina , COPD, prior Myocardial infarction) ASA 4: a patient with an incapacitating disease that is a constant threat to life (CHF, renal failure) ASA 5: a moribund patient not expected to survive 24 hrs. (ruptured aneurysm) ASA 6: a declared brain patient whose organs are being harvested. For emergent operations, add the letter E after the classification Mallampati Classification Grade 3 Sedation Plan Analgesia, Amnesia, Plan communicated to team members, Discussed options with patient/fam, Discussed risks with patient/fam The patient is an appropriate candidate to undergo the planned procedure, sedation, and anesthesia. The patient immediately re-assessed prior to indication. MONY CLEMENTS MD Apr 28, 2018 08:13
[2018-04-28] MEDS ORDERED: PATIENT MAY USE OWN MEDS, ALL PO SCH (08:30)
--- NOTE | 2018-04-28 08:35 | Cardiac Cath Report ---
Cardiac Cath Report Physician (s)/Paradichlorobenzene Machine Operator (s) Physician MONY CLEMENTS MD Pre-Procedure Diagnosis Pre-Procedure Diagnosis: CAD Post-Procedure Note Procedure Start Date: Apr 28, 2018 Name of Procedure: [facility] Angiogram Findings/Procedure Note PROCEDURE NOTE: 87 years old gentleman with extensive coronary artery disease underwent stenting to the left main and circumflex artery last month, continue to have increasing shortness of breath with minimal exertion and worsening pedal edema progressive heart failure. I decided to proceed with cardiac catheterization reevaluate his coronary anatomy. After explaining the procedure to the patient, all pros and cons were explained , all questions were answered. The patient signed the consent and then he was placed on the cardiac catheterization laboratory. Groin was prepped SL fashion local anesthesia was used. Sheath placed in the artery. Nish right and left catheter were used to access the coronary system. JR catheter was used to access the vein graft and ARNOLD, angiogram was done. At the end of the procedure the sheath was removed. Closure device was used FINDINGS: Hemodynamics Aorta 139/33 mean of 70 ANATOMY: Left Main has a patent stent extending to the circumflex and obtuse marginal branch with good flow, the proper circumflex artery has diffuse disease at the AV groove branch, smaller artery. The LAD has severe stenosis at the midportion , diffuse disease, the ARNOLD to the LAD is patent. The right coronary artery is totally occluded, the vein graft to the right coronary artery is patent with diffuse disease distally Vein graft angiogram showed patent vein graft to the distal right coronary artery was small vessel disease distally ARNOLD angiogram to the LAD is patent with good flow distally, small vessel disease distally CONCLUSION: 1. Patent stent extending from the left main to the circumflex and obtuse marginal branch with good flow distally 2. Severe diffuse disease at the proper circumflex artery fairly small artery at the AV groove branch 3. Patent ARNOLD to LAD and vein graft to the right coronary artery was small vessel disease distally DISCUSSION AND RECOMMENDATION: Coronary angiogram showed patent left main stent and circumflex artery, there is small vessel disease distally, his increasing shortness of breath is probably due to small vessel disease and progressive renal failure. We used very small amount of contrast during the diagnostic procedure Anesthesia Type: Conscious Sedation Estimated blood loss (mL): 15 ml Contrast Amount: 18 ml Total Radiation Dose: 223 mGy Post-Procedure Diagnosis Post-operative diagnosis: Shortness of breath Coronary artery disease Hypertension Hyperlipidemia MONY CLEMENTS MD Apr 28, 2018 08:35
== END 2018-04-28 13:23 | disposition home or self-care (01) ==
LOC: CATH 06:51 → SDC 08:53 → CATH 13:23
PROVIDERS: ATTEND Internal Medicine Cardiovascular Disease
DX: I25.10 Atherosclerotic heart disease of native coronary artery without angina pectoris (principal); R06.02 Shortness of breath; I12.9 Hypertensive chronic kidney disease with stage 1 through stage 4 chronic kidney disease, or unspecified chronic kidney disease; N18.9 Chronic kidney disease, unspecified; E78.5 Hyperlipidemia, unspecified; E78.00 Pure hypercholesterolemia, unspecified; D50.0 Iron deficiency anemia secondary to blood loss (chronic); E66.9 Obesity, unspecified; I08.3 Combined rheumatic disorders of mitral, aortic and tricuspid valves; J90 Pleural effusion, not elsewhere classified; Z95.1 Presence of aortocoronary bypass graft; Z87.891 Personal history of nicotine dependence; Z95.2 Presence of prosthetic heart valve; Z85.038 Personal history of other malignant neoplasm of large intestine; Z92.21 Personal history of antineoplastic chemotherapy; Z68.28 Body mass index [BMI] 28.0-28.9, adult
CPT/HCPCS: 36415; 71045; 80053; 80061; 85027; 85610; 85730; 87081; 93005; 93455

== ENCOUNTER → 2018-05-18 | Outpatient (CLI) | payer MEDICARE, OTHER ==
[~2018-05-18] MED LIST changes: +ALBU18HF2 INH; +CAND32TA19 PO; -CAND32TA2 PO; +CLOP75TA69 PO; +DIPH25TA65 PO; +FURO80TA3 PO; +POTA10TA36 PO; +PRD20T PO; +VIT1CAPS44 PO; +ZOLP10TA5 PO; +ZOLP5TAB PO
--- NOTE | 2018-05-18 16:30 | Diagnostic Imaging Report ---
PROCEDURE: CT chest and abdomen without contrast. TECHNIQUE: Axial images were obtained from the thoracic inlet through the iliac crest without the administration of intravenous contrast. INDICATION: Shortness of breath, abdominal pain. FINDINGS: The previous CT chest exam of 03/21/2018 noted cardiomegaly, coronary artery disease, and evidence of prior cardiac surgery. There was also a right pleural effusion, but there was no acute cardiopulmonary abnormality noted otherwise. Those findings are again evident on this study and do not seem to have changed significantly. However, in the interval since the prior study, a small loculated effusion has developed in the left lung base. This measures only 2 cm in maximum depth. A small rind of increased density has also developed adjacent to the superior mediastinum on the right. This measures approximately 1.4 cm in maximum depth. I suspect that this is related to fluid as well. There is still no evidence for a consolidating pneumonia, and there is no sign of overt failure. There is no obvious mediastinal or hilar adenopathy. The aorta is not abnormally dilated. The previous CT abdomen/pelvis exam of 03/13/2017 was unremarkable for an acute abnormality. On this study, the liver, spleen, pancreas, adrenals, kidneys, aorta, and inferior vena cava seem unchanged. The small 1 cm low-density nodule associated with the right adrenal gland is again evident and no different. Also, as on the prior exam, there is perinephric stranding about both kidneys, and the cyst associated with the right kidney seen previously appears similar. The stomach is not well distended and consequently difficult to assess. The gallbladder is surgically absent. There is diverticulosis of the descending colon, but there is no evidence for acute diverticulitis. The bone windows are unremarkable for a fracture or for a destructive lesion. IMPRESSION: 1. In the interval since the previous study, small loculated effusions have developed in the left lung base and along the superior mediastinum on the right. The small right pleural effusion seen previously is essentially no different. There is no acute cardiopulmonary abnormality noted otherwise. 2. There is cardiomegaly, coronary artery disease, and evidence of prior cardiac surgery. 3. There is no acute abnormality of the abdomen. When compared to the previous study, there does not appear to have been any significant change. Dictated by: Dictated on workstation # [id number]
== END ==
LOC: RAD 13:57
PROVIDERS: ATTEND Family Medicine
DX: J90 Pleural effusion, not elsewhere classified (principal); I51.7 Cardiomegaly; I25.10 Atherosclerotic heart disease of native coronary artery without angina pectoris; R10.9 Unspecified abdominal pain; Z90.49 Acquired absence of other specified parts of digestive tract
CPT/HCPCS: 71250; 74150

== ENCOUNTER 2018-05-20 08:26 | Inpatient (IN) | payer MEDICARE, OTHER ==
[~2018-05-20] VITALS: Ht 172.7 cm; Wt 84.4 kg
[~2018-05-20 08:26] MED LIST changes: -ALBU18HF2 INH; -DIPH25TA65 PO; -VIT1CAPS44 PO; -ZOLP10TA5 PO
--- OUTSIDE RECORDS SUMMARY | 2018-05-20 08:35 | XMS REPORT | Continuity of Care Document ---
Author Author [facility] Organization [facility] Address Unknown Phone Unavailable Allergies Active Description Code Type Severity Reaction Onset Reported/Identified Relationship to Patient Clinical Status Yes No Known Drug Allergies [id number] Drug Allergy Unknown N/A 03/21/2018 Medications There [...] 789.01 09/26/2015 Ot 786.52 09/26/2015 COLE JONES, MACROS R Ot 724.02 09/26/2015 Ot 211.3 09/26/2015 [...] 10/11/2015 STEVE JONES, DRISS Ot K64.1 10/16/2015 STRALA GARDNER MD Ot K46.9 10/16/2015 STARLA GARDNER [...] MD Ot I25.10 ATHSCL HEART DISEASE [place] CORONARY 10/26/2015 STARLA GARDNER MD Ot Z79.899 OTHER CUSTODIAL (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 THERAPY 10/26/2015 STARLA GARDNER MD Ot 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 NICOTINE DEPENDENCE 10/31/2015 TYREE JONES, MONY Sloan Ot I08.3 COMB RHEUMATIC DISORD OF MITRAL, AORTIC 10/31/2015 MONY CLEMENTS MD Ot I25.10 ATHSCL HEART DISEASE OF [place] CORONARY 10/31/2015 MONY CLEMENTS MD Ot Z01.810 [...] MD Ot I25.10 ATHSCL HEART DISEASE [place] CORONARY 10/31/2015 STARLA GARDNER MD, Ot Z79.899 OTHER CUSTODIAL (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 THERAPY 10/31/2015 STARLA GARDNER MD [...] MD Ot I25.10 ATHSCL HEART DISEASE OF [place] CORONARY 11/02/2015 STARLA GARDNER MD Ot Z79.899 OTHER CUSTODIAL (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 THERAPY 11/02/2015 STARLA GARDNER MD Ot 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 NICOTINE DEPENDENCE 11/02/2015 STARLA GARDNER MD Ot K46.9 UNSPECIFIED ABDOMINAL HERNIA WITHOUT OBS 11/02/2015 STARLA GARDNER MD Ot 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 NICOTINE DEPENDENCE 11/02/2015 MONY CLEMENTS MD Ot I25.10 ATHSCL HEART DISEASE OF [place] CORONARY 11/02/2015 MONY CLEMENTS MD Ot I35.0 NONRHEUMATIC AORTIC (VALVE) STENOSIS 11/05/2015 MONY CLEMENTS MD Ot E78.0 PURE HYPERCHOLESTEROLEMIA 11/05/2015 MONY CLEMENTS MD Ot I10 ESSENTIAL (PRIMARY) HYPERTENSION 11/05/2015 MONY CLEMENTS MD Ot I25.10 ATHSCL HEART DISEASE OF [place] CORONARY 11/05/2015 MONY CLEMENTS MD Ot 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 MITRAL (VALVE) INSUFFICIENC 11/05/2015 MONY CLEMENTS MD Ot I35.0 NONRHEUMATIC AORTIC (VALVE) STENOSIS 11/05/2015 MONY CLEMENTS MD Ot E78.0 PURE HYPERCHOLESTEROLEMIA 11/05/2015 MONY CLEMENTS MD Ot I10 ESSENTIAL (PRIMARY) HYPERTENSION 11/05/2015 MONY CLEMENTS MD Ot I25.10 ATHSCL HEART DISEASE OF [place] CORONARY 11/05/2015 MONY CLEMENTS MD Ot I34.0 [...] MD Ot I25.10 ATHSCL HEART DISEASE [place] CORONARY 11/10/2015 DRISS WILSON MD, Ot K21.9 [...] MD Ot I25.10 ATHSCL HEART DISEASE [place] CORONARY 11/11/2015 DRISS WILSON MD Ot K21.9 [...] MD Ot I25.10 ATHSCL HEART DISEASE [place] CORONARY 11/12/2015 DRISS WILSON MD, Ot K21.9 [...] MD, Ot I25.10 ATHSCL HEART DISEASE [place] CORONARY 11/13/2015 DRISS WILSON MD Ot K21.9 [...] MD Ot I25.10 ATHSCL HEART DISEASE [place] CORONARY 11/13/2015 DRISS WILSON MD Ot K21.9 [...] MD Ot I25.10 ATHSCL HEART DISEASE [place] CORONARY 11/14/2015 DRISS WILSON MD Ot K21.9 [...] MD Ot I25.10 ATHSCL HEART DISEASE [place] CORONARY 11/14/2015 DRISS WILSON MD Ot K21.9 [...] MD Ot I25.10 ATHSCL HEART DISEASE [place] CORONARY 11/15/2015 DRISS WILSON MD, Ot K21.9 [...] MD Ot I25.10 ATHSCL HEART DISEASE [place] CORONARY 11/18/2015 DRISS WILSON MD Ot K21.9 [...] MD Ot I25.10 ATHSCL HEART DISEASE [place] CORONARY 11/19/2015 DRISS WILSON MD Ot K21.9 [...] MD, Ot I25.10 ATHSCL HEART DISEASE [place] CORONARY 11/20/2015 DRISS WILSON MD, Ot K21.9 [...] MD, Ot I25.10 ATHSCL HEART DISEASE [place] CORONARY 11/20/2015 DRISS WILSON MD, Ot K21.9 [...] MD, Ot I25.10 ATHSCL HEART DISEASE OF [place] CORONARY 11/21/2015 MONY CLEMENTS MD Ot I35.0 NONRHEUMATIC AORTIC (VALVE) STENOSIS 11/22/2015 MONY CLEMENTS MD Ot E78.0 PURE HYPERCHOLESTEROLEMIA 11/22/2015 MONY CLEMENTS MD Ot I10 ESSENTIAL (PRIMARY) HYPERTENSION 11/22/2015 MONY CLEMENTS MD Ot I25.10 ATHSCL HEART DISEASE OF [place] CORONARY 11/22/2015 MONY CLEMENTS MD Ot 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 MITRAL (VALVE) INSUFFICIENC 11/22/2015 MONY CLEMENTS MD Ot I35.0 NONRHEUMATIC AORTIC (VALVE) STENOSIS 11/26/2015 MONY CLEMENTS MD Ot I25.10 ATHSCL HEART DISEASE OF [place] CORONARY 11/26/2015 MONY CLEMENTS MD Ot I35.0 NONRHEUMATIC AORTIC (VALVE) STENOSIS 11/30/2015 MONY CLEMENTS MD Ot E78.0 PURE HYPERCHOLESTEROLEMIA 11/30/2015 MONY CLEMENTS MD Ot I10 ESSENTIAL (PRIMARY) HYPERTENSION 11/30/2015 MONY CLEMENTS MD Ot I25.10 ATHSCL HEART DISEASE OF [place] CORONARY 11/30/2015 MONY CLEMENTS MD Ot 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 MITRAL (VALVE) INSUFFICIENC 11/30/2015 MONY CLEMENTS MD Ot I35.0 NONRHEUMATIC AORTIC (VALVE) STENOSIS 12/17/2015 STARLA GARDNER MD Ot D64.9 ANEMIA, UNSPECIFIED 12/17/2015 STARLA GARDNER MD Ot E78.5 HYPERLIPIDEMIA, UNSPECIFIED 12/17/2015 STARLA GARDNER MD Ot I10 ESSENTIAL (PRIMARY) HYPERTENSION 12/17/2015 STARLA GARDNER MD Ot I25.10 ATHSCL HEART DISEASE OF [place] CORONARY 12/17/2015 STARLA GARDNER MD Ot Z79.899 OTHER PREMIUM REPRESENTATIVE (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 THERAPY 12/17/2015 STARLA GARDNER MD Ot 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 NICOTINE DEPENDENCE 12/17/2015 STARLA GARDNER MD Ot D64.9 ANEMIA, UNSPECIFIED 12/17/2015 STARLA GARDNER MD Ot E78.5 HYPERLIPIDEMIA, UNSPECIFIED 12/17/2015 STARLA GARDNER MD Ot I10 ESSENTIAL (PRIMARY) HYPERTENSION 12/17/2015 STARLA GARDNER MD Ot I25.10 ATHSCL HEART DISEASE OF [place] CORONARY 12/17/2015 STARLA GARDNER MD Ot Z79.899 OTHER PREMIUM REPRESENTATIVE (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 THERAPY 12/17/2015 STARLA GARDNER MD Ot 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 NICOTINE DEPENDENCE 12/18/2015 STARLA GARDNER MD Ot D64.9 ANEMIA, UNSPECIFIED 12/18/2015 STARLA GARDNER MD Ot E78.5 HYPERLIPIDEMIA, UNSPECIFIED 12/18/2015 STARLA GARDNER MD Ot I10 ESSENTIAL (PRIMARY) HYPERTENSION 12/18/2015 STARLA GARDNER MD Ot I25.10 ATHSCL HEART DISEASE OF [place] CORONARY 12/18/2015 STARLA GARDNER MD Ot Z79.899 OTHER PREMIUM REPRESENTATIVE (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 THERAPY 12/18/2015 STARLA GARDNER MD Ot 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 NICOTINE DEPENDENCE 12/24/2015 STARLA GARDNER MD Ot D64.9 ANEMIA, UNSPECIFIED 12/24/2015 STARLA GARDNER MD Ot E78.5 HYPERLIPIDEMIA, UNSPECIFIED 12/24/2015 STARLA GARDNER MD Ot I10 ESSENTIAL (PRIMARY) HYPERTENSION 12/24/2015 STARLA GARDNER MD Ot I25.10 ATHSCL HEART DISEASE OF [place] CORONARY 12/24/2015 STARLA GARDNER MD Ot Z79.899 OTHER CUSTODIAL (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 THERAPY 12/24/2015 STARLA GARDNER MD Ot 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 NICOTINE DEPENDENCE 01/02/2016 STARLA GARDNER MD Ot D64.9 ANEMIA, UNSPECIFIED 01/02/2016 STARLA GARDNER MD Ot E78.5 HYPERLIPIDEMIA, UNSPECIFIED 01/02/2016 STARLA GARDNER MD Ot I10 ESSENTIAL (PRIMARY) HYPERTENSION 01/02/2016 STARLA GARDNER MD Ot I25.10 ATHSCL HEART DISEASE OF [place] CORONARY 01/02/2016 STARLA GARDNER MD Ot Z79.899 OTHER CUSTODIAL (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 THERAPY 01/02/2016 STARLA GARDNER MD Ot 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 NICOTINE DEPENDENCE 01/10/2016 LUIS ANGEL CHACKO S SENIOR ELECTRICAL CONTROLS ENGINEER Ot 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 01/10/2016 LUIS ANGEL CHACKO SENIOR ELECTRICAL CONTROLS ENGINEER Ot D64.9 ANEMIA, UNSPECIFIED 01/10/2016 LUIS ANGEL CHACKO S SENIOR ELECTRICAL CONTROLS ENGINEER Ot E78.5 HYPERLIPIDEMIA, UNSPECIFIED 01/10/2016 LUIS ANGEL CHACKO S SENIOR ELECTRICAL CONTROLS ENGINEER Ot I10 ESSENTIAL (PRIMARY) HYPERTENSION 01/10/2016 LIUS ANGEL CHACKO S SENIOR ELECTRICAL CONTROLS ENGINEER Ot I25.10 ATHSCL HEART DISEASE OF [place] CORONARY 01/10/2016 LUIS ANGEL CHACKO SENIOR ELECTRICAL CONTROLS ENGINEER Ot Z79.899 OTHER PREMIUM REPRESENTATIVE (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 THERAPY 01/10/2016 LUIS ANGEL CHACKO SENIOR ELECTRICAL CONTROLS ENGINEER Ot 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 NICOTINE DEPENDENCE 02/14/2016 STARLA GARDNER MD Ot 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 02/14/2016 STARLA GARDNER MD Ot D64.9 ANEMIA, UNSPECIFIED 02/14/2016 STARLA GARDNER MD Ot E78.5 HYPERLIPIDEMIA, UNSPECIFIED 02/14/2016 STARLA GARDNER MD Ot I10 ESSENTIAL (PRIMARY) HYPERTENSION 02/14/2016 STARLA GARDNER MD Ot I25.10 ATHSCL HEART DISEASE OF [place] CORONARY 02/14/2016 STARLA GARDNER MD Ot Z79.899 OTHER PREMIUM REPRESENTATIVE (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 THERAPY 02/14/2016 STARLA GARDNER MD Ot 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 NICOTINE DEPENDENCE 02/14/2016 LUIS ANGEL CHACKO S SENIOR ELECTRICAL CONTROLS ENGINEER Ot 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 02/14/2016 LUIS ANGEL CHACKO S SENIOR ELECTRICAL CONTROLS ENGINEER Ot D64.9 ANEMIA, UNSPECIFIED 02/14/2016 LUIS ANGEL CHACKO SENIOR ELECTRICAL CONTROLS ENGINEER Ot E78.5 HYPERLIPIDEMIA, UNSPECIFIED 02/14/2016 CHACKO LUIS ANGEL Nice SENIOR ELECTRICAL CONTROLS ENGINEER Ot I10 ESSENTIAL (PRIMARY) HYPERTENSION 02/14/2016 LUIS ANGEL CHACKO SENIOR ELECTRICAL CONTROLS ENGINEER Ot I25.10 ATHSCL HEART DISEASE OF [place] CORONARY 02/14/2016 HERMAN CHACKOPAGE Nice SENIOR ELECTRICAL CONTROLS ENGINEER Ot Z79.899 OTHER PREMIUM REPRESENTATIVE (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 THERAPY 02/14/2016 LUIS ANGEL CHACKO SENIOR ELECTRICAL CONTROLS ENGINEER Ot 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 NICOTINE DEPENDENCE 02/20/2016 STARLA GARDNER MD Ot 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 02/20/2016 STARLA GARDNER MD Ot D64.9 ANEMIA, UNSPECIFIED 02/20/2016 STARLA GARDNER MD Ot E78.5 HYPERLIPIDEMIA, UNSPECIFIED 02/20/2016 STARLA GARDNER MD Ot I10 ESSENTIAL (PRIMARY) HYPERTENSION 02/20/2016 STARLA GARDNER MD Ot I25.10 ATHSCL HEART DISEASE OF [place] CORONARY 02/20/2016 STARLA GARDNER MD Ot Z79.899 OTHER PREMIUM REPRESENTATIVE (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 THERAPY 02/20/2016 STARLA GARDNER MD Ot 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 NICOTINE DEPENDENCE 02/20/2016 LUIS ANGEL CHACKO SENIOR ELECTRICAL CONTROLS ENGINEER Ot 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 02/20/2016 LUIS ANGEL CHACKO SENIOR ELECTRICAL CONTROLS ENGINEER Ot D64.9 ANEMIA, UNSPECIFIED 02/20/2016 LUIS ANGEL CHACKO SENIOR ELECTRICAL CONTROLS ENGINEER Ot E78.5 HYPERLIPIDEMIA, UNSPECIFIED 02/20/2016 LUIS ANGEL CHACKO SENIOR ELECTRICAL CONTROLS ENGINEER Ot I10 ESSENTIAL (PRIMARY) HYPERTENSION 02/20/2016 LUIS ANGEL CHACKO SENIOR ELECTRICAL CONTROLS ENGINEER Ot I25.10 ATHSCL HEART DISEASE OF [place] CORONARY 02/20/2016 HERMAN CHACKOPAGE Arlet SENIOR ELECTRICAL CONTROLS ENGINEER Ot Z79.899 OTHER PREMIUM REPRESENTATIVE (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 THERAPY 02/20/2016 LUIS ANGEL CHACKO SENIOR ELECTRICAL CONTROLS ENGINEER Ot 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 NICOTINE DEPENDENCE 03/31/2016 STARLA GARDNER MD Ot 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 03/31/2016 STARLA GARDNER MD Ot D64.9 ANEMIA, UNSPECIFIED 03/31/2016 STARLA GARDNER MD Ot E78.5 HYPERLIPIDEMIA, UNSPECIFIED 03/31/2016 STARLA GARDNER MD Ot I10 ESSENTIAL (PRIMARY) HYPERTENSION 03/31/2016 STARLA GARDNER MD Ot I25.10 ATHSCL HEART DISEASE OF [place] CORONARY 03/31/2016 STARLA GARDNER MD Ot Z79.899 OTHER PREMIUM REPRESENTATIVE (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 THERAPY 03/31/2016 STARLA GARDNER MD Ot 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 NICOTINE DEPENDENCE 04/05/2016 STARLA GARDNER MD Ot 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 04/05/2016 STARLA GARDNER MD Ot D64.9 ANEMIA, UNSPECIFIED 04/05/2016 STARLA GARDNER MD Ot E78.5 HYPERLIPIDEMIA, UNSPECIFIED 04/05/2016 STARLA GARDNER MD Ot I10 ESSENTIAL (PRIMARY) HYPERTENSION 04/05/2016 STARLA GARDNER MD Ot I25.10 ATHSCL HEART DISEASE OF [place] CORONARY 04/05/2016 STARLA GARDNER MD Ot Z79.899 OTHER CUSTODIAL (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 THERAPY 04/05/2016 STARLA GARDNER MD Ot 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 NICOTINE DEPENDENCE 04/09/2016 STARLA GARDNER MD Ot 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 04/09/2016 STARLA GARDNER MD Ot D64.9 ANEMIA, UNSPECIFIED 04/09/2016 STARLA GARDNER MD Ot E78.5 HYPERLIPIDEMIA, UNSPECIFIED 04/09/2016 STARLA GARDNER MD Ot I10 ESSENTIAL (PRIMARY) HYPERTENSION 04/09/2016 STARLA GARDNER MD Ot I25.10 ATHSCL HEART DISEASE OF [place] CORONARY 04/09/2016 STARLA GARDNER MD Ot Z79.899 OTHER PREMIUM REPRESENTATIVE (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 THERAPY 04/09/2016 STARLA GARDNER MD Ot 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 NICOTINE DEPENDENCE 05/27/2016 STARLA GARDNER MD, Ot 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 05/27/2016 STARLA GARDNER MD Ot D64.9 ANEMIA, UNSPECIFIED 05/27/2016 STARLA GARDNER MD Ot E78.5 HYPERLIPIDEMIA, UNSPECIFIED 05/27/2016 STARLA GARDNER MD Ot I10 ESSENTIAL (PRIMARY) HYPERTENSION 05/27/2016 STARLA GARDNER MD Ot I25.10 ATHSCL HEART DISEASE OF [place] CORONARY 05/27/2016 STARLA GARDNER MD Ot Z79.899 OTHER PREMIUM REPRESENTATIVE (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 THERAPY 05/27/2016 STARLA GARDNER MD Ot 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 NICOTINE DEPENDENCE 06/04/2016 STARLA GARDNER MD Ot 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 06/04/2016 STARLA GARDNER MD Ot D64.9 ANEMIA, UNSPECIFIED 06/04/2016 STARLA GARDNER MD Ot E78.5 HYPERLIPIDEMIA, UNSPECIFIED 06/04/2016 STARLA GARDNER MD Ot I10 ESSENTIAL (PRIMARY) HYPERTENSION 06/04/2016 STARLA GARDNER MD Ot I25.10 ATHSCL HEART DISEASE OF [place] CORONARY 06/04/2016 STARLA GARDNER MD Ot Z79.899 OTHER PREMIUM REPRESENTATIVE (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 THERAPY 06/04/2016 STARLA GARDNER MD Ot 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 NICOTINE DEPENDENCE 07/07/2016 STARLA GARDNER MD Ot 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 07/07/2016 STARLA GARDNER MD Ot D64.9 ANEMIA, UNSPECIFIED 07/07/2016 STARLA GARDNER MD Ot E78.5 HYPERLIPIDEMIA, UNSPECIFIED 07/07/2016 STARLA GARDNER MD Ot I10 ESSENTIAL (PRIMARY) HYPERTENSION 07/07/2016 STARLA GARDNER MD Ot I25.10 ATHSCL HEART DISEASE OF [place] CORONARY 07/07/2016 STARLA GARDNER MD Ot Z79.899 OTHER CUSTODIAL (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 THERAPY 07/07/2016 STARLA GRADNER MD Ot 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 NICOTINE [...] MD Ot I25.10 ATHSCL HEART DISEASE OF [place] CORONARY 07/16/2016 MONY CLEMENTS MD Ot I35.0 NONRHEUMATIC AORTIC (VALVE) STENOSIS 07/16/2016 MONY CLEMENTS MD Ot E78.0 PURE HYPERCHOLESTEROLEMIA 07/16/2016 MONY CLEMENTS MD Ot I10 ESSENTIAL (PRIMARY) HYPERTENSION 07/16/2016 MONY CLEMENTS MD Ot I25.10 ATHSCL HEART DISEASE OF [place] CORONARY 07/16/2016 MONY CELMENTS MD Ot 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 MITRAL (VALVE) INSUFFICIENC 07/16/2016 MONY CLEMENTS MD Ot I35.0 NONRHEUMATIC AORTIC (VALVE) STENOSIS 07/16/2016 LUIS ANGEL CHACKO SENIOR ELECTRICAL CONTROLS ENGINEER Ot 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 07/16/2016 LUIS ANGEL CHACKO SENIOR ELECTRICAL CONTROLS ENGINEER Ot D64.9 ANEMIA, UNSPECIFIED 07/16/2016 LUIS ANGEL CHACKO S SENIOR ELECTRICAL CONTROLS ENGINEER Ot E78.5 HYPERLIPIDEMIA, UNSPECIFIED 07/16/2016 LUIS ANGEL CHACKO S SENIOR ELECTRICAL CONTROLS ENGINEER Ot I10 ESSENTIAL (PRIMARY) HYPERTENSION 07/16/2016 LUIS ANGEL CHACKO S SENIOR ELECTRICAL CONTROLS ENGINEER Ot I25.10 ATHSCL HEART DISEASE OF [place] CORONARY 07/16/2016 LUIS ANGEL CHACKO SENIOR ELECTRICAL CONTROLS ENGINEER Ot Z79.899 OTHER PREMIUM REPRESENTATIVE (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 THERAPY 07/16/2016 LUIS ANGEL CHACKO SENIOR ELECTRICAL CONTROLS ENGINEER Ot 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 NICOTINE DEPENDENCE 07/16/2016 STARLA GARDNER MD Ot 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 07/16/2016 STARLA GARDNER MD Ot D64.9 ANEMIA, UNSPECIFIED 07/16/2016 STARLA GARDNER MD Ot E78.5 HYPERLIPIDEMIA, UNSPECIFIED 07/16/2016 STARLA GARDNER MD Ot I10 ESSENTIAL (PRIMARY) HYPERTENSION 07/16/2016 STARLA GARDNER MD Ot I25.10 ATHSCL HEART DISEASE OF [place] CORONARY 07/16/2016 STARLA GARDNER MD Ot Z79.899 OTHER CUSTODIAL (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 THERAPY 07/16/2016 STARLA GARDNER MD [...] MD Ot D64.9 ANEMIA, UNSPECIFIED 07/24/2016 STARLA GARDENR MD, Ot E78.5 HYPERLIPIDEMIA, UNSPECIFIED 07/24/2016 STARLA GARDNER MD Ot I10 ESSENTIAL (PRIMARY) HYPERTENSION 07/24/2016 STARLA GARDNER MD Ot I25.10 ATHSCL HEART DISEASE OF [place] CORONARY 07/24/2016 STARLA GARDNER MD Ot Z79.899 OTHER PREMIUM REPRESENTATIVE (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 THERAPY 07/24/2016 STARLA GARDNER MD Ot 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 NICOTINE DEPENDENCE 07/30/2016 CAESAR PASCUAL MD, Ot E78.5 HYPERLIPIDEMIA, UNSPECIFIED 07/30/2016 CAESAR PASCUAL MD, Ot I10 ESSENTIAL (PRIMARY) HYPERTENSION 07/30/2016 CAESAR PASCUAL MD Ot I25.10 ATHSCL HEART DISEASE OF [place] CORONARY 07/30/2016 CAESAR PASCUAL MD, Ot 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 MITRAL (VALVE) INSUFFICIENC 07/30/2016 CAESAR PASCUAL MD, Ot 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 07/30/2016 CAESAR PASCUAL MD, Ot Z48.812 ENCNTR FOR SURGICAL AFTCR FOLLOWING SURG 07/30/2016 CAESAR PASCUAL MD, Ot Z79.899 OTHER CUSTODIAL (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 THERAPY 07/30/2016 CAESAR PASCUAL MD [...] MD Ot I25.10 ATHSCL HEART DISEASE OF [place] CORONARY 08/13/2016 CAESAR PASCUAL MD, Ot 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 MITRAL (VALVE) INSUFFICIENC 08/13/2016 CAESAR PASCUAL MD Ot 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 08/13/2016 CAESAR PASCUAL MD, Ot Z48.812 ENCNTR FOR SURGICAL AFTCR FOLLOWING SURG 08/13/2016 CAESAR PASCUAL MD Ot Z79.899 OTHER PREMIUM REPRESENTATIVE (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 THERAPY 08/13/2016 CAESAR PASCUAL MD [...] MD Ot I25.10 ATHSCL HEART DISEASE OF [place] CORONARY 08/27/2016 STARLA GARDNER MD Ot Z79.899 OTHER CUSTODIAL (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 THERAPY 08/27/2016 STARLA GARDNER MD [...] MD Ot I25.10 ATHSCL HEART DISEASE OF [place] CORONARY 10/21/2016 STARLA GARDNER MD Ot Z79.899 OTHER PREMIUM REPRESENTATIVE (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 THERAPY 10/21/2016 STARLA GARDNER MD [...] MD Ot I25.10 ATHSCL HEART DISEASE OF [place] CORONARY 11/20/2016 MONY CLEMENTS MD Ot I35.0 NONRHEUMATIC AORTIC (VALVE) STENOSIS 11/20/2016 MONY CLEMENTS MD Ot E78.0 PURE HYPERCHOLESTEROLEMIA 11/20/2016 MONY CLEMENTS MD Ot I10 ESSENTIAL (PRIMARY) HYPERTENSION 11/20/2016 MONY CLEMENTS MD Ot I25.10 ATHSCL HEART DISEASE OF [place] CORONARY 11/20/2016 MONY CLEMENTS MD Ot 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 MITRAL (VALVE) INSUFFICIENC 11/20/2016 MONY CLEMENTS MD Ot I35.0 NONRHEUMATIC AORTIC (VALVE) STENOSIS 11/20/2016 LUIS ANGEL CHACKO Ot 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 11/20/2016 LUIS ANGEL CHACKOP Ot D64.9 ANEMIA, UNSPECIFIED 11/20/2016 LUIS ANGEL CHACKOP Ot E78.5 HYPERLIPIDEMIA, UNSPECIFIED 11/20/2016 LUIS ANGEL CHACKO SENIOR ELECTRICAL CONTROLS ENGINEER Ot I10 ESSENTIAL (PRIMARY) HYPERTENSION 11/20/2016 LUIS ANGEL CHACKO SENIOR ELECTRICAL CONTROLS ENGINEER Ot I25.10 ATHSCL HEART DISEASE OF [place] CORONARY 11/20/2016 HERMAN CHACKOPAGE Arlet SENIOR ELECTRICAL CONTROLS ENGINEER Ot Z79.899 OTHER PREMIUM REPRESENTATIVE (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 THERAPY 11/20/2016 HERMAN CHACKOPAGE Arlet SENIOR ELECTRICAL CONTROLS ENGINEER Ot 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 NICOTINE DEPENDENCE 11/20/2016 STARLA GARDNER MD Ot 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 11/20/2016 STARLA GARDNER MD Ot D64.9 ANEMIA, UNSPECIFIED 11/20/2016 STARAL GARDNER MD Ot E78.5 HYPERLIPIDEMIA, UNSPECIFIED 11/20/2016 STARLA GARDNER MD Ot I10 ESSENTIAL (PRIMARY) HYPERTENSION 11/20/2016 STARLA GARDNER MD Ot I25.10 ATHSCL HEART DISEASE OF [place] CORONARY 11/20/2016 STARLA GARDNER MD Ot Z79.899 OTHER PREMIUM REPRESENTATIVE (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 THERAPY 11/20/2016 STARLA GARDNER MD Ot 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 NICOTINE DEPENDENCE 11/21/2016 STARLA GARDNER MD Ot 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 11/21/2016 STARLA GARDNER MD Ot D64.9 ANEMIA, UNSPECIFIED 11/21/2016 STARLA GARDNER MD Ot E78.5 HYPERLIPIDEMIA, UNSPECIFIED 11/21/2016 STARLA GARDNER MD Ot I10 ESSENTIAL (PRIMARY) HYPERTENSION 11/21/2016 STARLA GARDNER MD Ot I25.10 ATHSCL HEART DISEASE OF [place] CORONARY 11/21/2016 STARLA GARDNER MD Ot Z79.899 OTHER CUSTODIAL (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 THERAPY 11/21/2016 STARLA GARDNER MD Ot 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 NICOTINE DEPENDENCE 11/23/2016 STARLA GARDNER MD Ot 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 11/23/2016 STARLA GARDNER MD Ot D64.9 ANEMIA, UNSPECIFIED 11/23/2016 STARLA GARDNER MD Ot E78.5 HYPERLIPIDEMIA, UNSPECIFIED 11/23/2016 STARLA GARDNER MD Ot I10 ESSENTIAL (PRIMARY) HYPERTENSION 11/23/2016 STARLA GARDNER MD Ot I25.10 ATHSCL HEART DISEASE OF [place] CORONARY 11/23/2016 STARLA GARDNER MD Ot Z79.899 OTHER CUSTODIAL (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 THERAPY 11/23/2016 STARLA GARDNER MD Ot 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 NICOTINE DEPENDENCE 11/23/2016 STARLA GARDNER MD Ot 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 11/23/2016 STARLA GARDNER MD Ot D64.9 ANEMIA, UNSPECIFIED 11/23/2016 STARLA GARDNER MD Ot E78.5 HYPERLIPIDEMIA, UNSPECIFIED 11/23/2016 STARLA GARDNER MD Ot I10 ESSENTIAL (PRIMARY) HYPERTENSION 11/23/2016 STARLA GARDNER MD Ot I25.10 ATHSCL HEART DISEASE OF [place] CORONARY 11/23/2016 STARLA GARDNER MD Ot Z79.899 OTHER PREMIUM REPRESENTATIVE (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 THERAPY 11/23/2016 STARLA GARDNER MD Ot 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 NICOTINE DEPENDENCE 11/23/2016 STARLA GARDNER MD Ot 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 11/23/2016 STARLA GARDNER MD Ot D64.9 ANEMIA, UNSPECIFIED 11/23/2016 STARLA GARDNER MD Ot E78.5 HYPERLIPIDEMIA, UNSPECIFIED 11/23/2016 STARLA GARDNER MD Ot I10 ESSENTIAL (PRIMARY) HYPERTENSION 11/23/2016 STARLA GARDNER MD Ot I25.10 ATHSCL HEART DISEASE OF [place] CORONARY 11/23/2016 STARLA GARDNER MD Ot Z79.899 OTHER PREMIUM REPRESENTATIVE (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 THERAPY 11/23/2016 STARLA GARDNER MD Ot 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 NICOTINE DEPENDENCE 11/23/2016 STARLA GARDNER MD Ot 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 11/23/2016 STARLA GARDNER MD Ot D64.9 ANEMIA, UNSPECIFIED 11/23/2016 STARLA GARDNER MD Ot E78.5 HYPERLIPIDEMIA, UNSPECIFIED 11/23/2016 STARLA GARDNER MD Ot I10 ESSENTIAL (PRIMARY) HYPERTENSION 11/23/2016 STARLA GARDNER MD Ot I25.10 ATHSCL HEART DISEASE [place] CORONARY 11/23/2016 STARLA GARDNER MD Ot Z79.899 OTHER CUSTODIAL (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 THERAPY 11/23/2016 STARLA GARDNER MD Ot 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 NICOTINE DEPENDENCE 11/23/2016 STARLA GARDNER MD Ot 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 11/23/2016 STARLA GARDNER MD Ot D64.9 ANEMIA, UNSPECIFIED 11/23/2016 STARLA GARDNER MD Ot E78.5 HYPERLIPIDEMIA, UNSPECIFIED 11/23/2016 STARLA GARDNER MD Ot I10 ESSENTIAL (PRIMARY) HYPERTENSION 11/23/2016 STARLA GARDNER MD Ot I25.10 ATHSCL HEART DISEASE [place] CORONARY 11/23/2016 STARLA GARDNER MD Ot Z79.899 OTHER CUSTODIAL (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 THERAPY 11/23/2016 STARLA GARDNER MD Ot 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 NICOTINE DEPENDENCE 12/25/2016 STARLA GARDNER MD Ot 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 12/25/2016 STARLA GARDNER MD Ot D64.9 ANEMIA, UNSPECIFIED 12/25/2016 STARLA GARDNER MD Ot E78.5 HYPERLIPIDEMIA, UNSPECIFIED 12/25/2016 STARLA GARDNER MD Ot I10 ESSENTIAL (PRIMARY) HYPERTENSION 12/25/2016 STARLA GARDNER MD Ot I25.10 ATHSCL HEART DISEASE [place] CORONARY 12/25/2016 STARLA GARDNER MD Ot Z79.899 OTHER CUSTODIAL (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 THERAPY 12/25/2016 STARLA GARDNER MD Ot 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 NICOTINE DEPENDENCE 01/09/2017 STARLA GARDNER MD Ot 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 01/09/2017 STARLA GARDNER MD Ot D64.9 ANEMIA, UNSPECIFIED 01/09/2017 STARLA GARDNER MD Ot E78.5 HYPERLIPIDEMIA, UNSPECIFIED 01/09/2017 STARLA GARDNER MD Ot I10 ESSENTIAL (PRIMARY) HYPERTENSION 01/09/2017 STARLA GARDNER MD Ot I25.10 ATHSCL HEART DISEASE OF [place] CORONARY 01/09/2017 STARLA GARDNER MD Ot Z79.899 OTHER CUSTODIAL (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 THERAPY 01/09/2017 STARLA GARDNER MD Ot 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 NICOTINE DEPENDENCE 01/15/2017 STARLA GARDNER MD Ot 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 01/15/2017 STARLA GARDNER MD Ot D64.9 ANEMIA, UNSPECIFIED 01/15/2017 STARLA GARDNER MD Ot E78.5 HYPERLIPIDEMIA, UNSPECIFIED 01/15/2017 STARLA GARDNER MD Ot I10 ESSENTIAL (PRIMARY) HYPERTENSION 01/15/2017 STARLA GARDNER MD Ot I25.10 ATHSCL HEART DISEASE OF [place] CORONARY 01/15/2017 STARLA GARDNER MD Ot Z79.899 OTHER CUSTODIAL (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 THERAPY 01/15/2017 STARLA GARDNER MD Ot 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 NICOTINE DEPENDENCE 01/15/2017 STARLA GARDNER MD Ot 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 01/15/2017 STARLA GARDNER MD Ot D64.9 ANEMIA, UNSPECIFIED 01/15/2017 STARLA GARDNER MD Ot E78.5 HYPERLIPIDEMIA, UNSPECIFIED 01/15/2017 STARLA GARDNER MD Ot I10 ESSENTIAL (PRIMARY) HYPERTENSION 01/15/2017 STARLA GARDNER MD Ot I25.10 ATHSCL HEART DISEASE OF [place] CORONARY 01/15/2017 STARLA GARDNER MD Ot Z79.899 OTHER PREMIUM REPRESENTATIVE (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 THERAPY 01/15/2017 STARLA GARDNER MD Ot 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 NICOTINE DEPENDENCE 01/15/2017 STARLA GARDNER MD Ot 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 01/15/2017 STARLA GARDNER MD Ot D64.9 ANEMIA, UNSPECIFIED 01/15/2017 STARLA GARDNER MD Ot E78.5 HYPERLIPIDEMIA, UNSPECIFIED 01/15/2017 STARLA GARDNER MD Ot I10 ESSENTIAL (PRIMARY) HYPERTENSION 01/15/2017 STARLA GARDNER MD Ot I25.10 ATHSCL HEART DISEASE OF [place] CORONARY 01/15/2017 STARLA GARDNER MD Ot Z79.899 OTHER CUSTODIAL (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 THERAPY 01/15/2017 STARLA GARDNER MD [...] MD Ot I25.10 ATHSCL HEART DISEASE OF [place] CORONARY 01/15/2017 STARLA GARDNER MD Ot Z79.899 OTHER CUSTODIAL (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 THERAPY 01/15/2017 STARLA GARDNER MD Ot 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 NICOTINE DEPENDENCE 01/16/2017 SAGE JONES, TOMMY Shafer Ot J44.9 CHRONIC OBSTRUCTIVE PULMONARY DISEASE, U 01/16/2017 STARLA GARDNER MD Ot 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 01/16/2017 STARLA GARDNER MD Ot D64.9 ANEMIA, UNSPECIFIED 01/16/2017 STARLA GARDNER MD Ot E78.5 HYPERLIPIDEMIA, UNSPECIFIED 01/16/2017 STARLA GARDNER MD Ot I10 ESSENTIAL (PRIMARY) HYPERTENSION 01/16/2017 STALRA GARDNER MD Ot I25.10 ATHSCL HEART DISEASE OF [place] CORONARY 01/16/2017 STARLA GARDNER MD Ot Z79.899 OTHER PREMIUM REPRESENTATIVE (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 THERAPY 01/16/2017 STARLA GARDNER MD Ot 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 NICOTINE DEPENDENCE 01/16/2017 STARLA GARDNER MD Ot 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 01/16/2017 STARLA GARDNER MD Ot D64.9 ANEMIA, UNSPECIFIED 01/16/2017 STARLA GARDNER MD Ot E78.5 HYPERLIPIDEMIA, UNSPECIFIED 01/16/2017 STARLA GARDNER MD Ot I10 ESSENTIAL (PRIMARY) HYPERTENSION 01/16/2017 STARLA GARDNER MD Ot I25.10 ATHSCL HEART DISEASE OF [place] CORONARY 01/16/2017 STARLA GARDNER MD Ot Z79.899 OTHER CUSTODIAL (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 THERAPY 01/16/2017 STARLA GARDNER MD Ot 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 NICOTINE DEPENDENCE 01/16/2017 STARLA GARDNER MD Ot 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 01/16/2017 STARLA GARDNER MD Ot D64.9 ANEMIA, UNSPECIFIED 01/16/2017 STARLA GARDNER MD Ot E78.5 HYPERLIPIDEMIA, UNSPECIFIED 01/16/2017 STARLA GARDNER MD Ot I10 ESSENTIAL (PRIMARY) HYPERTENSION 01/16/2017 STARLA GARDNER MD Ot I25.10 ATHSCL HEART DISEASE OF [place] CORONARY 01/16/2017 STARLA GARDNER MD Ot Z79.899 OTHER CUSTODIAL (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 THERAPY 01/16/2017 STARLA GARDNER MD Ot 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 NICOTINE DEPENDENCE 01/17/2017 STARLA GARDNER MD Ot 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 01/17/2017 STARLA GARDNER MD Ot D64.9 ANEMIA, UNSPECIFIED 01/17/2017 STARLA GARDNER MD Ot E78.5 HYPERLIPIDEMIA, UNSPECIFIED 01/17/2017 STARLA GARDNER MD Ot I10 ESSENTIAL (PRIMARY) HYPERTENSION 01/17/2017 STARLA GARDNER MD Ot I25.10 ATHSCL HEART DISEASE OF [place] CORONARY 01/17/2017 STARLA GARDNER MD Ot Z79.899 OTHER PREMIUM REPRESENTATIVE (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 THERAPY 01/17/2017 STARLA GARDNER MD Ot 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 NICOTINE DEPENDENCE 01/17/2017 STARLA GARDNER MD Ot 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 01/17/2017 STARLA GARDNER MD Ot D64.9 ANEMIA, UNSPECIFIED 01/17/2017 STARLA GARDNER MD Ot E78.5 HYPERLIPIDEMIA, UNSPECIFIED 01/17/2017 STARLA GARDNER MD Ot I10 ESSENTIAL (PRIMARY) HYPERTENSION 01/17/2017 STARLA GARDNER MD Ot I25.10 ATHSCL HEART DISEASE OF [place] CORONARY 01/17/2017 STARLA GARDNER MD Ot Z79.899 OTHER CUSTODIAL (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 THERAPY 01/17/2017 STARLA GARDNER MD Ot 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 NICOTINE DEPENDENCE 02/18/2017 STARLA GARDNER MD Ot 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 02/18/2017 STARLA GARDNER MD, Ot D64.9 ANEMIA, UNSPECIFIED 02/18/2017 STARLA GARDNER MD Ot E78.5 HYPERLIPIDEMIA, UNSPECIFIED 02/18/2017 STARLA GARDNER MD Ot I10 ESSENTIAL (PRIMARY) HYPERTENSION 02/18/2017 STARLA GARDNER MD Ot I25.10 ATHSCL HEART DISEASE OF [place] CORONARY 02/18/2017 STARLA GARDNER MD Ot Z79.899 OTHER CUSTODIAL (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 THERAPY 02/18/2017 STARLA GARDNER MD Ot 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 NICOTINE DEPENDENCE 03/12/2017 ANGELINA GARCIAS MD Ot 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 03/12/2017 ANGELINA GARCIAS MD Ot D64.9 ANEMIA, UNSPECIFIED 03/12/2017 ANGELINA GARCIAS MD Ot E78.5 HYPERLIPIDEMIA, UNSPECIFIED 03/12/2017 ANGELINA GARCIAS MD Ot I10 ESSENTIAL (PRIMARY) HYPERTENSION 03/12/2017 ANGELINA GARCIAS MD Ot I25.10 ATHSCL HEART DISEASE OF [place] CORONARY 03/12/2017 ANGELINA GARCIAS MD, Ot Z79.899 OTHER PREMIUM REPRESENTATIVE (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 THERAPY 03/12/2017 ANGELINA GARCIAS MD, Ot 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 NICOTINE DEPENDENCE 03/16/2017 ANGELINA GARCIAS MD Ot 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 03/16/2017 ANGELINA GARCIAS MD, Ot D64.9 ANEMIA, UNSPECIFIED 03/16/2017 ANGELINA GARCIAS MD, Ot E78.5 HYPERLIPIDEMIA, UNSPECIFIED 03/16/2017 ANGELINA GARCIAS MD Ot I10 ESSENTIAL (PRIMARY) HYPERTENSION 03/16/2017 ANGELINA GARCIAS MD, Ot I25.10 ATHSCL HEART DISEASE OF [place] CORONARY 03/16/2017 ANGELINA GARCIAS MD, Ot Z79.899 OTHER PREMIUM REPRESENTATIVE (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 THERAPY 03/16/2017 ANGELINA GARCIAS MD, [...] MD, Ot I25.10 ATHSCL HEART DISEASE OF [place] CORONARY 04/04/2017 ANGELINA GARCIAS MD, Ot Z79.899 OTHER CUSTODIAL (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 THERAPY 04/04/2017 ANGELINA GARCIAS MD, [...] MD Ot I25.10 ATHSCL HEART DISEASE OF [place] CORONARY 06/24/2017 DRISS WILSON MD, Ot K57.30 DVRTCLOS OF LG INT W/O PERFORATION OR AB 06/24/2017 DRISS WILSON MD, Ot K64.1 SECOND DEGREE HEMORRHOIDS 06/24/2017 DRISS WILSON MD, Ot N40.0 BENIGN PROSTATIC HYPERPLASIA WITHOUT LOW 06/24/2017 DRISS WILSON MD, Ot Z79.82 CUSTODIAL (CURRENT) USE OF ASPIRIN 06/24/2017 DRISS WILSON MD Ot Z79.899 OTHER CUSTODIAL (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 THERAPY 06/24/2017 DRISS WILSON MD, [...] MD, Ot I25.10 ATHSCL HEART DISEASE OF [place] CORONARY 06/25/2017 DRISS WILSON MD, Ot K57.30 DVRTCLOS OF LG INT W/O PERFORATION OR AB 06/25/2017 DRISS WILSON MD Ot K64.1 SECOND DEGREE HEMORRHOIDS 06/25/2017 DRISS WILSON MD, Ot N40.0 BENIGN PROSTATIC HYPERPLASIA WITHOUT LOW 06/25/2017 DRISS WILSON MD, Ot Z79.82 CUSTODIAL (CURRENT) USE OF ASPIRIN 06/25/2017 DRISS WILSON MD Ot Z79.899 OTHER PREMIUM REPRESENTATIVE (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 THERAPY 06/25/2017 KIDO MD, TAKAAKI [...] MD, Ot I25.10 ATHSCL HEART DISEASE OF [place] CORONARY 06/30/2017 DRISS WILSON MD, Ot K57.30 DVRTCLOS OF LG INT W/O PERFORATION OR AB 06/30/2017 DRISS WILSON MD, Ot K64.1 SECOND DEGREE HEMORRHOIDS 06/30/2017 DRISS WILSON MD, Ot N40.0 BENIGN PROSTATIC HYPERPLASIA WITHOUT LOW 06/30/2017 DRISS WILSON MD Ot Z79.82 PREMIUM REPRESENTATIVE (CURRENT) USE OF ASPIRIN 06/30/2017 DRISS WILSON MD, Ot Z79.899 OTHER CUSTODIAL (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 THERAPY 06/30/2017 DRISS WILSON MD, [...] MD, Ot I25.10 ATHSCL HEART DISEASE OF [place] CORONARY 09/23/2017 CAESAR PASCUAL MD Ot 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 MITRAL (VALVE) INSUFFICIENC 09/23/2017 CAESAR PASCUAL MD Ot 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 09/23/2017 CAESAR PASCUAL MD, Ot Z48.812 ENCNTR FOR SURGICAL AFTCR FOLLOWING SURG 09/23/2017 CAESAR PASCUAL MD, Ot Z79.899 OTHER CUSTODIAL (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 THERAPY 09/23/2017 CAESAR PASCUAL MD, [...] MD Ot I25.10 ATHSCL HEART DISEASE OF [place] CORONARY 10/28/2017 ANGELINA GARCIAS MD, Ot Z79.899 OTHER CUSTODIAL (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 THERAPY 10/28/2017 ANGELINA GARCIAS MD Ot 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 NICOTINE DEPENDENCE 12/30/2017 ANGELINA GARCIAS MD Ot 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 12/30/2017 ANGELINA GARCIAS MD Ot D64.9 ANEMIA, UNSPECIFIED 12/30/2017 ANGELINA GARCIAS MD Ot E78.5 HYPERLIPIDEMIA, UNSPECIFIED 12/30/2017 ANGELINA GARCIAS MD Ot I10 ESSENTIAL (PRIMARY) HYPERTENSION 12/30/2017 ANGELINA GARCIAS MD Ot I25.10 ATHSCL HEART DISEASE OF [place] CORONARY 12/30/2017 ANGELINA GARCIAS MD Ot Z79.899 OTHER CUSTODIAL (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 THERAPY 12/30/2017 ANGELINA GARCIAS MD Ot 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 NICOTINE DEPENDENCE 12/31/2017 ANGELINA GARCIAS MD Ot 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 12/31/2017 ANGELINA GARCIAS MD Ot D64.9 ANEMIA, UNSPECIFIED 12/31/2017 ANGELINA GARCIAS MD Ot E78.5 HYPERLIPIDEMIA, UNSPECIFIED 12/31/2017 ANGELINA GARCIAS MD Ot I10 ESSENTIAL (PRIMARY) HYPERTENSION 12/31/2017 ANGELINA GARCIAS MD Ot I25.10 ATHSCL HEART DISEASE OF [place] CORONARY 12/31/2017 ANGELINA GARCIAS MD Ot Z79.899 OTHER PREMIUM REPRESENTATIVE (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 THERAPY 12/31/2017 ANGELINA GARCIAS MD Ot 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 NICOTINE DEPENDENCE 01/01/2018 ANGELINA GARCIAS MD Ot 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 01/01/2018 ANGELINA GARCIAS MD Ot D64.9 ANEMIA, UNSPECIFIED 01/01/2018 ANGELINA GARCIAS MD Ot E78.5 HYPERLIPIDEMIA, UNSPECIFIED 01/01/2018 ANGELINA GARCIAS MD Ot I10 ESSENTIAL (PRIMARY) HYPERTENSION 01/01/2018 ANGELINA GARCIAS MD Ot I25.10 ATHSCL HEART DISEASE OF [place] CORONARY 01/01/2018 ANGELINA GARCIAS MD Ot Z79.899 OTHER PREMIUM REPRESENTATIVE (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 THERAPY 01/01/2018 ANGELINA GARCIAS MD Ot 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 NICOTINE DEPENDENCE 01/26/2018 ANGELINA GARCIAS MD Ot 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 01/26/2018 ANGELINA GARCIAS MD Ot D64.9 ANEMIA, UNSPECIFIED 01/26/2018 ANGELINA GARCIAS MD Ot E78.5 HYPERLIPIDEMIA, UNSPECIFIED 01/26/2018 ANGELINA GARCIAS MD Ot I10 ESSENTIAL (PRIMARY) HYPERTENSION 01/26/2018 ANGELINA GARCIAS MD Ot I25.10 ATHSCL HEART DISEASE OF [place] CORONARY 01/26/2018 ANGELINA GARCIAS MD Ot Z79.899 OTHER PREMIUM REPRESENTATIVE (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 THERAPY 01/26/2018 ANGELINA GARCIAS MD [...] MD, Ot I25.10 ATHSCL HEART DISEASE OF [place] CORONARY 03/21/2018 ANGELINA GARCIAS MD, Ot Z79.899 OTHER PREMIUM REPRESENTATIVE (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 THERAPY 03/21/2018 ANGELINA GARCIAS MD, [...] MD Ot I25.10 ATHSCL HEART DISEASE OF [place] CORONARY 03/22/2018 MARCOS GALVAN MD R Ot [...] 03/22/2018 MARCOS GALVAN MD R Ot Z79.82 CUSTODIAL (CURRENT) USE OF ASPIRIN 03/22/2018 MARCOS GALVAN [...] R Ot I25.10 ATHSCL HEART DISEASE OF [place] CORONARY 03/26/2018 MARCOS GALVAN MD R Ot [...] DISTRESS 03/26/2018 MARCOS GALVAN MD Ot Z79.82 PREMIUM REPRESENTATIVE (CURRENT) USE OF ASPIRIN 03/26/2018 MARCOS GALVAN MD R Ot Z85.038 PERSONAL HISTORY OF MALIGNANT NEOPLASM O 03/26/2018 MARCOS GALVAN MD Ot 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 [...] R Ot I25.10 ATHSCL HEART DISEASE OF [place] CORONARY 03/26/2018 MARCOS GALVAN MD R Ot [...] 03/26/2018 MARCOS GALVAN MD R Ot Z79.82 PREMIUM REPRESENTATIVE (CURRENT) USE OF ASPIRIN 03/26/2018 MARCOS GALVAN MD R Ot Z85.038 PERSONAL HISTORY OF MALIGNANT NEOPLASM O 03/26/2018 MARCOS GALVAN MD R Ot 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 NICOTINE DEPENDENCE 03/26/2018 MARCOS GALVAN MD R Ot Z92.21 PERSONAL HISTORY OF [...] HEART DISEASE WITH HEART FA 03/26/2018 MARCOS GLAVAN MD R Ot 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 03/26/2018 MARCOS GALVAN MD R Ot I25.10 ATHSCL HEART DISEASE OF [place] CORONARY 03/26/2018 MARCOS GALVAN MD R Ot [...] DISTRESS 03/26/2018 MARCOS GALVAN MD Ot Z79.82 CUSTODIAL (CURRENT) USE OF ASPIRIN 03/26/2018 MARCOS GALVAN MD R Ot Z85.038 PERSONAL HISTORY OF MALIGNANT NEOPLASM O 03/26/2018 MARCOS GALVAN MD Ot 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 [...] MD Ot I25.10 ATHSCL HEART DISEASE OF [place] CORONARY 03/31/2018 ANGELINA GARCIAS MD Ot Z79.899 OTHER CUSTODIAL (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 THERAPY 03/31/2018 ANGELINA GARCIAS MD Ot 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 NICOTINE DEPENDENCE 04/01/2018 ANGELINA GARCIAS MD Ot 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 04/01/2018 ANGELINA GARCIAS MD Ot D64.9 ANEMIA, UNSPECIFIED 04/01/2018 ANGELINA GARCIAS MD Ot E78.5 HYPERLIPIDEMIA, UNSPECIFIED 04/01/2018 ANGELINA GARCIAS MD Ot I10 ESSENTIAL (PRIMARY) HYPERTENSION 04/01/2018 ANGELINA GARCIAS MD Ot I25.10 ATHSCL HEART DISEASE OF [place] CORONARY 04/01/2018 ANGELINA GARCIAS MD Ot Z79.899 OTHER CUSTODIAL (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 THERAPY 04/01/2018 ANGELINA GARCIAS MD Ot 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 NICOTINE DEPENDENCE 04/07/2018 LIZETH JONES, HORACIO Porras Ot D64.9 ANEMIA, UNSPECIFIED 04/07/2018 HORACIO TSANLEY MD E Ot E78.2 MIXED HYPERLIPIDEMIA 04/07/2018 HORACIO STANLEY MD E Ot G47.00 INSOMNIA, UNSPECIFIED 04/07/2018 HORACIO STANLEY MD Ot I10 ESSENTIAL (PRIMARY) HYPERTENSION 04/07/2018 HORACIO STANLEY MD Ot I25.10 ATHSCL HEART DISEASE OF [place] CORONARY 04/07/2018 HORACIO STANLEY MD Ot I25.810 [...] CORONARY ANGIOPLASTY IMPLANT 04/07/2018 HORACIO STANLEY MD E Ot Z99.81 DEPENDENCE ON SUPPLEMENTAL OXYGEN 04/26/2018 JARRETT PAN WELDER SETTER [employer] MACHINE Ot E66.9 OBESITY, UNSPECIFIED 04/26/2018 JARRETT PAN WELDER SETTER [employer]ACHINE Ot J90 PLEURAL EFFUSION, NOT ELSEWHERE CLASSIFI 04/26/2018 JARRETT PAN WELDER SETTER [employer]ACHINE Ot J98.4 OTHER DISORDERS OF LUNG 04/26/2018 JARRETT PAN WELDER SETTER [employer]ACHINE Ot R06.02 SHORTNESS OF BREATH 04/26/2018 JARRETT PAN WELDER SETTER [employer]ACHINE Ot 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 NICOTINE DEPENDENCE 04/28/2018 JARRETT PAN 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 [employer]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 Ot E66.9 OBESITY, UNSPECIFIED 04/28/2018 JARRETT PAN 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 [employer]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 Ot J90 PLEURAL EFFUSION, NOT ELSEWHERE CLASSIFI 04/28/2018 JARRETT PAN 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 [employer] 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 Ot J98.4 OTHER DISORDERS OF LUNG 04/28/2018 JARRETT PAN WELDER SETTER [employer]ACHINE Ot R06.02 SHORTNESS OF BREATH 04/28/2018 JARRETT PAN 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 [employer]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 Ot 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 NICOTINE DEPENDENCE 05/13/2018 JARRETT PAN WELDER 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 [employer] 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 Ot E66.9 OBESITY, UNSPECIFIED 05/13/2018 JARRETT PAN WELDER SETTER [employer] 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 Ot J90 PLEURAL EFFUSION, NOT ELSEWHERE CLASSIFI 05/13/2018 JRARETT PAN WELDER SETTER [employer] MACHINE Ot J98.4 OTHER DISORDERS OF LUNG 05/13/2018 MAXIM JARRETT Porras APRN Ot R06.02 SHORTNESS OF BREATH 05/13/2018 MAXIM JARRETT Porras APRN Ot 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 NICOTINE DEPENDENCE Procedures Code Description Performed By Performed On [id number] RESECTION OF RIGHT LARGE INTESTINE, PERC 11/08/2015 [id number] RESECTION OF GALLBLADDER, PERCUTANEOUS E 11/08/2015 [id number] FLUOROSCOPY OF MULT COR ART USING L OSM 03/22/2018 [id number] FLUOROSCOPY OF SING COR A GRAFT USING L 03/22/2018 [id number] FLUOROSCOPY OF L INT MAMM GRAFT USING [...] NRG Blood erythrocyte morphology finding identification NORMAL NR Manual blood nucleated erythrocytes/100 leukocytes ratio 1 [...] NRG Measurement of body temperature 96.7 NRG PT panel in platelet poor plasma by coagulation assay - 04/28/18 07:10 Prothrombin time (PT) in platelet poor plasma by coagulation assay 14.3 s 12.2-14.7 INR in platelet poor plasma or blood by coagulation assay 1.1 0.8-1.4 Activated partial thromboplastin time (aPTT) in platelet poor plasma bycoagulation assay - 04/28/18 07:10 Activated partial thromboplastin time (aPTT) in platelet poor plasma bycoagulation assay 29 s 24-35 Automated blood complete blood count (hemogram) panel - 04/28/18 07:10 Blood leukocytes automated count (number/volume) 9.4 10*3/uL 4.3-11.0 Blood erythrocytes automated count (number/volume) 3.56 10*6/uL 4.35-5.85 Venous blood hemoglobin measurement (mass/volume) 10.9 g/dL 13.3-17.7 Blood hematocrit (volume fraction) 34 % 40-54 Automated erythrocyte mean corpuscular volume 95 [foz_us] 80-99 Automated erythrocyte mean corpuscular hemoglobin (mass per erythrocyte) 31 pg 25-34 Automated erythrocyte mean corpuscular hemoglobin concentration measurement ( mass/volume) 32 g/dL 32-36 Automated erythrocyte distribution width ratio 16.3 % 10.0-14.5 Automated blood platelet count (count/volume) 254 10*3/uL 130-400 Automated blood platelet mean volume measurement 10.5 [foz_us] 7.4-10.4 Comprehensive metabolic panel - 04/28/18 07:10 Serum or plasma sodium measurement (moles/volume) 139 mmol/L 135-145 Serum or plasma potassium measurement (moles/volume) 3.9 mmol/L 3.6-5.0 Serum or plasma chloride measurement (moles/volume) 104 mmol/L 98-107 Carbon dioxide 21 mmol/L 21-32 Serum or plasma anion gap determination (moles/volume) 14 mmol/L 5-14 Serum or plasma urea nitrogen measurement (mass/volume) 59 mg/dL 7-18 Serum or plasma creatinine measurement (mass/volume) 1.70 mg/dL 0.60-1.30 Serum or plasma urea nitrogen/creatinine mass ratio 35 NRG Serum or plasma creatinine measurement with calculation of estimated glomerular filtration rate 38 NRG Serum or plasma glucose measurement (mass/volume) 113 mg/dL 70-105 Serum or plasma calcium measurement (mass/volume) 9.6 mg/dL 8.5-10.1 Serum or plasma total bilirubin measurement (mass/volume) 1.4 mg/dL 0.1-1.0 Serum or plasma alkaline phosphatase measurement (enzymatic activity/volume) 66 U/L 40-136 Serum or plasma aspartate aminotransferase measurement (enzymatic activity/ volume) 25 U/L 5-34 Serum or plasma alanine aminotransferase measurement (enzymatic activity/volume ) 33 U/L 0-55 Serum or plasma protein measurement (mass/volume) 7.1 g/dL 6.4-8.2 Serum or plasma albumin measurement (mass/volume) 4.2 g/dL 3.2-4.5 CALCIUM CORRECTED 9.4 mg/dL 8.5-10.1 Lipid 1996 panel - 04/28/18 07:10 Serum or plasma triglyceride measurement (mass/volume) 96 mg/dL <150 Serum or plasma cholesterol measurement (mass/volume) 122 mg/dL < 200 Serum or plasma cholesterol in HDL measurement (mass/volume) 40 mg/ dL 40-60 Cholesterol in LDL [mass/volume] in serum or plasma by direct assay 69 mg/dL 1-129 Serum or plasma cholesterol in VLDL measurement (mass/volume) 19 mg/ dL 5-40 Methicillin resistant Staphylococcus aureus (MRSA) screening culture - 07:10 Methicillin resistant Staphylococcus aureus (MRSA) screening culture NEG NRG Encounters ACCT No. Visit Date/Time Discharge Status Pt. Type Provider Facility Loc./Unit Complaint [id number] 04/28/2018 06:51:00 04/28/2018 13:23:00 DIS Outpatient TYREE JONES, MONY Sloan [facility] CATH CAD,DYSPNEA [id number] 04/26/2018 09:30:00 04/26/2018 23:59:59 CLS Preadmit JARRETT PAN WELDER [employer]TER [employer] [facility] PULM SOB [id number] 04/22/2018 08:44:00 04/22/2018 23:59:59 CLS Outpatient JARRETT PAN WELDER SETTER [employer] [facility] RT SOA [id number] 04/20/2018 10:09:00 04/20/2018 23:59:59 CLS Preadmit JARRETT PAN WELDER [employer]TER [employer] [facility] RT SOB [id number] 04/02/2018 17:28:00 04/07/2018 10:15:00 DIS Inpatient HORACIO STANLEY MD [facility] IRF COPD MYOPATHY [id number] 04/01/2018 00:08:00 04/01/2018 23:59:59 CLS Preadmit ANGELINA GARCIAS MD [facility] ONC [id number] 12/31/2017 08:15:00 03/31/2018 00:01:00 DIS Outpatient ANGELINA GARCISA MD [facility] ONC [id number] 03/22/2018 09:54:00 03/22/2018 14:40:00 DIS Inpatient COLE JONES, MARCOS R [facility] 4TH SOB/CHF [id number] 12/29/2017 08:17:00 12/30/2017 00:01:00 DIS Outpatient ANGELINA GARCIAS MD [facility] ONC [id number] 06/24/2017 08:47:00 06/24/2017 11:45:00 DIS Outpatient DRISS WILSON MD [facility] ENDO HX OF COLON CA/+OCCULT STOOL/LOW HGB [id number] 06/18/2017 12:42:00 06/18/2017 12:57:00 DIS Outpatient DRISS WILSON MD [facility] PREOP COLONOSCOPY [id number] 03/26/2017 09:03:00 04/04/2017 00:01:00 DIS Outpatient ANGELINA GARCIAS MD [facility] ONC [id number] 03/13/2017 10:40:00 03/13/2017 23:59:59 CLS Outpatient STARLA GARDNER MD [facility] RAD C18.0 [id number] 11/20/2016 08:44:00 02/18/2017 00:01:00 DIS Outpatient STARLA GARDNER MD [facility] ONC [id number] 07/31/2016 09:16:00 10/21/2016 00:01:00 DIS Outpatient STARLA GARDNER MD [facility] ONC [id number] 08/20/2016 08:11:00 08/20/2016 23:59:59 CLS Outpatient TOMMY CAZARES MD [facility] RT COPD [id number] 08/06/2016 16:20:00 08/06/2016 23:59:59 CLS Outpatient TOMMY CAZARES MD [facility] RAD COUGH [id number] 07/30/2016 07:34:00 07/30/2016 13:02:00 DIS Outpatient CAESAR PASCUAL MD [facility] CATH CAD,CABG [id number] 07/16/2016 10:00:00 07/16/2016 23:59:59 CLS Outpatient STARLA GARDNER MD [facility] RAD ADENOCARCINOMA OF CECUM [id number] 06/10/2016 08:51:00 07/07/2016 00:01:00 DIS Outpatient STARLA GARDNER MD [facility] ONC [id number] 03/12/2016 09:07:00 03/31/2016 00:01:00 DIS Outpatient STARLA GARDNER MD [facility] ONC [id number] 01/08/2016 14:08:00 01/08/2016 23:59:59 CLS Outpatient RICCO LUIS ANGEL Arlet STANFORD [facility] ONC [id number] 12/10/2015 13:09:00 12/17/2015 00:01:00 DIS Outpatient STARLA GARDNER MD [facility] ONC [id number] 11/08/2015 09:25:00 11/20/2015 13:50:00 DIS Inpatient DRISS WILSON MD [facility] 4TH COLON CANCER; GALLSTONES [id number] 11/06/2015 11:47:00 11/06/2015 12:32:00 DIS Outpatient DRISS WILSON MD [facility] PREOP COLON CANCER; GALLSTONES [id number] 11/02/2015 07:40:00 11/02/2015 23:59:59 CLS Outpatient MONY CLEMENTS MD [facility] CARD AORTIC VALVE STENOSIS, ESSENTIAL HTN,MR [id number] 10/31/2015 06:42:00 10/31/2015 14:00:00 DIS Outpatient MONY CLEMENTS MD [facility] CARD AVS,MR,TR [id number] 10/30/2015 15:09:00 10/30/2015 23:59:59 CLS Outpatient MONY CLEMENTS MD [facility] LAB AV STENOSIS,CAD,MR,TR [id number] 10/10/2015 08:06:00 10/10/2015 11:30:00 DIS Outpatient DRISS WILSON MD [facility] SDC ANEMIA; OCCULT BLOOD IN STOOL [id number] 10/04/2015 13:30:00 10/04/2015 23:59:59 CLS Outpatient STEVE JONES, DRISS [facility] PREOP ANEMIA; OCCULT BLOOD IN STOOL [id number] 09/26/2015 09:44:00 09/26/2015 23:59:59 CLS Outpatient STARLA GARDNER MD [facility] RAD HISTORY OF CIGARETTE SMOKING,HERNIA [id number] 09/30/2014 21:26:00 10/01/2014 00:13:00 DIS Emergency IRVING JONES, PRIYA Chadwick [facility] ER NAUSEA DIZZY [id number] 01/19/2013 08:07:00 01/19/2013 23:59:59 CLS Outpatient MARCOS GALVAN MD [facility] RAD SPINAL STENOSIS [id number] 05/18/2018 13:57:00 ACT Outpatient MARCOS GALVAN MD [facility] RAD PERSISTENT DYSPNEA, ABDOMINAL PAIN [id number] 09/15/2014 08:46:00 Document Registration [id number] 09/14/2014 08:36:00 Document Registration [id number] 12/03/2010 09:38:00 Document Registration [id number] 11/12/2010 06:58:00 Document Registration [id number] 10/31/2010 07:59:00 Document Registration
[2018-05-20] MEDS ORDERED: NS IV 1000 ML 1,000 ML IV ONE (08:36)
[2018-05-20 08:45] LABS: BASOPHILS % (AUTO) 0 % (0-10); EOSINOPHILS % (AUTO) 1 % (0-10); HEMATOCRIT 34 % (40-54); HEMOGLOBIN 10.5 G/DL (13.3-17.7); LYMPHOCYTES # (AUTO) 0.7 X 10^3 (1.0-4.0); LYMPHOCYTES % (AUTO) 8 % (12-44); MEAN CORPUSCULAR HEMOGLOBIN 31 PG (25-34); MEAN CORPUSCULAR HGB CONC 31 G/DL (32-36); MEAN CORPUSCULAR VOLUME 99 FL (80-99); MEAN PLATELET VOLUME 11.8 FL (7.4-10.4); MONOCYTES # (AUTO) 0.8 X 10^3 (0.0-1.0); MONOCYTES % (AUTO) 9 % (0-12); NEUTROPHILS # (AUTO) 6.7 X 10^3 (1.8-7.8); NEUTROPHILS % (AUTO) 82 % (42-75); PLATELET COUNT 262 10^3/uL (130-400); RED BLOOD COUNT 3.41 10^6/uL (4.35-5.85); RED CELL DISTRIBUTION WIDTH 17.4 % (10.0-14.5); WHITE BLOOD COUNT 8.2 10^3/uL (4.3-11.0)
--- NOTE | 2018-05-20 08:59 | ED Fall/Injury ---
General Chief Complaint: Trauma-Non Activation Stated Complaint: FALL Source: patient Exam Limitations: no limitations History of Present Illness Date Seen by Provider: May 20, 2018 Time Seen by Provider: 08:33 Initial Comments Here with report of fall overnight. He is unsure why he fell. He is unsure if he hit his head but states he did not lose consciousness. Overall feels weak. Denies any specific pain but states that he is cold.. Short of breath and states that he normally is but this may be a little worse than typical. Denies chest pain or nausea or vomiting. Denies diarrhea. Occurred: this morning Severity: moderate Injuries/Pain Location: no injury Context: unknown Loss of Consciousness: no loss of consciousness Modifying Factors: Improves With Rest Associated Symptoms (Fall): No Abdominal Pain, No Chest Pain; Confusion; No Dizziness, No Headache; Lightheadedness; No Nausea/Vomiting, No Neck Pain; Shortness of Air, Trouble Walking Allergies and Home Medications Allergies Coded Allergies: No Known Drug Allergies (Verified , 03/21/18) Home Medications Amlodipine Besylate 5 Mg Tablet, 5 MG PO DAILY, (Reported) Aspirin 81 Mg Tablet.dr, 81 MG PO DAILY, (Reported) Clopidogrel Bisulfate 75 Mg Tablet, 75 MG PO DAILY, (Reported) Cyclosporine 1 Each Droperette, 1 DROP OU DAILY, (Reported) Furosemide 80 Mg Tablet, 80 MG PO BID, (Reported) Metoprolol Succinate 25 Mg Tab.er.24h, 25 MG PO DAILY, (Reported) Multivitamins with Iron 1 Each Tablet, 1 TAB PO DAILY, (Reported) Potassium Chloride 10 Meq Tab.er.prt, 10 MEQ PO DAILY, (Reported) Prednisone 20 Mg Tab, 20 MG PO DAILY, (Reported) Take 3 tabs(60mg)daily, decrease by 1/2 tab(10mg)daily. Simvastatin 20 Mg Tablet, 20 MG PO DAILY, (Reported) Tamsulosin HCl 0.4 Mg Cap.er.24h, 0.4 MG PO 1730, (Reported) Vit A/Vit C/Vit E/Zinc/Copper 1 Each Tablet, 1 TAB PO DAILY, (Reported) Zolpidem Tartrate 5 Mg Tablet, 5 MG PO HS, (Reported) Patient Home Medication List Home Medication List Reviewed: Yes Review of Systems Review of Systems Constitutional: see HPI; No chills, No fever Eyes: No Symptoms Reported Ears, Nose, Mouth, Throat: no symptoms reported Respiratory: see HPI, dyspnea on exertion, short of breath; No wheezing Cardiovascular: No chest pain; edema Gastrointestinal: No abdominal pain, No nausea, No vomiting Genitourinary: no symptoms reported Musculoskeletal: no symptoms reported Skin: no symptoms reported Psychiatric/Neurological: See HPI; Denies Headache; Weakness All Other Systems Reviewed Negative Unless Noted: Yes Past Rhruxjl-Rrmqad-Ywvhxr Hx Past Med/Social Hx: Reviewed Nursing Past Med/Soc Hx Patient Social History Alcohol Use: Occasionally Uses Alcohol Beverage of Choice: Beer, Whiskey, Wine Recreational Drug Use: No Smoking Status: Former Smoker Type Used: Cigarettes Former Smoker, Quit: Apr 28, 1988 Recent Hopitalizations: No Immunizations Up To Date Date of Pneumonia Vaccine: Sep 15, 2012 Date of Influenza Vaccine: Mar 20, 2017 Seasonal Allergies Seasonal Allergies: Yes Past Medical History Surgeries: Yes (hiatal hernia, lap right hemicolectomy, hemorrhoidectomy) CABG, Gallbladder, Prostatectomy, Valve Replacement Respiratory: No Cardiac: Yes Coronary Artery Disease, High Cholesterol, Hypertension, Valvular Heart Disease Neurological: No Reproductive Disorders: No Gastrointestinal: Yes Gastroesophageal Reflux, Diverticulosis, Polyps Musculoskeletal: Yes (HERNIATED DISC) Chronic Back Pain Endocrine: No Loss of Vision: Denies Hearing Impairment: Denies Cancer: Yes (COLON CANCER) Colon Psychosocial: No Integumentary: No Blood Disorders: Yes (anemia) Family Medical History Reviewed Nursing Family Hx Cancer in sister Cancer Physical Exam Vital Signs Vital Signs - First Documented 05/20/18 09:34 O2 Flow Rate 4.00 FiO2 100 Capillary Refill : Height, Weight, BMI Height: 5'8.00" Weight: 184lbs. 0.0oz. 83.893051er; 28.0 BMI Method:Stated General Appearance: WD/WN, no apparent distress HEENT: PERRL/EOMI, pharynx normal Neck: full range of motion, supple Cardiovascular: regular rate, rhythm, no murmur Respiratory: no accessory muscle use, crackles (left face) Peripheral Pulses: 2+ Dorsalis Pedis (R), 2+ Left Dors-Pedis (L), 2+ Radial Pulses (R), 2+ Radial Pulses (L) Gastrointestinal: non tender, soft Back: normal inspection, no CVA tenderness, no vertebral tenderness Extremities: non-tender, normal inspection Neurologic/Psychiatric: alert, oriented x 3 Skin: normal color, warm/dry [place] Coma Score Best Eye Response: (4) Open Spontaneously Best Verbal Response: (5) Oriented Best Motor Response: (6) Obeys Commands Progress/Results/Core Measures Results/Orders Lab Results Laboratory Tests Test 05/20/18 08:35 05/20/18 08:57 05/20/18 10:20 Range/Units White Blood Count 8.2 4.3-11.0 10^3/uL Red Blood Count 3.41 L 4.35-5.85 10^6/uL Hemoglobin 10.5 L 13.3-17.7 G/DL Hematocrit 34 L 40-54 % Mean Corpuscular Volume 99 80-99 FL Mean Corpuscular Hemoglobin 31 25-34 PG Mean Corpuscular Hemoglobin Concent 31 L 32-36 G/DL Red Cell Distribution Width 17.4 H 10.0-14.5 % Platelet Count 262 130-400 10^3/uL Mean Platelet Volume 11.8 H 7.4-10.4 FL Neutrophils (%) (Auto) 82 H 42-75 % Lymphocytes (%) (Auto) 8 L 12-44 % Monocytes (%) (Auto) 9 0-12 % Eosinophils (%) (Auto) 1 0-10 % Basophils (%) (Auto) 0 0-10 % Neutrophils # (Auto) 6.7 1.8-7.8 X 10^3 Lymphocytes # (Auto) 0.7 L 1.0-4.0 X 10^3 Monocytes # (Auto) 0.8 0.0-1.0 X 10^3 Eosinophils # (Auto) 0.0 0.0-0.3 10^3/uL Basophils # (Auto) 0.0 0.0-0.1 10^3/uL Neutrophils % (Manual) 89 % Lymphocytes % (Manual) 5 % Monocytes % (Manual) 5 % Eosinophils % (Manual) 0 % Basophils % (Manual) 1 % Band Neutrophils 0 % Polychromasia MODERATE Anisocytosis MARKED Prothrombin Time 18.7 H 12.2-14.7 SEC INR Comment 1.6 H 0.8-1.4 Activated Partial Thromboplast Time 26 24-35 SEC Sodium Level 142 135-145 MMOL/L Potassium Level 4.8 3.6-5.0 MMOL/L Chloride Level 104 98-107 MMOL/L Carbon Dioxide Level 20 L 21-32 MMOL/L Anion Gap 18 H 5-14 MMOL/L Blood Urea Nitrogen 70 H 7-18 MG/DL Creatinine 2.24 H 0.60-1.30 MG/DL Estimat Glomerular Filtration Rate 28 BUN/Creatinine Ratio 31 Glucose Level 101 70-105 MG/DL Calcium Level 9.6 8.5-10.1 MG/DL Corrected Calcium 9.7 8.5-10.1 MG/DL Total Bilirubin 2.5 H 0.1-1.0 MG/DL Aspartate Amino Transf (AST/SGOT) 286 H 5-34 U/L Alanine Aminotransferase (ALT/SGPT) 229 H 0-55 U/L Alkaline Phosphatase 86 40-136 U/L Troponin I < 0.30 <0.30 NG/ML B-Type Natriuretic Peptide 3911.7 H <100.0 PG/ML Total Protein 6.7 6.4-8.2 GM/DL Albumin 3.9 3.2-4.5 GM/DL Lactic Acid Level 3.44 *H 0.50-2.00 MMOL/L Urine Color YELLOW Urine Clarity SLIGHTLY CLOUDY Urine pH 5 5-9 Urine Specific [place] 1.020 1.016-1.022 Urine Protein 2+ H NEGATIVE Urine Glucose (UA) NEGATIVE NEGATIVE Urine Ketones NEGATIVE NEGATIVE Urine Nitrite NEGATIVE NEGATIVE Urine Bilirubin NEGATIVE NEGATIVE Urine Urobilinogen NORMAL NORMAL MG/DL Urine Leukocyte Esterase NEGATIVE NEGATIVE Urine RBC (Auto) 4+ H NEGATIVE Urine RBC 10-25 H /HPF Urine WBC NONE /HPF Urine Squamous Epithelial Cells 2-5 /HPF Urine Crystals NONE /LPF Urine Bacteria NEGATIVE /HPF Urine Casts PRESENT /LPF Urine Hyaline Casts 5-10 H /LPF Urine Mucus NEGATIVE /LPF Urine Culture Indicated NO My Orders Orders - PRATIBHA CACERES MD Cbc With Automated Diff (05/20/18 08:36) Comprehensive Metabolic Panel (05/20/18 08:36) Blood Culture (05/20/18 08:36) Sputum Culture (05/20/18 08:36) Urinalysis (05/20/18 08:36) Urine Culture (05/20/18 08:36) Protime With Inr (05/20/18 08:36) Partial Thromboplastin Time (05/20/18 08:36) Chest 1 View, Ap/Pa Only (05/20/18 08:36) Saline Lock/Iv-Start (05/20/18 08:36) Troponin I (05/20/18 08:36) Vital Signs Adult Sepsis Patie Q15M (05/20/18 08:36) O2 (05/20/18 08:36) Remove Rings In Anticipation O (05/20/18 08:36) Lactic Acid Analyzer (05/20/18 08:36) Ns Iv 1000 Ml (Sodium Chloride 0.9%) (05/20/18 08:36) BNP (05/20/18 08:36) Ct Head Wo (05/20/18 08:51) Manual Differential (05/20/18 08:35) Furosemide Injection (Lasix Injection) (05/20/18 10:54) Creatine Kinase (05/20/18 10:54) Ekg Tracing (05/20/18 11:00) Medications Given in ED Current Medications Medications Dose Ordered Sig/Rustam Route Start Time Stop Time Status Last Admin Dose Admin Sodium Chloride 1,000 ml @ 0 mls/hr Q0M ONCE IV 05/20/18 08:36 05/20/18 08:37 DC 05/20/18 08:56 1,000 MLS/HR Vital Signs/I&O 05/20/18 05/20/18 05/20/18 08:26 08:26 09:34 Temp 95.9 95.9 Pulse 73 73 Resp 32 32 B/P (MAP) 128/49 (75) 128/49 (75) Pulse Ox 97 97 97 O2 Delivery Nasal Cannula Nasal Cannula Nasal Cannula O2 Flow Rate 4.00 FiO2 100 Progress Progress Note : Progress Note Seen and evaluated. IV, labs, chest x-ray, CT head, normal saline 1 L bolus, blood cultures and lactic acid ordered. We will also check UA due to the weakness. Monitor patient. Fluid stopped 500 mL due to concerns of heart failure. Monitor patient. 1055: BNP noted to be grossly elevated and chest x- ray indicates heart failure. Patient does have a lactic acid elevation. Chest x-ray and UA do not show any findings concerning for infection and patient is not febrile nor does he have white count elevation. I believe the lactic acid elevation is related to hypoxia secondary to heart failure and I am not pursuing sepsis treatment at this point. Oxygenation improved with the addition of O2 via nasal cannula and patient is feeling a little better. Given the heart failure, patient will need inpatient treatment. I did discuss the case with Dr. Schroeder at 1050 and he accepts patient in consult and recommends Lasix 40 mg IV which was ordered. I did discuss the case with Dr. Núñez at 1055 and she accepts patient for admission, inpatient status. She has requested total CK which was ordered. Patient is a fall but has no traumatic injury or concerns and will be admitted to the medicine service only due to heart failure findings and no injury concerns. No need for trauma consult at this point. Findings concerns discussed with patient and family who agree with plan. Initial ECG Impression Date: May 20, 2018 Initial ECG Impression Time: 11:02 Initial ECG Rate: 76 Initial ECG Rhythm: Normal Sinus Comment Sinus rhythm with left atrial abnormality. Right bundle branch block and left posterior fascicular block noted. Overall similar to previous of 04/28/18. Extreme right axis deviation noted and this is also unchanged. No evidence of ST elevation [place] interpreted by me. Diagnostic Imaging Diagonstic Imaging: Xray Plain Films/CT/US/NM/MRI: chest Comments VIA [facility], [facility]. [place], [place] NAME: CAESAR TOVAR [facility] REC#: [id number] PT STATUS: REG ER : 1930 PHYSICIAN: PRATIBHA CACERES MD ADMIT DATE: 05/20/18/ER Draft Date of Exam:05/20/18 CHEST 1 VIEW, AP/PA ONLY INDICATION: Fall. TIME OF EXAM: 09:01 a.m. Correlation is made with prior study from 04/28/2018. The heart is enlarged but stable. There are changes of median sternotomy. There is central congestive changes noted. No parenchymal consolidation is seen. No effusion or pneumothorax is identified. IMPRESSION: Cardiomegaly and central congestion. Dictated on workstation # [id number] Dict: 05/20/18919 Trans: 05/20/18922 [facility] [id number] Interpreted by: DELORIS KHAN MD Electronically signed by: Diagonstic Imaging: CT Plain Films/CT/US/NM/MRI: head Comments Draft Date of Exam:05/20/18 CT HEAD WO Clinical indication: Patient fell this morning and hit head. Exam: Axial CT scan of the brain performed without IV contrast. Comparison: Head CT without contrast dated 09/30/2014. Findings: Skull streak artifact obscures portions of the brainstem, posterior fossa, and portions of the brain near the skull base. There is no evidence of acute cerebral infarct, intracranial hemorrhage, or gross mass effect. 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 Stable chronic lacunar infarct involving the right caudate head. The brain parenchymal volume appears appropriate for patient's age. There is focal, patchy, and mildly confluent areas of low-attenuation white matter changes seen throughout both cerebral hemispheres, likely representing chronic small vessel ischemic disease. There is normal kitchen-white matter distinction. There is no significant midline shift or herniation. There is no evidence of hydrocephalus. The basal cisterns are unremarkable. The skull, extracranial soft tissue, and orbits are unremarkable. The paranasal sinuses are unremarkable. Temporal bones show no significant abnormality. Impression: 1: There is no evidence of acute intracranial process or intracranial hemorrhage. There is no skull fracture. 2: Interval development of a small chronic cerebral infarct involving the parasagittal right parietal lobe near the vertex. 3: Stable chronic ischemic changes involving both cerebral hemispheres. Dictated on workstation # [id number] Dict: 05/20/18915 Trans: 05/20/18926 [facility] [id number] Interpreted by: MACK MANNING MD Electronically signed by: Departure Communication (Admissions) Time/Spoke to Admitting Phy: 10:55 Time/Spoke to Consulting Phy: 10:50 Impression Primary Impression: Acute heart failure Qualified Codes: I50.9 - Heart failure, unspecified Disposition: 09 ADMITTED INPATIENT Condition: Stable Admissions Decision to Admit Reason: Admit from ER (General) Decision to Admit/Date: May 20, 2018 Time/Decision to Admit Time: 10:50 Departure-Patient Inst. Referrals: MARCOS GALVAN MD (PCP/Family) Primary Care Physician PRATIBHA CACERES MD May 20, 2018 08:59
[2018-05-20 09:02] LABS: INR 1.6 (0.8-1.4); PROTHROMBIN TIME PATIENT 18.7 SEC (12.2-14.7)
[2018-05-20 09:07] LABS: ALANINE AMINOTRANSFERASE 229 U/L (0-55); ALBUMIN 3.9 GM/DL (3.2-4.5); ALKALINE PHOSPHATASE 86 U/L (40-136); BILIRUBIN,TOTAL 2.5 MG/DL (0.1-1.0); BUN/CREATININE RATIO 31; CALCIUM 9.6 MG/DL (8.5-10.1); CARBON DIOXIDE 20 MMOL/L (21-32); CHLORIDE 104 MMOL/L (98-107); CREATININE SERUM 2.24 MG/DL (0.60-1.30); GFR ESTIMATED 28; GLUCOSE 101 MG/DL (70-105); POTASSIUM 4.8 MMOL/L (3.6-5.0); SODIUM 142 MMOL/L (135-145); TOTAL PROTEIN 6.7 GM/DL (6.4-8.2)
--- NOTE | 2018-05-20 09:24 | Diagnostic Imaging Report ---
INDICATION: Fall. TIME OF EXAM: 09:01 a.m. Correlation is made with prior study from 04/28/2018. The heart is enlarged but stable. There are changes of median sternotomy. There is central congestive changes noted. No parenchymal consolidation is seen. No effusion or pneumothorax is identified. IMPRESSION: Cardiomegaly and central congestion. Dictated by: Dictated on workstation # [id number]
--- NOTE | 2018-05-20 09:27 | Diagnostic Imaging Report ---
Clinical indication: Patient fell this morning and hit head. Exam: Axial CT scan of the brain performed without IV contrast. Comparison: Head CT without contrast dated 09/30/2014. Findings: Skull streak artifact obscures portions of the brainstem, posterior fossa, and portions of the brain near the skull base. There is no evidence of acute cerebral infarct, intracranial hemorrhage, or gross mass effect. 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 Stable chronic lacunar infarct involving the right caudate head. The brain parenchymal volume appears appropriate for patient's age. There is focal, patchy, and mildly confluent areas of low-attenuation white matter changes seen throughout both cerebral hemispheres, likely representing chronic small vessel ischemic disease. There is normal kitchen-white matter distinction. There is no significant midline shift or herniation. There is no evidence of hydrocephalus. The basal cisterns are unremarkable. The skull, extracranial soft tissue, and orbits are unremarkable. The paranasal sinuses are unremarkable. Temporal bones show no significant abnormality. Impression: 1: There is no evidence of acute intracranial process or intracranial hemorrhage. There is no skull fracture. 2: Interval development of a small chronic cerebral infarct involving the parasagittal right parietal lobe near the vertex. 3: Stable chronic ischemic changes involving both cerebral hemispheres. Dictated by: Dictated on workstation # [id number]
[2018-05-20 09:29] LABS: ANISOCYTOSIS MARKED; BAND NEUTROPHILS 0 %; BASOPHILS % (MANUAL) 1 %; EOSINOPHILS % (MANUAL) 0 %; LYMPHOCYTES % (MANUAL) 5 %; MONOCYTES % (MANUAL) 5 %; NEUTROPHILS % (MANUAL) 89 %; POLYCHROMASIA MODERATE
[2018-05-20 10:29] LABS: BILIRUBIN,URINE NEGATIVE (NEGATIVE); CLARITY,URINE SLIGHTLY CLOUDY; COLOR,URINE YELLOW; GLUCOSE, URINE (UA) NEGATIVE (NEGATIVE); KETONES,URINE NEGATIVE (NEGATIVE); LEUKOCYTE ESTERASE ,URINE NEGATIVE (NEGATIVE); NITRITE,URINE NEGATIVE (NEGATIVE); PH,URINE 5 (5-9); PROTEIN,URINE 2+ (NEGATIVE); UROBILINOGEN,URINE NORMAL (NORMAL)
[2018-05-20 10:46] LABS: BACTERIA,URINE NEGATIVE /HPF
[2018-05-20] MEDS ORDERED: FUROSEMIDE 40 MG/4 ML INJ (LASIX) IV STA (10:54)
--- OUTSIDE RECORDS SUMMARY | 2018-05-20 11:30 | XMS REPORT | Continuity of Care Document ---
Author Author [facility] Organization [facility] Address Unknown Phone Unavailable Allergies Active Description Code Type Severity Reaction Onset Reported/Identified Relationship to Patient Clinical Status Yes No Known Drug Allergies [id number] Drug Allergy Unknown N/A 03/21/2018 Medications There [...] MD Ot I25.10 ATHSCL HEART DISEASE OF [place] CORONARY 10/26/2015 STARLA GARDNER MD Ot Z79.899 OTHER ASSISTED (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 THERAPY 10/26/2015 STARLA GARDNER MD Ot 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 NICOTINE DEPENDENCE 10/31/2015 TYREE JONES, MONY Sloan Ot I08.3 COMB RHEUMATIC DISORD OF [place], AORTIC 10/31/2015 MONY CLEMENTS MD Ot I25.10 ATHSCL HEART DISEASE OF [place] CORONARY 10/31/2015 MONY CLEMENTS MD Ot Z01.810 [...] MD Ot I25.10 ATHSCL HEART DISEASE OF [place] CORONARY 10/31/2015 STARLA GARDNER MD, Ot Z79.899 OTHER ASSISTED (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 THERAPY 10/31/2015 STARLA GARDNER MD [...] MD Ot I25.10 ATHSCL HEART DISEASE OF [place] CORONARY 11/02/2015 STARLA GARDNER MD Ot Z79.899 OTHER ASSISTED (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 THERAPY 11/02/2015 STARLA GARDNER MD Ot 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 NICOTINE DEPENDENCE 11/02/2015 STARLA GARDNER MD Ot K46.9 UNSPECIFIED ABDOMINAL HERNIA WITHOUT OBS 11/02/2015 STARLA GARDNER MD Ot 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 NICOTINE DEPENDENCE 11/02/2015 MONY CLEMENTS MD Ot I25.10 ATHSCL HEART DISEASE OF [place] CORONARY 11/02/2015 MONY CLEMENTS MD Ot I35.0 NONRHEUMATIC AORTIC (VALVE) STENOSIS 11/05/2015 MONY CLEMENTS MD Ot E78.0 PURE HYPERCHOLESTEROLEMIA 11/05/2015 MONY CLEMENTS MD Ot I10 ESSENTIAL (PRIMARY) HYPERTENSION 11/05/2015 MONY CLEMENTS MD Ot I25.10 ATHSCL HEART DISEASE OF [place] CORONARY 11/05/2015 MONY CLEMENTS MD Ot 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 MITRAL (VALVE) INSUFFICIENC 11/05/2015 MONY CLEMENTS MD Ot I35.0 NONRHEUMATIC AORTIC (VALVE) STENOSIS 11/05/2015 MONY CLEMENTS MD Ot E78.0 PURE HYPERCHOLESTEROLEMIA 11/05/2015 MONY CLEMENTS MD Ot I10 ESSENTIAL (PRIMARY) HYPERTENSION 11/05/2015 MONY CLEMENTS MD Ot I25.10 ATHSCL HEART DISEASE OF [place] CORONARY 11/05/2015 MONY CLEMENTS MD Ot I34.0 [...] WILSON MD, Ot E78.5 HYPERLIPIDEMIA, UNSPECIFIED 11/10/2015 DRSIS WILSON MD Ot I10 ESSENTIAL (PRIMARY) HYPERTENSION 11/10/2015 DRISS WILSON MD Ot I25.10 ATHSCL HEART DISEASE OF [place] CORONARY 11/10/2015 DRISS WILSON MD, Ot K21.9 [...] MD Ot I25.10 ATHSCL HEART DISEASE OF [place] CORONARY 11/11/2015 DRISS WILSON MD Ot K21.9 [...] MD Ot I25.10 ATHSCL HEART DISEASE OF [place] CORONARY 11/12/2015 DRISS WILSON MD, Ot K21.9 [...] MD, Ot I25.10 ATHSCL HEART DISEASE OF [place] CORONARY 11/13/2015 DRISS WILSON MD Ot K21.9 [...] MD Ot I25.10 ATHSCL HEART DISEASE OF [place] CORONARY 11/13/2015 DRISS WILSON MD Ot K21.9 GASTRO-ESOPHAGEAL REFLUX DISEASE WITHOUT 11/13/2015 DRISS WLISON MD Ot K57.30 DVRTCLOS OF LG INT [...] MD Ot I25.10 ATHSCL HEART DISEASE OF [place] CORONARY 11/14/2015 DRISS WILSON MD Ot K21.9 [...] MD Ot I25.10 ATHSCL HEART DISEASE OF [place] CORONARY 11/14/2015 DRISS WILSON MD Ot K21.9 [...] MD Ot I25.10 ATHSCL HEART DISEASE OF [place] CORONARY 11/15/2015 DRISS WILSON MD, Ot K21.9 [...] MD Ot I25.10 ATHSCL HEART DISEASE OF [place] CORONARY 11/18/2015 DRISS WILSON MD Ot K21.9 [...] MD Ot I25.10 ATHSCL HEART DISEASE OF [place] CORONARY 11/19/2015 DRISS WILSON MD Ot K21.9 [...] MD, Ot I25.10 ATHSCL HEART DISEASE OF [place] CORONARY 11/20/2015 DRISS WILSON MD, Ot K21.9 [...] MD, Ot I25.10 ATHSCL HEART DISEASE OF [place] CORONARY 11/20/2015 DRISS WILSON MD, Ot K21.9 [...] MD, Ot I25.10 ATHSCL HEART DISEASE OF [place] CORONARY 11/21/2015 MONY CLEMENTS MD Ot I35.0 NONRHEUMATIC AORTIC (VALVE) STENOSIS 11/22/2015 MONY CLEMENTS MD Ot E78.0 PURE HYPERCHOLESTEROLEMIA 11/22/2015 MONY CLEMENTS MD Ot I10 ESSENTIAL (PRIMARY) HYPERTENSION 11/22/2015 MONY CLEMENTS MD Ot I25.10 ATHSCL HEART DISEASE OF [place] CORONARY 11/22/2015 MONY CLEMENTS MD Ot 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 MITRAL (VALVE) INSUFFICIENC 11/22/2015 MONY CLEMENTS MD Ot I35.0 NONRHEUMATIC AORTIC (VALVE) STENOSIS 11/26/2015 MONY CLEMENTS MD Ot I25.10 ATHSCL HEART DISEASE OF [place] CORONARY 11/26/2015 MONY CLEMENTS MD Ot I35.0 NONRHEUMATIC AORTIC (VALVE) STENOSIS 11/30/2015 MONY CLEMENTS MD Ot E78.0 PURE HYPERCHOLESTEROLEMIA 11/30/2015 MONY CLEMENTS MD Ot I10 ESSENTIAL (PRIMARY) HYPERTENSION 11/30/2015 MONY CLEMENTS MD Ot I25.10 ATHSCL HEART DISEASE OF [place] CORONARY 11/30/2015 MONY CLEMENTS MD Ot 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 MITRAL (VALVE) INSUFFICIENC 11/30/2015 MONY CLEMENTS MD Ot I35.0 NONRHEUMATIC AORTIC (VALVE) STENOSIS 12/17/2015 STARLA GARDNER MD Ot D64.9 ANEMIA, UNSPECIFIED 12/17/2015 STARLA GARDNER MD Ot E78.5 HYPERLIPIDEMIA, UNSPECIFIED 12/17/2015 STARLA GARDNER MD Ot I10 ESSENTIAL (PRIMARY) HYPERTENSION 12/17/2015 STARLA GARDNER MD Ot I25.10 ATHSCL HEART DISEASE OF [place] CORONARY 12/17/2015 STARLA GARDNER MD Ot 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 12/17/2015 STARLA GARDNER MD Ot 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 NICOTINE DEPENDENCE 12/17/2015 STARLA GARDNER MD Ot D64.9 ANEMIA, UNSPECIFIED 12/17/2015 STARLA GARDNER MD Ot E78.5 HYPERLIPIDEMIA, UNSPECIFIED 12/17/2015 STARLA GARDNER MD Ot I10 ESSENTIAL (PRIMARY) HYPERTENSION 12/17/2015 STARLA GARDNER MD Ot I25.10 ATHSCL HEART DISEASE OF [place] CORONARY 12/17/2015 STARLA GARDNER MD Ot 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 12/17/2015 STARLA GARDNER MD Ot 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 NICOTINE DEPENDENCE 12/18/2015 STARLA GARDNER MD Ot D64.9 ANEMIA, UNSPECIFIED 12/18/2015 STARLA GARDNER MD Ot E78.5 HYPERLIPIDEMIA, UNSPECIFIED 12/18/2015 STARLA GARDNER MD Ot I10 ESSENTIAL (PRIMARY) HYPERTENSION 12/18/2015 STARLA GARDNER MD Ot I25.10 ATHSCL HEART DISEASE OF [place] CORONARY 12/18/2015 STARLA GARDNER MD Ot 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 12/18/2015 STARLA GARDNER MD Ot 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 NICOTINE DEPENDENCE 12/24/2015 STARLA GARDNER MD Ot D64.9 ANEMIA, UNSPECIFIED 12/24/2015 STARLA GARDNER MD Ot E78.5 HYPERLIPIDEMIA, UNSPECIFIED 12/24/2015 STARLA GARDNER MD Ot I10 ESSENTIAL (PRIMARY) HYPERTENSION 12/24/2015 STARLA GARDNER MD Ot I25.10 ATHSCL HEART DISEASE OF [place] CORONARY 12/24/2015 STARLA GARDNER MD Ot Z79.899 OTHER ASSISTED (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 THERAPY 12/24/2015 STARLA GARDNER MD Ot 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 NICOTINE DEPENDENCE 01/02/2016 STARLA GARDNER MD Ot D64.9 ANEMIA, UNSPECIFIED 01/02/2016 STARLA GARDNER MD Ot E78.5 HYPERLIPIDEMIA, UNSPECIFIED 01/02/2016 STARLA GARDNER MD Ot I10 ESSENTIAL (PRIMARY) HYPERTENSION 01/02/2016 STARLA GARDNER MD Ot I25.10 ATHSCL HEART DISEASE OF [place] CORONARY 01/02/2016 STARLA GARDNER MD Ot Z79.899 OTHER ASSISTED (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 THERAPY 01/02/2016 STARLA GARDNER MD Ot 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 NICOTINE DEPENDENCE 01/10/2016 LUIS ANGEL CHACKO S [employer]LECT[employer]ICIAN Ot 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 01/10/2016 LUIS ANGEL CHACKO [employer]ICIAN Ot D64.9 ANEMIA, UNSPECIFIED 01/10/2016 LUIS ANGEL CHACKO S [employer]LECTRICIAN Ot E78.5 HYPERLIPIDEMIA, UNSPECIFIED 01/10/2016 LUIS ANGEL CHACKO S [employer] ELECTRICIAN Ot I10 ESSENTIAL (PRIMARY) HYPERTENSION 01/10/2016 LUIS ANGEL CHACKO S [employer] ELECTRICIAN Ot I25.10 ATHSCL HEART DISEASE OF [place] CORONARY 01/10/2016 LUIS ANGEL CHACKO [employer] ELECTRICIAN Ot 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 01/10/2016 LUIS ANGEL CHACKO [employer]ICIAN Ot 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 NICOTINE DEPENDENCE 02/14/2016 STARLA GARDNER MD Ot 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 02/14/2016 STARLA GARDNER MD Ot D64.9 ANEMIA, UNSPECIFIED 02/14/2016 STARLA GARDNER MD Ot E78.5 HYPERLIPIDEMIA, UNSPECIFIED 02/14/2016 STARLA GARDNER MD Ot I10 ESSENTIAL (PRIMARY) HYPERTENSION 02/14/2016 STARLA GARDNER MD Ot I25.10 ATHSCL HEART DISEASE OF [place] CORONARY 02/14/2016 STARLA GARDNER MD Ot 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 02/14/2016 STARLA GARDNER MD Ot 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 NICOTINE DEPENDENCE 02/14/2016 LUIS ANGEL CHACKO S [employer] ELECTRICIAN Ot 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 02/14/2016 LUIS ANGEL CHACKO S [employer] ELECTRICIAN Ot D64.9 ANEMIA, UNSPECIFIED 02/14/2016 LUIS ANGEL CHACKO [employer]LECTRICIAN Ot E78.5 HYPERLIPIDEMIA, UNSPECIFIED 02/14/2016 CHACKO LUIS ANGEL Nice [employer] ELECT[employer]ICIAN Ot I10 ESSENTIAL (PRIMARY) HYPERTENSION 02/14/2016 LUIS ANGEL CHACKO [employer]ICIAN Ot I25.10 ATHSCL HEART DISEASE OF [place] CORONARY 02/14/2016 HERMAN CHACKOPAGE Nice [employer]LECT[employer]ICIAN Ot 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 02/14/2016 LUIS ANGEL CHACKO [employer]ICIAN Ot 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 NICOTINE DEPENDENCE 02/20/2016 STARLA GARDNER MD Ot 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 02/20/2016 STARLA GARDNER MD Ot D64.9 ANEMIA, UNSPECIFIED 02/20/2016 STARLA GARDNER MD Ot E78.5 HYPERLIPIDEMIA, UNSPECIFIED 02/20/2016 STARLA GARDNER MD Ot I10 ESSENTIAL (PRIMARY) HYPERTENSION 02/20/2016 STARLA GARDNER MD Ot I25.10 ATHSCL HEART DISEASE OF [place] CORONARY 02/20/2016 STARLA GARDNER MD Ot 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 02/20/2016 STARLA GARDNER MD Ot 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 NICOTINE DEPENDENCE 02/20/2016 LUIS ANGEL CHACKO [employer]RICIAN Ot 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 02/20/2016 LUIS ANGEL CHACKO [employer]ICIAN Ot D64.9 ANEMIA, UNSPECIFIED 02/20/2016 LUIS ANGEL CHACKO [employer]RICIAN Ot E78.5 HYPERLIPIDEMIA, UNSPECIFIED 02/20/2016 LUIS ANGEL CHACKO [employer]ICIAN Ot I10 ESSENTIAL (PRIMARY) HYPERTENSION 02/20/2016 LUIS ANGEL CHACKO [employer]ICIAN Ot I25.10 ATHSCL HEART DISEASE OF [place] CORONARY 02/20/2016 HERMAN CHACKOPAGE Arlet [employer] ELECT[employer]ICIAN Ot 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 02/20/2016 LUIS ANGEL CHACKO [employer] ELECTRICIAN Ot 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 NICOTINE DEPENDENCE 03/31/2016 STARLA GARDNER MD Ot 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 03/31/2016 STARLA GARDNER MD Ot D64.9 ANEMIA, UNSPECIFIED 03/31/2016 STARLA GARDNER MD Ot E78.5 HYPERLIPIDEMIA, UNSPECIFIED 03/31/2016 STARLA GARDNER MD Ot I10 ESSENTIAL (PRIMARY) HYPERTENSION 03/31/2016 STARLA GARDNER MD Ot I25.10 ATHSCL HEART DISEASE OF [place] CORONARY 03/31/2016 STARLA GARDNER MD Ot 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 03/31/2016 STARLA GARDNER MD Ot 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 NICOTINE DEPENDENCE 04/05/2016 STARLA GARNDER MD Ot 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 04/05/2016 STARLA GARDNER MD Ot D64.9 ANEMIA, UNSPECIFIED 04/05/2016 STARLA GARDNER MD Ot E78.5 HYPERLIPIDEMIA, UNSPECIFIED 04/05/2016 STARLA GARDNER MD Ot I10 ESSENTIAL (PRIMARY) HYPERTENSION 04/05/2016 STARLA GARDNER MD Ot I25.10 ATHSCL HEART DISEASE OF [place] CORONARY 04/05/2016 STARLA GARDNER MD Ot Z79.899 OTHER ASSISTED (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 THERAPY 04/05/2016 STARLA GARDNER MD Ot 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 NICOTINE DEPENDENCE 04/09/2016 STARLA GARDNER MD Ot 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 04/09/2016 STARLA GARDNER MD Ot D64.9 ANEMIA, UNSPECIFIED 04/09/2016 STARLA GARDNER MD Ot E78.5 HYPERLIPIDEMIA, UNSPECIFIED 04/09/2016 STARLA GARDNER MD Ot I10 ESSENTIAL (PRIMARY) HYPERTENSION 04/09/2016 STARLA GARDNER MD Ot I25.10 ATHSCL HEART DISEASE OF [place] CORONARY 04/09/2016 STARLA GARDNER MD Ot 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 04/09/2016 STARLA GARDNER MD Ot 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 NICOTINE DEPENDENCE 05/27/2016 STARLA GARDNER MD, Ot 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 05/27/2016 STARLA GARDNER MD Ot D64.9 ANEMIA, UNSPECIFIED 05/27/2016 STARLA GARDNER MD Ot E78.5 HYPERLIPIDEMIA, UNSPECIFIED 05/27/2016 STARLA GARDNER MD Ot I10 ESSENTIAL (PRIMARY) HYPERTENSION 05/27/2016 STARLA GARDNER MD Ot I25.10 ATHSCL HEART DISEASE OF [place] CORONARY 05/27/2016 STARLA GARDNER MD Ot 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 05/27/2016 STARLA GARDNER MD Ot 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 NICOTINE DEPENDENCE 06/04/2016 STARLA GARDNER MD Ot 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 06/04/2016 STARLA GARDNER MD Ot D64.9 ANEMIA, UNSPECIFIED 06/04/2016 STARLA GARDNER MD Ot E78.5 HYPERLIPIDEMIA, UNSPECIFIED 06/04/2016 STARLA GARDNER MD Ot I10 ESSENTIAL (PRIMARY) HYPERTENSION 06/04/2016 STARLA GARDNER MD Ot I25.10 ATHSCL HEART DISEASE OF [place] CORONARY 06/04/2016 STARLA GARDNER MD Ot 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 06/04/2016 STARLA GARDNER MD Ot 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 NICOTINE DEPENDENCE 07/07/2016 STARLA GARDNER MD Ot 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 07/07/2016 STARLA GARDNER MD Ot D64.9 ANEMIA, UNSPECIFIED 07/07/2016 STARLA GARDNER MD Ot E78.5 HYPERLIPIDEMIA, UNSPECIFIED 07/07/2016 STARLA GARDNER MD Ot I10 ESSENTIAL (PRIMARY) HYPERTENSION 07/07/2016 STARLA GARDNER MD Ot I25.10 ATHSCL HEART DISEASE OF [place] CORONARY 07/07/2016 STARLA GARDNER MD Ot Z79.899 OTHER ASSISTED (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 THERAPY 07/07/2016 STARLA GARDNER MD [...] MD Ot I25.10 ATHSCL HEART DISEASE OF [place] CORONARY 07/16/2016 MONY CLEMENTS MD Ot I35.0 NONRHEUMATIC AORTIC (VALVE) STENOSIS 07/16/2016 MONY CLEMENTS MD Ot E78.0 PURE HYPERCHOLESTEROLEMIA 07/16/2016 MONY CLEMENTS MD Ot I10 ESSENTIAL (PRIMARY) HYPERTENSION 07/16/2016 MONY CLEMENTS MD Ot I25.10 ATHSCL HEART DISEASE OF [place] CORONARY 07/16/2016 MONY CLEMENTS MD Ot 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 MITRAL (VALVE) INSUFFICIENC 07/16/2016 MONY CLEMENTS MD Ot I35.0 NONRHEUMATIC AORTIC (VALVE) STENOSIS 07/16/2016 LUIS ANGEL CHACKO [employer]ICIAN Ot 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 07/16/2016 LUIS ANGEL CHACKO [employer]LECTRICIAN Ot D64.9 ANEMIA, UNSPECIFIED 07/16/2016 LUIS ANGEL CHACKO S [employer] ELECTRICIAN Ot E78.5 HYPERLIPIDEMIA, UNSPECIFIED 07/16/2016 LUIS ANGEL CHACKO S [employer] ELECTRICIAN Ot I10 ESSENTIAL (PRIMARY) HYPERTENSION 07/16/2016 LUIS ANGEL CHACKO S [employer] ELECTRICIAN Ot I25.10 ATHSCL HEART DISEASE OF [place] CORONARY 07/16/2016 LUIS ANGEL CHACKO [employer]LECT[employer]ICIAN Ot 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 07/16/2016 LUIS ANGEL CHACKO [employer] ELECT[employer]ICIAN Ot 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 NICOTINE DEPENDENCE 07/16/2016 STARLA GARDNER MD Ot 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 07/16/2016 STARLA GARDNER MD Ot D64.9 ANEMIA, UNSPECIFIED 07/16/2016 STARLA GARDNER MD Ot E78.5 HYPERLIPIDEMIA, UNSPECIFIED 07/16/2016 STARLA GARDNER MD Ot I10 ESSENTIAL (PRIMARY) HYPERTENSION 07/16/2016 STARLA GARDNER MD Ot I25.10 ATHSCL HEART DISEASE OF [place] CORONARY 07/16/2016 STARLA GRADNER MD Ot Z79.899 OTHER ASSISTED (CURRENT) DRUG THERAPY 07/16/2016 STARLA GARDNER MD [...] MD Ot I25.10 ATHSCL HEART DISEASE OF [place] CORONARY 07/24/2016 STARLA GARDNER MD Ot 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 07/24/2016 STARLA GARDNER MD Ot 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 NICOTINE DEPENDENCE 07/30/2016 CAESAR PASCUAL MD, Ot E78.5 HYPERLIPIDEMIA, UNSPECIFIED 07/30/2016 CAESAR PASCUAL MD, Ot I10 ESSENTIAL (PRIMARY) HYPERTENSION 07/30/2016 CAESAR PASCUAL MD Ot I25.10 ATHSCL HEART DISEASE OF [place] CORONARY 07/30/2016 CAESAR PASCUAL MD, Ot 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 MITRAL (VALVE) INSUFFICIENC 07/30/2016 CAESAR PASCUAL MD, Ot 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 07/30/2016 CAESAR PASCUAL MD, Ot Z48.812 ENCNTR FOR SURGICAL AFTCR FOLLOWING SURG 07/30/2016 CAESAR PASCUAL MD, Ot Z79.899 OTHER ASSISTED (CURRENT) DRUG THERAPY 07/30/2016 CAESAR PASCUAL MD [...] MD Ot I25.10 ATHSCL HEART DISEASE OF [place] CORONARY 08/13/2016 CAESAR PASCUAL MD, Ot 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 MITRAL (VALVE) INSUFFICIENC 08/13/2016 CAESAR PASCUAL MD Ot 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 08/13/2016 CAESAR PASCUAL MD, Ot Z48.812 ENCNTR FOR SURGICAL AFTCR FOLLOWING SURG 08/13/2016 CAESAR PASCUAL MD Ot 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 08/13/2016 CAESAR PASCUAL MD [...] MD Ot I25.10 ATHSCL HEART DISEASE OF [place] CORONARY 08/27/2016 STARLA GARDNER MD Ot Z79.899 OTHER ASSISTED (CURRENT) DRUG THERAPY 08/27/2016 STARLA GARDNER MD [...] MD Ot I25.10 ATHSCL HEART DISEASE OF [place] CORONARY 10/21/2016 STARLA GARDNER MD Ot 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 10/21/2016 STARLA GARDNER MD [...] OBSTRUCTIVE PULMONARY DISEASE, U 11/20/2016 COLE JONES, MAROCS R Ot 724.02 SPINAL STENOSIS, LUMBAR REG, [...] MD Ot I25.10 ATHSCL HEART DISEASE OF [place] CORONARY 11/20/2016 MONY CLEMENTS MD Ot I35.0 NONRHEUMATIC AORTIC (VALVE) STENOSIS 11/20/2016 MONY CLEMENTS MD Ot E78.0 PURE HYPERCHOLESTEROLEMIA 11/20/2016 MONY CLEMENTS MD Ot I10 ESSENTIAL (PRIMARY) HYPERTENSION 11/20/2016 MONY CLEMENTS MD Ot I25.10 ATHSCL HEART DISEASE OF [place] CORONARY 11/20/2016 MONY CLEMENTS MD Ot 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 MITRAL (VALVE) INSUFFICIENC 11/20/2016 MONY CLEMENTS MD Ot I35.0 NONRHEUMATIC AORTIC (VALVE) STENOSIS 11/20/2016 LUIS ANGEL CHACKO Ot 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 11/20/2016 LUIS ANGEL CHACKOP Ot D64.9 ANEMIA, UNSPECIFIED 11/20/2016 LUIS ANGEL CHACKOP Ot E78.5 HYPERLIPIDEMIA, UNSPECIFIED 11/20/2016 LUIS ANGEL CHACKO [employer] E[employer]ICIAN Ot I10 ESSENTIAL (PRIMARY) HYPERTENSION 11/20/2016 LUIS ANGEL CHACKO [employer] ELECTRICIAN Ot I25.10 ATHSCL HEART DISEASE OF [place] CORONARY 11/20/2016 HERMAN CHACKOPAGE Arlet [employer] ELECT[employer]ICIAN Ot 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 11/20/2016 HERMAN CHACKOPAGE Arlet [employer] ELECTRICIAN Ot 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 NICOTINE DEPENDENCE 11/20/2016 STARLA GARDNER MD Ot 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 11/20/2016 STARLA GARDNER MD Ot D64.9 ANEMIA, UNSPECIFIED 11/20/2016 STARLA GARDNER MD Ot E78.5 HYPERLIPIDEMIA, UNSPECIFIED 11/20/2016 STARLA GARDNER MD Ot I10 ESSENTIAL (PRIMARY) HYPERTENSION 11/20/2016 STARLA GARDNER MD Ot I25.10 ATHSCL HEART DISEASE OF [place] CORONARY 11/20/2016 STARLA GARDNER MD Ot 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 11/20/2016 STARLA GARDNER MD Ot 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 NICOTINE DEPENDENCE 11/21/2016 STARLA GARDNER MD Ot 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 11/21/2016 STARLA GARDNER MD Ot D64.9 ANEMIA, UNSPECIFIED 11/21/2016 STARLA GARDNER MD Ot E78.5 HYPERLIPIDEMIA, UNSPECIFIED 11/21/2016 STARLA GARDNER MD Ot I10 ESSENTIAL (PRIMARY) HYPERTENSION 11/21/2016 STARLA GARDNER MD Ot I25.10 ATHSCL HEART DISEASE OF [place] CORONARY 11/21/2016 STARLA GARDNER MD Ot Z79.899 OTHER ASSISTED (CURRENT) DRUG THERAPY 11/21/2016 STARLA GARDNER MD Ot 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 NICOTINE DEPENDENCE 11/23/2016 STARLA GARDNER MD Ot 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 11/23/2016 STARLA GARDNER MD Ot D64.9 ANEMIA, UNSPECIFIED 11/23/2016 STARLA GARDNER MD Ot E78.5 HYPERLIPIDEMIA, UNSPECIFIED 11/23/2016 STARLA GARDNER MD Ot I10 ESSENTIAL (PRIMARY) HYPERTENSION 11/23/2016 STARLA GARDNER MD Ot I25.10 ATHSCL HEART DISEASE OF [place] CORONARY 11/23/2016 STARLA GARDNER MD Ot Z79.899 OTHER ASSISTED (CURRENT) DRUG THERAPY 11/23/2016 STARLA GARDNER MD Ot 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 NICOTINE DEPENDENCE 11/23/2016 STARLA GARDNER MD Ot 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 11/23/2016 STARLA GARDNER MD Ot D64.9 ANEMIA, UNSPECIFIED 11/23/2016 STARLA GARDNER MD Ot E78.5 HYPERLIPIDEMIA, UNSPECIFIED 11/23/2016 STARLA GARDNER MD Ot I10 ESSENTIAL (PRIMARY) HYPERTENSION 11/23/2016 STARLA GARDNER MD Ot I25.10 ATHSCL HEART DISEASE OF [place] CORONARY 11/23/2016 STARLA GARDNER MD Ot 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 11/23/2016 STARLA GARDNER MD Ot Z87.891 PERSONAL HISTORY OF NICOTINE DEPENDENCE 11/23/2016 STARLA GARDNER MD Ot 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 11/23/2016 STARLA GARDNER MD Ot D64.9 ANEMIA, UNSPECIFIED 11/23/2016 STARLA GARDNER MD Ot E78.5 HYPERLIPIDEMIA, UNSPECIFIED 11/23/2016 STARLA GARDNER MD Ot I10 ESSENTIAL (PRIMARY) HYPERTENSION 11/23/2016 STARLA GARDNER MD Ot I25.10 ATHSCL HEART DISEASE OF [place] CORONARY 11/23/2016 STARLA GARDNER MD Ot 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 11/23/2016 STARLA GARDNER MD Ot Z87.891 PERSONAL HISTORY OF NICOTINE DEPENDENCE 11/23/2016 STARLA GARDNER MD Ot 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 11/23/2016 STARLA GARDNER MD Ot D64.9 ANEMIA, UNSPECIFIED 11/23/2016 STARLA GARDNER MD Ot E78.5 HYPERLIPIDEMIA, UNSPECIFIED 11/23/2016 STARLA GARDNER MD Ot I10 ESSENTIAL (PRIMARY) HYPERTENSION 11/23/2016 STARLA GARDNER MD Ot I25.10 ATHSCL HEART DISEASE OF [place] CORONARY 11/23/2016 STARLA GARDNER MD Ot Z79.899 OTHER ASSISTED (CURRENT) DRUG THERAPY 11/23/2016 STARLA GARDNER MD Ot Z87.891 PERSONAL HISTORY OF NICOTINE DEPENDENCE 11/23/2016 STARLA GARDNER MD Ot 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 11/23/2016 STARLA GARDNER MD Ot D64.9 ANEMIA, UNSPECIFIED 11/23/2016 STARLA GARDNER MD Ot E78.5 HYPERLIPIDEMIA, UNSPECIFIED 11/23/2016 STARLA GARDNER MD Ot I10 ESSENTIAL (PRIMARY) HYPERTENSION 11/23/2016 STARLA GARDNER MD Ot I25.10 ATHSCL HEART DISEASE OF [place] CORONARY 11/23/2016 STARLA GARDNER MD Ot Z79.899 OTHER ASSISTED (CURRENT) DRUG THERAPY 11/23/2016 STARLA GARDNER MD Ot Z87.891 PERSONAL HISTORY OF NICOTINE DEPENDENCE 12/25/2016 STARLA GARDNER MD Ot 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 12/25/2016 STARLA GARDNER MD Ot D64.9 ANEMIA, UNSPECIFIED 12/25/2016 STARLA GARDNER MD Ot E78.5 HYPERLIPIDEMIA, UNSPECIFIED 12/25/2016 STARLA GARDNER MD Ot I10 ESSENTIAL (PRIMARY) HYPERTENSION 12/25/2016 STARLA GARDNER MD Ot I25.10 ATHSCL HEART DISEASE OF [place] CORONARY 12/25/2016 STARLA GARDNER MD Ot Z79.899 OTHER ASSISTED (CURRENT) DRUG THERAPY 12/25/2016 STARLA GARDNER MD Ot Z87.891 PERSONAL HISTORY OF NICOTINE DEPENDENCE 01/09/2017 STARLA GARDNER MD Ot 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 01/09/2017 STARLA GARDNER MD Ot D64.9 ANEMIA, UNSPECIFIED 01/09/2017 STARLA GARDNER MD Ot E78.5 HYPERLIPIDEMIA, UNSPECIFIED 01/09/2017 STARLA GARDNER MD Ot I10 ESSENTIAL (PRIMARY) HYPERTENSION 01/09/2017 STARLA GARDNER MD Ot I25.10 ATHSCL HEART DISEASE OF [place] CORONARY 01/09/2017 STARLA GARDNER MD Ot Z79.899 OTHER ASSISTED (CURRENT) DRUG THERAPY 01/09/2017 STARLA GARDNER MD Ot Z87.891 PERSONAL HISTORY OF NICOTINE DEPENDENCE 01/15/2017 STARLA GARDNER MD Ot 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 01/15/2017 STARLA GARDNER MD Ot D64.9 ANEMIA, UNSPECIFIED 01/15/2017 STARLA GARDNER MD Ot E78.5 HYPERLIPIDEMIA, UNSPECIFIED 01/15/2017 STARLA GARDNER MD Ot I10 ESSENTIAL (PRIMARY) HYPERTENSION 01/15/2017 STARLA GARDNER MD Ot I25.10 ATHSCL HEART DISEASE OF [place] CORONARY 01/15/2017 STARLA GARDNER MD Ot Z79.899 OTHER ASSISTED (CURRENT) DRUG THERAPY 01/15/2017 STARLA GARDNER MD Ot Z87.891 PERSONAL HISTORY OF NICOTINE DEPENDENCE 01/15/2017 STARLA GARDNER MD Ot 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 01/15/2017 STARLA GARDNER MD Ot D64.9 ANEMIA, UNSPECIFIED 01/15/2017 STARLA GARDNER MD Ot E78.5 HYPERLIPIDEMIA, UNSPECIFIED 01/15/2017 STARLA GARDNER MD Ot I10 ESSENTIAL (PRIMARY) HYPERTENSION 01/15/2017 STARLA GARDNER MD Ot I25.10 ATHSCL HEART DISEASE OF [place] CORONARY 01/15/2017 STARLA GARDNER MD Ot 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 01/15/2017 STARLA GARDNER MD Ot Z87.891 PERSONAL HISTORY OF NICOTINE DEPENDENCE 01/15/2017 STARLA GARDNER MD Ot 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 01/15/2017 STARLA GARDNER MD Ot D64.9 ANEMIA, UNSPECIFIED 01/15/2017 STARLA GARDNER MD Ot E78.5 HYPERLIPIDEMIA, UNSPECIFIED 01/15/2017 STARLA GARDNER MD Ot I10 ESSENTIAL (PRIMARY) HYPERTENSION 01/15/2017 STARLA GARDNER MD Ot I25.10 ATHSCL HEART DISEASE OF [place] CORONARY 01/15/2017 STARLA GARDNER MD Ot Z79.899 OTHER ASSISTED (CURRENT) DRUG THERAPY 01/15/2017 STARLA GARDNER MD [...] MD Ot I25.10 ATHSCL HEART DISEASE OF [place] CORONARY 01/15/2017 STARLA GARDNER MD Ot Z79.899 OTHER ASSISTED (CURRENT) DRUG THERAPY 01/15/2017 STARLA GARDNER MD [...] MD Ot I25.10 ATHSCL HEART DISEASE OF [place] CORONARY 01/16/2017 STARLA GARDNER MD Ot 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 01/16/2017 STARLA GARDNER MD Ot Z87.891 PERSONAL HISTORY OF NICOTINE DEPENDENCE 01/16/2017 STARLA GARDNER MD Ot 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 01/16/2017 STARLA GARDNER MD Ot D64.9 ANEMIA, UNSPECIFIED 01/16/2017 STARLA GARDNER MD Ot E78.5 HYPERLIPIDEMIA, UNSPECIFIED 01/16/2017 STARLA GARDNER MD Ot I10 ESSENTIAL (PRIMARY) HYPERTENSION 01/16/2017 STARLA GARDNER MD Ot I25.10 ATHSCL HEART DISEASE OF [place] CORONARY 01/16/2017 STARLA GARDNER MD Ot Z79.899 OTHER ASSISTED (CURRENT) DRUG THERAPY 01/16/2017 STARLA GARDNER MD Ot Z87.891 PERSONAL HISTORY OF NICOTINE DEPENDENCE 01/16/2017 STARLA GARDNER MD Ot 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 01/16/2017 STARLA GARDNER MD Ot D64.9 ANEMIA, UNSPECIFIED 01/16/2017 STARLA GARDNER MD Ot E78.5 HYPERLIPIDEMIA, UNSPECIFIED 01/16/2017 STARLA GARDNER MD Ot I10 ESSENTIAL (PRIMARY) HYPERTENSION 01/16/2017 STARLA GARDNER MD Ot I25.10 ATHSCL HEART DISEASE OF [place] CORONARY 01/16/2017 STARLA GARDNER MD Ot Z79.899 OTHER ASSISTED (CURRENT) DRUG THERAPY 01/16/2017 STARLA GARDNER MD Ot Z87.891 PERSONAL HISTORY OF NICOTINE DEPENDENCE 01/17/2017 STARLA GARDNER MD Ot 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 01/17/2017 STARLA GARDNER MD Ot D64.9 ANEMIA, UNSPECIFIED 01/17/2017 STARLA GARDNER MD Ot E78.5 HYPERLIPIDEMIA, UNSPECIFIED 01/17/2017 STARLA GARDNER MD Ot I10 ESSENTIAL (PRIMARY) HYPERTENSION 01/17/2017 STARLA GARDNER MD Ot I25.10 ATHSCL HEART DISEASE OF [place] CORONARY 01/17/2017 STARLA GARDNER MD Ot 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 01/17/2017 STARLA GARDNER MD Ot Z87.891 PERSONAL HISTORY OF NICOTINE DEPENDENCE 01/17/2017 STARLA GARDNER MD Ot 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 01/17/2017 STARLA GARDNER MD Ot D64.9 ANEMIA, UNSPECIFIED 01/17/2017 STARLA GARDNER MD Ot E78.5 HYPERLIPIDEMIA, UNSPECIFIED 01/17/2017 STARLA GARDNER MD Ot I10 ESSENTIAL (PRIMARY) HYPERTENSION 01/17/2017 STARLA GARDNER MD Ot I25.10 ATHSCL HEART DISEASE OF [place] CORONARY 01/17/2017 STARLA GARDNER MD Ot Z79.899 OTHER ASSISTED (CURRENT) DRUG THERAPY 01/17/2017 STARLA GARDNER MD Ot Z87.891 PERSONAL HISTORY OF NICOTINE DEPENDENCE 02/18/2017 STARLA GARDNER MD Ot 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 02/18/2017 STARLA GARDNER MD, Ot D64.9 ANEMIA, UNSPECIFIED 02/18/2017 STARLA GARDNER MD Ot E78.5 HYPERLIPIDEMIA, UNSPECIFIED 02/18/2017 STARLA GARDNER MD Ot I10 ESSENTIAL (PRIMARY) HYPERTENSION 02/18/2017 STARLA GARDNER MD Ot I25.10 ATHSCL HEART DISEASE OF [place] CORONARY 02/18/2017 STARLA GARDNER MD Ot Z79.899 OTHER ASSISTED (CURRENT) DRUG THERAPY 02/18/2017 STARLA GARDNER MD Ot Z87.891 PERSONAL HISTORY OF NICOTINE DEPENDENCE 03/12/2017 ANGELINA GARCIAS MD Ot 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 03/12/2017 ANGELINA GARCIAS MD Ot D64.9 ANEMIA, UNSPECIFIED 03/12/2017 ANGELINA GARCIAS MD Ot E78.5 HYPERLIPIDEMIA, UNSPECIFIED 03/12/2017 ANGELINA GARCIAS MD Ot I10 ESSENTIAL (PRIMARY) HYPERTENSION 03/12/2017 ANGELINA GARCIAS MD Ot I25.10 ATHSCL HEART DISEASE OF [place] CORONARY 03/12/2017 ANGELINA GARCIAS MD, Ot 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 03/12/2017 ANGELINA GARCIAS MD, Ot Z87.891 PERSONAL HISTORY OF NICOTINE DEPENDENCE 03/16/2017 ANGELINA GARCIAS MD Ot 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 03/16/2017 ANGELINA GARCIAS MD, Ot D64.9 ANEMIA, UNSPECIFIED 03/16/2017 ANGELINA GARCIAS MD, Ot E78.5 HYPERLIPIDEMIA, UNSPECIFIED 03/16/2017 ANGELINA GARCIAS MD Ot I10 ESSENTIAL (PRIMARY) HYPERTENSION 03/16/2017 ANGELINA GARCIAS MD, Ot I25.10 ATHSCL HEART DISEASE OF [place] CORONARY 03/16/2017 ANGELINA GARCIAS MD, Ot 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 03/16/2017 ANGELINA GARCIAS MD, [...] MD, Ot I25.10 ATHSCL HEART DISEASE OF [place] CORONARY 04/04/2017 ANGELINA GARCIAS MD, Ot Z79.899 OTHER ASSISTED (CURRENT) DRUG THERAPY 04/04/2017 ANGELINA GARCIAS MD, [...] MD Ot I25.10 ATHSCL HEART DISEASE OF [place] CORONARY 06/24/2017 DRISS WILSON MD, Ot K57.30 DVRTCLOS OF LG INT W/O PERFORATION OR AB 06/24/2017 DRISS WILSON MD, Ot K64.1 SECOND DEGREE HEMORRHOIDS 06/24/2017 DRISS WILSON MD, Ot N40.0 BENIGN PROSTATIC HYPERPLASIA WITHOUT LOW 06/24/2017 DRISS WILSON MD, Ot Z79.82 ASSISTED (CURRENT) USE OF ASPIRIN 06/24/2017 DRISS WILSON MD Ot Z79.899 OTHER ASSISTED (CURRENT) DRUG THERAPY 06/24/2017 DRISS WILSON MD, [...] MD, Ot I25.10 ATHSCL HEART DISEASE OF [place] CORONARY 06/25/2017 DRISS WILSON MD, Ot K57.30 DVRTCLOS OF LG INT W/O PERFORATION OR AB 06/25/2017 DRISS WILSON MD Ot K64.1 SECOND DEGREE HEMORRHOIDS 06/25/2017 DRISS WILSON MD, Ot N40.0 BENIGN PROSTATIC HYPERPLASIA WITHOUT LOW 06/25/2017 DRISS WILSON MD, Ot Z79.82 ASSISTED (CURRENT) USE OF ASPIRIN 06/25/2017 DRISS WILSON MD Ot 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 06/25/2017 KIDO MD, TAKAAKI [...] MD, Ot I25.10 ATHSCL HEART DISEASE OF [place] CORONARY 06/30/2017 DRISS WILSON MD, Ot K57.30 DVRTCLOS OF LG INT W/O PERFORATION OR AB 06/30/2017 DRISS WILSON MD, Ot K64.1 SECOND DEGREE HEMORRHOIDS 06/30/2017 DRISS WILSON MD, Ot N40.0 BENIGN PROSTATIC HYPERPLASIA WITHOUT LOW 06/30/2017 DRISS WILOSN MD Ot Z79.82 FILM CUTTER (CURRENT) USE OF ASPIRIN 06/30/2017 DRISS WILSON MD, Ot Z79.899 OTHER ASSISTED (CURRENT) DRUG THERAPY 06/30/2017 DRISS WILSON MD, [...] MD, Ot I25.10 ATHSCL HEART DISEASE OF [place] CORONARY 09/23/2017 CAESAR PASCUAL MD Ot 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 MITRAL (VALVE) INSUFFICIENC 09/23/2017 CAESAR PASCUAL MD Ot 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 09/23/2017 CAESAR PASCUAL MD, Ot Z48.812 ENCNTR FOR SURGICAL AFTCR FOLLOWING SURG 09/23/2017 CAESAR PASCUAL MD, Ot Z79.899 OTHER ASSISTED (CURRENT) DRUG THERAPY 09/23/2017 CAESAR PASCUAL MD, [...] MD Ot I25.10 ATHSCL HEART DISEASE OF [place] CORONARY 10/28/2017 ANGELINA GARCIAS MD, Ot Z79.899 OTHER ASSISTED (CURRENT) DRUG THERAPY 10/28/2017 ANGELINA GARCIAS MD Ot Z87.891 PERSONAL HISTORY OF NICOTINE DEPENDENCE 12/30/2017 ANGELINA GARCIAS MD Ot 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 12/30/2017 ANGELINA GARCIAS MD Ot D64.9 ANEMIA, UNSPECIFIED 12/30/2017 ANGELINA GARCIAS MD Ot E78.5 HYPERLIPIDEMIA, UNSPECIFIED 12/30/2017 ANGELINA GARCIAS MD Ot I10 ESSENTIAL (PRIMARY) HYPERTENSION 12/30/2017 ANGELINA GARCIAS MD Ot I25.10 ATHSCL HEART DISEASE OF [place] CORONARY 12/30/2017 ANGELINA GARCIAS MD Ot Z79.899 OTHER ASSISTED (CURRENT) DRUG THERAPY 12/30/2017 ANGELINA GARCIAS MD Ot Z87.891 PERSONAL HISTORY OF NICOTINE DEPENDENCE 12/31/2017 ANGELINA GARCIAS MD Ot 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 12/31/2017 ANGELINA GARCIAS MD Ot D64.9 ANEMIA, UNSPECIFIED 12/31/2017 ANGELINA GARCIAS MD Ot E78.5 HYPERLIPIDEMIA, UNSPECIFIED 12/31/2017 ANGELINA GARCIAS MD Ot I10 ESSENTIAL (PRIMARY) HYPERTENSION 12/31/2017 ANGELINA GARCIAS MD Ot I25.10 ATHSCL HEART DISEASE OF [place] CORONARY 12/31/2017 ANGELINA GARCIAS MD Ot 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 12/31/2017 ANGELINA GARCIAS MD Ot Z87.891 PERSONAL HISTORY OF NICOTINE DEPENDENCE 01/01/2018 ANGELINA GARCIAS MD Ot 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 01/01/2018 ANGELINA GARCIAS MD Ot D64.9 ANEMIA, UNSPECIFIED 01/01/2018 ANGELINA GARCIAS MD Ot E78.5 HYPERLIPIDEMIA, UNSPECIFIED 01/01/2018 ANGELINA GARCIAS MD Ot I10 ESSENTIAL (PRIMARY) HYPERTENSION 01/01/2018 ANGELINA GARCIAS MD Ot I25.10 ATHSCL HEART DISEASE OF [place] CORONARY 01/01/2018 ANGELINA GARCIAS MD Ot 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 01/01/2018 ANGELINA GARCIAS MD Ot Z87.891 PERSONAL HISTORY OF NICOTINE DEPENDENCE 01/26/2018 ANGELINA GARCIAS MD Ot 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 01/26/2018 ANGELINA GARCIAS MD Ot D64.9 ANEMIA, UNSPECIFIED 01/26/2018 ANGELINA GARCIAS MD Ot E78.5 HYPERLIPIDEMIA, UNSPECIFIED 01/26/2018 ANGELINA GARCIAS MD Ot I10 ESSENTIAL (PRIMARY) HYPERTENSION 01/26/2018 ANGELINA GARCIAS MD Ot I25.10 ATHSCL HEART DISEASE OF [place] CORONARY 01/26/2018 ANGELINA GARCIAS MD Ot 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 01/26/2018 ANGELINA GARCIAS MD [...] MD, Ot I25.10 ATHSCL HEART DISEASE OF [place] CORONARY 03/21/2018 ANGELINA GARCIAS MD, Ot 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 03/21/2018 ANGELINA GARCIAS MD, [...] MD Ot I25.10 ATHSCL HEART DISEASE OF [place] CORONARY 03/22/2018 MARCOS GALVAN MD R Ot 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 03/22/2018 MARCOS GALVAN MD Ot 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 03/22/2018 MARCOS GALVAN MD Ot I50.31 ACUTE DIASTOLIC (CONGESTIVE) HEART FAILU 03/22/2018 MARCOS GALVAN MD R Ot J44.9 CHRONIC OBSTRUCTIVE PULMONARY DISEASE, U 03/22/2018 MARCOS GALVAN MD R Ot K21.9 GASTRO-ESOPHAGEAL REFLUX DISEASE WITHOUT 03/22/2018 MARCOS GALVNA MD R Ot N40.0 BENIGN PROSTATIC HYPERPLASIA WITHOUT LOW 03/22/2018 MARCOS GALVAN MD Ot R00.0 TACHYCARDIA, UNSPECIFIED 03/22/2018 MARCOS GALVAN MD Ot R06.03 ACUTE RESPIRATORY DISTRESS 03/22/2018 MARCOS GALVAN MD R Ot Z79.82 ASSISTED (CURRENT) USE OF ASPIRIN 03/22/2018 MARCOS GALVAN [...] R Ot I25.10 ATHSCL HEART DISEASE OF [place] CORONARY 03/26/2018 MARCOS GALVAN MD R Ot [...] DISTRESS 03/26/2018 MARCOS GALVAN MD Ot Z79.82 FILM CUTTER (CURRENT) USE OF ASPIRIN 03/26/2018 MARCOS GALVAN [...] R Ot I25.10 ATHSCL HEART DISEASE OF [place] CORONARY 03/26/2018 MARCOS GALVAN MD R Ot [...] 03/26/2018 MARCOS GALVAN MD R Ot Z79.82 FILM CUTTER (CURRENT) USE OF ASPIRIN 03/26/2018 MARCOS GALVAN [...] R Ot I25.10 ATHSCL HEART DISEASE OF [place] CORONARY 03/26/2018 MARCOS GALVAN MD R Ot [...] DISTRESS 03/26/2018 MARCOS GALVAN MD Ot Z79.82 ASSISTED (CURRENT) USE OF ASPIRIN 03/26/2018 MARCOS GALVAN [...] MD Ot I25.10 ATHSCL HEART DISEASE OF [place] CORONARY 03/31/2018 ANGELINA GARCIAS MD Ot Z79.899 OTHER ASSISTED (CURRENT) DRUG THERAPY 03/31/2018 ANGELINA GARCIAS MD Ot Z87.891 PERSONAL HISTORY OF NICOTINE DEPENDENCE 04/01/2018 ANGELINA GARCIAS MD Ot 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 04/01/2018 ANGELINA GARCIAS MD Ot D64.9 ANEMIA, UNSPECIFIED 04/01/2018 ANGELINA GARCIAS MD Ot E78.5 HYPERLIPIDEMIA, UNSPECIFIED 04/01/2018 ANGELINA GARCIAS MD Ot I10 ESSENTIAL (PRIMARY) HYPERTENSION 04/01/2018 ANGELINA GARCIAS MD Ot I25.10 ATHSCL HEART DISEASE OF [place] CORONARY 04/01/2018 ANGELINA GARCIAS MD Ot Z79.899 OTHER ASSISTED (CURRENT) DRUG THERAPY 04/01/2018 ANGELINA GARCIAS MD Ot Z87.891 PERSONAL HISTORY OF NICOTINE DEPENDENCE 04/07/2018 LIZETH JONES, HORACIO Porras Ot D64.9 ANEMIA, UNSPECIFIED 04/07/2018 HORACIO STANLEY MD E Ot E78.2 MIXED HYPERLIPIDEMIA 04/07/2018 HORACIO STANLEY MD E Ot G47.00 INSOMNIA, UNSPECIFIED 04/07/2018 HORACIO STANLEY MD Ot I10 ESSENTIAL (PRIMARY) HYPERTENSION 04/07/2018 HORACIO STANLEY MD Ot I25.10 ATHSCL HEART DISEASE OF [place] CORONARY 04/07/2018 HORACIO STANLEY MD Ot I25.810 [...] DEPENDENCE ON SUPPLEMENTAL OXYGEN 04/26/2018 JARRETT PAN GAS WORKER Ot E66.9 OBESITY, UNSPECIFIED 04/26/2018 JARRETT PAN GAS WORKER Ot J90 PLEURAL EFFUSION, NOT ELSEWHERE CLASSIFI 04/26/2018 JARRETT PAN GAS WORKER Ot J98.4 OTHER DISORDERS OF LUNG 04/26/2018 JARRETT PAN GAS WORKER Ot R06.02 SHORTNESS OF BREATH 04/26/2018 JARRETT PAN GAS WORKER Ot Z87.891 PERSONAL HISTORY OF NICOTINE DEPENDENCE 04/28/2018 JARRETT PAN GAS WORKER Ot E66.9 OBESITY, UNSPECIFIED 04/28/2018 JARRETT PAN GAS WORKER Ot J90 PLEURAL EFFUSION, NOT ELSEWHERE CLASSIFI 04/28/2018 JARRETT PAN GAS WORKER Ot J98.4 OTHER DISORDERS OF LUNG 04/28/2018 JARRETT PAN GAS WORKER Ot R06.02 SHORTNESS OF BREATH 04/28/2018 JARRETT PAN GAS WORKER Ot Z87.891 PERSONAL HISTORY OF NICOTINE DEPENDENCE 05/13/2018 JARRETT PAN GAS WORKER Ot E66.9 OBESITY, UNSPECIFIED 05/13/2018 JARRETT PAN GAS WORKER Ot J90 PLEURAL EFFUSION, NOT ELSEWHERE CLASSIFI 05/13/2018 JARRETT PAN GAS WORKER Ot J98.4 OTHER DISORDERS OF LUNG 05/13/2018 MAXIM JARRETT Porras APRN Ot R06.02 SHORTNESS OF BREATH 05/13/2018 MAXIM JARRETT Porras APRN Ot Z87.891 PERSONAL HISTORY OF NICOTINE DEPENDENCE Procedures Code Description Performed By Performed On [id number] RESECTION OF RIGHT LARGE INTESTINE, PERC 11/08/2015 [id number] RESECTION OF GALLBLADDER, PERCUTANEOUS E 11/08/2015 [id number] FLUOROSCOPY OF MULT COR ART USING L OSM 03/22/2018 [id number] FLUOROSCOPY OF SING COR A GRAFT USING L 03/22/2018 [id number] FLUOROSCOPY OF L INT MAMM GRAFT USING [...] Status Pt. Type Provider Facility Loc./Unit Complaint [id number] 04/28/2018 06:51:00 04/28/2018 13:23:00 DIS Outpatient TYREE JONES, MONY Sloan [facility] CATH CAD,DYSPNEA [id number] 04/26/2018 09:30:00 04/26/2018 23:59:59 CLS Preadmit JARRETT PAN GAS WORKER [facility] PULM SOB [id number] 04/22/2018 08:44:00 04/22/2018 23:59:59 CLS Outpatient JARRETT PAN GAS WORKER [facility] RT SOA [id number] 04/20/2018 10:09:00 04/20/2018 23:59:59 CLS Preadmit JARRETT PAN GAS WORKER [facility] RT SOB [id number] 04/02/2018 17:28:00 04/07/2018 10:15:00 DIS Inpatient HORACIO STANLEY MD [facility] IRF COPD MYOPATHY [id number] 04/01/2018 00:08:00 04/01/2018 23:59:59 CLS Preadmit ANGELINA GARCIAS MD [facility] ONC [id number] 12/31/2017 08:15:00 03/31/2018 00:01:00 DIS Outpatient ANGELINA GARCIAS MD [facility] ONC [id number] 03/22/2018 09:54:00 03/22/2018 14:40:00 DIS Inpatient COLE JONES, MARCOS R [facility] 4TH SOB/CHF [id number] 12/29/2017 08:17:00 12/30/2017 00:01:00 DIS Outpatient ANGELINA GARCIAS MD [facility] ONC [id number] 06/24/2017 08:47:00 06/24/2017 11:45:00 DIS Outpatient DRISS WILSON MD [facility] ENDO HX OF COLON CA/+OCCULT STOOL/LOW HGB [id number] 06/18/2017 12:42:00 06/18/2017 12:57:00 DIS Outpatient DRISS WILSON MD [facility] PREOP COLONOSCOPY [id number] 03/26/2017 09:03:00 04/04/2017 00:01:00 DIS Outpatient ANGELINA GARCIAS MD [facility] ONC [id number] 03/13/2017 10:40:00 03/13/2017 23:59:59 CLS Outpatient STARLA GARDNER MD [facility] RAD C18.0 [id number] 11/20/2016 08:44:00 02/18/2017 00:01:00 DIS Outpatient STARLA GARDNER MD [facility] ONC [id number] 07/31/2016 09:16:00 10/21/2016 00:01:00 DIS Outpatient STARLA GARDNER MD [facility] ONC [id number] 08/20/2016 08:11:00 08/20/2016 23:59:59 CLS Outpatient TOMMY CAZARES MD [facility] RT COPD [id number] 08/06/2016 16:20:00 08/06/2016 23:59:59 CLS Outpatient TOMMY CAZARES MD [facility] RAD COUGH [id number] 07/30/2016 07:34:00 07/30/2016 13:02:00 DIS Outpatient CAESAR PASCUAL MD [facility] CATH CAD,CABG [id number] 07/16/2016 10:00:00 07/16/2016 23:59:59 CLS Outpatient STARLA GARDNER MD [facility] RAD ADENOCARCINOMA OF CECUM [id number] 06/10/2016 08:51:00 07/07/2016 00:01:00 DIS Outpatient STARLA GARDNER MD [facility] ONC [id number] 03/12/2016 09:07:00 03/31/2016 00:01:00 DIS Outpatient STARLA GARDNER MD [facility] ONC [id number] 01/08/2016 14:08:00 01/08/2016 23:59:59 CLS Outpatient RICCO LUIS ANGEL Arlet STANFORD [facility] ONC [id number] 12/10/2015 13:09:00 12/17/2015 00:01:00 DIS Outpatient STARLA GARDNER MD [facility] ONC [id number] 11/08/2015 09:25:00 11/20/2015 13:50:00 DIS Inpatient DRISS WILSON MD [facility] 4TH COLON CANCER; GALLSTONES [id number] 11/06/2015 11:47:00 11/06/2015 12:32:00 DIS Outpatient DRISS WILSON MD [facility] PREOP COLON CANCER; GALLSTONES [id number] 11/02/2015 07:40:00 11/02/2015 23:59:59 CLS Outpatient MONY CLEMENTS MD [facility] CARD AORTIC VALVE STENOSIS, ESSENTIAL HTN,MR [id number] 10/31/2015 06:42:00 10/31/2015 14:00:00 DIS Outpatient MONY CLEMENTS MD [facility] CARD AVS,MR,TR [id number] 10/30/2015 15:09:00 10/30/2015 23:59:59 CLS Outpatient MONY CLEMENTS MD [facility] LAB AV STENOSIS,CAD,MR,TR [id number] 10/10/2015 08:06:00 10/10/2015 11:30:00 DIS Outpatient DRISS WILSON MD [facility] SDC ANEMIA; OCCULT BLOOD IN STOOL [id number] 10/04/2015 13:30:00 10/04/2015 23:59:59 CLS Outpatient STEVE JONES, DRISS [facility] PREOP ANEMIA; OCCULT BLOOD IN STOOL [id number] 09/26/2015 09:44:00 09/26/2015 23:59:59 CLS Outpatient STARLA GARDNER MD [facility] RAD HISTORY OF CIGARETTE SMOKING,HERNIA [id number] 09/30/2014 21:26:00 10/01/2014 00:13:00 DIS Emergency IRVING JONES, PRIYA Chadwick [facility] ER NAUSEA DIZZY [id number] 01/19/2013 08:07:00 01/19/2013 23:59:59 CLS Outpatient MARCOS GALVAN MD [facility] RAD SPINAL STENOSIS [id number] 05/18/2018 13:57:00 ACT Outpatient MARCOS GLAVAN MD [facility] RAD PERSISTENT DYSPNEA, ABDOMINAL PAIN [id number] 09/15/2014 08:46:00 Document Registration [id number] 09/14/2014 08:36:00 Document Registration [id number] 12/03/2010 09:38:00 Document Registration [id number] 11/12/2010 06:58:00 Document Registration [id number] 10/31/2010 07:59:00 Document Registration
[2018-05-20 12:00] VITALS: BP 133/57
--- NOTE | 2018-05-20 12:00 | History & Physical-Hospitalist ---
History of Present Illness HPI/Chief Complaint CC: Found down at home now with severe congestive heart failure HPI: This is an 87-year-old patient of Dr. Jamison who previously was independent and living alone up until March when Dr. Schroeder require transfer to [place] for stent placement due to coronary artery stenosis. He required an inpatient rehabilitation stay in April but has had a significant decline in the last 2 months. He previously saw Dr. Taylor but was unhappy with that consultation so they obtained a referral to [facility] who reported severe COPD. Chronic renal insufficiency usually is 1.8 and today is 2.2. Patient was found down at home in the bathroom likely all night and patient is unable to give me any details due to drowsiness and mild tachypnea. He now has significantly elevated BNP indicating severe congestive heart failure with acute on chronic renal failure along with liver failure with coagulopathy. At this current time he does not have a power of employment attorney but 2 cousins help check in on him and they are very clear on the need for DO NOT RESUSCITATE so that process will be started right away. Source: family Exam Limitations: clinical condition Date Seen 05/20/18 Time Seen by a Provider: 11:45 Attending Physician Leia Jose Floyd R MD Referring Physician Date of Admission May 20, 2018 at 11:19 Home Medications & Allergies Home Medications Reviewed patient Home Medication Reconciliation performed by pharmacy medication reconciliations cardiothoracic anesthesia technician and/or nursing. Patients Allergies have been reviewed. Allergies Allergies Coded Allergies No Known Drug Allergies (Verified03/21/18) Past Adirxkx-Imdsio-Ejwjsh Hx Past Med/Social Hx: Reviewed Nursing Past Med/Soc Hx, Reviewed and Corrections made Patient Social History Marrital Status: single Employed/Student: retired ([employer]) Alcohol Use: Occasionally Uses Number of Drinks Today: Alcohol Beverage of Choice: Beer, Whiskey, Wine Recreational Drug Use: No Smoking Status: Former Smoker Former Smoker, Quit: Apr 28, 1988 Type Used: Cigarettes Recent Foreign Travel: No Contact w/other who traveled: No Recent Hopitalizations: No Recent Infectious Disease Expo: No Immunizations Up To Date Date of Pneumonia Vaccine: Sep 15, 2012 Date of Influenza Vaccine: Mar 20, 2017 Seasonal Allergies Seasonal Allergies: Yes Past Medical History Surgeries: CABG, Gallbladder, Prostatectomy, Valve Replacement Respiratory: COPD Cardiac: Coronary Artery Disease, High Cholesterol, Hypertension, Valvular Heart Disease Reproductive: No Gastrointestinal: Gastroesophageal Reflux, Diverticulosis, Polyps Musculoskeletal: Chronic Back Pain Loss of Vision: Denies Hearing Impairment: Denies Cancer: Colon History of Blood Disorders: Yes (anemia) Family History Reviewed Nursing Family Hx Cancer in sister Cancer, Hypertension Review of Systems ROS-Unable to Obtain: Unable to obtain from patient due to drowsiness and acute illness Constitutional: see HPI Physical Exam Physical Exam Vital Signs Vital Signs - First Documented 05/20/18 09:34 O2 Flow Rate 4.00 FiO2 100 Capillary Refill : Less Than 3 Seconds Height, Weight, BMI Height: 5'8.00" Weight: 180lbs. 0.0oz. 81.959970fo; 28.0 BMI Method:Stated General Appearance: WD/WN, Mild Distress (Due to tachypnea), Obese, Other ( Chronically ill, declined, subtle confusion) Eyes: Bilateral Eye Normal Inspection, Bilateral Eye PERRL HEENT: PERRL/EOMI, Normal ENT Inspection, Pharynx Normal Neck: Full Range of Motion, Normal Inspection, Non Tender, Supple, Carotid Bruit Respiratory: Chest Non Tender, Accessory Muscle Use, Decreased Breath Sounds, Respiratory Distress (When talking) Cardiovascular: Regular Rate, Rhythm, No Edema, No Gallop, No JVD, No Murmur, Normal Peripheral Pulses Gastrointestinal: Normal Bowel Sounds, No Organomegaly, No Pulsatile Mass, Non Tender, Soft Back: Normal Inspection, No CVA Tenderness, No Vertebral Tenderness Extremity: Normal Capillary Refill, Normal Inspection, Normal Range of Motion, Non Tender, No Calf Tenderness, No Pedal Edema Neurologic/Psychiatric: Alert, No Motor/Sensory Deficits, Normal Mood/Affect, Other (drowsy) Skin: Normal Color, Warm/Dry Lymphatic: No Adenopathy Results Results/Procedures Labs Laboratory Tests 05/20/18 08:35 Patient resulted labs reviewed. Assessment/Plan Admission Diagnosis Assessment: Severe congestive heart failure with tachypnea and hypoxia and elevated BNP Ischemic cardiomyopathy Recent stent placed due to coronary artery stenosis at [place] at home found down with normal CK Acute on chronic renal failure Liver failure with coagulopathy INR 1.6 Plan: Obtain power of employment attorney Needs DO NOT RESUSCITATE Very poor prognosis considering advanced age and multisystem organ failure Admission Status: Inpatient Order (span 2 midnights) Reason for Inpatient Admission: Severe congestive heart failure with acute renal failure will require at least 2 midnights for complete management Diagnosis/Problems Diagnosis/Problems (1) Multisystem organ failure Status: Acute (2) Liver failure Status: Acute Qualifiers: Liver failure chronicity: acute Hepatic coma status: with hepatic coma Qualified Codes: K72.01 - Acute and subacute hepatic failure with coma (3) Coagulopathy Status: Acute (4) Poor prognosis Status: Acute (5) Advanced age Status: Chronic (6) Acute on chronic renal failure Status: Acute Qualifiers: Acute renal failure type: unspecified Chronic kidney disease stage: stage 4 (severe) Qualified Codes: N17.9 - Acute kidney failure, unspecified; N18.4 - Chronic kidney disease, stage 4 (severe) (7) Tachypnea Status: Acute (8) Acute heart failure Status: Acute Qualifiers: Heart failure type: unspecified Qualified Codes: I50.9 - Heart failure, unspecified (9) Dyspnea Status: Acute Qualifiers: Dyspnea type: acute respiratory distress Qualified Codes: R06.03 - Acute respiratory distress (10) CAD (coronary artery disease) Status: Chronic Qualifiers: Coronary Disease-Associated Artery/Lesion type: [place] artery [place] vs. transplanted heart: [place] heart Associated angina: without angina Qualified Codes: I25.10 - Atherosclerotic heart disease of [place] coronary artery without angina pectoris (11) COPD (chronic obstructive pulmonary disease) Status: Chronic Qualifiers: COPD type: unspecified COPD Qualified Codes: J44.9 - Chronic obstructive pulmonary disease, unspecified (12) Hypertension Status: Chronic (13) H/O aortic valve replacement Status: Chronic (14) H/O heart bypass surgery Status: Chronic (15) Former smoker Status: Chronic LEIA JOSE DO May 20, 2018 12:00
[2018-05-20] MEDS ORDERED: ACETAMINOPHEN 500 MG TAB (TYLENOL) PO PRN (12:15)
[2018-05-20] MEDS ORDERED: CALCIUM CARBONATE 500 MG (TUMS) TAB.CHEW PO PRN (12:15)
[2018-05-20] MEDS ORDERED: fentaNYL INJECTION 100 MCG/2 ML AMP IVP PRN (12:15)
[2018-05-20] MEDS ORDERED: ALPRAZolam 0.25 MG (XANAX) TAB PO PRN (12:15)
[2018-05-20] MEDS ORDERED: DIPH25TA65 PO (15:33)
[2018-05-20] MEDS ORDERED: CLOP75TA28 PO (15:33)
[2018-05-20] MEDS ORDERED: ZOLP10TA5 PO (15:33)
[2018-05-20] MEDS ORDERED: ALBU18HF2 INH (15:33)
[2018-05-20] MEDS ORDERED: VIT1CAPS44 PO (15:43)
[2018-05-20 15:50] VITALS: BP 138/49
[2018-05-20 16:00] VITALS: BP 135/58
[2018-05-20] MEDS ORDERED: RT-ALBUTEROL/IPRATROPIUM 3 ML (DUONEB) VIAL INH PRN (16:00)
--- NOTE | 2018-05-20 16:15 | Consultation-Cardiology ---
HPI-Cardiology Cardiology Consultation Date of Consultation 05/20/18 Date of Admission Time Seen by Provider: 16:07 Indication: Shortness of breath HPI 87 years old gentleman with extensive history of coronary artery disease, has been having peripheral edema and shortness of breath which has been worsening, he was found in the assisted on the floor this morning apparently he went to the bathroom and fell and was unable to get up on his own. Has been having generalized weakness. No chest pain was reported, still having mild dyspnea, denied any palpitation, BNP is elevated, renal functions are worse. No fever or chills. No cough or phlegm. Home Medications & Allergies Allergies: Coded Allergies: No Known Drug Allergies (Verified , 03/21/18) Home Medication List Reviewed: Yes [id number] Hx Patient Social History Marital Status: single Employed/Student: retired ([employer]) Alcohol Use: Occasionally Uses Recreational Drug Use: No Smoking Status: Former Smoker Former smoker/When Quit: Jul 06, 1989 Type Used: Cigarettes Recent Foreign Travel: No Recent Infectious Disease Expo: No Recent Hopitalizations: No Physical Abuse Screen: No Sexual Abuse: No Immunizations Up To Date Date of Pneumonia Vaccine: Sep 15, 2012 Date of Influenza Vaccine: May 10, 2018 Family Medical History Significant Family History: Cancer, Hypertension Family History: Cancer in sister Review of Systems Constitutional: see HPI, malaise, weakness EENTM: see HPI, no symptoms reported Respiratory: see HPI, cough, dyspnea on exertion, orthopnea, short of breath Cardiovascular: see HPI; No chest pain; edema; No Hx of Intervention, No palpitations, No syncope, No vascular heart diseas, No other Gastrointestinal: no symptoms reported, see HPI Genitourinary: no symptoms reported, see HPI Musculoskeletal: see HPI, back pain, joint pain Skin: no symptoms reported, see HPI Psychiatric/Neurological: No Symptoms Reported, See HPI Reviewed Test Results Reviewed Test Results Lab Laboratory Tests Test 05/20/18 08:35 05/20/18 08:57 05/20/18 10:20 05/20/18 12:06 Range/Units White Blood Count 8.2 4.3-11.0 10^3/uL Red Blood Count 3.41 L 4.35-5.85 10^6/uL Hemoglobin 10.5 L 13.3-17.7 G/DL Hematocrit 34 L 40-54 % Mean Corpuscular Volume 99 80-99 FL Mean Corpuscular Hemoglobin 31 25-34 PG Mean Corpuscular Hemoglobin Concent 31 L 32-36 G/DL Red Cell Distribution Width 17.4 H 10.0-14.5 % Platelet Count 262 130-400 10^3/uL Mean Platelet Volume 11.8 H 7.4-10.4 FL Neutrophils (%) (Auto) 82 H 42-75 % Lymphocytes (%) (Auto) 8 L 12-44 % Monocytes (%) (Auto) 9 0-12 % Eosinophils (%) (Auto) 1 0-10 % Basophils (%) (Auto) 0 0-10 % Neutrophils # (Auto) 6.7 1.8-7.8 X 10^3 Lymphocytes # (Auto) 0.7 L 1.0-4.0 X 10^3 Monocytes # (Auto) 0.8 0.0-1.0 X 10^3 Eosinophils # (Auto) 0.0 0.0-0.3 10^3/uL Basophils # (Auto) 0.0 0.0-0.1 10^3/uL Neutrophils % (Manual) 89 % Lymphocytes % (Manual) 5 % Monocytes % (Manual) 5 % Eosinophils % (Manual) 0 % Basophils % (Manual) 1 % Band Neutrophils 0 % Polychromasia MODERATE Anisocytosis MARKED Prothrombin Time 18.7 H 12.2-14.7 SEC INR Comment 1.6 H 0.8-1.4 Activated Partial Thromboplast Time 26 24-35 SEC Sodium Level 142 135-145 MMOL/L Potassium Level 4.8 3.6-5.0 MMOL/L Chloride Level 104 98-107 MMOL/L Carbon Dioxide Level 20 L 21-32 MMOL/L Anion Gap 18 H 5-14 MMOL/L Blood Urea Nitrogen 70 H 7-18 MG/DL Creatinine 2.24 H 0.60-1.30 MG/DL Estimat Glomerular Filtration Rate 28 BUN/Creatinine Ratio 31 Glucose Level 101 70-105 MG/DL Calcium Level 9.6 8.5-10.1 MG/DL Corrected Calcium 9.7 8.5-10.1 MG/DL Total Bilirubin 2.5 H 0.1-1.0 MG/DL Aspartate Amino Transf (AST/SGOT) 286 H 5-34 U/L Alanine Aminotransferase (ALT/SGPT) 229 H 0-55 U/L Alkaline Phosphatase 86 40-136 U/L Total Creatine Kinase 79 30-200 U/L Troponin I < 0.30 <0.30 NG/ML B-Type Natriuretic Peptide 3911.7 H <100.0 PG/ML Total Protein 6.7 6.4-8.2 GM/DL Albumin 3.9 3.2-4.5 GM/DL Lactic Acid Level 3.44 *H 1.65 0.50-2.00 MMOL/L Urine Color YELLOW Urine Clarity SLIGHTLY CLOUDY Urine pH 5 5-9 Urine Specific [place] 1.020 1.016-1.022 Urine Protein 2+ H NEGATIVE Urine Glucose (UA) NEGATIVE NEGATIVE Urine Ketones NEGATIVE NEGATIVE Urine Nitrite NEGATIVE NEGATIVE Urine Bilirubin NEGATIVE NEGATIVE Urine Urobilinogen NORMAL NORMAL MG/DL Urine Leukocyte Esterase NEGATIVE NEGATIVE Urine RBC (Auto) 4+ H NEGATIVE Urine RBC 10-25 H /HPF Urine WBC NONE /HPF Urine Squamous Epithelial Cells 2-5 /HPF Urine Crystals NONE /LPF Urine Bacteria NEGATIVE /HPF Urine Casts PRESENT /LPF Urine Hyaline Casts 5-10 H /LPF Urine Mucus NEGATIVE /LPF Urine Culture Indicated NO Test 05/20/18 13:58 Range/Units Ammonia 39 H 11-32 UMOL/L Physical Exam Vital Signs Vital Signs - First Documented 05/20/18 09:34 O2 Flow Rate 4.00 FiO2 100 Capillary Refill : Less Than 3 Seconds Height, Weight, BMI Height: 5'8.00" Weight: 180lbs. 0.0oz. [id number]; 27.4 BMI Method:Stated General Appearance: WD/WN, Mild Distress Eyes: Bilateral Eye Normal Inspection, Bilateral Eye PERRL, Bilateral Eye EOMI HEENT: PERRL/EOMI, TMs Normal, Normal ENT Inspection, Pharynx Normal Neck: Full Range of Motion, Normal Inspection, Non Tender, Supple, Carotid Bruit Respiratory: Chest Non Tender, Normal Breath Sounds, No Accessory Muscle Use, No Respiratory Distress, Crackles Cardiovascular: Regular Rate, Rhythm, No Gallop, No JVD, Normal Peripheral Pulses, Systolic Murmur Gastrointestinal: Normal Bowel Sounds, No Organomegaly, No Pulsatile Mass, Non Tender, Soft Back: Normal Inspection, No CVA Tenderness, No Vertebral Tenderness Extremity: Normal Capillary Refill, Normal Inspection, Normal Range of Motion, Non Tender, No Calf Tenderness, Pedal Edema Neurologic/Psychiatric: Alert, Oriented x3, No Motor/Sensory Deficits, Normal Mood/Affect Skin: Normal Color, Warm/Dry Lymphatic: No Adenopathy A/P-Cardiology Admission Diagnosis Congestive heart failure Acute renal failure Shortness of breath Debility Coronary artery disease Assessment/Plan Congestive heart failure, acute on chronic left ventricular systolic and diastolic dysfunction, worsening recently on top of renal failure, started on IV Lasix, monitor tolerance and response. Acute on chronic renal failure, creatinine is worse. Intravascular volume depletion. Continue to monitor renal function. Status post fall with generalized weakness and debility. Recommend physical therapy Coronary artery disease, history of CABG 2 done in 1995, cardiac catheterization done in 2008 showing 8 and ARNOLD to LAD with occluded LAD, occluded bypass to the circumflex artery with occluded circumflex artery, 70 percent mid RCA stenosis. Patient had aortic valve replacement with Equine valve in addition to another bypass using 1 graft. Underwent cardiac catheterization done on March 22, 2018 with left [id number] 1 atherectomy with Rotablator with left [id number]-[id number] 1 stenting using 2.75 x 28 mm drug-eluting Promus Premier stent deployed in the left main into the OMB 1. LAD has 90 percent proximal narrowing but good filling from LAD to THUY. Lesion was left alone. underwent repeat cardiac catheterization on April after having worsening dyspnea revealing patent stent extending from the left main to the circumflex and obtuse marginal branch with good flow distally, restart aspirin and Plavix and monitor Aortic valve replacement, had history of equine involved placement in 2008, recent 2-D echocardiogram done April 03, 2018 revealing mild aortic stenosis. Continue to monitor. Hypertension, restart beta blockers and monitor Hyperlipidemia, I am holding simvastatin at this time. Continue to monitor Carotid artery stenosis-nonobstructive disease bilaterally per carotid duplex done March 2018, continue to monitor History of tobaccoism, stopped smoking in 1987. History of colon cancer, status post chemotherapy BPH, maintained on Flomax, will place a Maldonado catheter and evaluate the urine output and monitor closely MONY CLEMENTS MD May 20, 2018 16:15
[2018-05-20] MEDS: FUROSEMIDE 40 MG/4 ML INJ (LASIX) IV SCH (18:39)
[2018-05-20] MEDS: TAMSULOSIN 0.4 MG (FLOMAX) CAP PO SCH (18:39)
[2018-05-20] MEDS: RT-ALBUTEROL/IPRATROPIUM 3 ML (DUONEB) VIAL INH SCH (19:19)
[2018-05-20 20:00] VITALS: BP 163/67
[2018-05-21] VITALS: BP 133/63
[2018-05-21] MEDS: RT-ALBUTEROL/IPRATROPIUM 3 ML (DUONEB) VIAL INH SCH ×7 (00:15→22:15)
[2018-05-21 04:15] VITALS: BP 134/59
[2018-05-21 04:45] LABS: BASOPHILS % (AUTO) 0 % (0-10); EOSINOPHILS # (AUTO) 0.1 10^3/uL (0.0-0.3); EOSINOPHILS % (AUTO) 1 % (0-10); HEMATOCRIT 33 % (40-54); HEMOGLOBIN 10.1 G/DL (13.3-17.7); LYMPHOCYTES # (AUTO) 0.7 X 10^3 (1.0-4.0); LYMPHOCYTES % (AUTO) 9 % (12-44); MEAN CORPUSCULAR HEMOGLOBIN 31 PG (25-34); MEAN CORPUSCULAR HGB CONC 30 G/DL (32-36); MEAN CORPUSCULAR VOLUME 101 FL (80-99); MEAN PLATELET VOLUME 11.3 FL (7.4-10.4); MONOCYTES # (AUTO) 0.7 X 10^3 (0.0-1.0); MONOCYTES % (AUTO) 9 % (0-12); NEUTROPHILS # (AUTO) 6.4 X 10^3 (1.8-7.8); NEUTROPHILS % (AUTO) 80 % (42-75); PLATELET COUNT 196 10^3/uL (130-400); RED BLOOD COUNT 3.28 10^6/uL (4.35-5.85); RED CELL DISTRIBUTION WIDTH 17.2 % (10.0-14.5); WHITE BLOOD COUNT 7.9 10^3/uL (4.3-11.0)
[2018-05-21 05:05] LABS: ALBUMIN 3.5 GM/DL (3.2-4.5); BILIRUBIN,TOTAL 1.3 MG/DL (0.1-1.0); CALCIUM 9.2 MG/DL (8.5-10.1); CREATININE SERUM 1.98 MG/DL (0.60-1.30); MAGNESIUM 2.7 MG/DL (1.8-2.4); POTASSIUM 4.2 MMOL/L (3.6-5.0); TOTAL PROTEIN 6.1 GM/DL (6.4-8.2)
[2018-05-21] MEDS: FUROSEMIDE 40 MG/4 ML INJ (LASIX) IV SCH ×2 (06:47→17:16)
--- NOTE | 2018-05-21 07:07 | Cardiology Progress Note ---
Subjective Date Seen by Provider: May 21, 2018 Time Seen by Provider: 07:05 Subjective/Events-last exam Patient is laying down in bed, denied any chest pain, breathing better, swelling is improving Review of Systems General: No Chills, No Night Sweats, No Fatigue, No Malaise, No Appetite, No Other HEENT: No Head Aches, No Visual Changes, No Eye Pain, No Ear Pain, No Dysphasia , No Sinus Congestion, No Post Nasal Drip, No Sore Throat, No Other Pulmonary: Dyspnea; No Cough, No Pleuritic Chest Pain, No Other Cardiovascular: Edema; No: Chest Pain, Palpitations, Orthopnea, Paroxysmal Noc. Dyspnea, Lt Headedness, Other Focused Exam Lactate Level 05/20/18 08:57: Lactic Acid Level 3.44*H 05/20/18 12:06: Lactic Acid Level 1.65 Objective-Cardiology Exam Last Set of Vital Signs Vital Signs 05/20/18 05/21/18 15:50 04:15 Temp 96.6 Pulse 70 Resp 20 B/P (MAP) 134/59 (84) Pulse Ox 97 O2 Delivery Nasal Cannula O2 Flow Rate 4.00 FiO2 36 Capillary Refill : Less Than 3 Seconds I&O Intake and Output 05/21/18 00:00 Intake Total 1040 ml Output Total 485 ml Balance 555 ml Intake Oral 490 ml IV Total 550 ml Output Urine Total 485 ml # Urine Diapers 1 Daily Weight Change No General: Alert, Oriented X3, Cooperative HEENT: Atraumatic, PERRLA Neck: Supple, No JVD, No Thyromegaly Lungs: Normal Air Movement, Other ([place]) Heart: Regular Rate, Normal S1, Normal S2, No Murmurs Abdomen: Normal Bowel Sounds, Soft, No Tenderness, No Hepatosplenomegaly, No Masses Extremities: No Clubbing, No Cyanosis, Normal Pulses, No Tenderness/Swelling, Other (Peripheral edema) Skin: No Rashes, No Breakdown, No Significant Lesion Neuro: Normal Gait, Normal Speech, Strength at 5/5 X4 Ext, Normal Tone, Sensation Intact Psych/Mental Status: Mental Status NL, Mood NL Results Lab Laboratory Tests 05/20/18 08:35 05/21/18 04:15 A/P-Cardiology Admission Diagnosis Congestive heart failure Acute renal failure Shortness of breath Debility Coronary artery disease Assessment/Plan Congestive heart failure, acute on chronic left ventricular systolic and diastolic dysfunction, worsening recently on top of renal failure, responding to IV Lasix. Acute on chronic renal failure, slight improvement in renal function with diuresis. Continue on IV Lasix and monitor Status post fall with generalized weakness and debility. Recommend physical therapy Coronary artery disease, history of CABG 2 done in 1995, cardiac catheterization done in 2008 showing 8 and ARNOLD to LAD with occluded LAD, occluded bypass to the circumflex artery with occluded circumflex artery, 70 percent mid RCA stenosis. Patient had aortic valve replacement with Equine valve in addition to another bypass using 1 graft. Underwent cardiac catheterization done on March 22, 2018 with left zdpv-saxilmpdot-JYR 1 atherectomy with Rotablator with left dzki-ilxzhgfxlb-HNL 1 stenting using 2.75 x 28 mm drug-eluting Promus Premier stent deployed in the left main into the OMB 1. LAD has 90 percent proximal narrowing but good filling from LAD to THUY. Lesion was left alone. underwent repeat cardiac catheterization on April after having worsening dyspnea revealing patent stent extending from the left main to the circumflex and obtuse marginal branch with good flow distally, continue on aspirin and Plavix Aortic valve replacement, had history of equine involved placement in 2008, recent 2-D echocardiogram done April 03, 2018 revealing mild aortic stenosis. Continue to monitor. Hypertension, restart beta blockers and monitor Hyperlipidemia, I am holding simvastatin due to elevated liver enzymes. Continue to monitor Carotid artery stenosis-nonobstructive disease bilaterally per carotid duplex done March 2018, continue to monitor History of tobaccoism, stopped smoking in 1987. History of colon cancer, status post chemotherapy BPH, maintained on Flomax, will place a Maldonado catheter and evaluate the urine output and monitor closely Clinical Quality Measures DVT/VTE Risk/Contraindication: Risk Factor Score Per Nursin RFS Level Per Nursing on Admit: 4+=Very High MONY CLEMENTS MD May 21, 2018 07:07
[2018-05-21 08:03] VITALS: BP 118/49
[2018-05-21] MEDS: amLODIPine 5 MG (NORVASC) TAB PO SCH (09:08)
[2018-05-21] MEDS: CLOPIDOGREL 75 MG (PLAVIX) TABLET PO SCH (09:08)
[2018-05-21] MEDS: ASPIRIN 81 MG CHEW (CHILDREN'S ASA) PO SCH (09:09)
--- NOTE | 2018-05-21 09:59 | Progress Note-Hospitalist ---
Subjective HPI/CC On Admission Date Seen by Provider: May 21, 2018 Time Seen by Provider: 10:30 CC: Found down at home now with severe congestive heart failure HPI: This is an 87-year-old patient of Dr. Jamison who previously was independent and living alone up until March when Dr. Schroeder require transfer to [facility] for stent placement due to coronary artery stenosis. He required an inpatient rehabilitation stay in April but has had a significant decline in the last 2 months. He previously saw Dr. Taylor but was unhappy with that consultation so they obtained a referral to [facility] who reported severe COPD. Chronic renal insufficiency usually is 1.8 and today is 2.2. Patient was found down at home in the bathroom likely all night and patient is unable to give me any details due to drowsiness and mild tachypnea. He now has significantly elevated BNP indicating severe congestive heart failure with acute on chronic renal failure along with liver failure with coagulopathy. At this current time he does not have a power of radio/tv technician but 2 cousins help check in on him and they are very clear on the need for DO NOT RESUSCITATE so that process will be started right away. Subjective/Events-last exam Patient doing much better Breathing better Creatinine 1.9 Responding to IV diuresis Uses a walker at home and family will bring that in Physical therapy and occupational therapy will be consulted Inpatient rehabilitation eval Denies any pain Reviewed meds and labs Review of Systems General: Fatigue, Malaise Pulmonary: Dyspnea Focused Exam Lactate Level 05/20/18 08:57: Lactic Acid Level 3.44*H 05/20/18 12:06: Lactic Acid Level 1.65 Objective Exam Vital Signs Vital Signs Date Time Temp Pulse Resp B/P (MAP) Pulse Ox O2 Delivery O2 Flow Rate FiO2 05/21/18 08:03 96.4 67 16 118/49 (72) 96 Nasal Cannula 4.00 05/20/18 15:50 36 Capillary Refill : Less Than 3 Seconds General Appearance: No Apparent Distress, WD/WN, Chronically ill Respiratory: Chest Non Tender, Lungs Clear, No Accessory Muscle Use, No Respiratory Distress, Decreased Breath Sounds Cardiovascular: Regular Rate, Rhythm, No Gallop, No JVD, No Murmur, Normal Peripheral Pulses Extremity: Normal Capillary Refill, Normal Inspection, Normal Range of Motion, Non Tender, No Calf Tenderness, Pedal Edema Neurologic/Psychiatric: Alert, Oriented x3, No Motor/Sensory Deficits, Normal Mood/Affect Skin: Normal Color, Warm/Dry Results/Procedures Lab Laboratory Tests 05/21/18 04:15 Patient resulted labs reviewed. Assessment/Plan Assessment and Plan Assess & Plan/Chief Complaint Assessment: Severe congestive heart failure with tachypnea and hypoxia and elevated BNP Ischemic cardiomyopathy Recent stent placed due to coronary artery stenosis at [facility] Fall at home found down with normal CK Acute on chronic renal failure Liver failure with coagulopathy INR 1.6 Plan: IV Lasix Monitor labs PT/OT Walker from home O2 IRF? Fall risk Diagnosis/Problems Diagnosis/Problems (1) Multisystem organ failure Status: Acute (2) Liver failure Status: Acute Qualifiers: Liver failure chronicity: acute Hepatic coma status: with hepatic coma Qualified Codes: K72.01 - Acute and subacute hepatic failure with coma (3) Coagulopathy Status: Acute (4) Poor prognosis Status: Acute (5) Advanced age Status: Chronic (6) Acute on chronic renal failure Status: Acute Qualifiers: Acute renal failure type: unspecified Chronic kidney disease stage: stage 4 (severe) Qualified Codes: N17.9 - Acute kidney failure, unspecified; N18.4 - Chronic kidney disease, stage 4 (severe) (7) Tachypnea Status: Acute (8) Acute heart failure Status: Acute Qualifiers: Heart failure type: unspecified Qualified Codes: I50.9 - Heart failure, unspecified (9) Dyspnea Status: Acute Qualifiers: Dyspnea type: acute respiratory distress Qualified Codes: R06.03 - Acute respiratory distress (10) CAD (coronary artery disease) Status: Chronic Qualifiers: Coronary Disease-Associated Artery/Lesion type: ho[place] artery [place] vs. transplanted heart: ho-[place] heart Associated angina: without angina Qualified Codes: I25.10 - Atherosclerotic heart disease of [place] coronary artery without angina pectoris (11) COPD (chronic obstructive pulmonary disease) Status: Chronic Qualifiers: COPD type: unspecified COPD Qualified Codes: J44.9 - Chronic obstructive pulmonary disease, unspecified (12) Hypertension Status: Chronic (13) H/O aortic valve replacement Status: Chronic (14) H/O heart bypass surgery Status: Chronic (15) Former smoker Status: Chronic Clinical Quality Measures DVT/VTE Risk/Contraindication: Risk Factor Score Per Nursin RFS Level Per Nursing on Admit: 4+=Very High NEHAL JOSE DO May 21, 2018 09:59
--- NOTE | 2018-05-21 11:44 | Physical Therapy Evaluation ---
PT Evaluation-General Medical Diagnosis Admission Date May 20, 2018 at 11:19 Medical Diagnosis: weakness Onset Date: May 20, 2018 Therapy Diagnosis Therapy Diagnosis: impaired mobility, strength, endurance Height/Weight Height (Feet): 5 Height (Inches): 8.00 Weight (Pounds): 180 Weight (Ounces): 0.0 Precautions Precautions/Isolations: Fall Prevention, Standard Precautions Referral Physician: Leia Núñez DO Reason for Referral: Evaluation/Treatment Medical History Pertinent Medical History: CABG, CAD, COPD, GERD, HTN Additional Medical History Past Medical History Surgeries: CABG, Gallbladder, Prostatectomy, Valve Replacement Respiratory: COPD Cardiac: Coronary Artery Disease, High Cholesterol, Hypertension, Valvular Heart Disease Reproductive: No Gastrointestinal: Gastroesophageal Reflux, Diverticulosis, Polyps Musculoskeletal: Chronic Back Pain Loss of Vision: Denies Hearing Impairment: Denies Cancer: Colon History of Blood Disorders: Yes (anemia) Current History patient found down at home, now with severe CHF Social History Home: Single Level Current Living Status: Alone Entry Into Home: Stairs With Railing PT Steps Into Home: 2 Prior/Core FIM Prior Level of Function Functional [place] Measure 0=Not Assessed/NA 4=Minimal Assistance 1=Total Assistance 5=Supervision or Setup 2=Maximal Assistance 6=Modified [place] 3=Moderate Assistance 7=Complete IndependenceIRFPAI Quality Coding Scale 6 Independent with activity with or without an assistive device 5 Patient requires set up or clean up by helper. Patient completes activity by themselves 4 Supervision or touching assist (CGA). [place] provide cues , steadying assist 3 The helper provides less than half the effort to complete the activity 2 The helper provides more than half the effort to complete the activity 1 Dependent. The helper does all the effort to complete an activity 7 Patient refused to complete or attempt activity 9 The patient did not perform the activity before the current illness or injury 88 Not attempted due to Medical conditions or safety concerns Bed Mobility: 7 Transfers (B,C,W/C) (FIM): 7 Gait: 7 PT Evaluation-Current Subjective Patient in bed pre tx, agrees to PT, no complaints of pain Pt/Family Goals to be independent at home Objective Patient Orientation: Person, Place, Situation Attachments: Oxygen, Maldonado Catheter 4L of O2 nasal canula ROM/Strength ROM Lower Extremities WNL Strength Lower Extremities right lower extremity (hip flexion 3/5, knee flexion 4/5, knee extension 4/5, dorsiflexion 5/5), left lower extremity (hip flexion 3/5, knee flexion 4/5, knee extension 4/5, dorsiflexion 5/5) Integumentary/Posture Bladder Incontinence: Maldonado Cath Neuromuscular (Tone, Coordination, Reflexes) NT Sensory Vision: Wears Glasses Hearing: Impaired Sensation Right Lower Extremit: Impaired Sensation Left Lower Extremity: Impaired Transfers Functional [place] Measure 0=Not Assessed/NA 4=Minimal Assistance 1=Total Assistance 5=Supervision or Setup 2=Maximal Assistance 6=Modified [place] 3=Moderate Assistance 7=Complete [place] Transfers (B, C, W/C) (FIM): 4 Scootin Rollin Supine to/from Sit: 5 Sit to/from Stand: 4 bed t/f WC(FIM only if WC use): 4 Patient performs bed mobility with SBA, sit to stand and transfers with CGA. Cues for hand placement and safety. Gait Mode of Locomotion: Walk Anticipated Mode of Locomotion: Walk Gait (FIM): 2 Distance: 50' Gait Level of Assist: 4 Gait Persons Needed: 1 Gait Assistive Device: FWW Comments/Gait Description Patient can ambulate 50' with a rolling walker with CGA. Patient ambulates slowly but steady, no LOB. Balance Sitting Static: Normal Sitting Dynamic: Normal Standing Static: Good Standing Dynamic: Good Treatment Seated exercises x20 (AP, LAQ) Assessment/Needs Patient has impaired mobility, strength, endurance. Patient in recliner post tx with nurse call, tray, family in the room. Rehab Potential: Fair PT Short Term Goals Short Term Goals Time Frame: May 28, 2018 Transfers (B,C,W/C) (FIM): 5 Gait (FIM): 5 Gait Distance Comment: 150' Gait Level of Assist: 5 Gait Assistive Device: FWW PT Plan Problem List Problem List: Activity Tolerance, Functional Strength, Safety, Balance, Gait, Transfer, Bed Mobility Treatment/Plan Treatment Plan: Continue Plan of Care Treatment Plan: Bed Mobility, Education, Functional Activity [place], Functional Strength, Gait, Safety, Therapeutic Exercise, Transfers Treatment Duration: May 28, 2018 Frequency: 6 times per week Estimated Hrs Per Day: .25 hour per day (15-30') Patient and/or Family Agrees t: Yes Safety Risks/Education Patient Education: Gait Training, Transfer Techniques, Correct Positioning, Safety Issues Teaching Recipient: Patient Teaching Methods: Demonstration, Discussion Response to Teaching: Reinforcement Needed Discharge Recommendations Plan Patient will perform bed mobility and transfer training, balance and endurance training, functional strengthening, stair training, gait training, and education , to improve functional mobility and independence at home. Therapy D/C Recommendations: Home w/ Family Support Time/GCodes Time In: 1115 Time Out: 1133 Total Billed Treatment Time: 18 Total Billed Treatment 1 visit MICHAEL 18' RANDA COVARRUBIAS PT May 21, 2018 11:44
[2018-05-21 12:55] VITALS: BP 120/52
--- NOTE | 2018-05-21 16:03 | Occupational Therapy Eval ---
OT Evaluation-General/PLF Medical Diagnosis Admission Date May 20, 2018 at 11:19 Medical Diagnosis: weakness Onset Date: May 20, 2018 Therapy Diagnosis Therapy Diagnosis: decreased self care skills Height/Weight Height (Feet): 5 Height (Inches): 8.00 Weight (Pounds): 180 Weight (Ounces): 0.0 Precautions Precautions/Isolations: Fall Prevention, Standard Precautions Safety Interventions: Bed Exit Alarm Referral Physician: Leia Núñez DO Medical History Pertinent Medical History: CABG, CAD, COPD, GERD, HTN Additional Medical History Valvular heart disease, valve replacement, high cholesterol, diverticulosis, chronic back pain, colon cancer, anemia Social History Home: Single Level Current Living Status: Alone Entry Into Home: Stairs With Railing Steps Into Home: 2 Pt states he has family who checks on him daily. ADL-Prior Level of Function Functional [place] Measure 0=Not Assessed/NA 4=Minimal Assistance 1=Total Assistance 5=Supervision or Setup 2=Maximal Assistance 6=Modified [place] 3=Moderate Assistance 7=Complete [place] ADL PLOF Comments Pt reports completing self care and mobility without assistance. Pt states he does not use any AD for mobility, but states he has fallen at home. Self Care Self Care: (Code the patient's need for assistance with bathing, dressing, using the toilet, or eating prior to the current illness, exacerbation, or injury.) Functional Cognition Functional Cognition: (Code the patient's need for assistance with planning regular tasks, such as shopping or remembering to take medicaiton prior to the current illness, exacerbation, or injury.) DME/Equipment: Tub/Shower Drive Self: No OT Current Status Subjective Pt in bed, agrees to therapy. Pt has no c/o pain. Mental Status/Objective Patient Orientation: Person, Place Attachments: Maldonado Catheter, Oxygen Current Glasses/Contacts: Yes Hearing Aids: Yes (does not have them here) Hand Dominance: Right Upper Extremity ROM Mildly decreased shoulder ROM Upper Extremity Strength Fair ADL-Treatment ADL-Current Pt supine to sit with supervision. Pt participated in UE assessment while seated EOB with good balance. Pt required assist to doff/don socks. Sit to stand with minimal assistance. Able to sidestep to HOB with FWW with CGA for balance. Sit to supine with minimal assistance for LE. Pt resting in bed with needs met after session. Functional [place] Measure 0=Not Assessed/NA 4=Minimal Assistance 1=Total Assistance 5=Supervision or Setup 2=Maximal Assistance 6=Modified [place] 3=Moderate Assistance 7=Complete IndependenceIRFPAI Quality Coding Scale 6 Independent with activity with or without an assistive device 5 Patient requires set up or clean up by helper. Patient completes activity by themselves 4 Supervision or touching assist (CGA). [place] provide cues , steadying assist 3 The helper provides less than half the effort to complete the activity 2 The helper provides more than half the effort to complete the activity 1 Dependent. The helper does all the effort to complete an activity 7 Patient refused to complete or attempt activity 9 The patient did not perform the activity before the current illness or injury 88 Not attempted due to Medical conditions or safety concerns Education OT Patient Education: Rehab process Teaching Recipient: Patient Teaching Methods: Discussion Response to Teaching: Verbalize Understanding, Reinforcement Needed OT Short Term Goals Short Term Goals Transfers (B,C,W/C) (FIM): 5 1=Demonstrate adherence to instructed precautions during ADL tasks. 2=Patient will verbalize/demonstrate understanding of assistive devices/ modifications for ADL. 3=Patient will improve strength/tolerance for activity to enable patient to perform ADL's. OT Fci Goals Fci Goals Time Frame: May 31, 2018 Eating (FIM): 6 Grooming(FIM): 5 Upper Body Dressing(FIM): 5 Lower Body Dressing(FIM): 4 (CGA) Toileting(FIM): 5 Toilet/Commode Transfer(FIM): 5 Additional Goals: 1-Demonstrate ADL Tasks, 2-Verbalize Understanding, 3- ImproveStrength/[place] 1=Demonstrate adherence to instructed precautions during ADL tasks. 2=Patient will verbalize/demonstrate understanding of assistive devices/ modifications for ADL. 3=Patient will improve strength/tolerance for activity to enable patient to perform ADL's. OT Education/Plan Problem List/Assessment Assessment: Decreased Activ Tolerance, Decreased UE Strength, Dependent Transfers, Impaired Self-Care Skills Pt to benefit from skilled OT intervention for ADL training, transfers, strengthening, and safety education to increase independence and allow safe discharge plan. Discharge Recommendations Plan/Recommendations: Continue POC Treatment Plan/Plan of Care Treatment,Training & Education: Yes Patient would benefit from OT for education, treatment and training to promote independence in ADL's, mobility, safety and/or upper extremity function for ADL' s. Plan of Care: ADL Retraining, Functional Mobility, UE Funct Exercise/Act Treatment Duration: May 31, 2018 Frequency: 5 times per week Estimated Hrs Per Day: .25 hour per day Rehab Potential: Fair Time/GCodes Start Time: 15:38 Stop Time: 15:56 Total Time Billed (hr/min): 18 Billed Treatment Time 1 visit, MICHAEL(18minutes) WOO ALMEIDA OT May 21, 2018 16:02
[2018-05-21 16:36] VITALS: BP 136/54
[2018-05-21] MEDS: TAMSULOSIN 0.4 MG (FLOMAX) CAP PO SCH (17:16)
[2018-05-21 19:45] VITALS: BP 130/51
[2018-05-21] MEDS: ZOLPIDEM 5 MG (AMBIEN) TAB PO PRN (22:33)
[2018-05-22] VITALS: BP 132/56
[2018-05-22] MEDS: RT-ALBUTEROL/IPRATROPIUM 3 ML (DUONEB) VIAL INH SCH ×6 (01:45→22:48)
[2018-05-22 04:00] VITALS: BP 118/45
[2018-05-22] MEDS: FUROSEMIDE 40 MG/4 ML INJ (LASIX) IV SCH ×2 (06:30→17:22)
[2018-05-22 07:10] LABS: BASOPHILS % (AUTO) 0 % (0-10); EOSINOPHILS # (AUTO) 0.1 10^3/uL (0.0-0.3); EOSINOPHILS % (AUTO) 1 % (0-10); HEMATOCRIT 29 % (40-54); HEMOGLOBIN 8.8 G/DL (13.3-17.7); LYMPHOCYTES # (AUTO) 0.4 X 10^3 (1.0-4.0); LYMPHOCYTES % (AUTO) 7 % (12-44); MEAN CORPUSCULAR HEMOGLOBIN 30 PG (25-34); MEAN CORPUSCULAR HGB CONC 30 G/DL (32-36); MEAN CORPUSCULAR VOLUME 100 FL (80-99); MEAN PLATELET VOLUME 11.5 FL (7.4-10.4); MONOCYTES # (AUTO) 0.5 X 10^3 (0.0-1.0); MONOCYTES % (AUTO) 9 % (0-12); NEUTROPHILS % (AUTO) 83 % (42-75); PLATELET COUNT 152 10^3/uL (130-400); RED BLOOD COUNT 2.91 10^6/uL (4.35-5.85); RED CELL DISTRIBUTION WIDTH 16.7 % (10.0-14.5)
[2018-05-22 07:33] LABS: ALBUMIN 3.2 GM/DL (3.2-4.5); BILIRUBIN,TOTAL 1.1 MG/DL (0.1-1.0); CALCIUM 8.5 MG/DL (8.5-10.1); CREATININE SERUM 1.79 MG/DL (0.60-1.30); POTASSIUM 3.4 MMOL/L (3.6-5.0); TOTAL PROTEIN 5.3 GM/DL (6.4-8.2)
[2018-05-22 08:00] VITALS: BP 106/43
[2018-05-22] MEDS: ASPIRIN 81 MG CHEW (CHILDREN'S ASA) PO SCH (09:08)
[2018-05-22] MEDS: CLOPIDOGREL 75 MG (PLAVIX) TABLET PO SCH (09:08)
[2018-05-22] MEDS: amLODIPine 5 MG (NORVASC) TAB PO SCH (09:08)
--- NOTE | 2018-05-22 11:41 | Physical Therapy Daily Note ---
PT Daily Note-Current Subjective Pt reports he is tired, but willing to participate with PT Pain Numeric Pain Scale: 0-No Pain Appearance Pt supine in bed with family member present upon arrival. Pt sitting up in recliner with call light and phone within reach and looking over menu for lunch with family member still present. Mental Status Attachments: Oxygen, Maldonado Catheter 3L O2/NC Transfers Functional [place] Measure 0=Not Assessed/NA 4=Minimal Assistance 1=Total Assistance 5=Supervision or Setup 2=Maximal Assistance 6=Modified [place] 3=Moderate Assistance 7=Complete IndependenceIRFPAI Quality Coding Scale 6 Independent with activity with or without an assistive device 5 Patient requires set up or clean up by helper. Patient completes activity by themselves 4 Supervision or touching assist (CGA). [place] provide cues , steadying assist 3 The helper provides less than half the effort to complete the activity 2 The helper provides more than half the effort to complete the activity 1 Dependent. The helper does all the effort to complete an activity 7 Patient refused to complete or attempt activity 9 The patient did not perform the activity before the current illness or injury 88 Not attempted due to Medical conditions or safety concerns Transfers (B, C, W/C) (FIM): 4 Scootin Rollin Supine to/from Sit: 4 Sit to/from Stand: 5 somewhat slow to perform, insisting upon help with supine to sit. Becomes SOA easily Weight Bearing Right Lower Extremity: Right Full Weight Bearing Left Lower Extremity: Left Full Weight Bearing Gait Training Gait (FIM): 2 Distance (FIM): 0=140-77 ft Distance: 110 Gait Level of Assist: 4 Gait Persons Needed: 1 Gait Assistive Device: FWW Becomes SOA easily and requiring standing rest breaks leaning fwd onto walker with verb inst for breathing techniques Treatments Gait and transfer training Assessment Current Status: Fair Progress SOA with all activities. PT Short Term Goals Short Term Goals Time Frame: May 28, 2018 Transfers (B,C,W/C) (FIM): 5 Gait (FIM): 5 Gait Distance Comment: 150' Gait Level of Assist: 5 Gait Assistive Device: FWW PT Plan Problem List Problem List: Activity Tolerance, Functional Strength, Safety, Gait, Transfer, Bed Mobility Treatment/Plan Treatment Plan: Continue Plan of Care Treatment Plan: Bed Mobility, Education, Functional Activity [place], Functional Strength, Gait, Safety, Therapeutic Exercise, Transfers Treatment Duration: May 28, 2018 Frequency: 6 times per week Estimated Hrs Per Day: .25 hour per day (15-30') Patient and/or Family Agrees t: Yes Safety Risks/Education Patient Education: Gait Training, Transfer Techniques, Safety Issues Teaching Recipient: Patient Teaching Methods: Demonstration, Discussion Response to Teaching: Verbalize Understanding, Return Demonstration, Reinforcement Needed inst in breathing techniques Time/GCodes Time In: 1114 Time Out: 1139 Total Billed Treatment Time: 25 Total Billed Treatment 1 Visit Gait x1 FA x1 CHAR RUBY SLITTER CREASER SLOTTER OPERATOR May 22, 2018 11:41
[2018-05-22 12:00] VITALS: BP 114/54
--- NOTE | 2018-05-22 12:47 | Progress Note-Hospitalist ---
Progress Note Progress Notes/Assess & Plan Date Seen 05/22/18 Time Seen by Provider: 12:43 Assessment & Plan The patient was eating lunch when I came in. I explained to him that I did not expect any great improvements in his heart and congestive heart failure's symptoms. It is noted that when he was here in April he had a BNP of 1517. On this visit it is 3896. He had an echocardiogram done on 04/03/18 which showed relatively good ejection fraction but the pulmonary artery pressure of 55. He has a prosthetic aortic valve and moderate mitral regurgitation was noted. Despite all of these terminal markers he has elected to be a full code and does not seem to understand the finality of his heart function declined. Physical exam: He was eating a light lunch with some vigor when I entered the room. Lungs showed shallow respirations and no Rales or rhonchi were noted. CV was regular. Ankles showed 1-2+ pedal edema. Impression: 1.congestive heart failure. 2.diastolic dysfunction. 3.prosthetic aortic valve. 4.mitral regurgitation. 5.pulmonary artery pressure elevation at 55/20. Plan: Continue diuretics. Focused Exam Lactate Level 05/20/18 08:57: Lactic Acid Level 3.44*H 05/20/18 12:06: Lactic Acid Level 1.65 LISA PAINTER MD May 22, 2018 12:47
--- NOTE | 2018-05-22 14:31 | Cardiology Progress Note ---
Cardiology SOAP Progress Note Subjective: Mild shortness of breath. Objective: I&O/Vital Signs 05/22/18 05/22/18 05/22/18 05/22/18 04:00 07:00 08:00 10:14 Temp 97.4 98.6 Pulse 80 82 82 Resp 16 16 B/P (MAP) 118/45 (69) 106/43 (64) Pulse Ox 94 93 96 O2 Delivery Nasal Cannula Nasal Cannula Nasal Cannula O2 Flow Rate 3.00 3.00 3.00 05/22/18 05/22/18 12:00 13:00 Temp 97.9 Pulse 80 81 Resp 16 B/P (MAP) 114/54 (74) Pulse Ox 94 O2 Delivery Nasal Cannula O2 Flow Rate 3.00 05/22/18 00:00 Intake Total 1980 ml Output Total 425 ml Balance 1555 ml Weight (Pounds): 180 Weight (Ounces): 0.0 Weight (Calculated Kilograms): 81.412419 Constitutional: AAO x 3 Respiratory: No accessory muscle use, No respiratory distress, No chest tender , No chest expansion is symmetric; chest is bilaterally symmetric; No lungs clear to percussion; lungs clear to auscultation; No crackles, No rhonchi, No rales, No stridor, No wheezing, No pleural rub, No other Cardiovascular: regular rate-rhythm; No irregularly irregular, No extra beats, No parasternal heave is noted, No JVD, No edema, No bradycardia, No tachycardia , No point of maximal impulse, No cardiac thrills are palpable; S1 and S2; No gallop/S3, No gallop/S4, No diastolic murmur; systolic murmur; No friction rub, No click, No other Gastrointestional: No tender, No soft, No round, No distended, No pulsatile mass, No organomegaly, No guarding, No rebound, No tenderness, No hernia, No mass, No audible bowel sounds, No abnormal bowel sounds, No abdominal bruits, No spleenomegaly, No other Extremities: No normal range of motion, No non-tender, No normal inspection, No pedal edema, No calf tenderness, No normal capillary refill, No pelvis stable , No calf tenderness, No inflammation, No pedal edema, No slow capillary refill , No swelling, No other, No abrasion, No clubbing, No cyanosis, No ecchymosis, No laceration, No no lower extremity edema bilateral, No significant edema, No tenderness, No wound Neurologic/Psychiatric: no motor/sensory deficits, alert, normal mood/affect, oriented x 3 Skin: No normal color, No warm/dry, No cyanosis, No cool, No diaphoresis, No damp, No ecchymosis, No jaundice, No mottled, No pallor, No rash, No tattoos/ piercings, No ulcerations, No rash on exposed areas, No ulcerations on exposed areas, No other Results/Procedures: Labs Laboratory Tests 05/22/18 06:25: White Blood Count 6.0, Red Blood Count 2.91L, Hemoglobin 8.8L, Hematocrit 29L, Mean Corpuscular Volume 100H, Mean Corpuscular Hemoglobin 30, Mean Corpuscular Hemoglobin Concent 30L, Red Cell Distribution Width 16.7H, Platelet Count 152, Mean Platelet Volume 11.5H, Neutrophils (%) (Auto) 83H, Lymphocytes (%) (Auto) 7L, Monocytes (%) (Auto) 9, Eosinophils (%) (Auto) 1, Basophils (%) (Auto) 0, Neutrophils # (Auto) 5.0, Lymphocytes # (Auto) 0.4L, Monocytes # (Auto) 0.5, Eosinophils # (Auto) 0.1, Basophils # (Auto) 0.0, Sodium Level 141, Potassium Level 3.4L, Chloride Level 105, Carbon Dioxide Level 25, Anion Gap 11, Blood Urea Nitrogen 61H, Creatinine 1.79H, Estimat Glomerular Filtration Rate 36, BUN/ Creatinine Ratio 34, Glucose Level 118H, Calcium Level 8.5, Corrected Calcium 9.1, Total Bilirubin 1.1H, Aspartate Amino Transf (AST/SGOT) 76H, Alanine Aminotransferase (ALT/SGPT) 140H, Alkaline Phosphatase 73, Total Protein 5.3L, Albumin 3.2 Microbiology 05/20/18 Blood Culture - Preliminary, Resulted No growth 05/20/18 Urine Culture - Final, Complete NO GROWTH A/P: Assessment/Dx: Admission Diagnosis Congestive heart failure Acute renal failure Shortness of breath Debility Coronary artery disease Plan: Assessment/Plan Congestive heart failure, acute on chronic left ventricular systolic and diastolic dysfunction, worsening recently on top of renal failure, responding to IV Lasix. Acute on chronic renal failure, slight improvement in renal function with diuresis. Continue on IV Lasix and monitor Status post fall with generalized weakness and debility. Recommend physical therapy Coronary artery disease, history of CABG 2 done in 1995, cardiac catheterization done in 2008 showing 8 and ARNOLD to LAD with occluded LAD, occluded bypass to the circumflex artery with occluded circumflex artery, 70 percent mid RCA stenosis. Patient had aortic valve replacement with Equine valve in addition to another bypass using 1 graft. Underwent cardiac catheterization done on March 22, 2018 with left [id number] 1 atherectomy with Rotablator with left [id number] 1 stenting using 2.75 x 28 mm drug-eluting Promus Premier stent deployed in the left main into the OMB 1. LAD has 90 percent proximal narrowing but good filling from LAD to THUY. Lesion was left alone. underwent repeat cardiac catheterization on April after having worsening dyspnea revealing patent stent extending from the left main to the circumflex and obtuse marginal branch with good flow distally, continue on aspirin and Plavix Aortic valve replacement, had history of equine involved placement in 2008, recent 2-D echocardiogram done April 03, 2018 revealing mild aortic stenosis. Continue to monitor. Hypertension, restart beta blockers and monitor Hyperlipidemia, I am holding simvastatin due to elevated liver enzymes. Continue to monitor Carotid artery stenosis-nonobstructive disease bilaterally per carotid duplex done March 2018, continue to monitor History of tobaccoism, stopped smoking in 1987. History of colon cancer, status post chemotherapy BPH, maintained on Flomax, will place a Maldonado catheter and evaluate the urine output and monitor closely Thank you for your consultation. Please call me if you have any questions. Stella Willis MD, FACP, FACC, FSCAI, FHRS, CCDS Interventional Cardiology Cardiac Electrophysiology Vascular Medicine and Endovascular Interventions Focused Exam Lactate Level 05/20/18 08:57: Lactic Acid Level 3.44*H 05/20/18 12:06: Lactic Acid Level 1.65 Mary WILLIS MD May 22, 2018 2:31 pm
[2018-05-22 16:10] VITALS: BP 123/58
[2018-05-22] MEDS: TAMSULOSIN 0.4 MG (FLOMAX) CAP PO SCH (17:22)
[2018-05-22 19:25] VITALS: BP 126/58
[2018-05-22] MEDS: ZOLPIDEM 5 MG (AMBIEN) TAB PO PRN (21:59)
[2018-05-22] MEDS: ONDANSETRON 4 MG/2 ML (SDV) Z0FRAN IVP PRN (22:25)
[2018-05-23] VITALS: BP 119/56
[2018-05-23] MEDS: RT-ALBUTEROL/IPRATROPIUM 3 ML (DUONEB) VIAL INH SCH ×2 (01:34→06:47)
[2018-05-23] MEDS: ONDANSETRON 4 MG/2 ML (SDV) Z0FRAN IVP PRN (02:16)
[2018-05-23] MEDS ORDERED: PROMETHAZINE INJ 25 MG/ML (PHENERGAN) AMP IVP PRN (03:15)
[2018-05-23 04:00] VITALS: BP 120/58
[2018-05-23] MEDS ORDERED: PANTOPRAZOLE 40 MG (PROTONIX) VIAL IV ONE (04:00)
[2018-05-23 06:29] LABS: BASOPHILS % (AUTO) 0 % (0-10); EOSINOPHILS # (AUTO) 0.1 10^3/uL (0.0-0.3); EOSINOPHILS % (AUTO) 1 % (0-10); HEMATOCRIT 31 % (40-54); HEMOGLOBIN 9.1 G/DL (13.3-17.7); LYMPHOCYTES # (AUTO) 0.4 X 10^3 (1.0-4.0); LYMPHOCYTES % (AUTO) 6 % (12-44); MEAN CORPUSCULAR HEMOGLOBIN 30 PG (25-34); MEAN CORPUSCULAR HGB CONC 30 G/DL (32-36); MEAN CORPUSCULAR VOLUME 102 FL (80-99); MEAN PLATELET VOLUME 11.1 FL (7.4-10.4); MONOCYTES # (AUTO) 0.6 X 10^3 (0.0-1.0); MONOCYTES % (AUTO) 9 % (0-12); NEUTROPHILS # (AUTO) 5.7 X 10^3 (1.8-7.8); NEUTROPHILS % (AUTO) 84 % (42-75); PLATELET COUNT 165 10^3/uL (130-400); RED BLOOD COUNT 2.99 10^6/uL (4.35-5.85); WHITE BLOOD COUNT 6.7 10^3/uL (4.3-11.0)
[2018-05-23 07:02] LABS: ALBUMIN 3.4 GM/DL (3.2-4.5); BILIRUBIN,TOTAL 0.8 MG/DL (0.1-1.0); CREATININE SERUM 1.79 MG/DL (0.60-1.30); POTASSIUM 3.9 MMOL/L (3.6-5.0); TOTAL PROTEIN 5.9 GM/DL (6.4-8.2)
[2018-05-23] MEDS: FUROSEMIDE 40 MG/4 ML INJ (LASIX) IV SCH (07:40)
[2018-05-23 08:00] VITALS: BP 126/43
[2018-05-23] MEDS ORDERED: PANTOPRAZOLE 40 MG (PROTONIX) VIAL IV SCH ×2 (09:00)
[2018-05-23] MEDS: amLODIPine 5 MG (NORVASC) TAB PO SCH (09:55)
[2018-05-23 12:00] VITALS: BP 118/54
--- NOTE | 2018-05-23 13:08 | Cardiology Progress Note ---
Cardiology SOAP Progress Note Subjective: Complains of stomach ache, hematemesis/hemoptysis Objective: I&O/Vital Signs 05/23/18 05/23/18 05/23/18 05/23/18 01:35 04:00 06:48 06:50 Temp 98.4 Pulse 81 76 Resp 20 B/P (MAP) 120/58 (78) Pulse Ox 92 93 O2 Delivery Nasal Cannula Nasal Cannula Nasal Cannula O2 Flow Rate 3.00 3.00 3.00 FiO2 32 05/23/18 05/23/18 08:00 08:00 Temp 97.4 Pulse 84 Resp 16 B/P (MAP) 126/43 (70) Pulse Ox 96 O2 Delivery Nasal Cannula Nasal Cannula O2 Flow Rate 3.00 4.00 05/23/18 00:00 Intake Total 1020 ml Output Total 625 ml Balance 395 ml Weight (Pounds): 186 Weight (Ounces): 0.0 Weight (Calculated Kilograms): 84.668793 Constitutional: AAO x 3 Respiratory: No accessory muscle use, No respiratory distress, No chest tender , No chest expansion is symmetric; chest is bilaterally symmetric; No lungs clear to percussion; lungs clear to auscultation; No crackles, No rhonchi, No rales, No stridor, No wheezing, No pleural rub, No other Cardiovascular: regular rate-rhythm; No irregularly irregular, No extra beats, No parasternal heave is noted, No JVD, No edema, No bradycardia, No tachycardia , No point of maximal impulse, No cardiac thrills are palpable; S1 and S2; No gallop/S3, No gallop/S4, No diastolic murmur; systolic murmur; No friction rub, No click, No other Gastrointestional: No tender, No soft, No round, No distended, No pulsatile mass, No organomegaly, No guarding, No rebound, No tenderness, No hernia, No mass, No audible bowel sounds, No abnormal bowel sounds, No abdominal bruits, No spleenomegaly, No other Extremities: No normal range of motion, No non-tender, No normal inspection, No pedal edema, No calf tenderness, No normal capillary refill, No pelvis stable , No calf tenderness, No inflammation, No pedal edema, No slow capillary refill , No swelling, No other, No abrasion, No clubbing, No cyanosis, No ecchymosis, No laceration, No no lower extremity edema bilateral, No significant edema, No tenderness, No wound Neurologic/Psychiatric: no motor/sensory deficits, alert, normal mood/affect, oriented x 3 Skin: No normal color, No warm/dry, No cyanosis, No cool, No diaphoresis, No damp, No ecchymosis, No jaundice, No mottled, No pallor, No rash, No tattoos/ piercings, No ulcerations, No rash on exposed areas, No ulcerations on exposed areas, No other Results/Procedures: Labs Laboratory Tests 05/23/18 05:35: White Blood Count 6.7, Red Blood Count 2.99L, Hemoglobin 9.1L, Hematocrit 31L, Mean Corpuscular Volume 102H, Mean Corpuscular Hemoglobin 30, Mean Corpuscular Hemoglobin Concent 30L, Red Cell Distribution Width 17.0H, Platelet Count 165, Mean Platelet Volume 11.1H, Neutrophils (%) (Auto) 84H, Lymphocytes (%) (Auto) 6L, Monocytes (%) (Auto) 9, Eosinophils (%) (Auto) 1, Basophils (%) (Auto) 0, Neutrophils # (Auto) 5.7, Lymphocytes # (Auto) 0.4L, Monocytes # (Auto) 0.6, Eosinophils # (Auto) 0.1, Basophils # (Auto) 0.0, Sodium Level 139, Potassium Level 3.9, Chloride Level 103, Carbon Dioxide Level 26, Anion Gap 10, Blood Urea Nitrogen 59H, Creatinine 1.79H, Estimat Glomerular Filtration Rate 36, BUN/ Creatinine Ratio 33, Glucose Level 151H, Calcium Level 9.0, Corrected Calcium 9.5, Total Bilirubin 0.8, Aspartate Amino Transf (AST/SGOT) 60H, Alanine Aminotransferase (ALT/SGPT) 126H, Alkaline Phosphatase 79, Total Protein 5.9L, Albumin 3.4 Microbiology 05/20/18 Blood Culture - Preliminary, Resulted No growth 05/20/18 Urine Culture - Final, Complete NO GROWTH A/P: Assessment/Dx: Admission Diagnosis Congestive heart failure Acute renal failure Shortness of breath Debility Coronary artery disease, Hemoptysis/hematemesis/stomach pain Plan: Assessment/Plan Hemoptysis/hematemesis/abdominal discomfort: Deferred to the primary team. Congestive heart failure, acute on chronic left ventricular systolic and diastolic dysfunction, worsening recently on top of renal failure, responding to IV Lasix. Acute on chronic renal failure, slight improvement in renal function with diuresis. Continue on IV Lasix and monitor Status post fall with generalized weakness and debility. Recommend physical therapy Coronary artery disease, history of CABG 2 done in 1995, cardiac catheterization done in 2008 showing 8 and ARNOLD to LAD with occluded LAD, occluded bypass to the circumflex artery with occluded circumflex artery, 70 percent mid RCA stenosis. Patient had aortic valve replacement with Equine valve in addition to another bypass using 1 graft. Underwent cardiac catheterization done on March 22, 2018 with left [id number]-rpwowgijrz-HVR 1 atherectomy with Rotablator with left [id number]-[id number]-PWW 1 stenting using 2.75 x 28 mm drug-eluting Promus Premier stent deployed in the left main into the OMB 1. LAD has 90 percent proximal narrowing but good filling from LAD to THUY. Lesion was left alone. underwent repeat cardiac catheterization on April after having worsening dyspnea revealing patent stent extending from the left main to the circumflex and obtuse marginal branch with good flow distally, continue on aspirin and Plavix Aortic valve replacement, had history of equine involved placement in 2008, recent 2-D echocardiogram done April 03, 2018 revealing mild aortic stenosis. Continue to monitor. Hypertension, restart beta blockers and monitor Hyperlipidemia, I am holding simvastatin due to elevated liver enzymes. Continue to monitor Carotid artery stenosis-nonobstructive disease bilaterally per carotid duplex done March 2018, continue to monitor History of tobaccoism, stopped smoking in 1987. History of colon cancer, status post chemotherapy BPH, maintained on Flomax, will place a Maldonado catheter and evaluate the urine output and monitor closely Thank you for your consultation. Please call me if you have any questions. Stella Willis MD, FACP, FACC, FSCAI, FHRS, CCDS Interventional Cardiology Cardiac Electrophysiology Vascular Medicine and Endovascular Interventions Mary WILLIS MD May 23, 2018 1:08 pm
--- NOTE | 2018-05-23 13:11 | Progress Note-Hospitalist ---
Progress Note Progress Notes/Assess & Plan Date Seen 05/23/18 Time Seen by Provider: 13:06 Assessment & Plan Mr. Murcia's condition continues to decline. He has seemed to be uncomfortable and confused. He has been removing his O2 and his SaO2 falls accordingly. The friends and family have discussed this in decided to make him a DO NOT RESUSCITATE status. They are interested in his comfort. This appears to be appropriate and reasonable. Physical exam: He stirs about in bed but does not open his eyes during the conversation. Lungs show some gurgling scattered throughout the lung turner. CV is poorly heard. Impression: Pulmonary edema/end-of-life. Plan: Orders more appropriate for comfort. LISA PAINTER MD May 23, 2018 13:11
[2018-05-23] MEDS ORDERED: SCOPOLAMINE 1.5 MG (TRANSDERM-SCOP) PATCH TD NR (13:15)
[2018-05-23] MEDS ORDERED: RT-ALBUTEROL/IPRATROPIUM 3 ML (DUONEB) VIAL INH SCH (14:00)
[2018-05-24] MEDS: morphine INJ 4 MG/ML 1 ML (VIAL/SYRINGE) IVP PRN ×4 (08:23→23:53)
[2018-05-24] MEDS ORDERED: PANTOPRAZOLE 40 MG (PROTONIX) VIAL IV SCH (09:00)
--- NOTE | 2018-05-24 10:07 | Progress Note-Hospitalist ---
Subjective HPI/CC On Admission Date Seen by Provider: May 24, 2018 Time Seen by Provider: 10:02 CC: Found down at home now with severe congestive heart failure Subjective/Events-last exam Pt reports some SOB. No other complaints. Would like to try morphine. Objective Exam Vital Signs Vital Signs Date Time Temp Pulse Resp B/P (MAP) Pulse Ox O2 Delivery O2 Flow Rate FiO2 05/24/18 11:32 91 Nasal Cannula 4.00 05/23/18 12:00 97.4 81 16 118/54 (75) 05/23/18 06:50 32 Capillary Refill : Less Than 3 SecondsLess Than 3 Seconds General Appearance: No Apparent Distress, Chronically ill Respiratory: Lungs Clear, No Respiratory Distress, Other (shallow breathing) Neurologic/Psychiatric: Alert, Oriented x3 Results/Procedures Lab Patient resulted labs reviewed. Assessment/Plan Assessment and Plan Assess & Plan/Chief Complaint End of Life Care Diagnosis/Problems Diagnosis/Problems (1) End of life care Assessment & Plan: Severe cardiomyopathy- end stage Comfort care order set placed Palliative care consulted, appreciate care Monitor progress- if plateaus consider NH placement Clinical Quality Measures DVT/VTE Risk/Contraindication: Risk Factor Score Per Nursin RFS Level Per Nursing on Admit: 4+=Very High ODALIS BROWNE MD May 24, 2018 10:07 am
[2018-05-24] MEDS ORDERED: ONDANSETRON 4 MG/2 ML (SDV) Z0FRAN IVP PRN (10:15)
[2018-05-24] MEDS ORDERED: PROMETHAZINE INJ 25 MG/ML (PHENERGAN) AMP IVP PRN (10:15)
[2018-05-24] MEDS ORDERED: BISACODYL 10 MG SUPP (DULCOLAX) PR PRN (10:15)
[2018-05-24] MEDS ORDERED: ZOLPIDEM 5 MG (AMBIEN) TAB PO PRN (10:15)
[2018-05-24] MEDS ORDERED: RT-ALBUTEROL/IPRATROPIUM 3 ML (DUONEB) VIAL INH PRN (10:15)
[2018-05-24] MEDS ORDERED: ACETAMINOPHEN 650 MG SUPP (TYLENOL) PR PRN (10:15)
[2018-05-24] MEDS ORDERED: morphine (ROXINOL) 10 MG/0.5 ML oral conc 0.5 ML PO PRN (10:15)
[2018-05-24] MEDS ORDERED: SALIVA STIMULANT MOUTH SPRAY (BIOTENE) 1.5 OZ MM PRN (10:15)
[2018-05-24] MEDS ORDERED: ARTIFICAL TEARS 0.4 ML UNIT DOSE (REFRESH PLUS) OU PRN (10:15)
[2018-05-24] MEDS ORDERED: GLYCOPYRROLATE 0.2 MG/ML (ROBINUL) 2 ML VIAL IV PRN (10:15)
--- NOTE | 2018-05-24 11:46 | Cardiology Progress Note ---
Cardiology SOAP Progress Note Subjective: No cardiac complaints. Objective: I&O/Vital Signs 05/24/18 05/24/18 08:14 11:32 Pulse Ox 91 O2 Delivery Nasal Cannula Nasal Cannula O2 Flow Rate 4.00 4.00 05/24/18 00:00 Intake Total 1000 ml Output Total 475 ml Balance 525 ml Weight (Pounds): 186 Weight (Ounces): 0.0 Weight (Calculated Kilograms): [id number] Constitutional: AAO x 3 Respiratory: No accessory muscle use, No respiratory distress, No chest tender , No chest expansion is symmetric; chest is bilaterally symmetric; No lungs clear to percussion; lungs clear to auscultation; No crackles, No rhonchi, No rales, No stridor, No wheezing, No pleural rub, No other Cardiovascular: regular rate-rhythm; No irregularly irregular, No extra beats, No parasternal heave is noted, No JVD, No edema, No bradycardia, No tachycardia , No point of maximal impulse, No cardiac thrills are palpable; S1 and S2; No gallop/S3, No gallop/S4, No diastolic murmur; systolic murmur; No friction rub, No click, No other Gastrointestional: No tender, No soft, No round, No distended, No pulsatile mass, No organomegaly, No guarding, No rebound, No tenderness, No hernia, No mass, No audible bowel sounds, No abnormal bowel sounds, No abdominal bruits, No spleenomegaly, No other Extremities: No normal range of motion, No non-tender, No normal inspection, No pedal edema, No calf tenderness, No normal capillary refill, No pelvis stable , No calf tenderness, No inflammation, No pedal edema, No slow capillary refill , No swelling, No other, No abrasion, No clubbing, No cyanosis, No ecchymosis, No laceration, No no lower extremity edema bilateral, No significant edema, No tenderness, No wound Neurologic/Psychiatric: no motor/sensory deficits, alert, normal mood/affect, oriented x 3 Skin: No normal color, No warm/dry, No cyanosis, No cool, No diaphoresis, No damp, No ecchymosis, No jaundice, No mottled, No pallor, No rash, No tattoos/ piercings, No ulcerations, No rash on exposed areas, No ulcerations on exposed areas, No other Results/Procedures: Labs Microbiology 05/20/18 Blood Culture - Preliminary, Resulted No growth 05/20/18 Urine Culture - Final, Complete NO GROWTH A/P: Assessment/Dx: Admission Diagnosis Congestive heart failure Acute renal failure Shortness of breath Debility Coronary artery disease, Hemoptysis/hematemesis/stomach pain Plan: Assessment/Plan I am told that the patient is moving towards [facility]ice. He doesn't want anything aggressive to workup possible hemoptysis/hematemesis. Hemoptysis/hematemesis/abdominal discomfort: Deferred to the primary team. Aspirin/Plavix held. Congestive heart failure, acute on chronic left ventricular systolic and diastolic dysfunction, worsening recently on top of renal failure, responding to IV Lasix. Acute on chronic renal failure, slight improvement in renal function with diuresis. Continue on IV Lasix and monitor Status post fall with generalized weakness and debility. Recommend physical therapy Coronary artery disease, history of CABG 2 done in 1995, cardiac catheterization done in 2008 showing 8 and ARNOLD to LAD with occluded LAD, occluded bypass to the circumflex artery with occluded circumflex artery, 70 percent mid RCA stenosis. Patient had aortic valve replacement with Equine valve in addition to another bypass using 1 graft. Underwent cardiac catheterization done on March 22, 2018 with left [id number] 1 atherectomy with Rotablator with left [id number] 1 stenting using 2.75 x 28 mm drug-eluting Promus Premier stent deployed in the left main into the OMB 1. LAD has 90 percent proximal narrowing but good filling from LAD to THUY. Lesion was left alone. underwent repeat cardiac catheterization on April after having worsening dyspnea revealing patent stent extending from the left main to the circumflex and obtuse marginal branch with good flow distally, continue on aspirin and Plavix Aortic valve replacement, had history of equine involved placement in 2008, recent 2-D echocardiogram done April 03, 2018 revealing mild aortic stenosis. Continue to monitor. Hypertension, restart beta blockers and monitor Hyperlipidemia, I am holding simvastatin due to elevated liver enzymes. Continue to monitor Carotid artery stenosis-nonobstructive disease bilaterally per carotid duplex done March 2018, continue to monitor History of tobaccoism, stopped smoking in 1987. History of colon cancer, status post chemotherapy BPH, maintained on Flomax, will place a Maldonado catheter and evaluate the urine output and monitor closely Thank you for your consultation. Please call me if you have any questions. Stella Willis MD, FACP, FACC, FSCAI, FHRS, CCDS Interventional Cardiology Cardiac Electrophysiology Vascular Medicine and Endovascular Interventions Mary WILLIS MD May 24, 2018 11:46 am
[2018-05-24] MEDS: LORazepam INJ 2 MG/ML (ATIVAN) VIAL IVP PRN ×2 (18:15→22:16)
[2018-05-26] MEDS ORDERED: SCOPOLAMINE PATCH REMOVAL TP SCH (13:14)
== END 2018-05-25 04:15 | disposition expired | DRG 291 ==
LOC: EDUNIT# 08:26 → ER 08:29 → 4TH 11:19
PROVIDERS: ADMIT Internal Medicine; ATTEND Family Medicine
DX: I13.0 Hypertensive heart and chronic kidney disease with heart failure and stage 1 through stage 4 chronic kidney disease, or unspecified chronic kidney disease (principal); I50.43 Acute on chronic combined systolic (congestive) and diastolic (congestive) heart failure; N18.4 Chronic kidney disease, stage 4 (severe); N17.9 Acute kidney failure, unspecified; K72.01 Acute and subacute hepatic failure with coma; R04.2 Hemoptysis; K92.0 Hematemesis; I25.5 Ischemic cardiomyopathy; Z66 Do not resuscitate; Z51.5 Encounter for palliative care; I34.0 Nonrheumatic mitral (valve) insufficiency; I25.10 Atherosclerotic heart disease of native coronary artery without angina pectoris; E78.5 Hyperlipidemia, unspecified; K21.9 Gastro-esophageal reflux disease without esophagitis; J44.9 Chronic obstructive pulmonary disease, unspecified; N40.0 Benign prostatic hyperplasia without lower urinary tract symptoms; I65.23 Occlusion and stenosis of bilateral carotid arteries; R54 Age-related physical debility; R79.1 Abnormal coagulation profile; W19.XXXA Unspecified fall, initial encounter; Y92.121 Bathroom in nursing home as the place of occurrence of the external cause; Z87.891 Personal history of nicotine dependence; Z95.1 Presence of aortocoronary bypass graft; Z95.2 Presence of prosthetic heart valve; Z95.5 Presence of coronary angioplasty implant and graft; Z85.038 Personal history of other malignant neoplasm of large intestine
CPT/HCPCS: 36415; 51701; 70450; 71045; 80053; 81000; 82140; 82550; 83605; 83735; 83880; 84484; 85007; 85025; 85027; 85610; 85730; 87040; 87088; 93005; 94640; 94760; 96361; 96374